=== PATIENT | female | born 1935 | race Caucasian/White ===

== ENCOUNTER 2021-08-22 08:04 | Emergency (ER) | payer MEDICARE, SELFPAY ==
--- NOTE | ~2021-08-22 | CT_ITS ---
EXAMINATION: CT HEAD WITHOUT CONTRAST CLINICAL INFORMATION: Hit head on Coumadin. COMPARISON: None TECHNIQUE: Contiguous axial imaging was performed from the skull base to vertex without intravenous administration of contrast. This CT examination was performed using dose optimization techniques as appropriate, variously including the following: *Automated exposure control *Adjustment of mA and/or kV according to patient size (this includes techniques or standardized protocols for targeted exams where dose is matched to indication/reason for exam; i.e. extremities or head) *Use of iterative reconstruction technique DLP: 642 mGy-cm FINDINGS: There is no evidence of acute intracranial hemorrhage or territorial infarction. No abnormal mass effect or midline shift is seen. Gr to white matter differentiation is well preserved. No extra-axial fluid collections are identified. The lateral ventricles are symmetrical in size and configuration without enlargement. There is mild periventricular hypodensity in both cerebral hemispheres without mass effect. The osseous structures and soft tissues are normal. The mastoid air cells and visualized portions of the paranasal sinuses are well aerated. CT/CT head/brain wo con IMPRESSION: No acute intracranial process seen. Age-related cerebral volume loss. Mild chronic small vessel ischemic changes.
--- NOTE | ~2021-08-22 | XR_ITS ---
EXAMINATION: LEFT FOREARM AND HUMERUS CLINICAL INFORMATION: Fall with injury COMPARISON: None TECHNIQUE: AP and lateral left forearm. AP and transthoracic left humerus. FINDINGS: There is osteopenia visualized bones. There is some soft tissue edema noted about the dorsum of the proximal ulnar. There is some spurring about some insertion of the triceps tendon as well as coronoid process. There is degenerative change of the triscaphe joint with narrowing and some sclerosis with spurring. There is degenerative change of the first carpal metacarpal joint with joint space narrowing and sclerosis. No definite acute fracture of the radius or ulnar identified. There is an oblique fracture through the distal left humerus with lateral displacement of the distal fracture fragment by approximately 1 cm. No dislocation is evident. There is degenerative change of the left glenohumeral joint. No definite elbow effusion is appreciated. XR/XR humerus LT IMPRESSION: Osteopenia. Distal left humeral fracture.
--- NOTE | ~2021-08-22 | XR_ITS ---
EXAMINATION: LEFT FOREARM AND HUMERUS CLINICAL INFORMATION: Fall with injury COMPARISON: None TECHNIQUE: AP and lateral left forearm. AP and transthoracic left humerus. FINDINGS: There is osteopenia visualized bones. There is some soft tissue edema noted about the dorsum of the proximal ulnar. There is some spurring about some insertion of the triceps tendon as well as coronoid process. There is degenerative change of the triscaphe joint with narrowing and some sclerosis with spurring. There is degenerative change of the first carpal metacarpal joint with joint space narrowing and sclerosis. No definite acute fracture of the radius or ulnar identified. There is an oblique fracture through the distal left humerus with lateral displacement of the distal fracture fragment by approximately 1 cm. No dislocation is evident. There is degenerative change of the left glenohumeral joint. No definite elbow effusion is appreciated. XR/XR forearm LT 2V IMPRESSION: Osteopenia. Distal left humeral fracture.
--- NOTE | 2021-08-22 08:12 | ED.FALL ---
HPI - Fall General Chief Complaint: Fall Stated Complaint: L ARM PAIN/DEFORMITY,S/P BRACING HERSELF FROM FALL Time Seen by Provider: 08/22/21 08:12 Source: patient and EMS Mode of arrival: EMS Limitations: no limitations History of Present Illness HPI Narrative: patient slipped in the bathroom and pulled her arm. According to EMS the elbow looked deformed. Splinted and given fentanyl. No other injury MD complaint: fall Onset (ago): minute(s) Fall from: standing Fall witnessed: yes, by family Place fall occurred: home Loss of consciousness: none Location of injury - extremities: left: arm and forearm Severity: severe Related Data Home Medications Medication Instructions Recorded Confirmed acetaminophen 500 mg tablet 1,000 mg PO BID 08/22/21 08/22/21 digoxin 125 mcg (0.125 mg) tablet 125 mcg PO DAILY@1700 08/22/21 08/22/21 docusate sodium 100 mg capsule 100 mg PO BID 08/22/21 08/22/21 (Colace) gabapentin 100 mg capsule 1 cap PO DAILY@1700 08/22/21 08/22/21 metoprolol tartrate 50 mg tablet 1 tab PO BID 08/22/21 08/22/21 mirtazapine 15 mg tablet 1 tab PO BEDTIME 08/22/21 08/22/21 warfarin 2.5 mg tablet 2.5 mg PO SUTUWEFRSA@1800 08/22/21 08/22/21 warfarin 2.5 mg tablet 5 mg PO MOTH@1800 08/22/21 08/22/21 Previous Rx's Medication Instructions Recorded oxycodone-acetaminophen 5 mg-325 1 tab PO Q6H PRN #10 tab 08/22/21 mg tablet (Percocet) Allergies Allergy/AdvReac Type Severity Reaction Status Date / Time amoxicillin [AMOXICILLIN] Allergy Severe ANAPHYLAXIS Verified 08/22/21 08:36 iodine [IODINE] Allergy Severe SHORTNESS Verified 08/22/21 08:36 OF BREATH coffee (Coffea arabica) Allergy Intermediate TONGUE Verified 08/22/21 08:36 [COFFEE (BEVERAGE)] SWELLING penicillin G [PENICILLIN G] Allergy Unknown RASH Verified 08/22/21 08:36 shellfish derived Allergy Unknown TONGUE Verified 08/22/21 08:36 [SHELLFISH DERIVED] SWELLING Sulfa (Sulfonamide Allergy Unknown DIFFICULTY Verified 08/22/21 08:36 Antibiotics) BREATHING [SULFA (SULFONAMIDE ANTIBIOTICS)] Review of Systems Constitutional: Constitutional: Reports no additional constitutional complaints Eyes: Eyes: Reports no additional eye complaints ENT: Denies dizziness Cardiovascular: Cardiovascular: Reports no additional cardiovascular complaints Respiratory: Respiratory: Reports as per HPI Gastrointestinal: Gastrointestinal: Reports no additional gastrointestinal complaints Genitourinary: Genitourinary: Reports no additional female genitourinary complaints Musculoskeletal: Musculoskeletal: Reports no additional musculoskeletal complaints Integumentary/Breasts: Skin/Breast: Denies rash Neurologic: Reports system reviewed and no additional complaints, except as documented, Denies dizziness and Denies Sensory deficit (Neuro) Psychiatric: Psychiatric: Denies anxiety [facility] Past Medical History Medical History HTN (hypertension) Social History Social History Advance Directives: Yes Advance Directives Information Provided: Yes Advance Directives on File: Yes Advance Directives Date on File: 08/22/21 Patient : No Physical Exam Vital Signs: Vital Signs: Last Vital Signs Temp 97.7 F 08/22/21 10:54 Pulse 64 08/22/21 13:00 Resp 16 08/22/21 10:54 BP 198/85 H 08/22/21 10:54 Pulse Ox 95 08/22/21 13:00 BMI result Body Mass Index 24.7 Const: General: healthy appearing Nutritional Appearance: average body habitus Orientation/consciousness: oriented to person and patient oriented x3 Limitations: no limitations HENMT: Head: Yes normal to inspection Ears: external ears normal General nose exam: Normal external nose present Mouth: Normal oral and palatal mucosa present and oropharynx normal Throat: Yes posterior oropharynx normal Eyes: General: appearance normal, both eyes and all related structures Neck: Other: supple Neck: Yes normal visual inspection Chest: Chest palpation & inspection: normal inspection of the chest Resp: Auscultation: clear to auscultation bilaterally Cardio: Jugular venous distension: no JVD Rate: regular rate Rhythm: regular rhythm Heart sounds: S1 normal heart sound present and S2 normal heart sound present GI: Inspection: Yes normal to inspection Palpation (GI): Soft to palpation, nontender and No hepatosplenomegaly present Auscultation: normal bowel sounds : General: Yes no CVA tenderness Back/Spine/Pelvis: Back: no CVA tenderness Skin: General skin exam: no rashes or lesions noted Neuro: General: oriented to person and patient oriented x3 Cranial nerves: Yes CN's II-XII intact bilaterally Motor exam (neuro): 5/5 motor strength present throughout Sensory Exam: No Sensory deficit (Neuro) Extrem: Other: elbow, forearm, and humerus with significant pain good DP and neurologically intact. Psych: Appearance: grossly normal Course Reevaluation(s) Reevaluation #1: discussed with Lisbeth from ortho will admit for likely surgery Time: 11:06 Reevaluation #2: Dr Dutton in to see patient will splint, patient to need rehab Time: 11:46 MDM - Fall Lab Data Result diagrams: 08/22/21 09:44 08/22/21 09:44 Labs: Lab Results 08/22/21 08/22/21 08/22/21 Range/Units 09:44 09:44 09:44 WBC 9.4 (4.8-10.8) X10*3/uL RBC 5.14 (4.20-5.50) X10*6/uL Hgb 16.1 H (12.0-16.0) g/dl Hct 49.7 H (37.0-47.0) % MCV 96.7 (80.0-98.0) fL MCH 31.3 (27.0-33.0) pg MCHC 32.4 (31.0-35.0) g/dl RDW 13.4 (11.0-16.0) % Plt Count 255 (160-400) X10*3/uL MPV 10.1 (9.4-12.3) fL Immature Gran % (Auto) 0.2 (0.0-0.4) % Neut % (Auto) 81.5 H (45-73) % Lymph % (Auto) 10.6 L (20-40) % Collin % (Auto) 4.4 (2-11) % Eos % (Auto) 2.7 (0-4) % Baso % (Auto) 0.6 (0-2) % Lymph # (Auto) 1.0 L (1.2-4.9) X10*3/uL Collin # (Auto) 0.4 (0.1-1.2) X10*3/uL Eos # (Auto) 0.3 (0.0-0.4) X10*3/uL Baso # (Auto) 0.1 (0.0-0.2) X10*3/uL Abs Immat Gran (auto) 0.02 (0.00-0.03) X10*3/uL Absolute Neuts (auto) 7.6 (2.0-8.3) x10*3/uL Absolute Nucleated RBC 0.000 (0.0-0.012) X10*3/uL Nucleated RBC % (auto) 0.0 (0.0-0.2) /100WBC PT 31.5 H (9.9-13.0) SEC INR 2.7 H (0.9-1.1) Sodium 143 (135-145) mmol/L Potassium 3.4 (3.3-5.1) mmol/L Chloride 107 (96-108) mmol/L Carbon Dioxide 26 (22-29) mmol/L Anion Gap 13 (12-20) BUN 9 (9-16) mg/dL Creatinine 0.82 (0.5-1.4) mg/dL Estim Creat Clear Calc 44.1 Estimated GFR > 60 Random Glucose 152 H (60-115) mg/dL Calcium 9.3 (8.4-10.2) mg/dL Digoxin (0.8-2.0) ng/mL Influenza Type A (PCR) (Negative) Influenza Type B (PCR) (Negative) RSV RNA Qual (PCR) (Negative) SARS-CoV-2 RNA (RT-PCR) (Negative) 08/22/21 08/22/21 Range/Units 09:44 14:15 WBC (4.8-10.8) X10*3/uL RBC (4.20-5.50) X10*6/uL Hgb (12.0-16.0) g/dl Hct (37.0-47.0) % MCV (80.0-98.0) fL MCH (27.0-33.0) pg MCHC (31.0-35.0) g/dl RDW (11.0-16.0) % Plt Count (160-400) X10*3/uL MPV (9.4-12.3) fL Immature Gran % (Auto) (0.0-0.4) % Neut % (Auto) (45-73) % Lymph % (Auto) (20-40) % Collin % (Auto) (2-11) % Eos % (Auto) (0-4) % Baso % (Auto) (0-2) % Lymph # (Auto) (1.2-4.9) X10*3/uL Collin # (Auto) (0.1-1.2) X10*3/uL Eos # (Auto) (0.0-0.4) X10*3/uL Baso # (Auto) (0.0-0.2) X10*3/uL Abs Immat Gran (auto) (0.00-0.03) X10*3/uL Absolute Neuts (auto) (2.0-8.3) x10*3/uL Absolute Nucleated RBC (0.0-0.012) X10*3/uL Nucleated RBC % (auto) (0.0-0.2) /100WBC PT (9.9-13.0) SEC INR (0.9-1.1) Sodium (135-145) mmol/L Potassium (3.3-5.1) mmol/L Chloride (96-108) mmol/L Carbon Dioxide (22-29) mmol/L Anion Gap (12-20) BUN (9-16) mg/dL Creatinine (0.5-1.4) mg/dL Estim Creat Clear Calc Estimated GFR Random Glucose (60-115) mg/dL Calcium (8.4-10.2) mg/dL Digoxin 0.5 L (0.8-2.0) ng/mL Influenza Type A (PCR) NEGATIVE (Negative) Influenza Type B (PCR) NEGATIVE (Negative) RSV RNA Qual (PCR) NEGATIVE (Negative) SARS-CoV-2 RNA (RT-PCR) NEGATIVE (Negative) Imaging Data CT scan - head: Radiologist's impression: IMPRESSION: No acute intracranial process seen. ? Age-related cerebral volume loss. ? Mild chronic small vessel ischemic changes. hymerus and forearm: Radiologist's impression: There is an oblique fracture through the distal left humerus with lateral displacement of the distal fracture fragment by approximately 1 cm. No dislocation is evident. There is degenerative change of the left glenohumeral joint. No definite elbow effusion is appreciated. XR/XR humerus LT IMPRESSION: Osteopenia. ? Distal left humeral fracture.? ECG Data Attestation: I personally reviewed and interpreted this ECG as follows: Interpretation: atrial fibrillation no st or twave changes Discharge Plan Discharge Clinical Impression: Fracture, humerus closed Qualifiers: Encounter type: initial encounter Humerus Location: distal Fracture morphology: other fracture Fracture alignment: displaced Laterality: left Qualified Code(s): S42.492A - Other displaced fracture of lower end of left humerus, initial encounter for closed fracture Patient Disposition: er [facility] Instructions: Arm Fracture in Adults (ED) Prescriptions: New oxycodone-acetaminophen [Percocet] 5-325 mg tablet 1 tab PO Q6H PRN (Reason: pain) Qty: 10 RF: 0 No Action warfarin 2.5 mg tablet 2.5 mg PO SUTUWEFRSA@1800 RF: 0 warfarin 2.5 mg tablet 5 mg PO MOTH@1800 RF: 0 acetaminophen 500 mg Tablet 1,000 mg PO BID RF: 0 metoprolol tartrate 50 mg tablet 1 tab PO BID RF: 0 docusate sodium [Colace] 100 mg Capsule 100 mg PO BID RF: 0 mirtazapine 15 mg tablet 1 tab PO BEDTIME RF: 0 gabapentin 100 mg capsule 1 cap PO DAILY@1700 RF: 0 digoxin 125 mcg (0.125 mg) tablet 125 mcg PO DAILY@1700 RF: 0 Referrals: [facility] [Outside] - 2 days Js Dutton MD [Physician] - 5 days
[2021-08-22 08:22] VITALS: BP 187/95; PULSE 58; RESP 16; TEMP 36.6; O2SAT 95; BMI 24.7
--- NOTE | 2021-08-22 08:58 | ECG_ITS ---
Test Reason : FALL Blood Pressure : / mmHG Vent. Rate : 056 BPM Atrial Rate : 000 BPM P-R Int : 000 ms QRS Dur : 096 ms QT Int : 430 ms P-R-T Axes : 000 -20 -17 degrees QTc Int : 414 ms Atrial fibrillation with slow ventricular response Minimal voltage criteria for LVH, may be normal variant ( [place] product ) Nonspecific T wave abnormality Abnormal ECG When compared with ECG of 30-SEP-2019 07:22, No significant change was found Referred By: Jf Jansen Electronically Signed By:MOE CORDERO
[2021-08-22 09:49] VITALS: BP 196/83; PULSE 58; RESP 18; O2SAT 98
[2021-08-22 09:53] LABS: MANUAL DIFF FLAG NO
[2021-08-22 09:59] LABS: Basophils Absolute Auto 0.1 X10*3/uL (0.0-0.2); Basophils Percent Auto 0.6 % (0-2); Eosinophils Absolute Auto 0.3 X10*3/uL (0.0-0.4); Eosinophils Percent Auto 2.7 % (0-4); Hematocrit 49.7 % (37.0-47.0); Hemoglobin 16.1 g/dl (12.0-16.0); Imm Gran Abs Auto 0.02 X10*3/uL (0.00-0.03); Imm Gran Pct Auto 0.2 % (0.0-0.4); Lymphocytes Percent Auto 10.6 % (20-40); Mean Corpuscular HGB Conc 32.4 g/dl (31.0-35.0); Mean Corpuscular Hemoglobin 31.3 pg (27.0-33.0); Mean Corpuscular Volume 96.7 fL (80.0-98.0); Mean Platelet Volume 10.1 fL (9.4-12.3); Monocytes Absolute Auto 0.4 X10*3/uL (0.1-1.2); Monocytes Percent Auto 4.4 % (2-11); Neutrophils Absolute Auto 7.6 x10*3/uL (2.0-8.3); Neutrophils Percent Auto 81.5 % (45-73); Platelet Count 255 X10*3/uL (160-400); Red Blood Count 5.14 X10*6/uL (4.20-5.50); Red Cell Distribution Width 13.4 % (11.0-16.0); White Blood Count 9.4 X10*3/uL (4.8-10.8)
[2021-08-22 10:02] LABS: INTERNATIONAL NORM RATIO 2.7 (0.9-1.1); Prothrombin Time 31.5 SEC (9.9-13.0)
[2021-08-22 10:09] LABS: Anion Gap 13 (12-20); Blood Urea Nitrogen 9 mg/dL (9-16); Calcium 9.3 mg/dL (8.4-10.2); Carbon Dioxide 26 mmol/L (22-29); Chloride 107 mmol/L (96-108); Creatinine Clr Calc Pharmacy 44.1; Estimated Glomerular Filt Rate > 60; Glucose Random 152 mg/dL (60-115); Potassium 3.4 mmol/L (3.3-5.1); Sodium 143 mmol/L (135-145)
[2021-08-22 10:54] VITALS: BP 198/85; PULSE 64; RESP 16; TEMP 36.5; O2SAT 95
[2021-08-22 11:26] LABS: Digoxin 0.5 ng/mL (0.8-2.0)
[2021-08-22] MEDS: Morphine Sulfate 4 MG/ML CARTRIDGE IVPUSH (12:23)
--- NOTE | 2021-08-22 12:27 | PHA.MEDREC ---
Pharmacy Consult ? Medication Reconciliation Pharmacy has completed the medication reconciliation. There are no remarkable issues for provider's attention. Confirmed medications with patient's son. Akila Acevedo, MiliD
[2021-08-22 13:00] VITALS: PULSE 64; O2SAT 95
--- NOTE | 2021-08-22 13:45 | PC.NURSE ---
patient utilizing bed whitaker. States it is painful to roll all the time. Patient received prn pain medication. Cleaned up, linen changed. Purewick in place.
--- NOTE | 2021-08-22 13:59 | MHC.CM.ED ---
Received case management consult from Dr Jansen. Patient came to the ER after a fall. Physical therapy eval completed. Short term rehab is recommended. Met with patient and son, Edward. Patient lives with Edward, ambulated with a walker and had no services prior to coming to the ER. PCP verified as Dr Cavanaugh at [facility]. Patient received Moderna vaccines on 05/15 and 06/12. Copy of HCP verified to be on file. Patient has been to [facility] in the past and requested referral there. Referral made via [employer]. List of facilities within 10 miles of patient's residence provided via [facility] in case [facility] is not able to offer a bed. Continue to monitor for d/c needs.
--- NOTE | 2021-08-22 14:19 | P.CONOP_ITS ---
History of Present Illness HPI Consult date: 08/22/21 Requesting physician: Jf Jansen Chief complaint: L ARM PAIN/DEFORMITY,S/P BRACING HERSELF FROM FALL Narrative: This is an 86-year-old woman who sustained a mechanical fall and presented emergency room with left arm pain. Imaging demonstrated a left distal humeral shaft fracture. She denied other discomfort on examination. She was with her son. 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 She uses her arms to help her with a walker. She also describes longstanding left arm pain possibly shoulder pain and states she does not use her left arm much although denies any history review of EVAR any focal musculoskeletal weakness. Review of Systems Review of Systems: Yes all other systems are reviewed and are negative [facility] Past Medical History Medical History HTN (hypertension) Functional capacity: uses cane/walker Patient : No Family History Family history: reviewed and not pertinent Social History Social History Advance Directives: Yes Advance Directives Information Provided: Yes Advance Directives on File: Yes Advance Directives Date on File: 08/22/21 Meds Allergies Allergy/AdvReac Type Severity Reaction Status Date / Time amoxicillin [AMOXICILLIN] Allergy Severe ANAPHYLAXIS Verified 08/22/21 08:36 iodine [IODINE] Allergy Severe SHORTNESS Verified 08/22/21 08:36 OF BREATH coffee (Coffea arabica) Allergy Intermediate TONGUE Verified 08/22/21 08:36 [COFFEE (BEVERAGE)] SWELLING penicillin G [PENICILLIN G] Allergy Unknown RASH Verified 08/22/21 08:36 shellfish derived Allergy Unknown TONGUE Verified 08/22/21 08:36 [SHELLFISH DERIVED] SWELLING Sulfa (Sulfonamide Allergy Unknown DIFFICULTY Verified 08/22/21 08:36 Antibiotics) BREATHING [SULFA (SULFONAMIDE ANTIBIOTICS)] Home Medications Medication Instructions Recorded Confirmed Last Taken Type acetaminophen 500 mg tablet 1,000 mg PO BID 08/22/21 08/22/21 08/21/21 History digoxin 125 mcg (0.125 mg) tablet 125 mcg PO DAILY@1700 08/22/21 08/22/21 08/21/21 History docusate sodium 100 mg capsule 100 mg PO BID 08/22/21 08/22/21 08/21/21 History (Colace) gabapentin 100 mg capsule 1 cap PO DAILY@1700 08/22/21 08/22/21 08/21/21 History metoprolol tartrate 50 mg tablet 1 tab PO BID 08/22/21 08/22/21 08/21/21 History mirtazapine 15 mg tablet 1 tab PO BEDTIME 08/22/21 08/22/21 08/21/21 History warfarin 2.5 mg tablet 2.5 mg PO SUTUWEFRSA@1800 08/22/21 08/22/21 08/21/21 History warfarin 2.5 mg tablet 5 mg PO MOTH@1800 08/22/21 08/22/21 08/21/21 History Physical Exam Vital Signs: Vital Signs: Last Vital Signs Temp 97.7 F 08/22/21 10:54 Pulse 64 08/22/21 13:00 Resp 16 08/22/21 10:54 BP 198/85 H 08/22/21 10:54 Pulse Ox 95 08/22/21 13:00 BMI result Body Mass Index 24.7 NAD Extrem: Other: Pain with motion left arm. Mild STS. SILT and firing EPL/FDP/IO. Palpable radial pulse Results Labs Result Diagrams: 08/22/21 09:44 08/22/21 09:44 Labs: Abnormal lab results 08/22/21 08/22/21 08/22/21 Range/Units 09:44 09:44 09:44 Hgb 16.1 H (12.0-16.0) g/dl Hct 49.7 H (37.0-47.0) % Neut % (Auto) 81.5 H (45-73) % Lymph % (Auto) 10.6 L (20-40) % Lymph # (Auto) 1.0 L (1.2-4.9) X10*3/uL PT 31.5 H (9.9-13.0) SEC INR 2.7 H (0.9-1.1) Random Glucose 152 H (60-115) mg/dL Digoxin (0.8-2.0) ng/mL 08/22/21 Range/Units 09:44 Hgb (12.0-16.0) g/dl Hct (37.0-47.0) % Neut % (Auto) (45-73) % Lymph % (Auto) (20-40) % Lymph # (Auto) (1.2-4.9) X10*3/uL PT (9.9-13.0) SEC INR (0.9-1.1) Random Glucose (60-115) mg/dL Digoxin 0.5 L (0.8-2.0) ng/mL H & H 08/22/21 Range/Units 09:44 Hgb 16.1 H (12.0-16.0) g/dl Hct 49.7 H (37.0-47.0) % Coagulation 08/22/21 Range/Units 09:44 INR 2.7 H (0.9-1.1) All other labs normal. Diagnostic results Shoulder x-ray: image reviewed ( Radiologist's impression: There is an oblique fracture through the distal left humerus with lateral displacement of the distal fracture fragment by approximately 1 cm. ) Assessment and Plan (1) Fracture, humerus closed: Qualifiers: Encounter type: initial encounter Fracture alignment: displaced Fracture morphology: other fracture Humerus Location: distal Laterality: left Qualified Code(s): S42.492A - Other displaced fracture of lower end of left humerus, initial encounter for closed fracture Status: Acute I discussed this patient's diagnosis with her and her son. I recommend non operative treatment at the moment. She is 86 years old and walker dependent and I believe that immobilization and serial follow-up with x-ray is the best course of action. I discussed alternative treatments including surgery with the patient and her son but at this time I do not recommend surgery. I would like to see her back in 7-10 days with x-ray. She was placed into a well-padded posterior splint and given a sling and she should not weightbear the left upper extremity. Procedures Date of Service Date of Service: 08/22/21
--- NOTE | 2021-08-22 14:36 | MHC.CM.ED ---
[facility] is able to offer a bed if Covid screen is negative. Patient and son Edward aware Covid test is pending. Continue to monitor for d/c needs.
[2021-08-22 15:24] LABS: Influenza A PCR NEGATIVE (Negative); Influenza B PCR NEGATIVE (Negative); Resp Syncy Virus RNA Qual PCR NEGATIVE (Negative); SARS COV2 PCR INHOUSE NEGATIVE (Negative)
[2021-08-22 16:01] VITALS: BP 178/94; PULSE 59; RESP 16; TEMP 36.4; O2SAT 95
== END 2021-08-22 16:50 | disposition skilled nursing facility (03) ==
PROVIDERS: Emergency Provider Emergency Medicine; PCP Internal Medicine
DX: S42.492A Other displaced fracture of lower end of left humerus, initial encounter for closed fracture (principal); M79.602 Pain in left arm; G44.309 Post-traumatic headache, unspecified, not intractable; W01.0XXA Fall on same level from slipping, tripping and stumbling without subsequent striking against object, initial encounter; Y93.9 Activity, unspecified; Y92.002 Bathroom of unspecified non-institutional (private) residence as the place of occurrence of the external cause; Y99.9 Unspecified external cause status; Z20.822 Contact with and (suspected) exposure to COVID-19; Z79.899 Other long term (current) drug therapy
CPT/HCPCS: 0241U; 29105; 36415; 70450; 73060; 73090; 80048; 80162; 85025; 85610; 93005; 96374; 97162; 99284; 99285; J2270

== ENCOUNTER 2021-09-06 12:45 | Outpatient (REF) | payer MEDICARE, SELFPAY ==
--- NOTE | ~2021-09-06 | XR_ITS ---
EXAMINATION: XR HUMERUS, LEFT CLINICAL INFORMATION: Unspecified fracture of lower end of unspecified bone. COMPARISON: Left humerus 08/22/2021. TECHNIQUE: AP and lateral views of the left humerus. XR/XR humerus LT FINDINGS AND IMPRESSION: There is slightly less than one shaft width posterior and lateral displacement of the distal humeral diaphyseal fracture, slightly improved. There is, however, worsening anterior and medial angulation.
== END 2021-09-06 12:46 | disposition home or self-care (01) ==
LOC: HO.HOSX 12:45
PROVIDERS: Visit Provider Physician Assistant
DX: S42.402A Unspecified fracture of lower end of left humerus, initial encounter for closed fracture (principal); W01.0XXA Fall on same level from slipping, tripping and stumbling without subsequent striking against object, initial encounter; Y93.9 Activity, unspecified; Y92.89 Other specified places as the place of occurrence of the external cause; Y99.9 Unspecified external cause status
CPT/HCPCS: 73060; 99212

== ENCOUNTER 2021-09-17 20:03 | Emergency (ER) | payer MEDICARE, SELFPAY ==
--- NOTE | ~2021-09-17 | US_ITS ---
EXAMINATION: US VENOUS WITH DOPPLER UPPER EXTREMITY, LEFT CLINICAL INFORMATION: Left arm pain. COMPARISON: None TECHNIQUE: Ultrasound of the upper extremity is performed using compression sonography and color and pulse Doppler flow with assessment of augmentation of flow. There is also imaging and Doppler assessment of the jugular and subclavian veins. Spectral analysis with color-flow imaging is performed. FINDINGS: Respiratory variation, normal compression, and augmented flow are noted throughout the upper extremity including the axillary, brachial, cubital, and radial and ulnar veins. There is normal flow in the internal jugular and subclavian veins. There is no visible deep or superficial thrombophlebitis. If the patient's symptoms progress, a followup ultrasound in 5 -7 days might be of value to exclude proximal propagation from a nonvisualized distal arm vein. US/US venous duplex UE LT IMPRESSION: No DVT demonstrated in the left arm.
--- NOTE | ~2021-09-17 | XR_ITS ---
EXAMINATION: XR HUMERUS, LEFT CLINICAL INFORMATION: Worsening pain. Known fracture. COMPARISON: Left humerus 09/06/2021 TECHNIQUE: AP and lateral views of the left humerus. FINDINGS: Redemonstration of the displaced oblique fracture of the distal shaft of left humerus. Positioning similar to prior radiographs. There is developing ossified callus at the fracture site. 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 [id number] contact and remodeling of articular surfaces of the glenoid and humerus. Marginal bone spurs of the inferior humeral head. XR/XR humerus LT IMPRESSION: Redemonstration of displaced oblique fracture of the distal shaft of left humerus. No significant change in position since prior study 09/06/2021. There is developing ossified callus at the fracture.
--- NOTE | 2021-09-17 20:56 | ED.EXTPRO ---
HPI - Extremity Problem General Stated complaint: L humerus fx (sent by keegan) Time Seen by Provider: 09/17/21 20:15 Source: patient and EMS Mode of arrival: EMS Limitations: no limitations History of Present Illness HPI Narrative: Patient comes to the emergency room complaining of left arm pain. Patient states that she was seen earlier by her PCP and was told to come to the emergency room. Patient had a fall on August 22, sustain a left humeral fracture. Seems that the swelling is getting worse and the pain keeps worsening. Patient is not sure why she is here. However, it seems that patient's arm is significantly swollen, and we need to rule out DVT. Visits the localized pain, patient has no other complaints. Patient denies chest pain, no shortness of breath, no lower extremity pain or swelling. Related Data Home Medications Medication Instructions Recorded Confirmed acetaminophen 500 mg tablet 1,000 mg PO BID 08/22/21 08/22/21 digoxin 125 mcg (0.125 mg) tablet 125 mcg PO DAILY@1700 08/22/21 08/22/21 docusate sodium 100 mg capsule 100 mg PO BID 08/22/21 08/22/21 (Colace) gabapentin 100 mg capsule 1 cap PO DAILY@1700 08/22/21 08/22/21 metoprolol tartrate 50 mg tablet 1 tab PO BID 08/22/21 08/22/21 mirtazapine 15 mg tablet 1 tab PO BEDTIME 08/22/21 08/22/21 warfarin 2.5 mg tablet 2.5 mg PO SUTUWEFRSA@1800 08/22/21 08/22/21 warfarin 2.5 mg tablet 5 mg PO MOTH@1800 08/22/21 08/22/21 Previous Rx's Medication Instructions Recorded oxycodone-acetaminophen 5 mg-325 1 tab PO Q6H PRN #10 tab 08/22/21 mg tablet (Percocet) oxycodone 5 mg tablet 5 mg PO Q8H PRN #7 tab 09/17/21 Allergies Allergy/AdvReac Type Severity Reaction Status Date / Time amoxicillin [AMOXICILLIN] Allergy Severe ANAPHYLAXIS Verified 09/06/21 14:50 iodine [IODINE] Allergy Severe SHORTNESS Verified 09/06/21 14:50 OF BREATH coffee (Coffea arabica) Allergy Intermediate TONGUE Verified 09/06/21 14:50 [COFFEE (BEVERAGE)] SWELLING penicillin G [PENICILLIN G] Allergy Unknown RASH Verified 09/06/21 14:50 shellfish derived Allergy Unknown TONGUE Verified 09/06/21 14:50 [SHELLFISH DERIVED] SWELLING Sulfa (Sulfonamide Allergy Unknown DIFFICULTY Verified 09/06/21 14:50 Antibiotics) BREATHING [SULFA (SULFONAMIDE ANTIBIOTICS)] Review of Systems Review of Systems: Constitutional : No Weight loss, No Fever, No Chills, No Night Sweats, No Fatigue, No Malaise ENT/Mouth : No Hearing loss, No Ear Pain, No Nasal Congestion, No Sinus Pain, No Hoarseness, No sore throat, No Rhinorrhea, No Swallowing Difficulty Eyes: No Eye Pain, No Swelling, No Redness, No Foreign Body, No Discharge, No Vision Changes Cardiovascular : No Chest Pain, No SOB, No Dyspnea on Exertion, No Orthopnea, No Edema, No Palpitations Respiratory : No Cough, No Sputum, No Wheezing, No Smoke Exposure, No Dyspnea Gastrointestinal : No Nausea, No Vomiting, No Diarrhea, No Constipation, No abdominal Pain, No Hematochezia, No Melena Genitourinary : no irregular bleeding, No Dysuria, No Urinary Frequency, No Hematuria, No Urinary Incontinence, No Urgency, No Flank Pain, No Urinary Flow Changes, No Hesitancy Musculoskeletal : No joint pain, complaining left upper extremity pain and swelling Skin : No Skin Lesions, No rash Neuro : No Weakness, No Numbness, No Paresthesias, No Loss of Consciousness, No Dizziness, No Headache Psych : No Anxiety/Panic, No Depression, No SI/HI/AH/VH, No Social Issues, Heme/Lymph: No Bruising, No Bleeding,No Lymphadenopathy Endocrine : No Polyuria, No Polydipsia, No Temperature Intolerance [facility] Past Medical History Medical History HTN (hypertension) Social History Social History Advance Directives: Yes Advance Directives on File: Yes Advance Directives Date on File: 08/22/21 Physical Exam Const: Other: Appearance: Alert. Oriented X3. No acute distress. Eyes: Pupils equal, round and reactive to light. ENT: Pharynx normal. Neck: Normal inspection. Neck supple. No lymph nodes noted. No crepitus CVS: Normal heart rate and rhythm. Pulses normal. Normal S1 and S2 Respiratory: No respiratory distress. Breath sounds normal. No Wheezing. No rales Abdomen: Soft and nontender. No rigidity. No distention. good BS x4 Skin: Skin warm and dry. Old ecchymosis in left upper extremity. Extremities: Patient has significantly swelling/edema in the left upper extremity. Neuro: Oriented X 3. No motor deficit. No sensory deficit. Moving all extermities. No slurred speech. Course Course Course Narrative: Patient complaining of worsening localize pain in her left upper extremity. Patient had a fall on 08/22/2021. X-rays pending, ultrasound of the left upper extremity pending. Patient was given 1 dose of tramadol. I am anticipating that the patient will likely be discharged home. As mentioned above the ultrasound and the x-ray report is pending. Sign-out given to Dr. Liu Discharge Plan Discharge Clinical Impression: Arm pain, chronic Instructions: Arm Pain (ED) Additional Instructions: Please follow-up with your primary care physician tomorrow. If you have any worsening or new symptoms, please return to the emergency room or call 911 Prescriptions: New oxycodone 5 mg tablet 5 mg PO Q8H PRN (Reason: pain) Qty: 7 RF: 0 No Action warfarin 2.5 mg tablet 2.5 mg PO SUTUWEFRSA@1800 RF: 0 warfarin 2.5 mg tablet 5 mg PO MOTH@1800 RF: 0 acetaminophen 500 mg Tablet 1,000 mg PO BID RF: 0 metoprolol tartrate 50 mg tablet 1 tab PO BID RF: 0 docusate sodium [Colace] 100 mg Capsule 100 mg PO BID RF: 0 mirtazapine 15 mg tablet 1 tab PO BEDTIME RF: 0 gabapentin 100 mg capsule 1 cap PO DAILY@1700 RF: 0 digoxin 125 mcg (0.125 mg) tablet 125 mcg PO DAILY@1700 RF: 0 oxycodone-acetaminophen [Percocet] 5-325 mg tablet 1 tab PO Q6H PRN (Reason: pain) Qty: 10 RF: 0
[2021-09-17 21:51] VITALS: BP 118/78; BP 131/64; PULSE 58; PULSE 78; RESP 18; TEMP 36.4; O2SAT 95; O2SAT 97; BMI 26.5
== END 2021-09-17 23:22 | disposition home or self-care (01) ==
PROVIDERS: Emergency Provider Emergency Medicine; PCP Internal Medicine
DX: M79.602 Pain in left arm (principal); G89.29 Other chronic pain; S42.302D Unspecified fracture of shaft of humerus, left arm, subsequent encounter for fracture with routine healing; X58.XXXD Exposure to other specified factors, subsequent encounter; I10 Essential (primary) hypertension
CPT/HCPCS: 73060; 93971; 99283; 99284

== ENCOUNTER 2021-09-18 14:20 | Emergency (ER) | payer MEDICARE, SELFPAY ==
[2021-09-18 14:45] VITALS: BP 115/52; PULSE 61; RESP 18; TEMP 36.6; O2SAT 96
[2021-09-18 14:48] VITALS: BP 115/52; BP 123/60; PULSE 60; RESP 16; TEMP 36.7; O2SAT 95; BMI 24.8
--- NOTE | 2021-09-18 15:13 | ED.GENADULT ---
HPI - General Adult General Chief complaint: General Medical Stated complaint: L HUMERUS FX 08/22,? DISPLACED NOW PER SNF Time Seen by Provider: 09/18/21 14:28 Source: patient and EMS Mode of arrival: EMS Limitations: no limitations History of Present Illness HPI narrative: This is an 86-year-old female pmhx htn that presents to the emergency department with a left arm pain, she was seen here yesterday where she was told she had a fracture of the humerus, she had a complete evlauation done yesterday. She went back to detention facility and reported pain. This detention facility wanted her transferred to [facility] so she could see [facility] however she ended up here at [facility]. EMS is unsure of reason for transfer, they got that the transfer to the hospital was due to left arm pain. She is complaining of left arm pain that is severe. No new trauma to the area. This injury is secondary to a fall that occurred on Aug 22, 2021. Patient states she knows she was here and got xrays and an US, and complains of pain. She came in with a sling and states it helps Onset (ago): unknown (Aug 22, 2021) Location: left and upper extremity Radiation: non-radiation Severity: severe Severity scale (1-10): 10 Quality: sharp Pain Consistency: constant Relieving factors: immobilization and medication Exacerbating factors: movement Associated symptoms: denies other symptoms Treatments prior to arrival: none Related Data Home Medications Medication Instructions Recorded Confirmed acetaminophen 500 mg tablet 1,000 mg PO BID 08/22/21 08/22/21 digoxin 125 mcg (0.125 mg) tablet 125 mcg PO DAILY@1700 08/22/21 08/22/21 docusate sodium 100 mg capsule 100 mg PO BID 08/22/21 08/22/21 (Colace) gabapentin 100 mg capsule 1 cap PO DAILY@1700 08/22/21 08/22/21 metoprolol tartrate 50 mg tablet 1 tab PO BID 08/22/21 08/22/21 mirtazapine 15 mg tablet 1 tab PO BEDTIME 08/22/21 08/22/21 warfarin 2.5 mg tablet 2.5 mg PO SUTUWEFRSA@1800 08/22/21 08/22/21 warfarin 2.5 mg tablet 5 mg PO MOTH@1800 08/22/21 08/22/21 Previous Rx's Medication Instructions Recorded oxycodone-acetaminophen 5 mg-325 1 tab PO Q6H PRN #10 tab 08/22/21 mg tablet (Percocet) oxycodone 5 mg tablet 5 mg PO Q8H PRN #7 tab 09/17/21 Allergies Allergy/AdvReac Type Severity Reaction Status Date / Time amoxicillin [AMOXICILLIN] Allergy Severe ANAPHYLAXIS Verified 09/06/21 14:50 iodine [IODINE] Allergy Severe SHORTNESS Verified 09/06/21 14:50 OF BREATH coffee (Coffea arabica) Allergy Intermediate TONGUE Verified 09/06/21 14:50 [COFFEE (BEVERAGE)] SWELLING penicillin G [PENICILLIN G] Allergy Unknown RASH Verified 09/06/21 14:50 shellfish derived Allergy Unknown TONGUE Verified 09/06/21 14:50 [SHELLFISH DERIVED] SWELLING Sulfa (Sulfonamide Allergy Unknown DIFFICULTY Verified 09/06/21 14:50 Antibiotics) BREATHING [SULFA (SULFONAMIDE ANTIBIOTICS)] Review of Systems Review of Systems: Constitutional : No Weight loss, No Fever, No Chills, No Fatigue, No Malaise ENT/Mouth : No sore throat, No Rhinorrhea Eyes: No Eye Pain, No Swelling, No Redness Cardiovascular : No Chest Pain, No SOB, No Dyspnea on Exertion, No Orthopnea, No Edema, No Palpitations Respiratory : No Cough, No Sputum, No Wheezing Gastrointestinal : No Nausea, No Vomiting, No Diarrhea, No Constipation, No abdominal Pain, No Hematochezia, No Melena Genitourinary : No Dysuria, No Urinary Frequency, No Hematuria, Musculoskeletal : No joint pain, No Myalgias, No Joint Swelling, + left arm pain Skin : No Skin Lesions, No rash Neuro : No Weakness, No Numbness, No Dizziness, No Headache All other systems reviewed and are negative Yes all other systems are reviewed and are negative [facility] Past Medical History Attestation statement: The following information was validated with the patient. Source: old records reviewed and nursing notes reviewed Medical History HTN (hypertension) Social History Social History Advance Directives: Yes Advance Directives on File: Yes Advance Directives Date on File: 08/22/21 Physical Exam Vital Signs: Vital Signs: Last Vital Signs Temp 98.0 F 09/18/21 14:48 Pulse 60 09/18/21 14:48 Resp 16 09/18/21 14:48 BP 115/52 L 09/18/21 14:48 Pulse Ox 95 09/18/21 14:48 BMI result Body Mass Index 24.8 VSS Appearance: Alert.? Oriented X3.? No acute distress.? Head: Normocephalic, atraumatic, no step-offs or deformities Eyes: Pupils equal, round and reactive to light.? ENT: Pharynx normal.? Neck: Normal inspection.? Neck supple.? CVS: Normal heart rate and rhythm.? Pulses normal.? Respiratory: No respiratory distress.? Breath sounds normal.? Abdomen: Soft and nontender.? Skin: Skin warm and dry.? Normal skin color.? Normal skin turgor.? Extremities: No lower extremity edema.? No calf ttp. 5/5 strength to right upper and bilateral lower extremities + pain to palpation over all of left arm. Pain with ROM so limited ROM. Back: No midline tenderness, no C-spine tenderness, full range of motion, no CVA tenderness bilaterally Neuro: Oriented X 3.? No motor deficit.? No sensory deficit. Course Reevaluation(s) Reevaluation #1: Spoke to patient's son Edward, [phone] who tells me he is very upset with the care this hospital provided his mother. He tells me that he wanted his mother evaluated at [facility] because he is upset with how Orthopedics handle this injury. He tells me that before patient gets discharged he needs patient evaluated by Orthopedics and he needs his mother's arm to be put back in place. I explained to him I could not make that decision and I would speak to Orthopedics for advise. Time: 15:43 Reevaluation #2: Spoke to Makenna who tells me orthos recommendation initially was non-operatively treating this injury and seeing if it would heal, seeing as though patient has had multiple ER visits for left arm pain, this may require re-evaluation, to see if surgery is warranted. She tells me this is not an acute emergent procedure that would be done, and this requires counseling to family, and a decision on whether or not surgery is needed and appropriate. She tells me she will contact Dr. Dutton. Time: 15:53 Reevaluation #3: Our orthopedic team spoke to the son Edward, and they discussed following up on . At this time the plan is to have outpatient follow-up with Orthopedics on . Patient will be discharged back to the detention facility. I gave her a sling for comfort. Patient is safe for discharge back to detention facility. She refused pain meds here however, she does have a prescription for oxycodone 5 mg for pain. Time: 16:57 Medical Decision Making MDM Narrative Medical decision making narrative: [id number] YO F presents via ambulance for left arm pain s/p fall from 08/22/2021. To note, patient was diagnosed yesterday with a diagnosis of arm pain secondary to a left humeral fracture. There is also an ultrasound done of that extremity to rule out DVT, ultrasound is negative. Patient was discharged back to the facility with pain medicine and was advised to follow-up with orthopedics. Upon physical examination there is pain to palpation of the left upper extremity, and pain with range of motion due to pain. Left arm range of motion limited secondary to pain. No focal neuro deficits. No cough tenderness to palpation. Vital signs are stable. Plan at this time is to discharge patient back to detention facility as patient has already had multiple sets of images done to that left upper extremity, ultrasound is negative. She has a script for oxycodone for pain. And I have advised her to follow-up with orthopedics. Medical Records Medical records reviewed: Yes I reviewed the patient's medical records. Lab Data Lab results reviewed: Yes I reviewed the patient's lab results. Critical Care Time Critical Care Time Critical Care Time: No Discharge Plan Discharge Clinical Impression: Left arm pain Patient Disposition: [facility] Transfer Details: Suzanna Adrian. Instructions: Arm Pain (ED) Additional Instructions: Take your medications as prescribed. If you were prescribed antibiotics today, it is important that you take your medication to their entirety, do not skip any doses, do not finish them early. Follow-up with your primary care provider this week. Also advise you to follow-up with orthopedics. Return to the emergency department with new or worsening symptoms. In case of emergency call 911 Oxycodone was sent to your pharmacy yesterday please take this is prescribed for pain. Wear sling as needed, please remove for sleep. Prescriptions: No Action oxycodone 5 mg tablet 5 mg PO Q8H PRN (Reason: pain) Qty: 7 RF: 0 warfarin 2.5 mg tablet 2.5 mg PO SUTUWEFRSA@1800 RF: 0 warfarin 2.5 mg tablet 5 mg PO MOTH@1800 RF: 0 acetaminophen 500 mg Tablet 1,000 mg PO BID RF: 0 metoprolol tartrate 50 mg tablet 1 tab PO BID RF: 0 docusate sodium [Colace] 100 mg Capsule 100 mg PO BID RF: 0 mirtazapine 15 mg tablet 1 tab PO BEDTIME RF: 0 gabapentin 100 mg capsule 1 cap PO DAILY@1700 RF: 0 digoxin 125 mcg (0.125 mg) tablet 125 mcg PO DAILY@1700 RF: 0 oxycodone-acetaminophen [Percocet] 5-325 mg tablet 1 tab PO Q6H PRN (Reason: pain) Qty: 10 RF: 0 Referrals: Tonya Cabrera MD [Physician] - 2 days Physician,Unknown J [Primary Care Provider] - 2 days
[2021-09-18] MEDS: oxyCODONE HCl Immed Release 5 MG TABLET PO (17:12)
== END 2021-09-18 19:38 | disposition skilled nursing facility (03) ==
PROVIDERS: Emergency Provider Emergency Medicine
DX: M79.602 Pain in left arm (principal); S42.302D Unspecified fracture of shaft of humerus, left arm, subsequent encounter for fracture with routine healing; X58.XXXD Exposure to other specified factors, subsequent encounter; I10 Essential (primary) hypertension
CPT/HCPCS: 99284

== ENCOUNTER → 2021-11-05 13:55 | Outpatient (BNVA) | payer MEDICARE, SELFPAY | PROVIDERS: Visit Provider Internal Medicine | DX: Z01.810 Encounter for preprocedural cardiovascular examination (principal); I35.0 Nonrheumatic aortic (valve) stenosis; I48.21 Permanent atrial fibrillation | CPT/HCPCS: 93005; 99212 ==

== ENCOUNTER 2022-02-08 09:37 | Emergency (ER) | payer MEDICARE, SELFPAY ==
[2022-02-08] VITALS (7 sets, daily range): BP systolic 129–163; BP diastolic 49–94; PULSE 52–68; RESP 11–18; TEMP 36.4–36.7; O2SAT 94–100; BMI 25.0
--- NOTE | 2022-02-08 | ECG_ITS ---
Test Reason : altered mental status Blood Pressure : / mmHG Vent. Rate : 050 BPM Atrial Rate : 000 BPM P-R Int : 000 ms QRS Dur : 090 ms QT Int : 444 ms P-R-T Axes : 000 -16 017 degrees QTc Int : 404 ms Atrial fibrillation with slow ventricular response with premature ventricular or aberrantly conducted complexes Nonspecific T wave abnormality Abnormal ECG When compared with ECG of 22-AUG-2021 09:30, No significant change was found Referred By: Generic ED Physician Electronically Signed By:MOE CORDERO
--- NOTE | ~2022-02-08 | XR_ITS ---
EXAMINATION: XR CHEST CLINICAL INFORMATION: Acute mental status change. Hypoxia. COMPARISON: Previous chest x-ray from 2015 TECHNIQUE: Frontal view of the chest was obtained. FINDINGS: The cardiac and mediastinal contours are stable. There are postsurgical changes with surgical staple line projecting over the left upper lung. There are coarse lung markings questionable for pulmonary venous redistribution versus airways disease. The lungs are otherwise clear. There is no pleural effusion. There are degenerative changes of the spine. XR/XR chest 1V IMPRESSION: Surgical changes to the left upper lung. Coarse lung markings questionable for airways disease versus pulmonary venous redistribution.
--- NOTE | ~2022-02-08 | CT_ITS ---
EXAMINATION: CT HEAD WITHOUT CONTRAST CLINICAL INFORMATION: Confusion and ataxia COMPARISON: Previous head CT August 2021 TECHNIQUE: Contiguous axial imaging was performed from the skull base to vertex without intravenous administration of contrast. This CT examination was performed using dose optimization techniques as appropriate, variously including the following: *Automated exposure control *Adjustment of mA and/or kV according to patient size (this includes techniques or standardized protocols for targeted exams where dose is matched to indication/reason for exam; i.e. extremities or head) *Use of iterative reconstruction technique DLP: 679 mGy-cm FINDINGS: There is no evidence of an extra-axial collection. There is no evidence of intra-axial or extra-axial hemorrhage. The ventricles and extra-axial CSF spaces are prominent suggestive of mild generalized atrophy. There is nonspecific periventricular white matter disease. No mass, mass effect or infarct is seen. Review of bone windows is normal. No skull fracture is seen. Paranasal sinuses, mastoid air cells and middle ears are clear. CT/CT head/brain wo con IMPRESSION: No acute findings. Mild generalized atrophy and nonspecific periventricular white matter disease.
[2022-02-08 10:50] LABS: MANUAL DIFF FLAG NO
[2022-02-08 10:54] LABS: Basophils Absolute Auto 0.1 X10*3/uL (0.0-0.2); Basophils Percent Auto 0.7 % (0-2); Eosinophils Absolute Auto 0.4 X10*3/uL (0.0-0.4); Eosinophils Percent Auto 5.1 % (0-4); Hematocrit 44.5 % (37.0-47.0); Hemoglobin 14.4 g/dl (12.0-16.0); Imm Gran Abs Auto 0.01 X10*3/uL (0.00-0.03); Imm Gran Pct Auto 0.1 % (0.0-0.4); Lymphocytes Absolute Auto 1.3 X10*3/uL (1.2-4.9); Lymphocytes Percent Auto 17.7 % (20-40); Mean Corpuscular HGB Conc 32.4 g/dl (31.0-35.0); Mean Corpuscular Hemoglobin 30.6 pg (27.0-33.0); Mean Corpuscular Volume 94.7 fL (80.0-98.0); Monocytes Absolute Auto 0.6 X10*3/uL (0.1-1.2); Monocytes Percent Auto 7.2 % (2-11); Neutrophils Absolute Auto 5.3 x10*3/uL (2.0-8.3); Neutrophils Percent Auto 69.2 % (45-73); Platelet Count 260 X10*3/uL (160-400); Red Cell Distribution Width 13.5 % (11.0-16.0); White Blood Count 7.6 X10*3/uL (4.8-10.8)
[2022-02-08 11:01] LABS: Lactic Acid 1.1 mmol/L (0.5-2.0)
--- NOTE | 2022-02-08 11:09 | ED.AMS ---
HPI - Altered Mental Status General Chief Complaint: Altered Mental Status Stated Complaint: increased ams Time Seen by Provider: 02/08/22 11:08 Source: patient and EMS Mode of arrival: EMS Limitations: no limitations History of Present Illness HPI narrative: 86-year-old female with a history of AFib on Coumadin, severe aortic stenosis, who had a fall in August 2021 resulting in a left humerus fracture, now bed bound who presents to the ER from home via EMS for increased confusion and hallucinations at home. Patient was at home with her daughter who reports that starting yesterday patient was having increased confusion - she was reporting to her daughter concerns of the cost of hosting a constitution party for [place], was worried about men in the room when her brief was being changed, as well as increased agitation overnight. She has history of UTI's but her behavior has never been this bizarre when she was sick. The daughter reports she has intermittent confusion like this but it is transient and only last 1-2 hours at a time and then she clears. Daughter reports another family member who helps to care for her has just been diagnosed with COVID-19. Patient is fully vaccinated. MD complaint: altered mental status and confusion Onset (ago): day(s) (1) Timing confirmed by: family member Severity: moderate Consistency of symptoms: getting Worse Context: unknown Associated symptoms: malaise and weakness Treatments prior to arrival: oxygen Related Data Home Medications Medication Instructions Recorded Confirmed acetaminophen 500 mg tablet 1,000 mg PO BID 08/22/21 02/08/22 digoxin 125 mcg (0.125 mg) tablet 125 mcg PO Q2D@0900 08/22/21 02/08/22 mirtazapine 15 mg tablet 1 tab PO BEDTIME 08/22/21 02/08/22 warfarin 2.5 mg tablet 5 mg PO MO@1800 08/22/21 02/08/22 duloxetine 20 mg capsule,delayed 20 mg PO DAILY 11/05/21 02/08/22 release metoprolol tartrate 50 mg tablet 50 mg PO BID 11/05/21 02/08/22 cyanocobalamin (vitamin B-12) 5,000 mcg PO DAILY 02/08/22 02/08/22 5,000 mcg capsule docusate sodium 100 mg capsule 100 mg PO BID 02/08/22 02/08/22 (Colace) furosemide 20 mg tablet 1 tab PO Q2D 02/08/22 02/08/22 lactulose 10 gram/15 mL oral 15 ml PO DAILY PRN 02/08/22 02/08/22 solution loratadine 10 mg tablet (Claritin) 10 mg PO DAILY 02/08/22 02/08/22 morphine 15 mg tablet,extended 1 tab PO DAILY 02/08/22 02/08/22 release oxycodone 5 mg tablet 5 mg PO Q6H PRN 02/08/22 02/08/22 polyethylene glycol 3350 17 gram 17 g PO DAILY PRN 02/08/22 02/08/22 oral powder packet (Miralax) warfarin 2.5 mg tablet 2.5 mg PO SUTUWETHFRSA@1800 02/08/22 02/08/22 Allergies Allergy/AdvReac Type Severity Reaction Status Date / Time amoxicillin [AMOXICILLIN] Allergy Severe ANAPHYLAXIS Verified 11/05/21 14:07 iodine [IODINE] Allergy Severe SHORTNESS Verified 11/05/21 14:07 OF BREATH coffee (Coffea arabica) Allergy Intermediate TONGUE Verified 11/05/21 14:07 [COFFEE (BEVERAGE)] SWELLING penicillin G [PENICILLIN G] Allergy Unknown RASH Verified 11/05/21 14:07 shellfish derived Allergy Unknown TONGUE Verified 11/05/21 14:07 [SHELLFISH DERIVED] SWELLING Sulfa (Sulfonamide Allergy Unknown DIFFICULTY Verified 11/05/21 14:07 Antibiotics) BREATHING [SULFA (SULFONAMIDE ANTIBIOTICS)] Review of Systems Review of Systems: Constitutional: No Fever, No Chills ENT/Mouth: No sore throat, No Rhinorrhea, No Swallowing Difficulty Cardiovascular: No Chest Pain, No SOB, No Orthopnea, No Edema Respiratory: No Cough, No Sputum, No Wheezing, No dyspnea Gastrointestinal: No Nausea, No Vomiting, No Diarrhea, No abdominal Pain Genitourinary: No Dysuria, No Urinary Frequency, No Hematuria Musculoskeletal: + joint pain, No Myalgias Skin: No Skin Lesions, No rash Neuro: + Weakness, No Numbness, No Dizziness, No Headache Psych: + Anxiety/Panic, No Depression, +VH, No AH, No SI, No HI Heme/Lymph: No Bruising, No Lymphadenopathy Endocrine: No Polyuria, No Polydipsia PMFSH Past Medical History Medical History (Updated 02/08/22 @ 14:12 by RADHA Gonzales) HTN (hypertension) Non-rheumatic aortic stenosis Permanent atrial fibrillation Surgical History (Updated 11/05/21 @ 15:32 by KIMBERLY Dorantes) History of appendectomy History of left hip replacement Family History Family History (Updated 11/05/21 @ 15:33 by KIMBERLY Dorantes) Father No problems noted. Mother No problems noted. Social History Social History (Updated 11/05/21 @ 15:33 by KIMBERLY Dorantes) Patient Tobacco Use Status: Former Tobacco user Quit Date: 40+ yrs ago Advance Directives: Yes Advance Directives on File: Yes Advance Directives Date on File: 08/22/21 Physical Exam ED Vital Signs: Vital Signs - 24 hr 02/08/22 09:45 02/08/22 09:56 02/08/22 10:29 Temperature 98.1 F 98.1 F Pulse Rate 60 52 Respiratory Rate 18 16 Blood Pressure 151/63 H 129/49 L Pulse Oximetry 94 97 100 02/08/22 12:10 02/08/22 12:55 Temperature Pulse Rate 54 53 Respiratory Rate 17 11 L Blood Pressure 163/94 H 163/94 H Pulse Oximetry 100 100 BMI result Body Mass Index 25.0 Appearance: Lethargic but arouses to voice. Oriented X2. No acute distress. Eyes: Pupils equal, round and reactive to light. ENT: Pharynx normal. Neck: Normal inspection. Neck supple. CVS: Regularly irregular, bradycardic with heart rates in the 50s. Pulses normal. Respiratory: No respiratory distress. Breath sounds normal. Abdomen: Soft and nontender. +BS x4 Skin: Skin warm and dry. Normal skin color. Normal skin turgor. No rashes. Extremities: No lower extremity edema. Left upper arm wrapped in an ADONIS wrap, mildly tender. limited ROM of the left shoulder due to pain Neuro: Oriented X 2. LE >UE weakness throughout, nonfocal. disoriented to time. normal speech. lethargic. Course Course Course Narrative: 86 y/o female with history of Afib on Coumadin, left-sided humerus fracture in August, managed non operatively, now on chronic opiates who presents to the ER with altered mental status, confusion and increased hallucinations at home. Concern for possible underlying infection, will whitaker culture. Will get metabolic workup and CT head as well. Dispo pending results and improvement. Reevaluation(s) Reevaluation #1: CT head does not show any evidence of acute findings. Her metabolic & infectious workup is unremarkable. Her urinalysis is negative for infection. While in the emergency room patient has been sleeping, easily arouses to voice, oriented to person and place. No hallucinations or active delirium at this time. Daughter reports she was up most of the night. Her clinical presentation is most consistent with an acute delirium versus developing dementia. Patient has not been seen by Neurology or had a formal diagnosis of dementia. She is on chronic opiates for chronic left upper extremity pain after her fracture and prolonged stay at rehab. Her primary care doctor is unwilling to continue ongoing opiates, she has 2 days left of her long-acting opiates and plenty of her short-acting opiates per the daughter (has not required any). We discussed overall goals of care and patient is a full code and would ?like to live for ever.? Daughter is focused on her comfort and doing right by her, doing their best to care for her at home. Under no circumstances they want her placed at a facility. Not ready for hospice plan. At this time patient is stable for discharge home with ongoing care from her family. Will refer to chronic pain management as well as Neurology for further evaluation of delirium versus dementia. Daughter agrees with plan will follow-up with the PCP as well as pain management and neuro. MDM - Altered Mental Status Medical Records Attestation: I reviewed the patient's medical records. Lab Data Attestation: I reviewed the patient's lab results. Result diagrams: 02/08/22 10:46 02/08/22 10:46 Labs: Lab Results 02/08/22 02/08/22 02/08/22 Range/Units 10:28 10:28 10:46 WBC 7.6 (4.8-10.8) X10*3/uL RBC 4.70 (4.20-5.50) X10*6/uL Hgb 14.4 (12.0-16.0) g/dl Hct 44.5 (37.0-47.0) % MCV 94.7 (80.0-98.0) fL MCH 30.6 (27.0-33.0) pg MCHC 32.4 (31.0-35.0) g/dl RDW 13.5 (11.0-16.0) % Plt Count 260 (160-400) X10*3/uL MPV 10.0 (9.4-12.3) fL Immature Gran % (Auto) 0.1 (0.0-0.4) % Neut % (Auto) 69.2 (45-73) % Lymph % (Auto) 17.7 L (20-40) % [place] % (Auto) 7.2 (2-11) % Eos % (Auto) 5.1 H (0-4) % Baso % (Auto) 0.7 (0-2) % Lymph # (Auto) 1.3 (1.2-4.9) X10*3/uL [place] # (Auto) 0.6 (0.1-1.2) X10*3/uL Eos # (Auto) 0.4 (0.0-0.4) X10*3/uL Baso # (Auto) 0.1 (0.0-0.2) X10*3/uL Abs Immat Gran (auto) 0.01 (0.00-0.03) X10*3/uL Absolute Neuts (auto) 5.3 (2.0-8.3) x10*3/uL Absolute Nucleated RBC 0.000 (0.0-0.012) X10*3/uL Nucleated RBC % (auto) 0.0 (0.0-0.2) /100WBC PT (9.9-13.0) SEC INR (0.9-1.1) APTT (24.1-38.0) SEC VBG pH (7.32-7.43) VBG pCO2 mmHg VBG pO2 mmHg VBG HCO3 (22-26) mmol/L VBG O2 Saturation % VBG Base Excess mmol/L Sodium (135-145) mmol/L Potassium (3.3-5.1) mmol/L Chloride (96-108) mmol/L Carbon Dioxide (22-29) mmol/L Anion Gap (12-20) BUN (9-16) mg/dL Creatinine (0.5-1.4) mg/dL Estim Creat Clear Calc Estimated GFR Random Glucose (60-115) mg/dL Lactic Acid (0.5-2.0) mmol/L Calcium (8.4-10.2) mg/dL Magnesium (1.6-2.6) mg/dL Total Bilirubin (0.0-1.0) mg/dL Direct Bilirubin (0.0-0.5) mg/dL AST (5-31) U/L ALT (0-31) U/L Alkaline Phosphatase (39-117) U/L Ammonia (13-55) umol/L Total Creatine Kinase (26-140) U/L Troponin I High Sens (<3.5-17.0) ng/L B-Natriuretic Peptide (<100) pg/mL Total Protein (6.5-8.0) g/dL Albumin (3.5-5.0) g/dL TSH (0.32-4.0) uIU/mL Urine Color Urine Appearance Urine pH (5.0-8.0) Ur Specific [place] (1.005-1.025) Urine Protein (NEG-TRACE) MG/DL Urine Glucose (UA) (NEG) MG/DL Urine Ketones (NEG) MG/DL Urine Blood (NEG) Urine Nitrite (NEG) Ur Leukocyte Esterase (NEG) Urine Opiates Screen (Not Detect) Urine Fentanyl Screen (Not Detect) Ur Barbiturates Screen (Not Detect) Ur Phencyclidine Scrn (Not Detect) Ur Amphetamines Screen (Not Detect) U Benzodiazepines Scrn (Not Detect) Urine Cocaine Screen (Not Detect) U Marijuana (THC) Screen (Not Detect) Ethyl Alcohol mg/dL COVID-19 (FRANDY) Negative (Negative) COVID-19 Clin Com See Note Influenza Type A (ANJUM) Negative (Negative) Influenza Type B (ANJUM) Negative (Negative) Influenza A & B Note See Note 02/08/22 02/08/22 02/08/22 Range/Units 10:46 10:46 10:46 WBC (4.8-10.8) X10*3/uL RBC (4.20-5.50) X10*6/uL Hgb (12.0-16.0) g/dl Hct (37.0-47.0) % MCV (80.0-98.0) fL MCH (27.0-33.0) pg MCHC (31.0-35.0) g/dl RDW (11.0-16.0) % Plt Count (160-400) X10*3/uL MPV (9.4-12.3) fL Immature Gran % (Auto) (0.0-0.4) % Neut % (Auto) (45-73) % Lymph % (Auto) (20-40) % [place] % (Auto) (2-11) % Eos % (Auto) (0-4) % Baso % (Auto) (0-2) % Lymph # (Auto) (1.2-4.9) X10*3/uL [place] # (Auto) (0.1-1.2) X10*3/uL Eos # (Auto) (0.0-0.4) X10*3/uL Baso # (Auto) (0.0-0.2) X10*3/uL Abs Immat Gran (auto) (0.00-0.03) X10*3/uL Absolute Neuts (auto) (2.0-8.3) x10*3/uL Absolute Nucleated RBC (0.0-0.012) X10*3/uL Nucleated RBC % (auto) (0.0-0.2) /100WBC PT (9.9-13.0) SEC INR (0.9-1.1) APTT (24.1-38.0) SEC VBG pH (7.32-7.43) VBG pCO2 mmHg VBG pO2 mmHg VBG HCO3 (22-26) mmol/L VBG O2 Saturation % VBG Base Excess mmol/L Sodium 143 (135-145) mmol/L Potassium 3.4 (3.3-5.1) mmol/L Chloride 101 (96-108) mmol/L Carbon Dioxide 34 H (22-29) mmol/L Anion Gap 11 L (12-20) BUN 9 (9-16) mg/dL Creatinine 0.72 (0.5-1.4) mg/dL Estim Creat Clear Calc 50.4 Estimated GFR > 60 Random Glucose 101 (60-115) mg/dL Lactic Acid 1.1 (0.5-2.0) mmol/L Calcium 8.9 (8.4-10.2) mg/dL Magnesium (1.6-2.6) mg/dL Total Bilirubin (0.0-1.0) mg/dL Direct Bilirubin (0.0-0.5) mg/dL AST (5-31) U/L ALT (0-31) U/L Alkaline Phosphatase (39-117) U/L Ammonia (13-55) umol/L Total Creatine Kinase (26-140) U/L Troponin I High Sens 3.7 (<3.5-17.0) ng/L B-Natriuretic Peptide 264 H (<100) pg/mL Total Protein (6.5-8.0) g/dL Albumin (3.5-5.0) g/dL TSH (0.32-4.0) uIU/mL Urine Color Urine Appearance Urine pH (5.0-8.0) Ur Specific [place] (1.005-1.025) Urine Protein (NEG-TRACE) MG/DL Urine Glucose (UA) (NEG) MG/DL Urine Ketones (NEG) MG/DL Urine Blood (NEG) Urine Nitrite (NEG) Ur Leukocyte Esterase (NEG) Urine Opiates Screen (Not Detect) Urine Fentanyl Screen (Not Detect) Ur Barbiturates Screen (Not Detect) Ur Phencyclidine Scrn (Not Detect) Ur Amphetamines Screen (Not Detect) U Benzodiazepines Scrn (Not Detect) Urine Cocaine Screen (Not Detect) U Marijuana (THC) Screen (Not Detect) Ethyl Alcohol mg/dL COVID-19 (FRANDY) (Negative) COVID-19 Clin Com Influenza Type A (ANJUM) (Negative) Influenza Type B (ANJUM) (Negative) Influenza A & B Note 02/08/22 02/08/22 02/08/22 Range/Units 12:18 12:18 12:18 WBC (4.8-10.8) X10*3/uL RBC (4.20-5.50) X10*6/uL Hgb (12.0-16.0) g/dl Hct (37.0-47.0) % MCV (80.0-98.0) fL MCH (27.0-33.0) pg MCHC (31.0-35.0) g/dl RDW (11.0-16.0) % Plt Count (160-400) X10*3/uL MPV (9.4-12.3) fL Immature Gran % (Auto) (0.0-0.4) % Neut % (Auto) (45-73) % Lymph % (Auto) (20-40) % [place] % (Auto) (2-11) % Eos % (Auto) (0-4) % Baso % (Auto) (0-2) % Lymph # (Auto) (1.2-4.9) X10*3/uL [place] # (Auto) (0.1-1.2) X10*3/uL Eos # (Auto) (0.0-0.4) X10*3/uL Baso # (Auto) (0.0-0.2) X10*3/uL Abs Immat Gran (auto) (0.00-0.03) X10*3/uL Absolute Neuts (auto) (2.0-8.3) x10*3/uL Absolute Nucleated RBC (0.0-0.012) X10*3/uL Nucleated RBC % (auto) (0.0-0.2) /100WBC PT (9.9-13.0) SEC INR (0.9-1.1) APTT (24.1-38.0) SEC VBG pH (7.32-7.43) VBG pCO2 mmHg VBG pO2 mmHg VBG HCO3 (22-26) mmol/L VBG O2 Saturation % VBG Base Excess mmol/L Sodium (135-145) mmol/L Potassium (3.3-5.1) mmol/L Chloride (96-108) mmol/L Carbon Dioxide (22-29) mmol/L Anion Gap (12-20) BUN (9-16) mg/dL Creatinine (0.5-1.4) mg/dL Estim Creat Clear Calc Estimated GFR Random Glucose (60-115) mg/dL Lactic Acid (0.5-2.0) mmol/L Calcium (8.4-10.2) mg/dL Magnesium 1.8 (1.6-2.6) mg/dL Total Bilirubin 0.8 (0.0-1.0) mg/dL Direct Bilirubin 0.3 (0.0-0.5) mg/dL AST 12 (5-31) U/L ALT 6 (0-31) U/L Alkaline Phosphatase 80 (39-117) U/L Ammonia 41 (13-55) umol/L Total Creatine Kinase 24 L (26-140) U/L Troponin I High Sens (<3.5-17.0) ng/L B-Natriuretic Peptide (<100) pg/mL Total Protein 6.5 (6.5-8.0) g/dL Albumin 3.5 (3.5-5.0) g/dL TSH 1.35 (0.32-4.0) uIU/mL Urine Color Urine Appearance Urine pH (5.0-8.0) Ur Specific [place] (1.005-1.025) Urine Protein (NEG-TRACE) MG/DL Urine Glucose (UA) (NEG) MG/DL Urine Ketones (NEG) MG/DL Urine Blood (NEG) Urine Nitrite (NEG) Ur Leukocyte Esterase (NEG) Urine Opiates Screen (Not Detect) Urine Fentanyl Screen (Not Detect) Ur Barbiturates Screen (Not Detect) Ur Phencyclidine Scrn (Not Detect) Ur Amphetamines Screen (Not Detect) U Benzodiazepines Scrn (Not Detect) Urine Cocaine Screen (Not Detect) U Marijuana (THC) Screen (Not Detect) Ethyl Alcohol mg/dL COVID-19 (FRANDY) (Negative) COVID-19 Clin Com Influenza Type A (ANJUM) (Negative) Influenza Type B (ANJUM) (Negative) Influenza A & B Note 02/08/22 02/08/22 02/08/22 Range/Units 12:18 12:18 12:23 WBC (4.8-10.8) X10*3/uL RBC (4.20-5.50) X10*6/uL Hgb (12.0-16.0) g/dl Hct (37.0-47.0) % MCV (80.0-98.0) fL MCH (27.0-33.0) pg MCHC (31.0-35.0) g/dl RDW (11.0-16.0) % Plt Count (160-400) X10*3/uL MPV (9.4-12.3) fL Immature Gran % (Auto) (0.0-0.4) % Neut % (Auto) (45-73) % Lymph % (Auto) (20-40) % [place] % (Auto) (2-11) % Eos % (Auto) (0-4) % Baso % (Auto) (0-2) % Lymph # (Auto) (1.2-4.9) X10*3/uL [place] # (Auto) (0.1-1.2) X10*3/uL Eos # (Auto) (0.0-0.4) X10*3/uL Baso # (Auto) (0.0-0.2) X10*3/uL Abs Immat Gran (auto) (0.00-0.03) X10*3/uL Absolute Neuts (auto) (2.0-8.3) x10*3/uL Absolute Nucleated RBC (0.0-0.012) X10*3/uL Nucleated RBC % (auto) (0.0-0.2) /100WBC PT 26.8 H (9.9-13.0) SEC INR 2.3 H (0.9-1.1) APTT 56.4 H (24.1-38.0) SEC VBG pH 7.41 (7.32-7.43) VBG pCO2 48 mmHg VBG pO2 55 mmHg VBG HCO3 31 H (22-26) mmol/L VBG O2 Saturation 83.0 % VBG Base Excess 5.2 mmol/L Sodium (135-145) mmol/L Potassium (3.3-5.1) mmol/L Chloride (96-108) mmol/L Carbon Dioxide (22-29) mmol/L Anion Gap (12-20) BUN (9-16) mg/dL Creatinine (0.5-1.4) mg/dL Estim Creat Clear Calc Estimated GFR Random Glucose (60-115) mg/dL Lactic Acid (0.5-2.0) mmol/L Calcium (8.4-10.2) mg/dL Magnesium (1.6-2.6) mg/dL Total Bilirubin (0.0-1.0) mg/dL Direct Bilirubin (0.0-0.5) mg/dL AST (5-31) U/L ALT (0-31) U/L Alkaline Phosphatase (39-117) U/L Ammonia (13-55) umol/L Total Creatine Kinase (26-140) U/L Troponin I High Sens (<3.5-17.0) ng/L B-Natriuretic Peptide (<100) pg/mL Total Protein (6.5-8.0) g/dL Albumin (3.5-5.0) g/dL TSH (0.32-4.0) uIU/mL Urine Color Urine Appearance Urine pH (5.0-8.0) Ur Specific [place] (1.005-1.025) Urine Protein (NEG-TRACE) MG/DL Urine Glucose (UA) (NEG) MG/DL Urine Ketones (NEG) MG/DL Urine Blood (NEG) Urine Nitrite (NEG) Ur Leukocyte Esterase (NEG) Urine Opiates Screen (Not Detect) Urine Fentanyl Screen (Not Detect) Ur Barbiturates Screen (Not Detect) Ur Phencyclidine Scrn (Not Detect) Ur Amphetamines Screen (Not Detect) U Benzodiazepines Scrn (Not Detect) Urine Cocaine Screen (Not Detect) U Marijuana (THC) Screen (Not Detect) Ethyl Alcohol < 10 mg/dL COVID-19 (FRANDY) (Negative) COVID-19 Clin Com Influenza Type A (ANJUM) (Negative) Influenza Type B (ANJUM) (Negative) Influenza A & B Note 02/08/22 02/08/22 Range/Units 12:53 12:53 WBC (4.8-10.8) X10*3/uL RBC (4.20-5.50) X10*6/uL Hgb (12.0-16.0) g/dl Hct (37.0-47.0) % MCV (80.0-98.0) fL MCH (27.0-33.0) pg MCHC (31.0-35.0) g/dl RDW (11.0-16.0) % Plt Count (160-400) X10*3/uL MPV (9.4-12.3) fL Immature Gran % (Auto) (0.0-0.4) % Neut % (Auto) (45-73) % Lymph % (Auto) (20-40) % [place] % (Auto) (2-11) % Eos % (Auto) (0-4) % Baso % (Auto) (0-2) % Lymph # (Auto) (1.2-4.9) X10*3/uL [place] # (Auto) (0.1-1.2) X10*3/uL Eos # (Auto) (0.0-0.4) X10*3/uL Baso # (Auto) (0.0-0.2) X10*3/uL Abs Immat Gran (auto) (0.00-0.03) X10*3/uL Absolute Neuts (auto) (2.0-8.3) x10*3/uL Absolute Nucleated RBC (0.0-0.012) X10*3/uL Nucleated RBC % (auto) (0.0-0.2) /100WBC PT (9.9-13.0) SEC INR (0.9-1.1) APTT (24.1-38.0) SEC VBG pH (7.32-7.43) VBG pCO2 mmHg VBG pO2 mmHg VBG HCO3 (22-26) mmol/L VBG O2 Saturation % VBG Base Excess mmol/L Sodium (135-145) mmol/L Potassium (3.3-5.1) mmol/L Chloride (96-108) mmol/L Carbon Dioxide (22-29) mmol/L Anion Gap (12-20) BUN (9-16) mg/dL Creatinine (0.5-1.4) mg/dL Estim Creat Clear Calc Estimated GFR Random Glucose (60-115) mg/dL Lactic Acid (0.5-2.0) mmol/L Calcium (8.4-10.2) mg/dL Magnesium (1.6-2.6) mg/dL Total Bilirubin (0.0-1.0) mg/dL Direct Bilirubin (0.0-0.5) mg/dL AST (5-31) U/L ALT (0-31) U/L Alkaline Phosphatase (39-117) U/L Ammonia (13-55) umol/L Total Creatine Kinase (26-140) U/L Troponin I High Sens (<3.5-17.0) ng/L B-Natriuretic Peptide (<100) pg/mL Total Protein (6.5-8.0) g/dL Albumin (3.5-5.0) g/dL TSH (0.32-4.0) uIU/mL Urine Color YELLOW Urine Appearance CLEAR Urine pH 5.5 (5.0-8.0) Ur Specific [place] 1.025 (1.005-1.025) Urine Protein NEG (NEG-TRACE) MG/DL Urine Glucose (UA) NEG (NEG) MG/DL Urine Ketones NEG (NEG) MG/DL Urine Blood NEG (NEG) Urine Nitrite NEG (NEG) Ur Leukocyte Esterase NEG (NEG) Urine Opiates Screen POSITIVE H (Not Detect) Urine Fentanyl Screen Not Detected (Not Detect) Ur Barbiturates Screen Not Detected (Not Detect) Ur Phencyclidine Scrn Not Detected (Not Detect) Ur Amphetamines Screen Not Detected (Not Detect) U Benzodiazepines Scrn Not Detected (Not Detect) Urine Cocaine Screen Not Detected (Not Detect) U Marijuana (THC) Screen Not Detected (Not Detect) Ethyl Alcohol mg/dL COVID-19 (FRANDY) (Negative) COVID-19 Clin Com Influenza Type A (ANJUM) (Negative) Influenza Type B (ANJUM) (Negative) Influenza A & B Note ECG Data ECG #1: Attestation: I personally reviewed and interpreted this ECG as follows: ECG interpretation date: 02/08/22 ECG interpretation time: 13:28 Prior ECG tracings: available for review Interpretation: Atrial fibrillation with slow ventricular response, occasional PVCs, ventricular rate 50 beats per minute, no ST segment elevations or depressions Discharge Plan Discharge Clinical Impression: Confusion, Delirium due to general medical condition Patient Disposition: Home, Self-Care Instructions: Acute Delirium (ED) Additional Instructions: Workup today was unremarkable. No evidence of infection. COVID test was negative. CT head was unremarkable. Recommend Tylenol 1000 mg every 6 hours as needed for pain. Recommend following up with your primary care doctor to assist in facilitating opiate taper. Follow-up with the metal painter for assistance in this matter as well. If she develops new or worsening symptoms certainly come back to the emergency room for further evaluation. Prescriptions: No Action warfarin 2.5 mg tablet 5 mg PO MO@1800 0RF Rx Instructions: 2.5 mg every day except 5 mg on friday acetaminophen 500 mg Tablet 1,000 mg PO BID 0RF mirtazapine 15 mg tablet 1 tab PO BEDTIME 0RF digoxin 125 mcg (0.125 mg) tablet 125 mcg PO Q2D@0900 0RF metoprolol tartrate 50 mg tablet 50 mg PO BID 0RF polyethylene glycol 3350 [Miralax] 17 gram Powder In Packet 17 g PO DAILY PRN (Reason: Constipation) 0RF warfarin 2.5 mg tablet 2.5 mg PO SUTUWETHFRSA@1800 0RF Rx Instructions: 2.5 mg every day except 5 mg on friday docusate sodium [Colace] 100 mg Capsule 100 mg PO BID 0RF morphine 15 mg tablet extended release 1 tab PO DAILY 0RF furosemide 20 mg tablet 1 tab PO Q2D 0RF loratadine [Claritin] 10 mg Tablet 10 mg PO DAILY 0RF lactulose 10 gram/15 mL solution 15 ml PO DAILY PRN (Reason: Constipation) 0RF cyanocobalamin (vitamin B-12) 5,000 mcg Capsule 5,000 mcg PO DAILY 0RF oxycodone 5 mg tablet 5 mg PO Q6H PRN (Reason: Pain (Scale Score 4-6)) 0RF duloxetine 20 mg capsule,delayed release(DR/EC) 20 mg PO DAILY 0RF Referrals: Charan Bosch MD [Physician] - (question new dx dementia) Darius Edward MD [Physician] - (chronic pain 2/2 humerus fx, PCP will not prescribe opiates. ?taper vs continue) Bhupinder eSo MD [Primary Care Provider] - (Chronic pain on chronic opiates, will need to be monitored through tapering off. Intermittent confusion agitation, possible dementia. )
[2022-02-08 11:10] LABS: Anion Gap 11 (12-20); Blood Urea Nitrogen 9 mg/dL (9-16); Calcium 8.9 mg/dL (8.4-10.2); Carbon Dioxide 34 mmol/L (22-29); Chloride 101 mmol/L (96-108); Creatinine Clr Calc Pharmacy 50.4; Estimated Glomerular Filt Rate > 60; Glucose Random 101 mg/dL (60-115); Potassium 3.4 mmol/L (3.3-5.1); Sodium 143 mmol/L (135-145)
[2022-02-08 11:11] LABS: Troponin-I High Sensitivity 3.7 ng/L (<3.5-17.0)
[2022-02-08 11:20] LABS: COVID-19 Test Negative (Negative); IDNOW Serial# 16C4AD1C
[2022-02-08 11:28] LABS: Influenza A Negative (Negative); Influenza B2 Negative (Negative)
[2022-02-08 12:29] LABS: VBG Base Excess 5.2 mmol/L; VBG HCO3 31 mmol/L (22-26); VBG pCO2 48 mmHg; VBG pH 7.41 (7.32-7.43); VBG pO2 55 mmHg
[2022-02-08 12:30] LABS: Venous Blood Gas Refer to POC result
[2022-02-08 12:32] LABS: INTERNATIONAL NORM RATIO 2.3 (0.9-1.1); Prothrombin Time 26.8 SEC (9.9-13.0)
[2022-02-08 12:34] LABS: Partial Thromboplastin Time 56.4 SEC (24.1-38.0)
[2022-02-08 12:37] LABS: Ammonia 41 umol/L (13-55)
[2022-02-08 12:38] LABS: Ethanol < 10 mg/dL
[2022-02-08 12:42] LABS: Alanine Aminotransferase 6 U/L (0-31); Albumin Level 3.5 g/dL (3.5-5.0); Alkaline Phosphatase 80 U/L (39-117); Aspartate Amino Transferase 12 U/L (5-31); Bilirubin Direct 0.3 mg/dL (0.0-0.5); Bilirubin Total 0.8 mg/dL (0.0-1.0); Magnesium 1.8 mg/dL (1.6-2.6); Total Protein 6.5 g/dL (6.5-8.0)
[2022-02-08 13:02] LABS: TSH reflex Free T4 1.35 uIU/mL (0.32-4.0)
[2022-02-08 13:03] LABS: Appearance Urine CLEAR; Color Urine YELLOW; Glucose Urine UA NEG (NEG); Leukocyte Esterase Urine NEG (NEG); Nitrite Urine NEG (NEG); PH 5.5 (5.0-8.0); Specific Gravity - Urine 1.025 (1.005-1.025); Urine Blood NEG (NEG); Urine Ketones NEG (NEG); Urine Protein NEG (NEG-TRACE)
[2022-02-08 13:09] LABS: B Type Natriuretic Peptide 264 pg/mL (<100)
--- NOTE | 2022-02-08 13:17 | PHA.MEDREC ---
Pharmacy Consult ? Medication Reconciliation Pharmacy has completed the medication reconciliation. Spoke with patients son via phone. Pts son read off complete list of medications which also matched claim history. Pt took all morning medications
[2022-02-08 13:18] LABS: Amphetamine Screen Urine Not Detected (Not Detect); Barbiturates, Urine Not Detected (Not Detect); Benzodiazepines Screen Urine Not Detected (Not Detect); Cannabinoid Screen Urine Not Detected (Not Detect); Cocaine Screen Urine Not Detected (Not Detect); Fentanyl, urine Not Detected (Not Detect); Opiate Screen Urine POSITIVE (Not Detect); Phencyclidine Screen Urine Not Detected (Not Detect)
[2022-02-08] MEDS: Nystatin Powder 15 GM BOTTLE 1 APPL TOPICAL (15:43)
== END 2022-02-08 21:34 | disposition home or self-care (01) ==
PROVIDERS: Physician Assistant; Emergency Provider Emergency Medicine Emergency Medical Services; PCP Internal Medicine
DX: R41.0 Disorientation, unspecified (principal); F05 Delirium due to known physiological condition; I10 Essential (primary) hypertension; I48.21 Permanent atrial fibrillation; S42.302D Unspecified fracture of shaft of humerus, left arm, subsequent encounter for fracture with routine healing; X58.XXXD Exposure to other specified factors, subsequent encounter; Z79.01 Long term (current) use of anticoagulants; Z79.891 Long term (current) use of opiate analgesic; Z79.899 Other long term (current) drug therapy; Z20.822 Contact with and (suspected) exposure to COVID-19
CPT/HCPCS: 36415; 70450; 71045; 80048; 80076; 80307; 81003; 82077; 82140; 82550; 82803; 83605; 83735; 83880; 84443; 84484; 85025; 85610; 85730; 87040; 87502; 87635; 93005; 99285

== ENCOUNTER 2022-10-01 11:49 | Emergency (ER) | payer MEDICARE, SELFPAY ==
--- NOTE | ~2022-10-01 | XR_ITS ---
EXAMINATION: XR CHEST CLINICAL INFORMATION: Cough. COMPARISON: Chest radiograph dated 02/08/2022. TECHNIQUE: Frontal view of the chest was obtained. FINDINGS: The heart, great vessels and mediastinum are stable. There are coarse mitral annular calcifications. There is mild pulmonary vascular congestion, without overt congestive heart failure. There is atherosclerotic calcification of the aortic knob. Lung volumes are somewhat diminished. No infiltrate, effusion or pneumothorax is seen. Chain brenda and pleural scarring are redemonstrated at the lateral left base. There are degenerative changes of the shoulders. XR/XR chest 1V IMPRESSION: 1. There is pulmonary vascular congestion, without overt congestive heart failure. 2. No focal infiltrate is seen. 3. Lung volumes are low.
--- NOTE | ~2022-10-01 | XR_ITS ---
EXAMINATION: XR ABDOMEN KUB CLINICAL INDICATION: Abdominal pressure. COMPARISON: KUB dated 09/30/2019. TECHNIQUE: 2 AP views of the abdomen and pelvis are submitted. FINDINGS: The bowel gas pattern is normal, with no evidence of ileus or obstruction. The stool burden is mild. No unusual soft tissue calcifications are noted. There are aortoiliac atherosclerotic calcifications. There are thoracolumbar scoliotic changes. There is degenerative change of the right hip. A left hip arthroplasty is noted. A pessary device is seen. There are mitral annular calcifications. XR/XR KUB IMPRESSION: There is a nonspecific bowel gas pattern, without obstruction or ileus noted. No free intraperitoneal air is seen on these supine views.
--- NOTE | 2022-10-01 11:53 | ECG_ITS ---
Test Reason : Abd Pain Blood Pressure : / mmHG Vent. Rate : 066 BPM Atrial Rate : 000 BPM P-R Int : 000 ms QRS Dur : 092 ms QT Int : 414 ms P-R-T Axes : 000 -20 185 degrees QTc Int : 434 ms Atrial fibrillation Moderate voltage criteria for LVH, may be normal variant ( R in aVL , Vickey product ) ST & T wave abnormality, consider anterolateral ischemia Abnormal ECG When compared with ECG of 08-FEB-2022 10:21, T wave inversion now evident in Anterior leads Referred By: Salima Liu Electronically Signed By:Víctor Urbina
[2022-10-01 11:57] VITALS: BP 132/76; PULSE 87; RESP 18; TEMP 36.9; O2SAT 98; BMI 22.6
--- NOTE | 2022-10-01 11:57 | ED.ABDPAIN ---
HPI - Abdominal Pain General Chief Complaint: Abdominal Pain Stated Complaint: abd pressure x 3 days Time Seen by Provider: 10/01/22 11:52 Source: patient and family (Daughter) Mode of arrival: EMS History of Present Illness HPI narrative: 87-year-old female who arrives via EMS with complaints of gastric pressure for 3 days and has a history of constipation and patient states her last bowel movement was 2 days ago but she does report a history of obstruction however today she denies any nausea or vomiting and endorses that she continues to pass flatus. Related Data Home Medications Medication Instructions Recorded Confirmed acetaminophen 500 mg tablet 1,000 mg PO BID 08/22/21 02/08/22 digoxin 125 mcg (0.125 mg) tablet 125 mcg PO Q2D@0900 08/22/21 02/08/22 mirtazapine 15 mg tablet 1 tab PO BEDTIME 08/22/21 02/08/22 warfarin 2.5 mg tablet 5 mg PO MO@1800 08/22/21 02/08/22 duloxetine 20 mg capsule,delayed 20 mg PO DAILY 11/05/21 02/08/22 release metoprolol tartrate 50 mg tablet 50 mg PO BID 11/05/21 02/08/22 cyanocobalamin (vitamin B-12) 5,000 mcg PO DAILY 02/08/22 02/08/22 5,000 mcg capsule docusate sodium 100 mg capsule 100 mg PO BID 02/08/22 02/08/22 (Colace) furosemide 20 mg tablet 1 tab PO Q2D 02/08/22 02/08/22 lactulose 10 gram/15 mL oral 15 ml PO DAILY PRN Constipation 02/08/22 02/08/22 solution loratadine 10 mg tablet (Claritin) 10 mg PO DAILY 02/08/22 02/08/22 morphine 15 mg tablet,extended 1 tab PO DAILY 02/08/22 02/08/22 release oxycodone 5 mg tablet 5 mg PO Q6H PRN Pain (Scale Score 02/08/22 02/08/22 4-6) polyethylene glycol 3350 17 gram 17 g PO DAILY PRN Constipation 02/08/22 02/08/22 oral powder packet (Miralax) warfarin 2.5 mg tablet 2.5 mg PO SUTUWETHFRSA@1800 02/08/22 02/08/22 Allergies Allergy/AdvReac Type Severity Reaction Status Date / Time amoxicillin [AMOXICILLIN] Allergy Severe ANAPHYLAXIS Verified 11/05/21 14:07 iodine [IODINE] Allergy Severe SHORTNESS Verified 11/05/21 14:07 OF BREATH coffee (Coffea arabica) Allergy Intermediate TONGUE Verified 11/05/21 14:07 [COFFEE (BEVERAGE)] SWELLING penicillin G [PENICILLIN G] Allergy Unknown RASH Verified 11/05/21 14:07 shellfish derived Allergy Unknown TONGUE Verified 11/05/21 14:07 [SHELLFISH DERIVED] SWELLING Sulfa (Sulfonamide Allergy Unknown DIFFICULTY Verified 11/05/21 14:07 Antibiotics) BREATHING [SULFA (SULFONAMIDE ANTIBIOTICS)] Review of Systems Review of Systems Pertinent positives and negatives as stated in HPI. PMFSH Past Medical History Source: nursing notes reviewed Medical History HTN (hypertension) Non-rheumatic aortic stenosis Permanent atrial fibrillation Surgical History History of appendectomy History of left hip replacement Family History Family History Father No problems noted. Mother No problems noted. Social History Social History Alcohol intake: never Patient Tobacco Use Status: Former Tobacco user Quit Date: 40+ yrs ago Advance Directives: Yes Advance Directives on File: Yes Advance Directives Date on File: 08/22/21 Physical Exam ED Vital Signs: Vital Signs - 24 hr 10/01/22 11:57 10/01/22 12:36 Temperature 98.4 F 97.8 F Pulse Rate 87 69 Respiratory Rate 18 27 H Blood Pressure 132/76 160/71 H Pulse Oximetry 98 Oxygen Delivery Method Room Air Room Air BMI result Body Mass Index 22.6 VITAL SIGNS: Reviewed. GENERAL: Well developed, well nourished, in no acute distress. HEAD: Normocephalic/atraumatic EYES: PERRLA, EOMI EARS: Ext canals without abnormality OROPHARYNX: no oral lesions noted, posterior pharynx clear LUNGS: Rales, mild tachypnea. SpO2<98> CARDIOVASCULAR: Regular rate and rhythm without noted murmurs, no JVD but bilateral 1+ pitting edema ABDOMEN: Soft, non-tender, non-distended with bowel sounds. MUSCULOSKELETAL: No tenderness, deformities, or effusions noted on gross inspection. EXTREMITIES: No cyanosis, clubbing or edema. SKIN: Inspection of the skin reveals no rashes NEUROLOGIC: Alert and oriented x 4. Strength and sensation to light touch were grossly intact x 4. Medical Decision Making Medical Decision Making MDM Narrative: This is an 87-year-old female who is bed-bound at baseline and comes in with vague abdominal fullness but no symptoms to suggest obstruction but possible constipation and no clinical suspicion for infectious etiology. The daughter who is at bedside additionally provides information stating that once the patient left the rehab center they did not give her Lasix any longer as it was termed ?as needed? which was not clear to them. The daughter states that she notice her mother's oxygenation was varying however here in the emergency department the patient's oxygenation is maintained at 93-94% on room air. I reviewed all investigations and my interpretation is that patient has experienced a mild CHF exacerbation in part due to no diuretic being administered ?as needed?. Patient received 40 mg of IV Lasix with good response and states that she is feeling better. On clinical evaluation she appears to no longer have tachypnea, I went in and spoke with the patient and her daughter and explained to them the importance of using the diuretic and that they may consider using it based on weight. I also strongly encouraged him to follow-up with primary care provider. Differential Diagnosis Please see the discussion above Lab Data MDM Lab Attestation statement: I reviewed the patient's lab results. Please see the discussion above 10/01/22 12:49 10/01/22 12:49 Labs: Lab Results 10/01/22 10/01/22 10/01/22 Range/Units 12:19 12:49 12:49 WBC 8.4 (4.8-10.8) X10*3/uL RBC 4.98 (4.20-5.50) X10*6/uL Hgb 15.0 (12.0-16.0) g/dl Hct 47.8 H (37.0-47.0) % MCV 96.0 (80.0-98.0) fL MCH 30.1 (27.0-33.0) pg MCHC 31.4 (31.0-35.0) g/dl RDW 13.8 (11.0-16.0) % Plt Count 330 D (160-400) X10*3/uL MPV 9.9 (9.4-12.3) fL Immature Gran % (Auto) 0.2 (0.0-0.4) % Neut % (Auto) 62.9 (45-73) % Lymph % (Auto) 18.1 L (20-40) % [place] % (Auto) 10.0 (2-11) % Eos % (Auto) 8.2 H (0-4) % Baso % (Auto) 0.6 (0-2) % Lymph # (Auto) 1.5 (1.2-4.9) X10*3/uL [place] # (Auto) 0.8 (0.1-1.2) X10*3/uL Eos # (Auto) 0.7 H (0.0-0.4) X10*3/uL Baso # (Auto) 0.1 (0.0-0.2) X10*3/uL Abs Immat Gran (auto) 0.02 (0.00-0.03) X10*3/uL Absolute Neuts (auto) 5.3 (2.0-8.3) x10*3/uL Absolute Nucleated RBC 0.000 (0.0-0.012) X10*3/uL Nucleated RBC % (auto) 0.0 (0.0-0.2) /100WBC PT (10.0-13.1) SEC INR (0.9-1.1) Sodium 142 (135-145) mmol/L Potassium 4.0 (3.3-5.1) mmol/L Chloride 103 (96-108) mmol/L Carbon Dioxide 31 H (22-29) mmol/L Anion Gap 12 (12-20) BUN 14 (9-16) mg/dL Creatinine 0.74 (0.5-1.4) mg/dL Estim Creat Clear Calc 50.1 Estimated GFR > 60 Random Glucose 102 (60-115) mg/dL Calcium 9.3 (8.4-10.2) mg/dL Total Bilirubin 0.4 (0.0-1.0) mg/dL AST 14 (5-31) U/L ALT < 6 (0-31) U/L Alkaline Phosphatase 76 (39-117) U/L Troponin I High Sens (<3.5-17.0) ng/L B-Natriuretic Peptide 214 H (<100) pg/mL Total Protein 6.9 (6.5-8.0) g/dL Albumin 3.6 (3.5-5.0) g/dL Urine Color Urine Appearance Urine pH (5.0-9.0) Ur Specific [place] (1.005-1.025) Urine Protein (Neg-Trace) mg/dL Urine Glucose (UA) (Negative) mg/dL Urine Ketones (Negative) mg/dL Urine Blood (Negative) Urine Nitrite (Negative) Ur Leukocyte Esterase (Negative) Urine RBC (0-2) /HPF Urine WBC (0-5) /HPF Ur Squamous Epith Cells (0-2) /HPF Urine Bacteria (None Seen) Hyaline Casts (0-2) /LPF 10/01/22 10/01/22 10/01/22 Range/Units 12:49 12:49 13:43 WBC (4.8-10.8) X10*3/uL RBC (4.20-5.50) X10*6/uL Hgb (12.0-16.0) g/dl Hct (37.0-47.0) % MCV (80.0-98.0) fL MCH (27.0-33.0) pg MCHC (31.0-35.0) g/dl RDW (11.0-16.0) % Plt Count (160-400) X10*3/uL MPV (9.4-12.3) fL Immature Gran % (Auto) (0.0-0.4) % Neut % (Auto) (45-73) % Lymph % (Auto) (20-40) % [place] % (Auto) (2-11) % Eos % (Auto) (0-4) % Baso % (Auto) (0-2) % Lymph # (Auto) (1.2-4.9) X10*3/uL [place] # (Auto) (0.1-1.2) X10*3/uL Eos # (Auto) (0.0-0.4) X10*3/uL Baso # (Auto) (0.0-0.2) X10*3/uL Abs Immat Gran (auto) (0.00-0.03) X10*3/uL Absolute Neuts (auto) (2.0-8.3) x10*3/uL Absolute Nucleated RBC (0.0-0.012) X10*3/uL Nucleated RBC % (auto) (0.0-0.2) /100WBC PT 33.0 H (10.0-13.1) SEC INR 2.8 H (0.9-1.1) Sodium (135-145) mmol/L Potassium (3.3-5.1) mmol/L Chloride (96-108) mmol/L Carbon Dioxide (22-29) mmol/L Anion Gap (12-20) BUN (9-16) mg/dL Creatinine (0.5-1.4) mg/dL Estim Creat Clear Calc Estimated GFR Random Glucose (60-115) mg/dL Calcium (8.4-10.2) mg/dL Total Bilirubin (0.0-1.0) mg/dL AST (5-31) U/L ALT (0-31) U/L Alkaline Phosphatase (39-117) U/L Troponin I High Sens 4.6 (<3.5-17.0) ng/L B-Natriuretic Peptide (<100) pg/mL Total Protein (6.5-8.0) g/dL Albumin (3.5-5.0) g/dL Urine Color Yellow Urine Appearance Cloudy Urine pH 5.0 (5.0-9.0) Ur Specific [place] 1.015 (1.005-1.025) Urine Protein Negative (Neg-Trace) mg/dL Urine Glucose (UA) Negative (Negative) mg/dL Urine Ketones Negative (Negative) mg/dL Urine Blood Negative (Negative) Urine Nitrite Negative (Negative) Ur Leukocyte Esterase Large (3+) H (Negative) Urine RBC 3-5 H (0-2) /HPF Urine WBC >50 H (0-5) /HPF Ur Squamous Epith Cells 3-5 (0-2) /HPF Urine Bacteria 2+ (None Seen) Hyaline Casts 0-2 (0-2) /LPF Independent Interpretation I performed an independent interpretation of an: EKG Interpretation: Atrial fibrillation, HR-66, no STEMI, QRS/QTC is within normal limits. Radiology Impression Radiologist Impression: My interpretation is in agreement with radiology's impression of the imaging study. Independent Historian Clinical information obtained from an independent historian. History obtained from or confirmed by: Other Daughter External Record Review External record reviewed: Outpatient record and Prior outpatient labs Chronic Conditions Patient?s care impacted by: Hypertension Medications Administered Discontinued Medications Generic Name Dose Route Start Last Admin Trade Name Freq PRN Reason Stop Dose Admin Furosemide 40 mg 10/01/22 15:36 10/01/22 15:58 Furosemide 40 Mg/4 Ml Vial IVPUSH 10/01/22 15:37 40 mg ONCE ONE Administration Protocol Critical Care Time Critical Care Time Critical Care Time: Yes Total Critical Care Time: 30 Attestation: I personally attest to this time spent taking care of the patient. Discharge Plan Discharge Clinical Impression: Breath shortness, CHF (congestive heart failure) Patient Disposition: Home, Self-Care Instructions: Shortness of Breath (ED), Heart Failure (ED) Additional Instructions: 1. Resume all home medications as prescribed. 2. You have furosemide 20 mg tablets that are prescribed as 1 tablet every 2 days, you should continue to do this. 3. Please follow-up with the primary care provider tomorrow morning. Return to the ER for any worsening of your symptoms. Prescriptions: No Action warfarin 2.5 mg tablet 5 mg PO MO@1800 Rx Instructions: 2.5 mg every day except 5 mg on friday acetaminophen 500 mg Tablet 1,000 mg PO BID mirtazapine 15 mg tablet 1 tab PO BEDTIME digoxin 125 mcg (0.125 mg) tablet 125 mcg PO Q2D@0900 metoprolol tartrate 50 mg tablet 50 mg PO BID polyethylene glycol 3350 [Miralax] 17 gram Powder In Packet 17 g PO DAILY PRN (Reason: Constipation) warfarin 2.5 mg tablet 2.5 mg PO SUTUWETHFRSA@1800 Rx Instructions: 2.5 mg every day except 5 mg on friday docusate sodium [Colace] 100 mg Capsule 100 mg PO BID morphine 15 mg tablet extended release 1 tab PO DAILY furosemide 20 mg tablet 1 tab PO Q2D loratadine [Claritin] 10 mg Tablet 10 mg PO DAILY lactulose 10 gram/15 mL solution 15 ml PO DAILY PRN (Reason: Constipation) cyanocobalamin (vitamin B-12) 5,000 mcg Capsule 5,000 mcg PO DAILY oxycodone 5 mg tablet 5 mg PO Q6H PRN (Reason: Pain (Scale Score 4-6)) duloxetine 20 mg capsule,delayed release(DR/EC) 20 mg PO DAILY Referrals: Bhupinder Seo MD [Primary Care Provider] -
--- NOTE | 2022-10-01 12:22 | PC.NURSE ---
labs drawn and sent, EKG done, purewick in place for UA
[2022-10-01 12:36] VITALS: BP 160/71; PULSE 69; RESP 27; TEMP 36.6
[2022-10-01 13:04] LABS: MANUAL DIFF FLAG NO
[2022-10-01 13:06] LABS: Basophils Absolute Auto 0.1 X10*3/uL (0.0-0.2); Basophils Percent Auto 0.6 % (0-2); Eosinophils Absolute Auto 0.7 X10*3/uL (0.0-0.4); Eosinophils Percent Auto 8.2 % (0-4); Hematocrit 47.8 % (37.0-47.0); Imm Gran Abs Auto 0.02 X10*3/uL (0.00-0.03); Imm Gran Pct Auto 0.2 % (0.0-0.4); Lymphocytes Absolute Auto 1.5 X10*3/uL (1.2-4.9); Lymphocytes Percent Auto 18.1 % (20-40); Mean Corpuscular HGB Conc 31.4 g/dl (31.0-35.0); Mean Corpuscular Hemoglobin 30.1 pg (27.0-33.0); Mean Platelet Volume 9.9 fL (9.4-12.3); Monocytes Absolute Auto 0.8 X10*3/uL (0.1-1.2); Neutrophils Absolute Auto 5.3 x10*3/uL (2.0-8.3); Neutrophils Percent Auto 62.9 % (45-73); Platelet Count 330 X10*3/uL (160-400); Red Blood Count 4.98 X10*6/uL (4.20-5.50); Red Cell Distribution Width 13.8 % (11.0-16.0); White Blood Count 8.4 X10*3/uL (4.8-10.8)
[2022-10-01 13:12] LABS: INTERNATIONAL NORM RATIO 2.8 (0.9-1.1)
[2022-10-01 13:45] LABS: Alanine Aminotransferase < 6 U/L (0-31); Albumin Level 3.6 g/dL (3.5-5.0); Alkaline Phosphatase 76 U/L (39-117); Anion Gap 12 (12-20); Aspartate Amino Transferase 14 U/L (5-31); Bilirubin Total 0.4 mg/dL (0.0-1.0); Blood Urea Nitrogen 14 mg/dL (9-16); Calcium 9.3 mg/dL (8.4-10.2); Carbon Dioxide 31 mmol/L (22-29); Chloride 103 mmol/L (96-108); Creatinine Clr Calc Pharmacy 50.1; Estimated Glomerular Filt Rate > 60; Glucose Random 102 mg/dL (60-115); Sodium 142 mmol/L (135-145); Total Protein 6.9 g/dL (6.5-8.0)
--- NOTE | 2022-10-01 13:46 | PC.NURSE ---
Ua collected and sent
[2022-10-01 13:53] LABS: Troponin-I High Sensitivity 4.6 ng/L (<3.5-17.0)
[2022-10-01 13:55] LABS: Appearance Urine Cloudy; Color Urine Yellow; Glucose Urine UA Negative (Negative); Leukocyte Esterase Urine Large (3+) (Negative); Nitrite Urine Negative (Negative); Specific Gravity - Urine 1.015 (1.005-1.025); UMIC TRIGGER UACC YES; Urine Blood Negative (Negative); Urine Ketones Negative (Negative); Urine Protein Negative (Neg-Trace)
[2022-10-01 14:00] LABS: Bacteria Urine 2+ (None Seen); Hyaline Casts Urine 0-2 /LPF (0-2); UACC Culture Trigger YES; WBC Urine >50 /HPF (0-5)
[2022-10-01 15:26] LABS: B Type Natriuretic Peptide 214 pg/mL (<100)
[2022-10-01] MEDS: Furosemide 40 MG/4 ML VIAL IVPUSH (15:58)
--- NOTE | 2022-10-01 18:15 | PC.NURSE ---
pt resting comfortably in stretcher, discharged, awaiting ambulance ride home with daughter
== END 2022-10-01 18:46 | disposition home or self-care (01) ==
PROVIDERS: Emergency Provider Student in an Organized Health Care Education/Training Program; PCP Internal Medicine
DX: R06.02 Shortness of breath (principal); I11.0 Hypertensive heart disease with heart failure; I50.9 Heart failure, unspecified; I48.21 Permanent atrial fibrillation; Z87.891 Personal history of nicotine dependence; Z79.899 Other long term (current) drug therapy; Z79.01 Long term (current) use of anticoagulants
CPT/HCPCS: 36415; 71045; 74018; 80053; 81001; 83880; 84484; 85025; 85610; 87086; 87088; 87186; 93005; 96374; 99284; J1940

== ENCOUNTER 2023-03-11 15:32 | Emergency (ER) | payer MEDICARE, SELFPAY ==
--- NOTE | ~2023-03-11 | CT_ITS ---
EXAMINATION: CT ABDOMEN AND PELVIS WITHOUT CONTRAST CLINICAL INFORMATION: RLQ tenderness (appendectomy) R/O SBO, diverticuli COMPARISON: CT abdomen pelvis 05/26/2015 TECHNIQUE: Multidetector volumetric imaging was performed from the superior aspect of the liver through the pubic symphysis. Sagittal and coronal reformatted images were obtained on the technologist's workstation. This CT examination was performed using dose optimization techniques as appropriate, variously including the following: *Automated exposure control *Adjustment of mA and/or kV according to patient size (this includes techniques or standardized protocols for targeted exams where dose is matched to indication/reason for exam; i.e. extremities or head) *Use of iterative reconstruction technique DLP: 934 mGy-cm FINDINGS: LUNG BASES: Heart size is enlarged. Calcifications of mitral valve annulus. Vascular calcifications of the aorta. There are calcifications of the aortic valve. LIVER, GALLBLADDER, AND BILIARY TREE: The liver is normal in size, shape, and attenuation. No focal hepatic lesion or biliary ductal dilatation is present. Small dense gallstones layering in the fundus of the gallbladder. No gallbladder wall thickening or pericholecystic fluid. PANCREAS: Unremarkable. SPLEEN: Unremarkable. ADRENAL GLANDS: Unremarkable. KIDNEYS AND URETERS: The kidneys are normal in size, shape, and attenuation. No hydronephrosis, hydroureter, or calculi seen. No perinephric stranding. BLADDER: Unremarkable. GASTROINTESTINAL TRACT: There are numerous diverticula throughout the colon. Diverticulosis is most significant at the sigmoid colon. There is no diverticulitis. There is no bowel wall thickening /edema. There is no bowel obstruction. There is a moderate volume of stool in the colon. The appendix is nonvisualized . There are no inflammatory changes of the mesentery. The small bowel loops are unremarkable. The stomach is normal. There is no hiatal hernia. ABDOMINAL WALL: No significant hernia is appreciated. LYMPH NODES: Normal. VASCULAR: Vascular calcifications in the abdomen and pelvis. There is no aneurysm. PELVIC VISCERA: Uterus is anteverted and atrophic. Pessary within the vaginal vault. No adnexal abnormality. OSSEOUS STRUCTURES: Multilevel degenerative spondylosis spine. Status post left hip replacement. CT/CT abdomen pelvis wo IV con IMPRESSION: 1. No acute abnormality CT scan abdomen pelvis. 2. Cholelithiasis. No acute change of the gallbladder. 3. Marked diverticulosis of the colon. No acute abnormality of the bowel. Fleischner guidelines were followed.
--- NOTE | ~2023-03-11 | XR_ITS ---
EXAMINATION: XR CHEST CLINICAL INFORMATION: Dyspnea and hypoxia with question of CHF or pneumonia COMPARISON: Prior chest radiograph 10/01/[address] scan abdomen pelvis today TECHNIQUE: Frontal view of the chest was obtained. FINDINGS: The heart is mildly enlarged. There are chronic increased interstitial markings similar to prior. No focal consolidations are seen. No pleural effusions are present (this is better assessed on the CT scan). Severe degenerative changes are present in both shoulders as well as the spine with scoliosis convex to the right. XR/XR chest 1V IMPRESSION: No acute intrathoracic disease. Mild cardiomegaly. Chronic increased interstitial markings. No pleural effusions or convincing evidence of CHF/pulmonary edema.
[2023-03-11 15:47] VITALS: BP 159/90; BP 178/80; PULSE 64; PULSE 80; RESP 20; TEMP 36.8; O2SAT 90; O2SAT 92; BMI 26.6
--- NOTE | 2023-03-11 16:27 | ECG_ITS ---
Test Reason : WEAKNESS Blood Pressure : / mmHG Vent. Rate : 076 BPM Atrial Rate : 000 BPM P-R Int : 000 ms QRS Dur : 092 ms QT Int : 390 ms P-R-T Axes : 000 -24 128 degrees QTc Int : 438 ms Atrial fibrillation with premature ventricular or aberrantly conducted complexes Moderate voltage criteria for LVH, may be normal variant ( R in aVL , Vickey product ) Nonspecific ST and T wave abnormality Abnormal ECG When compared with ECG of 01-OCT-2022 12:29, No significant change was found Referred By: Preet Cody Electronically Signed By:MOE CORDERO
--- NOTE | 2023-03-11 16:27 | ED_ITS ---
HPI - Abdominal Pain General Chief Complaint: Abdominal Pain Stated Complaint: ABD PAIN, CONSTIPATION Time Seen by Provider: 03/11/23 16:07 Source: patient and family (Son, Edward) Mode of arrival: EMS Limitations: no limitations History of Present Illness HPI narrative: 87-year-old female who presents emergency department for evaluation abdominal pain. Patient has been experiencing abdominal pain since 03/08/2023 (3 days prior to evaluation). The pain is been intermittent. The patient points to her upper and right abdomen when asked to localize the pain. She states that the pressure pain which is intermittent and currently has resolved. She states the pain is moderate in intensity. She had associated nausea with no vomiting. Review of systems was positive for chills, rhinorrhea and shortness of breath. EMS noted that the patient was wheezing and had a low O2 saturation EN route and place the patient on oxygen via nasal cannula. Surgical history is significant for appendectomy, small-bowel obstruction requiring surgical repair 10 years prior, hip fracture ORIF. Patient's last bowel movement was 2 days prior, she did not notice any blood or dark tarry stools in her bowel movement Related Data Home Medications Medication Instructions Recorded Confirmed acetaminophen 500 mg tablet 1,000 mg PO BID 08/22/21 02/08/22 mirtazapine 15 mg tablet 1 tab PO BEDTIME 08/22/21 02/08/22 warfarin 2.5 mg tablet 5 mg PO MO@1800 08/22/21 02/08/22 duloxetine 20 mg capsule,delayed 20 mg PO DAILY 11/05/21 02/08/22 release metoprolol tartrate 50 mg tablet 50 mg PO BID 11/05/21 02/08/22 cyanocobalamin (vitamin B-12) 5,000 mcg PO DAILY 02/08/22 02/08/22 5,000 mcg capsule docusate sodium 100 mg capsule 100 mg PO BID 02/08/22 02/08/22 (Colace) furosemide 20 mg tablet 1 tab PO Q2D 02/08/22 02/08/22 lactulose 10 gram/15 mL oral 15 ml PO DAILY PRN Constipation 02/08/22 02/08/22 solution loratadine 10 mg tablet (Claritin) 10 mg PO DAILY 02/08/22 02/08/22 morphine 15 mg tablet,extended 1 tab PO DAILY 02/08/22 02/08/22 release oxycodone 5 mg tablet 5 mg PO Q6H PRN Pain (Scale Score 02/08/22 02/08/22 4-6) polyethylene glycol 3350 17 gram 17 g PO DAILY PRN Constipation 02/08/22 02/08/22 oral powder packet (Miralax) warfarin 2.5 mg tablet 2.5 mg PO SUTUWETHFRSA@1800 02/08/22 02/08/22 Previous Rx's Medication Instructions Recorded digoxin 125 mcg (0.125 mg) tablet 125 mcg PO Q2D@0900 90 days #45 11/12/22 tabs lactulose 10 gram/15 mL oral 10 g (15 mL) PO DAILY PRN 03/11/23 solution constipation #237 mL nystatin 100,000 unit/gram topical 1 appl topical BID 2 weeks #120 03/11/23 powder grams Allergies Allergy/AdvReac Type Severity Reaction Status Date / Time amoxicillin [AMOXICILLIN] Allergy Severe ANAPHYLAXIS Verified 11/05/21 14:07 iodine [IODINE] Allergy Severe SHORTNESS Verified 11/05/21 14:07 OF BREATH coffee (Coffea arabica) Allergy Intermediate TONGUE Verified 11/05/21 14:07 [COFFEE (BEVERAGE)] SWELLING penicillin G [PENICILLIN G] Allergy Unknown RASH Verified 11/05/21 14:07 shellfish derived Allergy Unknown TONGUE Verified 11/05/21 14:07 [SHELLFISH DERIVED] SWELLING Sulfa (Sulfonamide Allergy Unknown DIFFICULTY Verified 11/05/21 14:07 Antibiotics) BREATHING [SULFA (SULFONAMIDE ANTIBIOTICS)] Review of Systems Review of Systems Yes all other systems are reviewed and are negative [facility] Past Medical History [facility] Narrative: Social history: Patient is a former smoker but stop smoking 50 years prior, she denies alcohol or drug use. She is here in the emergency department with her son, Edward Medical History HTN (hypertension) Non-rheumatic aortic stenosis Permanent atrial fibrillation Surgical History History of appendectomy History of left hip replacement Family History Family History Father No problems noted. Mother No problems noted. Social History Social History Alcohol intake: never Patient Tobacco Use Status: Former Tobacco user Quit Date: 40+ yrs ago Smoked in Last 30 Days: No Use of substances other than those prescribed or required for medical reasons: No Advance Directives: Yes Advance Directives on File: Yes Advance Directives Date on File: 08/22/21 Physical Exam ED Vital Signs: Vital Signs - 24 hr 03/11/23 15:47 03/11/23 16:44 Temperature 98.3 F Pulse Rate 64 75 Respiratory Rate 20 16 Blood Pressure 178/80 H 181/82 H Pulse Oximetry 90 L 98 Oxygen Delivery Method Room Air Nasal Cannula Oxygen Flow Rate 2 BMI result Body Mass Index 26.6 Const Other: Awake, alert, female patient, very pleasant cooperative, does answer questions appropriately, does not appear to be in distress HENMT Head: Yes normal to inspection, Yes normocephalic and Yes atraumatic Ears: external ears normal General nose exam: Normal external nose present Face and sinus: Yes normal facial exam Mouth: Normal oral and palatal mucosa present Throat: Yes posterior oropharynx normal Eyes General: appearance normal, both eyes and all related structures Pupils: Equal, round and reactive pupils present Neck Neck: Yes normal visual inspection, Yes no lymphadenopathy, Yes trachea midline and Yes supple Chest Chest palpation & inspection: normal inspection of the chest and normal palpation of entire chest wall Resp Other: Patient does not appear to be in respiratory distress, breath sounds symmetric bilaterally, rales at the bases, no wheezing Cardio Other: Irregular rate and rhythm, normal S1, S2, 2/6 systolic murmur best heard at the right upper sternal border without radiation GI Other: Patient's abdomen is nondistended, she has normoactive bowel sounds, there is moderate right lower quadrant tenderness and mild right upper quadrant tenderness, no rebound, no voluntary or involuntary guarding General: Yes no CVA tenderness Back/Spine/Pelvis Back: no CVA tenderness Skin General skin exam: no rashes or lesions noted Neuro Cranial nerves: Yes CN's II-XII intact bilaterally and Yes Equal, round and reactive pupils present Cognition (Neuro): normal cognition Motor exam (neuro): 5/5 motor strength present throughout Extrem Other: Trace pitting edema bilaterally symmetric Psych Appearance: grossly normal Speech and movement: Normal speech and movement present Affect: normal affect Attitude: cooperative Medical Decision Making Medical Decision Making MDM Narrative: 87-year-old female who presents emergency department for evaluation of intermittent upper and right-sided abdominal pain x3 days. Last bowel movement was 2 days prior. Paramedics reported wheezing and O2 saturation 90% on room air in route. Patient's physical examination revealed rales at the bases on her lung exam, trace pitting edema, right-sided abdominal tenderness- increased in the right lower quadrant. Rectal examination revealed soft stool which was Hemoccult negative. I ordered the following tests: CBC, CMP, BNP, troponin, lipase, PT/INR, PTT, EKG, one-view chest x-ray, CT scan of the abdomen pelvis with IV contrast. 1913: Patient's laboratory evaluation was unremarkable. Patient's 12 EKG consistent with atrial fibrillation with PVCs Chest x-ray reveals increased interstitial markings Patient's O2 saturation on room air varies from 88% to 92%. I did discuss the negative workup with the patient's daughter, given her aortic stenosis and elevation in her BNP I told the daughter to try to restrict her fluid to 1 L a day for the next 2 days. I do not think the patient's diuretic at this time. Patient is bed ridden and will need an ambulance home. Differential Diagnosis Differential Diagnoses: The differential diagnosis associated with the presentation includes Differential diagnosis includes was not limited to diverticulitis, cholecystitis, small-bowel obstruction, anemia, electrolyte abnormality, pneumonia, congestive heart failure, Admission/Observation Consideration of admission/observation: Escalation of care including ad mission/observation considered Lab Data [facility] Lab Attestation statement: I reviewed the patient's lab results. My interpretation patient's laboratory evaluation is as follows: Elevated H&H 16.3 and 51.3. Elevated bicarb 34. Therapeutic INR 2.5. High sensitive troponin I below detectable limits. BNP elevated 420-above previous values. Occult stool negative for blood. COVID-19 negative. 03/11/23 16:52 03/11/23 16:52 Labs: Lab Results 03/11/23 03/11/23 03/11/23 Range/Units 16:36 16:36 16:52 WBC 7.1 (4.8-10.8) X10*3/uL RBC 5.33 (4.20-5.50) X10*6/uL Hgb 16.3 H (12.0-16.0) g/dl Hct 51.3 H (37.0-47.0) % MCV 96.2 (80.0-98.0) fL MCH 30.6 (27.0-33.0) pg MCHC 31.8 (31.0-35.0) g/dl RDW 14.0 (11.0-16.0) % Plt Count 256 (160-400) X10*3/uL MPV 10.0 (9.4-12.3) fL Immature Gran % (Auto) 0.1 (0.0-0.4) % Neut % (Auto) 70.1 (45-73) % Lymph % (Auto) 16.2 L (20-40) % [place] % (Auto) 7.1 (2-11) % Eos % (Auto) 5.8 H (0-4) % Baso % (Auto) 0.7 (0-2) % Lymph # (Auto) 1.2 (1.2-4.9) X10*3/uL [place] # (Auto) 0.5 (0.1-1.2) X10*3/uL Eos # (Auto) 0.4 (0.0-0.4) X10*3/uL Baso # (Auto) 0.1 (0.0-0.2) X10*3/uL Abs Immat Gran (auto) 0.01 (0.00-0.03) X10*3/uL Absolute Neuts (auto) 5.0 (2.0-8.3) x10*3/uL Absolute Nucleated RBC 0.000 (0.0-0.012) X10*3/uL Nucleated RBC % (auto) 0.0 (0.0-0.2) /100WBC PT (10.0-13.1) SEC INR (0.9-1.1) APTT (26.0-36.4) SEC Sodium (135-145) mmol/L Potassium (3.3-5.1) mmol/L Chloride (96-108) mmol/L Carbon Dioxide (22-29) mmol/L Anion Gap (12-20) BUN (9-16) mg/dL Creatinine (0.5-1.4) mg/dL Estim Creat Clear Calc Estimated GFR Random Glucose (60-115) mg/dL Calcium (8.4-10.2) mg/dL Total Bilirubin (0.0-1.0) mg/dL AST (5-31) U/L ALT (0-31) U/L Alkaline Phosphatase (39-117) U/L Troponin I High Sens (<3.5-17.0) ng/L B-Natriuretic Peptide (<100) pg/mL Total Protein (6.5-8.0) g/dL Albumin (3.5-5.0) g/dL Lipase (8-78) U/L Stool Occult Blood NEGATIVE (NEGATIVE) COVID-19 (FRANDY) Negative (Negative) COVID-19 Clin Com See Note 03/11/23 03/11/23 03/11/23 Range/Units 16:52 16:52 16:52 WBC (4.8-10.8) X10*3/uL RBC (4.20-5.50) X10*6/uL Hgb (12.0-16.0) g/dl Hct (37.0-47.0) % MCV (80.0-98.0) fL MCH (27.0-33.0) pg MCHC (31.0-35.0) g/dl RDW (11.0-16.0) % Plt Count (160-400) X10*3/uL MPV (9.4-12.3) fL Immature Gran % (Auto) (0.0-0.4) % Neut % (Auto) (45-73) % Lymph % (Auto) (20-40) % [place] % (Auto) (2-11) % Eos % (Auto) (0-4) % Baso % (Auto) (0-2) % Lymph # (Auto) (1.2-4.9) X10*3/uL [place] # (Auto) (0.1-1.2) X10*3/uL Eos # (Auto) (0.0-0.4) X10*3/uL Baso # (Auto) (0.0-0.2) X10*3/uL Abs Immat Gran (auto) (0.00-0.03) X10*3/uL Absolute Neuts (auto) (2.0-8.3) x10*3/uL Absolute Nucleated RBC (0.0-0.012) X10*3/uL Nucleated RBC % (auto) (0.0-0.2) /100WBC PT 30.0 H (10.0-13.1) SEC INR 2.5 H (0.9-1.1) APTT 49.7 H (26.0-36.4) SEC Sodium 142 (135-145) mmol/L Potassium 3.9 (3.3-5.1) mmol/L Chloride 101 (96-108) mmol/L Carbon Dioxide 34 H (22-29) mmol/L Anion Gap 11 L (12-20) BUN 9 (9-16) mg/dL Creatinine 0.68 (0.5-1.4) mg/dL Estim Creat Clear Calc 53.9 Estimated GFR > 60 Random Glucose 115 (60-115) mg/dL Calcium 9.5 (8.4-10.2) mg/dL Total Bilirubin 1.0 (0.0-1.0) mg/dL AST 16 (5-31) U/L ALT 6 (0-31) U/L Alkaline Phosphatase 56 (39-117) U/L Troponin I High Sens 2.7 (<3.5-17.0) ng/L B-Natriuretic Peptide (<100) pg/mL Total Protein 7.3 (6.5-8.0) g/dL Albumin 3.8 (3.5-5.0) g/dL Lipase 11 (8-78) U/L Stool Occult Blood (NEGATIVE) COVID-19 (FRANDY) (Negative) COVID-19 Clin Com 03/11/23 Range/Units 16:52 WBC (4.8-10.8) X10*3/uL RBC (4.20-5.50) X10*6/uL Hgb (12.0-16.0) g/dl Hct (37.0-47.0) % MCV (80.0-98.0) fL MCH (27.0-33.0) pg MCHC (31.0-35.0) g/dl RDW (11.0-16.0) % Plt Count (160-400) X10*3/uL MPV (9.4-12.3) fL Immature Gran % (Auto) (0.0-0.4) % Neut % (Auto) (45-73) % Lymph % (Auto) (20-40) % [place] % (Auto) (2-11) % Eos % (Auto) (0-4) % Baso % (Auto) (0-2) % Lymph # (Auto) (1.2-4.9) X10*3/uL [place] # (Auto) (0.1-1.2) X10*3/uL Eos # (Auto) (0.0-0.4) X10*3/uL Baso # (Auto) (0.0-0.2) X10*3/uL Abs Immat Gran (auto) (0.00-0.03) X10*3/uL Absolute Neuts (auto) (2.0-8.3) x10*3/uL Absolute Nucleated RBC (0.0-0.012) X10*3/uL Nucleated RBC % (auto) (0.0-0.2) /100WBC PT (10.0-13.1) SEC INR (0.9-1.1) APTT (26.0-36.4) SEC Sodium (135-145) mmol/L Potassium (3.3-5.1) mmol/L Chloride (96-108) mmol/L Carbon Dioxide (22-29) mmol/L Anion Gap (12-20) BUN (9-16) mg/dL Creatinine (0.5-1.4) mg/dL Estim Creat Clear Calc Estimated GFR Random Glucose (60-115) mg/dL Calcium (8.4-10.2) mg/dL Total Bilirubin (0.0-1.0) mg/dL AST (5-31) U/L ALT (0-31) U/L Alkaline Phosphatase (39-117) U/L Troponin I High Sens (<3.5-17.0) ng/L B-Natriuretic Peptide 420 H (<100) pg/mL Total Protein (6.5-8.0) g/dL Albumin (3.5-5.0) g/dL Lipase (8-78) U/L Stool Occult Blood (NEGATIVE) COVID-19 (FRANDY) (Negative) COVID-19 Clin Com Independent Interpretation I performed an independent interpretation of an: EKG and Plain X-Ray Interpretation: My independent interpretation patient's 12 EKG is as follows: Atrial fibrillation with a ventricular rate of 76, normal QRS duration QTC interval, frequent PVCs, no ST segment elevation, no ST segment depression, nonspecific T- wave abnormalities My independent interpretation patient's chest x-ray is as follows: Increased interstitial markings bilaterally, cardiomegaly, unchanged from previous Radiology Impression Discussion of test interpretation with radiology: I have reviewed the radiologist's reading. Radiologist Impression: XR chest 1V IMPRESSION: No acute intrathoracic disease. Mild cardiomegaly. Chronic increased interstitial markings. No pleural effusions or convincing evidence of CHF/pulmonary edema. Dictated By:Jf Foreman MD CT abdomen pelvis wo IV con IMPRESSION: 1. No acute abnormality CT scan abdomen pelvis. 2. Cholelithiasis. No acute change of the gallbladder. 3. Marked diverticulosis of the colon. No acute abnormality of the bowel. Fleischner guidelines were followed. Dictated By:Mathew Ding MD Independent Historian Clinical information obtained from an independent historian. History obtained from or confirmed by: Other (Son) Discharge Plan Discharge Clinical Impression: Constipation Abdominal pain Qualifiers: Abdominal location: right lower quadrant Qualified Code(s): R10.31 - Right low er quadrant pain Patient Disposition: Home, Self-Care Instructions: Abdominal Pain (ED) Additional Instructions: The CT scan of your abdomen pelvis without IV contrast did not reveal a clear cause for your pain. On your rectal exam you had soft stool in your not impacted, there was no blood in your stool. Your chest x-ray is unchanged from your previous chest x-ray and I do not think that you have pneumonia or congestive heart failure Your EKG is consistent with atrial fibrillation. I want you to restrict the amount of fluid that you drink to 1 L over the next 2 days. I am prescribing lactulose as needed for constipation. Continue your other medications as prescribed by your providers Follow-up with your doctor in 2 days. Please return to the emergency department if your symptoms get worse or if you develop any symptoms that are concerning to you. Prescriptions: New lactulose 10 gram/15 mL solution 10 g PO DAILY PRN (Reason: constipation) Qty: 237 0RF nystatin 100,000 unit/gram powder 1 appl topical BID 14 Days Qty: 120 0RF No Action digoxin 125 mcg (0.125 mg) tablet 125 mcg PO Q2D@0900 90 Days Qty: 45 3RF warfarin 2.5 mg tablet 5 mg PO MO@1800 Rx Instructions: 2.5 mg every day except 5 mg on friday acetaminophen 500 mg Tablet 1,000 mg PO BID mirtazapine 15 mg tablet 1 tab PO BEDTIME metoprolol tartrate 50 mg tablet 50 mg PO BID polyethylene glycol 3350 [Miralax] 17 gram Powder In Packet 17 g PO DAILY PRN (Reason: Constipation) warfarin 2.5 mg tablet 2.5 mg PO SUTUWETHFRSA@1800 Rx Instructions: 2.5 mg every day except 5 mg on friday docusate sodium [Colace] 100 mg Capsule 100 mg PO BID morphine 15 mg tablet extended release 1 tab PO DAILY furosemide 20 mg tablet 1 tab PO Q2D loratadine [Claritin] 10 mg Tablet 10 mg PO DAILY lactulose 10 gram/15 mL solution 15 ml PO DAILY PRN (Reason: Constipation) cyanocobalamin (vitamin B-12) 5,000 mcg Capsule 5,000 mcg PO DAILY oxycodone 5 mg tablet 5 mg PO Q6H PRN (Reason: Pain (Scale Score 4-6)) duloxetine 20 mg capsule,delayed release(DR/EC) 20 mg PO DAILY
[2023-03-11 16:44] VITALS: BP 181/82; PULSE 75; RESP 16; O2SAT 98
[2023-03-11 16:59] LABS: MANUAL DIFF FLAG NO
[2023-03-11 17:00] LABS: COVID-19 Test Negative (Negative); IDNOW Serial# 6674DD1D
[2023-03-11 17:03] LABS: Basophils Absolute Auto 0.1 X10*3/uL (0.0-0.2); Basophils Percent Auto 0.7 % (0-2); Eosinophils Absolute Auto 0.4 X10*3/uL (0.0-0.4); Eosinophils Percent Auto 5.8 % (0-4); Hematocrit 51.3 % (37.0-47.0); Hemoglobin 16.3 g/dl (12.0-16.0); Imm Gran Abs Auto 0.01 X10*3/uL (0.00-0.03); Imm Gran Pct Auto 0.1 % (0.0-0.4); Lymphocytes Absolute Auto 1.2 X10*3/uL (1.2-4.9); Lymphocytes Percent Auto 16.2 % (20-40); Mean Corpuscular HGB Conc 31.8 g/dl (31.0-35.0); Mean Corpuscular Hemoglobin 30.6 pg (27.0-33.0); Mean Corpuscular Volume 96.2 fL (80.0-98.0); Monocytes Absolute Auto 0.5 X10*3/uL (0.1-1.2); Monocytes Percent Auto 7.1 % (2-11); Neutrophils Percent Auto 70.1 % (45-73); Platelet Count 256 X10*3/uL (160-400); Red Blood Count 5.33 X10*6/uL (4.20-5.50); White Blood Count 7.1 X10*3/uL (4.8-10.8)
[2023-03-11 17:13] LABS: INTERNATIONAL NORM RATIO 2.5 (0.9-1.1)
[2023-03-11 17:16] LABS: Partial Thromboplastin Time 49.7 SEC (26.0-36.4)
[2023-03-11 17:28] LABS: Alanine Aminotransferase 6 U/L (0-31); Albumin Level 3.8 g/dL (3.5-5.0); Alkaline Phosphatase 56 U/L (39-117); Anion Gap 11 (12-20); Aspartate Amino Transferase 16 U/L (5-31); Blood Urea Nitrogen 9 mg/dL (9-16); Calcium 9.5 mg/dL (8.4-10.2); Carbon Dioxide 34 mmol/L (22-29); Chloride 101 mmol/L (96-108); Creatinine Clr Calc Pharmacy 53.9; Estimated Glomerular Filt Rate > 60; Glucose Random 115 mg/dL (60-115); Lipase 11 U/L (8-78); Potassium 3.9 mmol/L (3.3-5.1); Sodium 142 mmol/L (135-145); Total Protein 7.3 g/dL (6.5-8.0)
[2023-03-11 17:29] LABS: B Type Natriuretic Peptide 420 pg/mL (<100)
[2023-03-11 17:32] LABS: Troponin-I High Sensitivity 2.7 ng/L (<3.5-17.0)
[2023-03-11 17:49] LABS: OBS Int Ctl Valid YES; OBS1 NEGATIVE (NEGATIVE)
== END 2023-03-11 20:24 | disposition home or self-care (01) ==
PROVIDERS: Emergency Provider Emergency Medicine Emergency Medical Services
DX: K59.00 Constipation, unspecified (principal); R10.31 Right lower quadrant pain; Z20.822 Contact with and (suspected) exposure to COVID-19; Z20.828 Contact with and (suspected) exposure to other viral communicable diseases; Z87.891 Personal history of nicotine dependence; Z79.899 Other long term (current) drug therapy
CPT/HCPCS: 71045; 74176; 80053; 82272; 83690; 83880; 84484; 85025; 85610; 85730; 87635; 93005; 99284

== ENCOUNTER 2023-03-14 16:54 | Inpatient (IN) | payer MEDICARE, SELFPAY ==
[2023-03-14] VITALS (10 sets, daily range): BP systolic 114–185; BP diastolic 53–83; PULSE 75–96; RESP 12–21; TEMP 36.2–36.3; O2SAT 75–98; BMI 24.3
--- NOTE | ~2023-03-14 | CT_ITS ---
EXAMINATION: CT chest, abdomen and pelvis without IV contrast. CLINICAL INDICATIONS: Hypoxia and constipation. COMPARISON: CT abdomen and pelvis without IV contrast 03/11/2023 and 05/26/2015. TECHNIQUE: 5 mm thin axial and reformatted 3 mm thin sagittal and coronal images of chest, abdomen pelvis were obtained without contrast. DLP 939 mGy. FINDINGS: CHEST: Limited in evaluation secondary breathing artifact. LUNGS: There is diffuse groundglass opacity seen throughout both upper lobes. There are several bilateral pulmonary nodules in both upper and lower lobes. 7 mm 2 lung nodules right upper lobe axial image 14/6, 5 mm nodule right upper lobe posteriorly image 18/6, 3 mm nodule right upper lobe and superior segment right lower lobe axial image 20/6, 4 mm nodules left upper lobe axial image 24/6, 4 mm nodule left upper lobe imaging 19/6. There are several smaller nodules seen in both upper lobes. There is focal atelectatic changes left upper lobe anterior segment. No consolidation seen. Mediastinum: Central trachea and the bronchi are widely patent. Thyroid lobes are symmetric is normal. Heart size and the great vessels are normal caliber. No pericardial effusion seen. There is mitral valve calcification. Several precarinal and left para-aortic lymph nodes are seen measuring 1 cm. Mild coronary artery calcifications are present. There is a small hiatal hernia. Pleura: There is no pleural effusion, thickening or calcified pleural plaques. Axilla: No abnormal size lymph nodes seen. The chest wall is unremarkable. Osseous structures: There is exaggerated thoracic kyphosis. Dextroscoliosis. There is mild spondylosis throughout dorsal spine. No acute fracture, lytic or sclerotic process seen. Abdomen and pelvis: Liver, ducts and gallbladder: The liver is homogeneous in density, normal size and contour. No focal lesion or intrahepatic ductal dilatation seen. There are several dependent small radiopaque gallstones without wall thickening. The CBD appears normal caliber. Pancreas: Unremarkable. Spleen: Unremarkable. Adrenal glands: Unremarkable. Kidneys and ureters: Both kidneys are normal size, shape and position. No radiopaque renal calculi or hydronephrosis seen. There is no perinephric stranding. A 5 mm hypodense lesion is seen in the upper pole left kidney. Bladder: Unremarkable. GI tract: There is diffuse colonic diverticulosis, scattered stool and gas throughout the colon without distention or diverticulitis. The small bowel loops are normal caliber. Appendix is not visualized no inflammatory process seen in the abdomen and pelvis. There is mild fecal impaction. Lymphovascular structures: The abdominal aorta is atherosclerotic and nondilated. Pelvis: There is a pessary visualized in the pelvis. No free fluid. No abnormal lymph nodes or hernia. Osseous structures: The total left hip prosthesis in satisfactory alignment. There is severe degenerative changes right hip joint. Mild degenerative disc changes, vacuum disc phenomena and spondylosis seen throughout lumbar spine. No aggressive lytic or sclerotic process. CT/CT abdomen pelvis wo IV con IMPRESSION: 1. Multiple bilateral pulmonary nodules. There is diffuse groundglass opacity in both upper lobes. 2. No abnormal mediastinal or axillary lymphadenopathy. 3. Small hiatal hernia. 4. Diffuse colonic diverticulosis without diverticulitis. Mild fecal impaction. No obstruction seen. 5. Cholelithiasis without wall thickening. 6. Small hyperdense lesion upper pole left kidney likely complex cyst. 7. Total left hip prosthesis in satisfactory alignment. There is severe degenerative changes right hip joint.
--- NOTE | ~2023-03-14 | XR_ITS ---
EXAMINATION: XR CHEST CLINICAL INFORMATION: Shortness of breath COMPARISON: Chest x-ray 03/11/2023, 02/08/2022. CT abdomen and pelvis 03/11/2023 TECHNIQUE: Frontal portable view of the chest was obtained. 1716 hours FINDINGS: Heart size is enlarged. Calcifications of the mitral valve annulus. Vascular calcifications of aorta. Surgical suture chains in the left lung. Chronic mild increased lung markings. No acute airspace disease. Chronic blunting of left costophrenic angle may be due to pleural thickening or effusion. XR/XR chest 1V IMPRESSION: 1. No acute abnormality of chest. 2. Cardiomegaly. Postsurgical changes of chest. Chronic blunting of left costophrenic angle.
--- NOTE | ~2023-03-14 | XR_ITS ---
EXAMINATION: XR CHEST CLINICAL INFORMATION: Dyspnea COMPARISON: Chest x-ray 03/14/2020. CT chest 03/14/2023 TECHNIQUE: Frontal view of the chest was obtained. FINDINGS: The lungs are hypoexpanded with prominent coarse interstitial markings likely chronic changes. No consolidation seen.. The heart size is enlarged. The pulmonary vascularity is normal. There is moderate arthritic changes left shoulder joint. No other bony abnormality seen XR/XR chest 1V IMPRESSION: Hypoexpanded lungs with prominent interstitial markings likely chronic changes. No acute pneumonic process seen. No major change from previous chest x-ray 03/14/2023
--- NOTE | ~2023-03-14 | CT_ITS ---
EXAMINATION: CT HEAD WITHOUT CONTRAST CLINICAL INFORMATION: Altered mental status and Coumadin COMPARISON: CT head 02/08/2022 TECHNIQUE: Contiguous axial imaging was performed from the skull base to vertex without intravenous administration of contrast. This CT examination was performed using dose optimization techniques as appropriate, variously including the following: *Automated exposure control *Adjustment of mA and/or kV according to patient size (this includes techniques or standardized protocols for targeted exams where dose is matched to indication/reason for exam; i.e. extremities or head) *Use of iterative reconstruction technique DLP: 623 mGy-cm FINDINGS: There is no evidence of acute intracranial hemorrhage or territorial infarction. No abnormal mass effect or midline shift is seen. Gr to white matter differentiation is well preserved. No extra-axial fluid collections are identified. Commensurate prominence of the ventricles and sulci is compatible with generalized parenchymal volume loss. There is mild periventricular and subcortical white matter hypoattenuation, most likely representing microangiopathic disease. No acute calvarial fracture.. Paranasal sinuses and mastoid air cells are well-aerated. CT/CT head/brain wo IV con IMPRESSION: No CT evidence of acute intracranial hemorrhage or edematous territorial infarction.
--- NOTE | 2023-03-14 17:01 | ECG_ITS ---
Test Reason : HYPOXIC Blood Pressure : / mmHG Vent. Rate : 071 BPM Atrial Rate : 000 BPM P-R Int : 000 ms QRS Dur : 090 ms QT Int : 400 ms P-R-T Axes : 000 -31 068 degrees QTc Int : 434 ms Atrial fibrillation Left axis deviation Moderate voltage criteria for LVH, may be normal variant ( R in aVL , [place] product ) Nonspecific T wave abnormality Abnormal ECG When compared with ECG of 11-MAR-2023 16:40, No significant change was found Referred By: Wade Gallegos Electronically Signed By:MOE CORDERO
--- NOTE | 2023-03-14 17:13 | ED_ITS ---
HPI - Altered Mental Status General Chief Complaint: Dyspnea Stated Complaint: LOW 02 Time Seen by Provider: 03/14/23 16:55 Source: family and EMS Mode of arrival: EMS Limitations: altered mental status History of Present Illness HPI narrative: Patient 87 years old with history of dementia, hypertension, nonrheumatic aortic stenosis, permanent atrial fibrillation on warfarin, and digoxin comes here as family noticed patient is lethargic and not responding following sleep when EMS arrived was saturating 75% at room air AFib on the monitor. Patient was here on 03/11 for upper abdominal pain for last few days with workup was negative patient not on any narcotics at home take Tylenol for pain as needed. After arrival patient was saturating 95% at room air still drowsy and sleepy slept only 3 hours at night which is usual for her no vomiting no diarrhea per family patient has been more lethargic lately last few days Related Data Home Medications Medication Instructions Recorded Confirmed acetaminophen 500 mg tablet 1,000 mg PO BID 08/22/21 03/12/23 warfarin 2.5 mg tablet 5 mg PO MO@1800 08/22/21 03/12/23 duloxetine 20 mg capsule,delayed 20 mg PO DAILY 11/05/21 03/12/23 release metoprolol tartrate 50 mg tablet 50 mg PO BID 11/05/21 03/12/23 cyanocobalamin (vitamin B-12) 5,000 mcg PO DAILY 02/08/22 03/12/23 5,000 mcg capsule docusate sodium 100 mg capsule 100 mg PO BID 02/08/22 03/12/23 (Colace) lactulose 10 gram/15 mL oral 15 ml PO DAILY PRN Constipation 02/08/22 03/12/23 solution loratadine 10 mg tablet (Claritin) 10 mg PO DAILY 02/08/22 03/12/23 polyethylene glycol 3350 17 gram 17 g PO DAILY PRN Constipation 02/08/22 03/12/23 oral powder packet (Miralax) warfarin 2.5 mg tablet 2.5 mg PO SUTUWETHFRSA@1800 02/08/22 03/12/23 mirtazapine 15 mg tablet 15 mg PO BEDTIME 03/12/23 03/12/23 Previous Rx's Medication Instructions Recorded digoxin 125 mcg (0.125 mg) tablet 125 mcg PO Q2D@0900 90 days #45 11/12/22 tabs lactulose 10 gram/15 mL oral 10 g (15 mL) PO DAILY PRN 03/11/23 solution constipation #237 mL nystatin 100,000 unit/gram topical 1 appl topical BID 2 weeks #120 03/11/23 powder grams Allergies Allergy/AdvReac Type Severity Reaction Status Date / Time amoxicillin [AMOXICILLIN] Allergy Severe ANAPHYLAXIS Verified 03/12/23 14:29 iodine [IODINE] Allergy Severe SHORTNESS Verified 03/12/23 14:29 OF BREATH coffee (Coffea arabica) Allergy Intermediate TONGUE Verified 03/12/23 14:29 [COFFEE (BEVERAGE)] SWELLING penicillin G [PENICILLIN G] Allergy Unknown RASH Verified 03/12/23 14:29 shellfish derived Allergy Unknown TONGUE Verified 03/12/23 14:29 [SHELLFISH DERIVED] SWELLING Sulfa (Sulfonamide Allergy Unknown DIFFICULTY Verified 03/12/23 14:29 Antibiotics) BREATHING [SULFA (SULFONAMIDE ANTIBIOTICS)] Review of Systems Review of Systems: Yes all other systems are reviewed and are negative PMF Past Medical History Medical History HTN (hypertension) Non-rheumatic aortic stenosis Permanent atrial fibrillation Surgical History History of appendectomy History of left hip replacement Family History Family History Father No problems noted. Mother No problems noted. Social History Social History Alcohol intake: never Patient Tobacco Use Status: Former Tobacco user Quit Date: 40+ yrs ago Advance Directives: Yes Advance Directives on File: Yes Advance Directives Date on File: 08/22/21 Physical Exam ED Vital Signs: Vital Signs - 24 hr 03/14/23 16:59 03/14/23 19:24 03/14/23 21:21 Temperature 97.1 F 97.3 F Pulse Rate 86 88 80 Respiratory Rate 16 21 H 20 Blood Pressure 151/78 H 170/70 H 185/83 H Pulse Oximetry 98 96 96 Oxygen Delivery Method Nasal Cannula Nasal Cannula Nasal Cannula Oxygen Flow Rate 1 1 03/14/23 21:56 03/14/23 21:59 Temperature Pulse Rate 75 Respiratory Rate 20 18 Blood Pressure Pulse Oximetry Oxygen Delivery Method Oxygen Flow Rate BMI result Body Mass Index 24.3 Appearance: Lethargic and sleepy No acute distress. Eyes: Pupils normal size and normal reaction to light ENT: Pharynx normal. Oral Mucosa moist Neck: Normal inspection. Neck supple. CVS: Irregularly irregular heart rate, 3/ 6 systolic ejection murmur at base Pulses normal. Respiratory: No respiratory distress. Equal air entry bilateral, no wheezing/rales/rhonchi Abdomen: Soft and nontender. Bowel sounds are present, no mass palpable, no CVA tenderness Skin: Skin warm and dry. Normal skin color. Normal skin turgor. Extremities: No lower extremity edema. No calf tenderness Neuro: Oriented X 1-2. No motor deficit. Decreased leg movement Medications Administered Discontinued Medications Generic Name Dose Route Start Last Admin Trade Name Freq PRN Reason Stop Dose Admin Albuterol Sulfate 2.5 mg/ 0 mg 03/14/23 21:49 03/14/23 21:55 Albuterol/Ipratropium 3 ml INHALE 03/14/23 21:50 1 each ONCE ONE Administration Furosemide 20 mg 03/14/23 23:19 03/14/23 23:36 Furosemide 20 Mg/2 Ml Vial IVPUSH 03/14/23 23:20 20 mg ONCE ONE Administration Protocol Sodium Chloride 1,000 mls @ 999 mls/hr 03/14/23 20:41 03/14/23 22:24 Ns IV 03/14/23 21:41 999 mls/hr .Q1H1M ONE Administration Medical Decision Making Medical Decision Making [facility] Narrative: Patient with lethargy workup showed acute respiratory failure with hypercapnia does have a history of COPD and AFib and chronic CHF. Patient was placed on BiPAP will admit to ICU Differential Diagnosis CHF/respiratory failure/PE Lab Data [facility] Lab Attestation statement: I reviewed the patient's lab results. 03/14/23 17:36 03/14/23 17:36 Labs: Lab Results 03/14/23 03/14/23 03/14/23 Range/Units 17:36 17:36 17:36 WBC 6.8 (4.8-10.8) X10*3/uL RBC 5.20 (4.20-5.50) X10*6/uL Hgb 15.8 (12.0-16.0) g/dl Hct 51.4 H (37.0-47.0) % MCV 98.8 H (80.0-98.0) fL MCH 30.4 (27.0-33.0) pg MCHC 30.7 L (31.0-35.0) g/dl RDW 14.2 (11.0-16.0) % Plt Count 273 (160-400) X10*3/uL MPV 10.7 (9.4-12.3) fL Immature Gran % (Auto) 0.1 (0.0-0.4) % Neut % (Auto) 58.7 (45-73) % Lymph % (Auto) 23.0 (20-40) % [place] % (Auto) 9.4 (2-11) % Eos % (Auto) 7.8 H (0-4) % Baso % (Auto) 1.0 (0-2) % Lymph # (Auto) 1.6 (1.2-4.9) X10*3/uL [place] # (Auto) 0.6 (0.1-1.2) X10*3/uL Eos # (Auto) 0.5 H (0.0-0.4) X10*3/uL Baso # (Auto) 0.1 (0.0-0.2) X10*3/uL Abs Immat Gran (auto) 0.01 (0.00-0.03) X10*3/uL Absolute Neuts (auto) 4.0 (2.0-8.3) x10*3/uL Absolute Nucleated RBC 0.000 (0.0-0.012) X10*3/uL Nucleated RBC % (auto) 0.0 (0.0-0.2) /100WBC PT 38.1 H (10.0-13.1) SEC INR 3.2 H (0.9-1.1) D-Dimer High Sensitivty < 150 NG/ML O2 Saturation % ABG pH at Pt Temp (7.35-7.45) ABG pCO2 at Pt Temp (32-45) mmHg ABG pO2 at Pt Temp (83-108) mmHg ABG HCO3 (22-26) mmol/L ABG Base Excess (Actual) mmol/L VBG pH (7.32-7.43) VBG pCO2 mmHg VBG pO2 mmHg VBG HCO3 (22-26) mmol/L VBG O2 Saturation % VBG Base Excess mmol/L Sodium 141 (135-145) mmol/L Potassium 4.2 (3.3-5.1) mmol/L Chloride 100 (96-108) mmol/L Carbon Dioxide 32 H (22-29) mmol/L Anion Gap 13 (12-20) BUN 12 (9-16) mg/dL Creatinine 0.72 (0.5-1.4) mg/dL Estim Creat Clear Calc 49.5 Estimated GFR > 60 Random Glucose 111 (60-115) mg/dL Lactic Acid (0.5-2.0) mmol/L Calcium 9.4 (8.4-10.2) mg/dL Magnesium 2.0 (1.6-2.6) mg/dL Total Bilirubin 0.6 (0.0-1.0) mg/dL AST 14 (5-31) U/L ALT 6 (0-31) U/L Alkaline Phosphatase 50 (39-117) U/L Troponin I High Sens (<3.5-17.0) ng/L B-Natriuretic Peptide (<100) pg/mL Total Protein 7.1 (6.5-8.0) g/dL Albumin 3.7 (3.5-5.0) g/dL Urine Color Urine Appearance Urine pH (5.0-9.0) Ur Specific [place] (1.005-1.025) Urine Protein (Neg-Trace) mg/dL Urine Glucose (UA) (Negative) mg/dL Urine Ketones (Negative) mg/dL Urine Blood (Negative) Urine Nitrite (Negative) Ur Leukocyte Esterase (Negative) Digoxin (0.8-2.0) ng/mL Urine Opiates Screen (Not Detect) Urine Fentanyl Screen (Not Detect) Ur Barbiturates Screen (Not Detect) Ur Phencyclidine Scrn (Not Detect) Ur Amphetamines Screen (Not Detect) U Benzodiazepines Scrn (Not Detect) Urine Cocaine Screen (Not Detect) U Marijuana (THC) Screen (Not Detect) COVID-19 (FRANDY) (Negative) COVID-19 Clin Com 03/14/23 03/14/23 03/14/23 Range/Units 17:36 17:36 17:36 WBC (4.8-10.8) X10*3/uL RBC (4.20-5.50) X10*6/uL Hgb (12.0-16.0) g/dl Hct (37.0-47.0) % MCV (80.0-98.0) fL MCH (27.0-33.0) pg MCHC (31.0-35.0) g/dl RDW (11.0-16.0) % Plt Count (160-400) X10*3/uL MPV (9.4-12.3) fL Immature Gran % (Auto) (0.0-0.4) % Neut % (Auto) (45-73) % Lymph % (Auto) (20-40) % [place] % (Auto) (2-11) % Eos % (Auto) (0-4) % Baso % (Auto) (0-2) % Lymph # (Auto) (1.2-4.9) X10*3/uL [place] # (Auto) (0.1-1.2) X10*3/uL Eos # (Auto) (0.0-0.4) X10*3/uL Baso # (Auto) (0.0-0.2) X10*3/uL Abs Immat Gran (auto) (0.00-0.03) X10*3/uL Absolute Neuts (auto) (2.0-8.3) x10*3/uL Absolute Nucleated RBC (0.0-0.012) X10*3/uL Nucleated RBC % (auto) (0.0-0.2) /100WBC PT (10.0-13.1) SEC INR (0.9-1.1) D-Dimer High Sensitivty NG/ML O2 Saturation % ABG pH at Pt Temp (7.35-7.45) ABG pCO2 at Pt Temp (32-45) mmHg ABG pO2 at Pt Temp (83-108) mmHg ABG HCO3 (22-26) mmol/L ABG Base Excess (Actual) mmol/L VBG pH (7.32-7.43) VBG pCO2 mmHg VBG pO2 mmHg VBG HCO3 (22-26) mmol/L VBG O2 Saturation % VBG Base Excess mmol/L Sodium (135-145) mmol/L Potassium (3.3-5.1) mmol/L Chloride (96-108) mmol/L Carbon Dioxide (22-29) mmol/L Anion Gap (12-20) BUN (9-16) mg/dL Creatinine (0.5-1.4) mg/dL Estim Creat Clear Calc Estimated GFR Random Glucose (60-115) mg/dL Lactic Acid 1.0 (0.5-2.0) mmol/L Calcium (8.4-10.2) mg/dL Magnesium (1.6-2.6) mg/dL Total Bilirubin (0.0-1.0) mg/dL AST (5-31) U/L ALT (0-31) U/L Alkaline Phosphatase (39-117) U/L Troponin I High Sens 3.4 (<3.5-17.0) ng/L B-Natriuretic Peptide (<100) pg/mL Total Protein (6.5-8.0) g/dL Albumin (3.5-5.0) g/dL Urine Color Urine Appearance Urine pH (5.0-9.0) Ur Specific [place] (1.005-1.025) Urine Protein (Neg-Trace) mg/dL Urine Glucose (UA) (Negative) mg/dL Urine Ketones (Negative) mg/dL Urine Blood (Negative) Urine Nitrite (Negative) Ur Leukocyte Esterase (Negative) Digoxin (0.8-2.0) ng/mL Urine Opiates Screen (Not Detect) Urine Fentanyl Screen (Not Detect) Ur Barbiturates Screen (Not Detect) Ur Phencyclidine Scrn (Not Detect) Ur Amphetamines Screen (Not Detect) U Benzodiazepines Scrn (Not Detect) Urine Cocaine Screen (Not Detect) U Marijuana (THC) Screen (Not Detect) COVID-19 (FRANDY) Negative (Negative) COVID-19 Clin Com See Note 03/14/23 03/14/23 03/14/23 Range/Units 17:36 17:36 17:55 WBC (4.8-10.8) X10*3/uL RBC (4.20-5.50) X10*6/uL Hgb (12.0-16.0) g/dl Hct (37.0-47.0) % MCV (80.0-98.0) fL MCH (27.0-33.0) pg MCHC (31.0-35.0) g/dl RDW (11.0-16.0) % Plt Count (160-400) X10*3/uL MPV (9.4-12.3) fL Immature Gran % (Auto) (0.0-0.4) % Neut % (Auto) (45-73) % Lymph % (Auto) (20-40) % [place] % (Auto) (2-11) % Eos % (Auto) (0-4) % Baso % (Auto) (0-2) % Lymph # (Auto) (1.2-4.9) X10*3/uL [place] # (Auto) (0.1-1.2) X10*3/uL Eos # (Auto) (0.0-0.4) X10*3/uL Baso # (Auto) (0.0-0.2) X10*3/uL Abs Immat Gran (auto) (0.00-0.03) X10*3/uL Absolute Neuts (auto) (2.0-8.3) x10*3/uL Absolute Nucleated RBC (0.0-0.012) X10*3/uL Nucleated RBC % (auto) (0.0-0.2) /100WBC PT (10.0-13.1) SEC INR (0.9-1.1) D-Dimer High Sensitivty NG/ML O2 Saturation % ABG pH at Pt Temp (7.35-7.45) ABG pCO2 at Pt Temp (32-45) mmHg ABG pO2 at Pt Temp (83-108) mmHg ABG HCO3 (22-26) mmol/L ABG Base Excess (Actual) mmol/L VBG pH 7.31 L (7.32-7.43) VBG pCO2 67 mmHg VBG pO2 47 mmHg VBG HCO3 34 H (22-26) mmol/L VBG O2 Saturation 69.0 % VBG Base Excess 5.5 mmol/L Sodium (135-145) mmol/L Potassium (3.3-5.1) mmol/L Chloride (96-108) mmol/L Carbon Dioxide (22-29) mmol/L Anion Gap (12-20) BUN (9-16) mg/dL Creatinine (0.5-1.4) mg/dL Estim Creat Clear Calc Estimated GFR Random Glucose (60-115) mg/dL Lactic Acid (0.5-2.0) mmol/L Calcium (8.4-10.2) mg/dL Magnesium (1.6-2.6) mg/dL Total Bilirubin (0.0-1.0) mg/dL AST (5-31) U/L ALT (0-31) U/L Alkaline Phosphatase (39-117) U/L Troponin I High Sens (<3.5-17.0) ng/L B-Natriuretic Peptide 303 H (<100) pg/mL Total Protein (6.5-8.0) g/dL Albumin (3.5-5.0) g/dL Urine Color Urine Appearance Urine pH (5.0-9.0) Ur Specific [place] (1.005-1.025) Urine Protein (Neg-Trace) mg/dL Urine Glucose (UA) (Negative) mg/dL Urine Ketones (Negative) mg/dL Urine Blood (Negative) Urine Nitrite (Negative) Ur Leukocyte Esterase (Negative) Digoxin 0.3 L (0.8-2.0) ng/mL Urine Opiates Screen (Not Detect) Urine Fentanyl Screen (Not Detect) Ur Barbiturates Screen (Not Detect) Ur Phencyclidine Scrn (Not Detect) Ur Amphetamines Screen (Not Detect) U Benzodiazepines Scrn (Not Detect) Urine Cocaine Screen (Not Detect) U Marijuana (THC) Screen (Not Detect) COVID-19 ([facility]ANDY) (Negative) COVID-19 Clin Com 03/14/23 03/14/23 03/14/23 Range/Units 21:02 21:02 21:17 WBC (4.8-10.8) X10*3/uL RBC (4.20-5.50) X10*6/uL Hgb (12.0-16.0) g/dl Hct (37.0-47.0) % MCV (80.0-98.0) fL MCH (27.0-33.0) pg MCHC (31.0-35.0) g/dl RDW (11.0-16.0) % Plt Count (160-400) X10*3/uL MPV (9.4-12.3) fL Immature Gran % (Auto) (0.0-0.4) % Neut % (Auto) (45-73) % Lymph % (Auto) (20-40) % [place] % (Auto) (2-11) % Eos % (Auto) (0-4) % Baso % (Auto) (0-2) % Lymph # (Auto) (1.2-4.9) X10*3/uL [place] # (Auto) (0.1-1.2) X10*3/uL Eos # (Auto) (0.0-0.4) X10*3/uL Baso # (Auto) (0.0-0.2) X10*3/uL Abs Immat Gran (auto) (0.00-0.03) X10*3/uL Absolute Neuts (auto) (2.0-8.3) x10*3/uL Absolute Nucleated RBC (0.0-0.012) X10*3/uL Nucleated RBC % (auto) (0.0-0.2) /100WBC PT (10.0-13.1) SEC INR (0.9-1.1) D-Dimer High Sensitivty NG/ML O2 Saturation 100.0 % ABG pH at Pt Temp 7.29 L (7.35-7.45) ABG pCO2 at Pt Temp 69 H* (32-45) mmHg ABG pO2 at Pt Temp 138 H (83-108) mmHg ABG HCO3 34 H (22-26) mmol/L ABG Base Excess (Actual) 5.0 mmol/L VBG pH (7.32-7.43) VBG pCO2 mmHg VBG pO2 mmHg VBG HCO3 (22-26) mmol/L VBG O2 Saturation % VBG Base Excess mmol/L Sodium (135-145) mmol/L Potassium (3.3-5.1) mmol/L Chloride (96-108) mmol/L Carbon Dioxide (22-29) mmol/L Anion Gap (12-20) BUN (9-16) mg/dL Creatinine (0.5-1.4) mg/dL Estim Creat Clear Calc Estimated GFR Random Glucose (60-115) mg/dL Lactic Acid (0.5-2.0) mmol/L Calcium (8.4-10.2) mg/dL Magnesium (1.6-2.6) mg/dL Total Bilirubin (0.0-1.0) mg/dL AST (5-31) U/L ALT (0-31) U/L Alkaline Phosphatase (39-117) U/L Troponin I High Sens (<3.5-17.0) ng/L B-Natriuretic Peptide (<100) pg/mL Total Protein (6.5-8.0) g/dL Albumin (3.5-5.0) g/dL Urine Color Yellow Urine Appearance Clear Urine pH 5.0 (5.0-9.0) Ur Specific [place] 1.020 (1.005-1.025) Urine Protein Negative (Neg-Trace) mg/dL Urine Glucose (UA) Negative (Negative) mg/dL Urine Ketones Negative (Negative) mg/dL Urine Blood Negative (Negative) Urine Nitrite Negative (Negative) Ur Leukocyte Esterase Negative (Negative) Digoxin (0.8-2.0) ng/mL Urine Opiates Screen Not Detected (Not Detect) Urine Fentanyl Screen Not Detected (Not Detect) Ur Barbiturates Screen Not Detected (Not Detect) Ur Phencyclidine Scrn Not Detected (Not Detect) Ur Amphetamines Screen Not Detected (Not Detect) U Benzodiazepines Scrn Not Detected (Not Detect) Urine Cocaine Screen Not Detected (Not Detect) U Marijuana (THC) Screen Not Detected (Not Detect) COVID-19 ([facility]ANDY) (Negative) COVID-19 Clin Com Independent Interpretation I performed an independent interpretation of an: EKG Interpretation: Atrial fibrillation with heart rate of 71 beats per minute left axis deviation LVH no acute ST changes no acute ischemia Critical Care Time Critical Care Time Critical Care Time: Yes Total Critical Care Time: 55 Attestation: The patient was critically ill with a high probability of imminent or life threatening deterioration. I spent greater than 55 minutes of discontinuous time evaluating the patient,delivering critical care at the bedside, discussing and evaluating pertinent data with consultants. Critical care time does not include time spent performing separately billable procedures or teaching. Total time spent performing critical care was 55 minutes. Discharge Plan Discharge Clinical Impression: Acute respiratory failure with hypoxia and hypercapnia Patient Disposition: Admitted As Inpatient Interventions: Admission Worksheet (ED) Last Done: 03/14/23 23:00 Discharge Date/Time: 03/14/23 23:48
--- NOTE | 2023-03-14 17:37 | PC.NURSE ---
attempted to call report, Nurse was not available, will try again a a later time
[2023-03-14 17:47] LABS: MANUAL DIFF FLAG NO
[2023-03-14 18:03] LABS: VBG Base Excess 5.5 mmol/L; VBG HCO3 34 mmol/L (22-26); VBG pCO2 67 mmHg; VBG pH 7.31 (7.32-7.43); VBG pO2 47 mmHg
[2023-03-14 18:05] LABS: Venous Blood Gas Refer to POC result
[2023-03-14 18:15] LABS: COVID-19 Test Negative (Negative); IDNOW Serial# 08D9AD1C
[2023-03-14 18:33] LABS: B Type Natriuretic Peptide 303 pg/mL (<100)
[2023-03-14 18:35] LABS: Digoxin 0.3 ng/mL (0.8-2.0)
[2023-03-14 18:42] LABS: Troponin-I High Sensitivity 3.4 ng/L (<3.5-17.0)
--- NOTE | 2023-03-14 19:24 | MHC.EDTECH ---
Patient checked for wetness and dry and repositioned
--- NOTE | 2023-03-14 19:39 | PC.NURSE ---
pt on room air sat drop to 82% due to pt is a mouth breather. nc placed at 5l for 1 min to bring sat up to 95% and then reduced back to 2l nc sat maintained at 92% at this present time. family in the room. pt on monitor and is sleepy.
[2023-03-14 19:43] LABS: INTERNATIONAL NORM RATIO 3.2 (0.9-1.1); Prothrombin Time 38.1 SEC (10.0-13.1)
[2023-03-14 19:45] LABS: Basophils Absolute Auto 0.1 X10*3/uL (0.0-0.2); Eosinophils Absolute Auto 0.5 X10*3/uL (0.0-0.4); Eosinophils Percent Auto 7.8 % (0-4); Hematocrit 51.4 % (37.0-47.0); Hemoglobin 15.8 g/dl (12.0-16.0); Imm Gran Abs Auto 0.01 X10*3/uL (0.00-0.03); Imm Gran Pct Auto 0.1 % (0.0-0.4); Lymphocytes Absolute Auto 1.6 X10*3/uL (1.2-4.9); Mean Corpuscular HGB Conc 30.7 g/dl (31.0-35.0); Mean Corpuscular Hemoglobin 30.4 pg (27.0-33.0); Mean Corpuscular Volume 98.8 fL (80.0-98.0); Mean Platelet Volume 10.7 fL (9.4-12.3); Monocytes Absolute Auto 0.6 X10*3/uL (0.1-1.2); Monocytes Percent Auto 9.4 % (2-11); Neutrophils Percent Auto 58.7 % (45-73); Platelet Count 273 X10*3/uL (160-400); Red Cell Distribution Width 14.2 % (11.0-16.0); White Blood Count 6.8 X10*3/uL (4.8-10.8)
[2023-03-14 20:00] LABS: Alanine Aminotransferase 6 U/L (0-31); Albumin Level 3.7 g/dL (3.5-5.0); Alkaline Phosphatase 50 U/L (39-117); Anion Gap 13 (12-20); Aspartate Amino Transferase 14 U/L (5-31); Bilirubin Total 0.6 mg/dL (0.0-1.0); Blood Urea Nitrogen 12 mg/dL (9-16); Calcium 9.4 mg/dL (8.4-10.2); Carbon Dioxide 32 mmol/L (22-29); Chloride 100 mmol/L (96-108); Creatinine Clr Calc Pharmacy 49.5; Estimated Glomerular Filt Rate > 60; Glucose Random 111 mg/dL (60-115); Potassium 4.2 mmol/L (3.3-5.1); Sodium 141 mmol/L (135-145); Total Protein 7.1 g/dL (6.5-8.0)
--- NOTE | 2023-03-14 20:41 | PC.NURSE ---
nc moved from the mouth to the nares and sat drop to 86%. once back in the mouth sat improved to low 90
--- NOTE | 2023-03-14 20:44 | PC.NURSE ---
no urine output at this time pt is to be straight cath per dr brown orders.
[2023-03-14 21:27] LABS: Appearance Urine Clear; Color Urine Yellow; Glucose Urine UA Negative (Negative); Leukocyte Esterase Urine Negative (Negative); Nitrite Urine Negative (Negative); Urine Blood Negative (Negative); Urine Ketones Negative (Negative); Urine Protein Negative (Neg-Trace)
[2023-03-14 21:28] LABS: ABG HCO3 34 mmol/L (22-26); ABG pCO2 69 mmHg (32-45); ABG pH 7.29 (7.35-7.45); ABG pO2 138 mmHg (83-108)
[2023-03-14 21:30] LABS: D Dimer High Sensitivity < 150 NG/ML
[2023-03-14 21:36] LABS: ABG Refer to POC result
[2023-03-14 21:45] LABS: Amphetamine Screen Urine Not Detected (Not Detect); Barbiturates, Urine Not Detected (Not Detect); Benzodiazepines Screen Urine Not Detected (Not Detect); Cannabinoid Screen Urine Not Detected (Not Detect); Cocaine Screen Urine Not Detected (Not Detect); Fentanyl, urine Not Detected (Not Detect); Opiate Screen Urine Not Detected (Not Detect); Phencyclidine Screen Urine Not Detected (Not Detect)
[2023-03-14] MEDS: 0.9 % Sodium Chloride 1,000 ML 999 ML IV (22:24)
--- NOTE | 2023-03-14 22:24 | PC.NURSE ---
provider from [facility] at bedside. ivf started, family present.
--- NOTE | 2023-03-14 22:39 | P.HPCC_ITS ---
History of Present Illness Date of Service: 03/14/23 Attending physician on admission: Renee Rocha Chief Complaint: AMS ?Patient is a 87-year-old female with a past medical history of? aortic stenosis, LVEF 65-70% in 2019),? atrial fibrillation (on Coumadin ), Hypertension and dementia? who presented to the emergency room with altered mental status and hypoxia.? ?Patient was? seen in the emergency room on 03/11 for upper abdominal pain for last few days with workup was negative patient not on any narcotics at home take Tylenol for pain as needed.? Today family noticed the patient was more lethargic, altered and was hypoxic in the 70s.? ?In the emergency room ABGs 7.29/69/138/34? she was placed on BiPAP. ? All other workup negative.? IMAGING: ?CT of the head negative ?Chest x-ray-? no acute abnormality ?Patient will be admitted to the ICU for? acute? hypercapnic respiratory failure requiring BiPAP Review of Systems Review of Systems: Yes Unobtainable due to mental condition PMFSH Past Medical History Medical History HTN (hypertension) Non-rheumatic aortic stenosis Permanent atrial fibrillation Family History Family History Father No problems noted. Mother No problems noted. Surgical History Surgical History History of appendectomy History of left hip replacement Social History Social History Household Members: Unknown / Unable to assess Housing: Unknown / Unable to assess Do you presently have visiting nurse or other home services: No (unknown) Unable to assess alcohol history related to: Unknown Alcohol intake: never Patient Tobacco Use Status: Former Tobacco user Quit Date: 40+ yrs ago Substance Use Type: Unknown Currently Displaying Signs/Symptoms of Drug Intoxication Withdrawal: No Any prior treatment program specific to substance use: No Advance Directives: Yes Advance Directives on File: Yes Advance Directives Date on File: 08/22/21 Patient : No : No Poor oral hygiene: No Meds Allergies Allergy/AdvReac Type Severity Reaction Status Date / Time amoxicillin [AMOXICILLIN] Allergy Severe ANAPHYLAXIS Verified 03/12/23 14:29 iodine [IODINE] Allergy Severe SHORTNESS Verified 03/12/23 14:29 OF BREATH coffee (Coffea arabica) Allergy Intermediate TONGUE Verified 03/12/23 14:29 [COFFEE (BEVERAGE)] SWELLING penicillin G [PENICILLIN G] Allergy Unknown RASH Verified 03/12/23 14:29 shellfish derived Allergy Unknown TONGUE Verified 03/12/23 14:29 [SHELLFISH DERIVED] SWELLING Sulfa (Sulfonamide Allergy Unknown DIFFICULTY Verified 03/12/23 14:29 Antibiotics) BREATHING [SULFA (SULFONAMIDE ANTIBIOTICS)] Active Medications: Current Medications Glycerin (Glycerin Adult Supp.Rect) 1 supp IN ONCE ONE Stop: 03/15/23 00:01 Home Medications Medication Instructions Recorded Confirmed Last Taken Type acetaminophen 500 mg tablet 1,000 mg PO BID 08/22/21 03/15/23 02/08/22 History warfarin 2.5 mg tablet 5 mg PO WESA@1800 08/22/21 03/15/23 02/03/22 History duloxetine 20 mg capsule,delayed 20 mg PO DAILY 11/05/21 03/15/23 02/08/22 History release metoprolol tartrate 50 mg tablet 50 mg PO BID 11/05/21 03/15/23 02/08/22 History cyanocobalamin (vitamin B-12) 5,000 mcg PO DAILY 02/08/22 03/15/23 02/08/22 History 5,000 mcg capsule docusate sodium 100 mg capsule 100 mg PO BID 02/08/22 03/15/23 02/08/22 History (Colace) lactulose 10 gram/15 mL oral 15 ml PO DAILY PRN Constipation 02/08/22 03/15/23 Unknown History solution loratadine 10 mg tablet (Claritin) 10 mg PO DAILY 02/08/22 03/15/23 02/08/22 History polyethylene glycol 3350 17 gram 17 g PO DAILY PRN Constipation 02/08/22 03/15/23 Unknown History oral powder packet (Miralax) warfarin 2.5 mg tablet 2.5 mg PO SUMOTUTHFR@1800 02/08/22 03/15/23 02/07/22 History mirtazapine 15 mg tablet 15 mg PO BEDTIME 03/12/23 03/15/23 Unknown History albuterol sulfate 90 mcg/actuation 1 puff inhalation Q6H PRN wheezing 03/15/23 03/15/23 Unknown History aerosol inhaler digoxin 125 mcg (0.125 mg) tablet 125 mcg PO Q OTHER DAY 03/15/23 03/15/23 Unknown History ipratropium 0.5 mg-albuterol 3 mg 3 ml inhalation QID PRN Shortness 03/15/23 03/15/23 Unknown History (2.5 mg base)/3 mL nebulization Of Breath soln nystatin 100,000 unit/gram topical 1 appl topical BID PRN Rash 03/15/23 03/15/23 Unknown History powder Physical Exam Vital Signs: Vital Signs: Last Vital Signs Temp 973 F H 03/14/23 21:21 Pulse 75 03/14/23 21:59 Resp 18 03/14/23 21:59 BP 185/83 H 03/14/23 21:21 Pulse Ox 96 03/14/23 21:21 O2 Del Method Nasal Cannula 03/14/23 21:21 O2 Flow Rate 1 03/14/23 21:21 Oxygen Flow Rate 2 03/14/23 16:59 BMI result Body Mass Index 24.3 ?General:? patient alert but lethargic, open eyes to command ?HEENT:? Head is normocephalic, atraumatic, pupils equal round reactive to light accommodation bilaterally.? Extraocular movements appear intact.? Buccal mucosa is dry, Neck is supple ?Cardiac:? atrial fibrillation on monitor. ?Pulmonary: rhonchorous throughout, on BiPAP 16/5/ ?Abdomen:? ?Abdomen soft, non-tender, non-distended. Normal bowel sounds. No pulsatile mass. No hepatosplenomegaly. ?Musculoskeletal:? Moving all 4 extremities upon request a major joints, there is no crepitus or tenderness.? ?Neurologic:? patient is lethargic, No focal deficits noted. ?Skin:? Intact, no lesions, edema, erythema, clubbing or cyanosis.? No ulcers. Vascular:? 2+ pulses upper and lower extremities distally.? Results Labs 03/14/23 17:36 03/14/23 17:36 Labs: Laboratory Results - last 24 hr 03/14/23 03/14/23 03/14/23 17:36 17:36 17:36 MCV 98.8 H MCH 30.4 MCHC 30.7 L RDW 14.2 Plt Count 273 MPV 10.7 Immature Gran % (Auto) 0.1 Neut % (Auto) 58.7 Lymph % (Auto) 23.0 [place] % (Auto) 9.4 Eos % (Auto) 7.8 H Baso % (Auto) 1.0 Lymph # (Auto) 1.6 [place] # (Auto) 0.6 Eos # (Auto) 0.5 H Baso # (Auto) 0.1 Abs Immat Gran (auto) 0.01 Absolute Neuts (auto) 4.0 Absolute Nucleated RBC 0.000 Nucleated RBC % (auto) 0.0 PT 38.1 H INR 3.2 H D-Dimer High Sensitivty < 150 O2 Saturation ABG pH at Pt Temp ABG pCO2 at Pt Temp ABG pO2 at Pt Temp ABG HCO3 ABG Base Excess (Actual) VBG pH VBG pCO2 VBG pO2 VBG HCO3 VBG O2 Saturation VBG Base Excess Anion Gap 13 Estim Creat Clear Calc 49.5 Estimated GFR > 60 Random Glucose 111 Lactic Acid Calcium 9.4 Magnesium 2.0 Total Bilirubin 0.6 AST 14 ALT 6 Alkaline Phosphatase 50 Troponin I High Sens B-Natriuretic Peptide Total Protein 7.1 Albumin 3.7 Urine Color Urine Appearance Urine pH Ur Specific [place] Urine Protein Urine Glucose (UA) Urine Ketones Urine Blood Urine Nitrite Ur Leukocyte Esterase Digoxin Urine Opiates Screen Urine Fentanyl Screen Ur Barbiturates Screen Ur Phencyclidine Scrn Ur Amphetamines Screen U Benzodiazepines Scrn Urine Cocaine Screen U Marijuana (THC) Screen COVID-19 (FRANDY) COVID-19 Clin Com 03/14/23 03/14/23 03/14/23 17:36 17:36 17:36 MCV MCH MCHC RDW Plt Count MPV Immature Gran % (Auto) Neut % (Auto) Lymph % (Auto) [place] % (Auto) Eos % (Auto) Baso % (Auto) Lymph # (Auto) [place] # (Auto) Eos # (Auto) Baso # (Auto) Abs Immat Gran (auto) Absolute Neuts (auto) Absolute Nucleated RBC Nucleated RBC % (auto) PT INR D-Dimer High Sensitivty O2 Saturation ABG pH at Pt Temp ABG pCO2 at Pt Temp ABG pO2 at Pt Temp ABG HCO3 ABG Base Excess (Actual) VBG pH VBG pCO2 VBG pO2 VBG HCO3 VBG O2 Saturation VBG Base Excess Anion Gap Estim Creat Clear Calc Estimated GFR Random Glucose Lactic Acid 1.0 Calcium Magnesium Total Bilirubin AST ALT Alkaline Phosphatase Troponin I High Sens 3.4 B-Natriuretic Peptide Total Protein Albumin Urine Color Urine Appearance Urine pH Ur Specific [place] Urine Protein Urine Glucose (UA) Urine Ketones Urine Blood Urine Nitrite Ur Leukocyte Esterase Digoxin Urine Opiates Screen Urine Fentanyl Screen Ur Barbiturates Screen Ur Phencyclidine Scrn Ur Amphetamines Screen U Benzodiazepines Scrn Urine Cocaine Screen U Marijuana (THC) Screen COVID-19 (FRANDY) Negative COVID-19 [employer] Com See Note 03/14/23 03/14/23 03/14/23 17:36 17:36 17:55 MCV MCH MCHC RDW Plt Count MPV Immature Gran % (Auto) Neut % (Auto) Lymph % (Auto) [place] % (Auto) Eos % (Auto) Baso % (Auto) Lymph # (Auto) [place] # (Auto) Eos # (Auto) Baso # (Auto) Abs Immat Gran (auto) Absolute Neuts (auto) Absolute Nucleated RBC Nucleated RBC % (auto) PT INR D-Dimer High Sensitivty O2 Saturation ABG pH at Pt Temp ABG pCO2 at Pt Temp ABG pO2 at Pt Temp ABG HCO3 ABG Base Excess (Actual) VBG pH 7.31 L VBG pCO2 67 VBG pO2 47 VBG HCO3 34 H VBG O2 Saturation 69.0 VBG Base Excess 5.5 Anion Gap Estim Creat Clear Calc Estimated GFR Random Glucose Lactic Acid Calcium Magnesium Total Bilirubin AST ALT Alkaline Phosphatase Troponin I High Sens B-Natriuretic Peptide 303 H Total Protein Albumin Urine Color Urine Appearance Urine pH Ur Specific [place] Urine Protein Urine Glucose (UA) Urine Ketones Urine Blood Urine Nitrite Ur Leukocyte Esterase Digoxin 0.3 L Urine Opiates Screen Urine Fentanyl Screen Ur Barbiturates Screen Ur Phencyclidine Scrn Ur Amphetamines Screen U Benzodiazepines Scrn Urine Cocaine Screen U Marijuana (THC) Screen COVID-19 (FRANDY) COVID-[employer] 03/14/23 03/14/23 03/14/23 21:02 21:02 21:17 MCV MCH MCHC RDW Plt Count MPV Immature Gran % (Auto) Neut % (Auto) Lymph % (Auto) [place] % (Auto) Eos % (Auto) Baso % (Auto) Lymph # (Auto) [place] # (Auto) Eos # (Auto) Baso # (Auto) Abs Immat Gran (auto) Absolute Neuts (auto) Absolute Nucleated RBC Nucleated RBC % (auto) PT INR D-Dimer High Sensitivty O2 Saturation 100.0 ABG pH at Pt Temp 7.29 L ABG pCO2 at Pt Temp 69 H* ABG pO2 at Pt Temp 138 H ABG HCO3 34 H ABG Base Excess (Actual) 5.0 VBG pH VBG pCO2 VBG pO2 VBG HCO3 VBG O2 Saturation VBG Base Excess Anion Gap Estim Creat Clear Calc Estimated GFR Random Glucose Lactic Acid Calcium Magnesium Total Bilirubin AST ALT Alkaline Phosphatase Troponin I High Sens B-Natriuretic Peptide Total Protein Albumin Urine Color Yellow Urine Appearance Clear Urine pH 5.0 Ur Specific [place] 1.020 Urine Protein Negative Urine Glucose (UA) Negative Urine Ketones Negative Urine Blood Negative Urine Nitrite Negative Ur Leukocyte Esterase Negative Digoxin Urine Opiates Screen Not Detected Urine Fentanyl Screen Not Detected Ur Barbiturates Screen Not Detected Ur Phencyclidine Scrn Not Detected Ur Amphetamines Screen Not Detected U Benzodiazepines Scrn Not Detected Urine Cocaine Screen Not Detected U Marijuana (THC) Screen Not Detected COVID-19 (FRANDY) COVID-19 Clin Com Imaging Radiologist's Impressions: Impressions Chest X-Ray 03/14/23 17:20 IMPRESSION: 1. No acute abnormality of chest. 2. Cardiomegaly. Postsurgical changes of chest. Chronic blunting of left costophrenic angle. Head CT 03/14/23 18:03 IMPRESSION: No CT evidence of acute intracranial hemorrhage or edematous territorial infarction. Assessment and Plan (1) Acute respiratory failure with hypoxia and hypercapnia: Status: Acute (2) Permanent atrial fibrillation: Status: Acute (3) Altered mental status: Status: Acute (4) Constipation: Status: Inactive Plan Plan: Neuro:?? ?AMS- ? patient does have underlying dementia,? but family states that she was more confused today than her baseline,? likely due to hypercapnia.? Cardiac: No acute issues? Pulmonary:? Acute hypercapnic? respiratory failure requiring BIPAP Support.? No evidence of acute infection,? WBC and lactic stable. D-dimer is negative,? PE less likely. ? Chest x-ray? with some concerns of fluid overload,? as well as elevated BNP,? will obtain a CT of the chest.? Patient? all to 130s on ABG,? could also be O2 poisoning Titrate off BIPAP as tolerated.?? Renal:? No acute issues.?? Endo:? No acute issues.?? GI:? ?Constipation:? patient family report x5 days no bowel movement,? abdomen is soft.? Will start bowel prep.? ID: ? no acute issues Heme/Onc:? No acute issues. Psych: ? no acute issues Miscellaneous: ? no acute issues Prophylaxis:? patient on Coumadin at home,? INR slightly elevated will hold for today continue tomorrow,? Diet:? NPO while on BIPAP CODE: : FULL CODE ? confirmed with patient?s daughters Critical care time spent:? X60 minutes Case discussed with Aj? Time Spent With Patient Time: Total time managing care of this patient today ____ minutes.
[2023-03-14] MEDS: Furosemide 20 MG/2 ML VIAL IVPUSH (23:36)
[2023-03-14 23:55] LABS: ABG Base Excess 3.2 mmol/L; ABG HCO3 32 mmol/L (22-26); ABG pCO2 66 mmHg (32-45); ABG pH 7.29 (7.35-7.45); ABG pO2 92 mmHg (83-108)
[2023-03-15] VITALS (30 sets, daily range): BP systolic 88–187; BP diastolic 40–92; PULSE 84–112; RESP 15–24; TEMP 35.7–36.9; O2SAT 90–98; BMI 25.9
[2023-03-15] MEDS: bisacodyL 10 MG SUPP.RECT PR (00:11)
[2023-03-15 00:20] LABS: ABG Refer to POC result
[2023-03-15 05:16] LABS: VBG Base Excess 5.9 mmol/L; VBG HCO3 32 mmol/L (22-26); VBG pCO2 52 mmHg; VBG pH 7.39 (7.32-7.43); VBG pO2 50 mmHg
[2023-03-15 05:21] LABS: Venous Blood Gas Refer to POC result
[2023-03-15 05:49] LABS: MANUAL DIFF FLAG NO
[2023-03-15 05:50] LABS: Basophils Absolute Auto 0.1 X10*3/uL (0.0-0.2); Basophils Percent Auto 0.4 % (0-2); Eosinophils Absolute Auto 0.1 X10*3/uL (0.0-0.4); Eosinophils Percent Auto 0.6 % (0-4); Hematocrit 51.1 % (37.0-47.0); Hemoglobin 15.9 g/dl (12.0-16.0); Imm Gran Abs Auto 0.04 X10*3/uL (0.00-0.03); Imm Gran Pct Auto 0.3 % (0.0-0.4); Lymphocytes Absolute Auto 0.8 X10*3/uL (1.2-4.9); Lymphocytes Percent Auto 6.4 % (20-40); Mean Corpuscular HGB Conc 31.1 g/dl (31.0-35.0); Mean Corpuscular Hemoglobin 30.8 pg (27.0-33.0); Mean Corpuscular Volume 98.8 fL (80.0-98.0); Mean Platelet Volume 10.3 fL (9.4-12.3); Monocytes Absolute Auto 0.7 X10*3/uL (0.1-1.2); Monocytes Percent Auto 5.6 % (2-11); Neutrophils Absolute Auto 10.8 x10*3/uL (2.0-8.3); Neutrophils Percent Auto 86.7 % (45-73); Platelet Count 259 X10*3/uL (160-400); Red Blood Count 5.17 X10*6/uL (4.20-5.50); White Blood Count 12.5 X10*3/uL (4.8-10.8)
[2023-03-15 06:08] LABS: Albumin Level 3.8 g/dL (3.5-5.0); Anion Gap 15 (12-20); Blood Urea Nitrogen 12 mg/dL (9-16); Calcium 9.4 mg/dL (8.4-10.2); Carbon Dioxide 29 mmol/L (22-29); Chloride 102 mmol/L (96-108); Creatinine Clr Calc Pharmacy 49.5; Estimated Glomerular Filt Rate > 60; Glucose Random 105 mg/dL (60-115); Potassium 3.9 mmol/L (3.3-5.1); Sodium 142 mmol/L (135-145)
[2023-03-15 06:13] LABS: INTERNATIONAL NORM RATIO 3.2 (0.9-1.1); Prothrombin Time 38.5 SEC (10.0-13.1)
--- NOTE | 2023-03-15 09:03 | PHA.MEDREC ---
Pharmacy Consult ? Medication Reconciliation Pharmacy has completed the medication reconciliation. spoke with Edward over the phone (son) and he was able to confirm patients medication list.
[2023-03-15 09:20] LABS: VBG Base Excess 7.6 mmol/L; VBG HCO3 34 mmol/L (22-26); VBG pCO2 56 mmHg; VBG pH 7.39 (7.32-7.43); VBG pO2 112 mmHg
[2023-03-15] MEDS: levoFLOXacin/D5W 500 MG/100 ML PIGGYBACK 100 MG IV (09:22)
[2023-03-15] MEDS: Metoprolol Tartrate 2.5 MG in 0.9 % Sodium Chloride 50 ML 210 MG IV ×3 (09:28→21:40)
[2023-03-15] MEDS: Digoxin 0.5 MG/2 ML AMPUL 0.125 MG IVPUSH (09:29)
--- NOTE | 2023-03-15 09:35 | PM.CCPN ---
Subjective Subjective Date of Service: 03/15/23 Interval History: 87-year-old female with history of dementia with underlying chronic atrial fibrillation and CHF and COPD comes in with further alteration of mental status namely lethargy and was found to have an acute respiratory and on chronic respiratory acidosis pCO2 up to 69 and was placed on BiPAP and she is beginning to awaken to a degree Afebrile apparently tachypneic and dyspneic with some improvement in her work of breathing on the BiPAP machine EKG that I reviewed his atrial fibrillation with modest increase in heart rate absolutely no ST-T changes I did bedside echo because of a history of aortic stenosis and the aortic valve is indeed very heavily calcified but I can see some separation of the tip of at least 2 leaflets and consistently the peak velocity across the aortic valve is under 4 m/sec and she has got concentric left ventricular hypertrophy with a mild diffuse reduction of contractility I would place her ejection fraction the either at 50 or 50-55% and right ventricle seems mildly increased in end-diastolic dimension and is also a moderate increase in left atrial dimension Currently there is no there is no wheezing no diaphragmatic effort and no accessory muscle effort Off of the BiPAP for 3 hours and she still breathes comfortably pCO2 is 55 close to out her chronic out a calculated should be with a pH is 7.[address] scan and she has got diffuse bilateral ground-glass infiltrates no evidence of consolidation no significant lymphadenopathy a so I do believe that this could be pulmonary edema Critical Care Time (minutes): 45 Physical Exam Vital Signs: Vital Signs: Last Vital Signs Temp 97.1 F 03/15/23 08:00 Pulse 95 03/15/23 09:00 Resp 17 03/15/23 09:00 BP 109/51 L 03/15/23 09:00 Pulse Ox 95 03/15/23 09:00 O2 Del Method Nasal Cannula 03/15/23 09:00 O2 Flow Rate 2 03/15/23 09:00 FiO2 28 03/15/23 05:00 Oxygen Flow Rate 2 03/14/23 16:59 BMI result Body Mass Index 25.9 She actually has brisk bilateral carotid upstrokes Heavily calcified aortic valve but I could see the opening between the non coronary cusp and right coronary cusp never get a velocity as high as or greater than around 3.73.8 centimeters/second Concentric left ventricular hypertrophy with some left atrial dilatation no segmental wall motion abnormality overall very mild diffuse hypokinesis 50-55% ejection fraction Lungs with scattered bilateral rales Abdomen soft no organomegaly Objective Data Labs 03/15/23 05:11 03/15/23 05:11 Labs: Laboratory Results - last 24 hr 03/14/23 03/14/23 03/14/23 17:36 17:36 17:36 WBC 6.8 RBC 5.20 Hgb 15.8 Hct 51.4 H MCV 98.8 H MCH 30.4 MCHC 30.7 L RDW 14.2 Plt Count 273 MPV 10.7 Immature Gran % (Auto) 0.1 Neut % (Auto) 58.7 Lymph % (Auto) 23.0 [place] % (Auto) 9.4 Eos % (Auto) 7.8 H Baso % (Auto) 1.0 Lymph # (Auto) 1.6 [place] # (Auto) 0.6 Eos # (Auto) 0.5 H Baso # (Auto) 0.1 Abs Immat Gran (auto) 0.01 Absolute Neuts (auto) 4.0 Absolute Nucleated RBC 0.000 Nucleated RBC % (auto) 0.0 PT 38.1 H INR 3.2 H D-Dimer High Sensitivty < 150 O2 Saturation ABG pH at Pt Temp ABG pCO2 at Pt Temp ABG pO2 at Pt Temp ABG HCO3 ABG Base Excess (Actual) VBG pH VBG pCO2 VBG pO2 VBG HCO3 VBG O2 Saturation VBG Base Excess Sodium 141 Potassium 4.2 Chloride 100 Carbon Dioxide 32 H Anion Gap 13 BUN 12 Creatinine 0.72 Estim Creat Clear Calc 49.5 Estimated GFR > 60 Random Glucose 111 Lactic Acid Calcium 9.4 Phosphorus Magnesium 2.0 Total Bilirubin 0.6 AST 14 ALT 6 Alkaline Phosphatase 50 Troponin I High Sens B-Natriuretic Peptide Total Protein 7.1 Albumin 3.7 Urine Color Urine Appearance Urine pH Ur Specific [place] Urine Protein Urine Glucose (UA) Urine Ketones Urine Blood Urine Nitrite Ur Leukocyte Esterase Digoxin Urine Opiates Screen Urine Fentanyl Screen Ur Barbiturates Screen Ur Phencyclidine Scrn Ur Amphetamines Screen U Benzodiazepines Scrn Urine Cocaine Screen U Marijuana (THC) Screen COVID-19 ([facility]) COVID-19 Clin Com 03/14/23 03/14/23 03/14/23 17:36 17:36 17:36 WBC RBC Hgb Hct MCV MCH MCHC RDW Plt Count MPV Immature Gran % (Auto) Neut % (Auto) Lymph % (Auto) [place] % (Auto) Eos % (Auto) Baso % (Auto) Lymph # (Auto) [place] # (Auto) Eos # (Auto) Baso # (Auto) Abs Immat Gran (auto) Absolute Neuts (auto) Absolute Nucleated RBC Nucleated RBC % (auto) PT INR D-Dimer High Sensitivty O2 Saturation ABG pH at Pt Temp ABG pCO2 at Pt Temp ABG pO2 at Pt Temp ABG HCO3 ABG Base Excess (Actual) VBG pH VBG pCO2 VBG pO2 VBG HCO3 VBG O2 Saturation VBG Base Excess Sodium Potassium Chloride Carbon Dioxide Anion Gap BUN Creatinine Estim Creat Clear Calc Estimated GFR Random Glucose Lactic Acid 1.0 Calcium Phosphorus Magnesium Total Bilirubin AST ALT Alkaline Phosphatase Troponin I High Sens 3.4 B-Natriuretic Peptide Total Protein Albumin Urine Color Urine Appearance Urine pH Ur Specific [place] Urine Protein Urine Glucose (UA) Urine Ketones Urine Blood Urine Nitrite Ur Leukocyte Esterase Digoxin Urine Opiates Screen Urine Fentanyl Screen Ur Barbiturates Screen Ur Phencyclidine Scrn Ur Amphetamines Screen U Benzodiazepines Scrn Urine Cocaine Screen U Marijuana (THC) Screen COVID-19 ([facility]) Negative COVID-19 Clin Com See Note 03/14/23 03/14/23 03/14/23 17:36 17:36 17:55 WBC RBC Hgb Hct MCV MCH MCHC RDW Plt Count MPV Immature Gran % (Auto) Neut % (Auto) Lymph % (Auto) [place] % (Auto) Eos % (Auto) Baso % (Auto) Lymph # (Auto) [place] # (Auto) Eos # (Auto) Baso # (Auto) Abs Immat Gran (auto) Absolute Neuts (auto) Absolute Nucleated RBC Nucleated RBC % (auto) PT INR D-Dimer High Sensitivty O2 Saturation ABG pH at Pt Temp ABG pCO2 at Pt Temp ABG pO2 at Pt Temp ABG HCO3 ABG Base Excess (Actual) VBG pH 7.31 L VBG pCO2 67 VBG pO2 47 VBG HCO3 34 H VBG O2 Saturation 69.0 VBG Base Excess 5.5 Sodium Potassium Chloride Carbon Dioxide Anion Gap BUN Creatinine Estim Creat Clear Calc Estimated GFR Random Glucose Lactic Acid Calcium Phosphorus Magnesium Total Bilirubin AST ALT Alkaline Phosphatase Troponin I High Sens B-Natriuretic Peptide 303 H Total Protein Albumin Urine Color Urine Appearance Urine pH Ur Specific [place] Urine Protein Urine Glucose (UA) Urine Ketones Urine Blood Urine Nitrite Ur Leukocyte Esterase Digoxin 0.3 L Urine Opiates Screen Urine Fentanyl Screen Ur Barbiturates Screen Ur Phencyclidine Scrn Ur Amphetamines Screen U Benzodiazepines Scrn Urine Cocaine Screen U Marijuana (THC) Screen COVID-19 ([facility]) COVID-19 [employer] Com 03/14/23 03/14/23 03/14/23 21:02 21:02 21:17 WBC RBC Hgb Hct MCV MCH MCHC RDW Plt Count MPV Immature Gran % (Auto) Neut % (Auto) Lymph % (Auto) [place] % (Auto) Eos % (Auto) Baso % (Auto) Lymph # (Auto) [place] # (Auto) Eos # (Auto) Baso # (Auto) Abs Immat Gran (auto) Absolute Neuts (auto) Absolute Nucleated RBC Nucleated RBC % (auto) PT INR D-Dimer High Sensitivty O2 Saturation 100.0 ABG pH at Pt Temp 7.29 L ABG pCO2 at Pt Temp 69 H* ABG pO2 at Pt Temp 138 H ABG HCO3 34 H ABG Base Excess (Actual) 5.0 VBG pH VBG pCO2 VBG pO2 VBG HCO3 VBG O2 Saturation VBG Base Excess Sodium Potassium Chloride Carbon Dioxide Anion Gap BUN Creatinine Estim Creat Clear Calc Estimated GFR Random Glucose Lactic Acid Calcium Phosphorus Magnesium Total Bilirubin AST ALT Alkaline Phosphatase Troponin I High Sens B-Natriuretic Peptide Total Protein Albumin Urine Color Yellow Urine Appearance Clear Urine pH 5.0 Ur Specific [place] 1.020 Urine Protein Negative Urine Glucose (UA) Negative Urine Ketones Negative Urine Blood Negative Urine Nitrite Negative Ur Leukocyte Esterase Negative Digoxin Urine Opiates Screen Not Detected Urine Fentanyl Screen Not Detected Ur Barbiturates Screen Not Detected Ur Phencyclidine Scrn Not Detected Ur Amphetamines Screen Not Detected U Benzodiazepines Scrn Not Detected Urine Cocaine Screen Not Detected U Marijuana (THC) Screen Not Detected COVID-19 ([facility]) COVID-19 Clin Com 03/14/23 03/15/23 03/15/23 23:47 05:07 05:11 WBC 12.5 H RBC 5.17 Hgb 15.9 Hct 51.1 H MCV 98.8 H MCH 30.8 MCHC 31.1 RDW 14.0 Plt Count 259 MPV 10.3 Immature Gran % (Auto) 0.3 Neut % (Auto) 86.7 H Lymph % (Auto) 6.4 L [place] % (Auto) 5.6 Eos % (Auto) 0.6 Baso % (Auto) 0.4 Lymph # (Auto) 0.8 L [place] # (Auto) 0.7 Eos # (Auto) 0.1 Baso # (Auto) 0.1 Abs Immat Gran (auto) 0.04 H Absolute Neuts (auto) 10.8 H Absolute Nucleated RBC 0.000 Nucleated RBC % (auto) 0.0 PT INR D-Dimer High Sensitivty O2 Saturation 97.0 ABG pH at Pt Temp 7.29 L ABG pCO2 at Pt Temp 66 H* ABG pO2 at Pt Temp 92 ABG HCO3 32 H ABG Base Excess (Actual) 3.2 VBG pH 7.39 VBG pCO2 52 VBG pO2 50 VBG HCO3 32 H VBG O2 Saturation 81.0 VBG Base Excess 5.9 Sodium Potassium Chloride Carbon Dioxide Anion Gap BUN Creatinine Estim Creat Clear Calc Estimated GFR Random Glucose Lactic Acid Calcium Phosphorus Magnesium Total Bilirubin AST ALT Alkaline Phosphatase Troponin I High Sens B-Natriuretic Peptide Total Protein Albumin Urine Color Urine Appearance Urine pH Ur Specific [place] Urine Protein Urine Glucose (UA) Urine Ketones Urine Blood Urine Nitrite Ur Leukocyte Esterase Digoxin Urine Opiates Screen Urine Fentanyl Screen Ur Barbiturates Screen Ur Phencyclidine Scrn Ur Amphetamines Screen U Benzodiazepines Scrn Urine Cocaine Screen U Marijuana (THC) Screen COVID-19 ([facility]) COVID-19 Clin Com 03/15/23 03/15/23 03/15/23 05:11 05:11 09:10 WBC RBC Hgb Hct MCV MCH MCHC RDW Plt Count MPV Immature Gran % (Auto) Neut % (Auto) Lymph % (Auto) [place] % (Auto) Eos % (Auto) Baso % (Auto) Lymph # (Auto) [place] # (Auto) Eos # (Auto) Baso # (Auto) Abs Immat Gran (auto) Absolute Neuts (auto) Absolute Nucleated RBC Nucleated RBC % (auto) PT 38.5 H INR 3.2 H D-Dimer High Sensitivty O2 Saturation ABG pH at Pt Temp ABG pCO2 at Pt Temp ABG pO2 at Pt Temp ABG HCO3 ABG Base Excess (Actual) VBG pH 7.39 VBG pCO2 56 VBG pO2 112 VBG HCO3 34 H VBG O2 Saturation 99.0 VBG Base Excess 7.6 Sodium 142 Potassium 3.9 Chloride 102 Carbon Dioxide 29 Anion Gap 15 BUN 12 Creatinine 0.72 Estim Creat Clear Calc 49.5 Estimated GFR > 60 Random Glucose 105 Lactic Acid Calcium 9.4 Phosphorus 4.0 Magnesium 2.0 Total Bilirubin AST ALT Alkaline Phosphatase Troponin I High Sens B-Natriuretic Peptide Total Protein Albumin 3.8 Urine Color Urine Appearance Urine pH Ur Specific [place] Urine Protein Urine Glucose (UA) Urine Ketones Urine Blood Urine Nitrite Ur Leukocyte Esterase Digoxin Urine Opiates Screen Urine Fentanyl Screen Ur Barbiturates Screen Ur Phencyclidine Scrn Ur Amphetamines Screen U Benzodiazepines Scrn Urine Cocaine Screen U Marijuana (THC) Screen COVID-19 ([facility]) COVID-19 Clin Com Progress Note: A&P Assessment and plan (1) Altered mental status: Status: Acute (2) Acute respiratory failure with hypoxia and hypercapnia: Status: Acute (3) Permanent atrial fibrillation: Status: Acute (4) Non-rheumatic aortic stenosis: Status: Acute (5) Fracture of distal end of left humerus: Status: Acute (6) COPD (chronic obstructive pulmonary disease): Status: Acute (7) Hypertrophic cardiomyopathy: Status: Acute Plan So all told it looks like it could have been precipitated by a heart failure problem with pulmonary edema and as long as I do not believe the aortic stenosis is critical it is probably not contributing to the hemodynamics we might attempt gentle vasodilation and follow blood gases off BiPAP support Quality Stroke Does the patient have a stroke diagnosis?: No VTE Prior VTE?: No VTE Risk Level:: Medical - moderate - high VTE Device Contraindication: N/A - Device Ordered VTE Drug Contraindication: N/A - Med Ordered
[2023-03-15] MEDS: Doxycycline Hyclate 100 MG in 0.9 % Sodium Chloride 250 ML 166.67 MG IV ×2 (11:05→21:40)
[2023-03-15 11:34] LABS: ABG Base Excess 8.3 mmol/L; ABG HCO3 36 mmol/L (22-26); ABG pCO2 64 mmHg (32-45); ABG pH 7.36 (7.35-7.45); ABG pO2 105 mmHg (83-108)
--- NOTE | 2023-03-15 11:42 | MHC.CM.PN ---
IMM 03/15/23 DELIVERED TO SON/HCP NURIS AT 11:35AM AT NUMBER ON FILE, NURIS REPORTS PT LIVES W/HIM AND PTS DTR TISHA, IS BEDBOUND AND HAS A CEDRIC LIFT AND HOSPITAL BED, PT HAS [facility] FOR [facility] MON-FRI 8am-3pm WHILE NURIS IS AT WORK, NURIS WOULD LIKE [facility] SERVICES FOR PT AND HAS NO PREFERENCE, REFERRAL PLACED TO [facility] TO FOLLOW. NURIS VERIFIES PCP IS MEE BONE, TATIANA VACC X3 AND HCP AND MOLST ON FILE FROM PREVIOUS ADMIT. ANTIC D/C HOME W/NEW [facility] AND RESUMP OF [facility], PT MAY NEED TRANSPORT
[2023-03-15 12:27] LABS: ABG Refer to POC result
[2023-03-15 12:46] LABS: Venous Blood Gas Refer to POC result
[2023-03-15 13:42] LABS: VBG Base Excess 7.7 mmol/L; VBG HCO3 35 mmol/L (22-26); VBG pCO2 60 mmHg; VBG pH 7.37 (7.32-7.43); VBG pO2 36 mmHg
[2023-03-15 15:22] LABS: Venous Blood Gas Refer to POC result
--- NOTE | 2023-03-15 15:53 | P.PNCC_ITS ---
Subjective Subjective Date of Service: 03/16/23 Interval History: 87 yo moderately obese female with critical aortic stenosis and chronic atrial fibrillation with secondary concentric LVH with approx. 50% EF with bedside echo(AV had about 4M/sec syst velocity) and dilated LA/RVand RA presented with acute/chronic hypercarbic resp failure and initially on bipap for altered mental status which improved and since on nasal O2 only Has poor appetite with diminished po intake and possibly some aspiration for some time On chronic coumadin for a. fib Not total body fluid overloaded Seemingly a failure to thrive-but she does awaken and converse appropriately Critical Care Time (minutes): 45 Physical Exam Vital Signs: Vital Signs: Last Vital Signs Temp 98.5 F 03/15/23 12:00 Pulse 91 03/15/23 15:00 Resp 16 03/15/23 15:33 BP 102/45 L 03/15/23 15:00 Pulse Ox 94 03/15/23 15:00 O2 Del Method High Flow Nasal C annula 03/15/23 15:00 O2 Flow Rate 50 03/15/23 15:00 FiO2 30 03/15/23 15:00 Oxygen Flow Rate 2 03/14/23 16:59 BMI result Body Mass Index 25.9 lethargic, but awakens to verbal stim a. fib/controlled on digoxin and low fairchild lopressor lungs clear and abdomen benign bilat carotids diminished but not classic parvus no edema nor acrocyanosis Objective Data Labs 03/15/23 05:11 03/15/23 05:11 Labs: Laboratory Results - last 24 hr 03/14/23 03/14/23 03/14/23 17:36 17:36 17:36 WBC 6.8 RBC 5.20 Hgb 15.8 Hct 51.4 H MCV 98.8 H MCH 30.4 MCHC 30.7 L RDW 14.2 Plt Count 273 MPV 10.7 Immature Gran % (Auto) 0.1 Neut % (Auto) 58.7 Lymph % (Auto) 23.0 [place] % (Auto) 9.4 Eos % (Auto) 7.8 H Baso % (Auto) 1.0 Lymph # (Auto) 1.6 [place] # (Auto) 0.6 Eos # (Auto) 0.5 H Baso # (Auto) 0.1 Abs Immat Gran (auto) 0.01 Absolute Neuts (auto) 4.0 Absolute Nucleated RBC 0.000 Nucleated RBC % (auto) 0.0 PT 38.1 H INR 3.2 H D-Dimer High Sensitivty < 150 O2 Saturation ABG pH at Pt Temp ABG pCO2 at Pt Temp ABG pO2 at Pt Temp ABG HCO3 ABG Base Excess (Actual) VBG pH VBG pCO2 VBG pO2 VBG HCO3 VBG O2 Saturation VBG Base Excess Sodium 141 Potassium 4.2 Chloride 100 Carbon Dioxide 32 H Anion Gap 13 BUN 12 Creatinine 0.72 Estim Creat Clear Calc 49.5 Estimated GFR > 60 Random Glucose 111 Lactic Acid Calcium 9.4 Phosphorus Magnesium 2.0 Total Bilirubin 0.6 AST 14 ALT 6 Alkaline Phosphatase 50 Troponin I High Sens B-Natriuretic Peptide Total Protein 7.1 Albumin 3.7 Urine Color Urine Appearance Urine pH Ur Specific [place] Urine Protein Urine Glucose (UA) Urine Ketones Urine Blood Urine Nitrite Ur Leukocyte Esterase Digoxin Urine Opiates Screen Urine Fentanyl Screen Ur Barbiturates Screen Ur Phencyclidine Scrn Ur Amphetamines Screen U Benzodiazepines Scrn Urine Cocaine Screen U Marijuana (THC) Screen COVID-19 ([facility]) COVID-19 Clin Com 03/14/23 03/14/23 03/14/23 17:36 17:36 17:36 WBC RBC Hgb Hct MCV MCH MCHC RDW Plt Count MPV Immature Gran % (Auto) Neut % (Auto) Lymph % (Auto) [place] % (Auto) Eos % (Auto) Baso % (Auto) Lymph # (Auto) [place] # (Auto) Eos # (Auto) Baso # (Auto) Abs Immat Gran (auto) Absolute Neuts (auto) Absolute Nucleated RBC Nucleated RBC % (auto) PT INR D-Dimer High Sensitivty O2 Saturation ABG pH at Pt Temp ABG pCO2 at Pt Temp ABG pO2 at Pt Temp ABG HCO3 ABG Base Excess (Actual) VBG pH VBG pCO2 VBG pO2 VBG HCO3 VBG O2 Saturation VBG Base Excess Sodium Potassium Chloride Carbon Dioxide Anion Gap BUN Creatinine Estim Creat Clear Calc Estimated GFR Random Glucose Lactic Acid 1.0 Calcium Phosphorus Magnesium Total Bilirubin AST ALT Alkaline Phosphatase Troponin I High Sens 3.4 B-Natriuretic Peptide Total Protein Albumin Urine Color Urine Appearance Urine pH Ur Specific [place] Urine Protein Urine Glucose (UA) Urine Ketones Urine Blood Urine Nitrite Ur Leukocyte Esterase Digoxin Urine Opiates Screen Urine Fentanyl Screen Ur Barbiturates Screen Ur Phencyclidine Scrn Ur Amphetamines Screen U Benzodiazepines Scrn Urine Cocaine Screen U Marijuana (THC) Screen COVID-19 ([facility]) Negative COVID-19 Clin Com See Note 03/14/23 03/14/23 03/14/23 17:36 17:36 17:55 WBC RBC Hgb Hct MCV MCH MCHC RDW Plt Count MPV Immature Gran % (Auto) Neut % (Auto) Lymph % (Auto) [place] % (Auto) Eos % (Auto) Baso % (Auto) Lymph # (Auto) [place] # (Auto) Eos # (Auto) Baso # (Auto) Abs Immat Gran (auto) Absolute Neuts (auto) Absolute Nucleated RBC Nucleated RBC % (auto) PT INR D-Dimer High Sensitivty O2 Saturation ABG pH at Pt Temp ABG pCO2 at Pt Temp ABG pO2 at Pt Temp ABG HCO3 ABG Base Excess (Actual) VBG pH 7.31 L VBG pCO2 67 VBG pO2 47 VBG HCO3 34 H VBG O2 Saturation 69.0 VBG Base Excess 5.5 Sodium Potassium Chloride Carbon Dioxide Anion Gap BUN Creatinine Estim Creat Clear Calc Estimated GFR Random Glucose Lactic Acid Calcium Phosphorus Magnesium Total Bilirubin AST ALT Alkaline Phosphatase Troponin I High Sens B-Natriuretic Peptide 303 H Total Protein Albumin Urine Color Urine Appearance Urine pH Ur Specific [place] Urine Protein Urine Glucose (UA) Urine Ketones Urine Blood Urine Nitrite Ur Leukocyte Esterase Digoxin 0.3 L Urine Opiates Screen Urine Fentanyl Screen Ur Barbiturates Screen Ur Phencyclidine Scrn Ur Amphetamines Screen U Benzodiazepines Scrn Urine Cocaine Screen U Marijuana (THC) Screen COVID-19 ([facility]) COVID-19 Clin Com 03/14/23 03/14/23 03/14/23 21:02 21:02 21:17 WBC RBC Hgb Hct MCV MCH MCHC RDW Plt Count MPV Immature Gran % (Auto) Neut % (Auto) Lymph % (Auto) [place] % (Auto) Eos % (Auto) Baso % (Auto) Lymph # (Auto) [place] # (Auto) Eos # (Auto) Baso # (Auto) Abs Immat Gran (auto) Absolute Neuts (auto) Absolute Nucleated RBC Nucleated RBC % (auto) PT INR D-Dimer High Sensitivty O2 Saturation 100.0 ABG pH at Pt Temp 7.29 L ABG pCO2 at Pt Temp 69 H* ABG pO2 at Pt Temp 138 H ABG HCO3 34 H ABG Base Excess (Actual) 5.0 VBG pH VBG pCO2 VBG pO2 VBG HCO3 VBG O2 Saturation VBG Base Excess Sodium Potassium Chloride Carbon Dioxide Anion Gap BUN Creatinine Estim Creat Clear Calc Estimated GFR Random Glucose Lactic Acid Calcium Phosphorus Magnesium Total Bilirubin AST ALT Alkaline Phosphatase Troponin I High Sens B-Natriuretic Peptide Total Protein Albumin Urine Color Yellow Urine Appearance Clear Urine pH 5.0 Ur Specific [place] 1.020 Urine Protein Negative Urine Glucose (UA) Negative Urine Ketones Negative Urine Blood Negative Urine Nitrite Negative Ur Leukocyte Esterase Negative Digoxin Urine Opiates Screen Not Detected Urine Fentanyl Screen Not Detected Ur Barbiturates Screen Not Detected Ur Phencyclidine Scrn Not Detected Ur Amphetamines Screen Not Detected U Benzodiazepines Scrn Not Detected Urine Cocaine Screen Not Detected U Marijuana (THC) Screen Not Detected COVID-19 ([facility]) COVID-19 Clin Com 03/14/23 03/15/23 03/15/23 23:47 05:07 05:11 WBC 12.5 H RBC 5.17 Hgb 15.9 Hct 51.1 H MCV 98.8 H MCH 30.8 MCHC 31.1 RDW 14.0 Plt Count 259 MPV 10.3 Immature Gran % (Auto) 0.3 Neut % (Auto) 86.7 H Lymph % (Auto) 6.4 L [place] % (Auto) 5.6 Eos % (Auto) 0.6 Baso % (Auto) 0.4 Lymph # (Auto) 0.8 L [place] # (Auto) 0.7 Eos # (Auto) 0.1 Baso # (Auto) 0.1 Abs Immat Gran (auto) 0.04 H Absolute Neuts (auto) 10.8 H Absolute Nucleated RBC 0.000 Nucleated RBC % (auto) 0.0 PT INR D-Dimer High Sensitivty O2 Saturation 97.0 ABG pH at Pt Temp 7.29 L ABG pCO2 at Pt Temp 66 H* ABG pO2 at Pt Temp 92 ABG HCO3 32 H ABG Base Excess (Actual) 3.2 VBG pH 7.39 VBG pCO2 52 VBG pO2 50 VBG HCO3 32 H VBG O2 Saturation 81.0 VBG Base Excess 5.9 Sodium Potassium Chloride Carbon Dioxide Anion Gap BUN Creatinine Estim Creat Clear Calc Estimated GFR Random Glucose Lactic Acid Calcium Phosphorus Magnesium Total Bilirubin AST ALT Alkaline Phosphatase Troponin I High Sens B-Natriuretic Peptide Total Protein Albumin Urine Color Urine Appearance Urine pH Ur Specific [place] Urine Protein Urine Glucose (UA) Urine Ketones Urine Blood Urine Nitrite Ur Leukocyte Esterase Digoxin Urine Opiates Screen Urine Fentanyl Screen Ur Barbiturates Screen Ur Phencyclidine Scrn Ur Amphetamines Screen U Benzodiazepines Scrn Urine Cocaine Screen U Marijuana (THC) Screen COVID-19 ([facility]) COVID-19 [employer] Com 03/15/23 03/15/23 03/15/23 05:11 05:11 09:10 WBC RBC Hgb Hct MCV MCH MCHC RDW Plt Count MPV Immature Gran % (Auto) Neut % (Auto) Lymph % (Auto) [place] % (Auto) Eos % (Auto) Baso % (Auto) Lymph # (Auto) [place] # (Auto) Eos # (Auto) Baso # (Auto) Abs Immat Gran (auto) Absolute Neuts (auto) Absolute Nucleated RBC Nucleated RBC % (auto) PT 38.5 H INR 3.2 H D-Dimer High Sensitivty O2 Saturation ABG pH at Pt Temp ABG pCO2 at Pt Temp ABG pO2 at Pt Temp ABG HCO3 ABG Base Excess (Actual) VBG pH 7.39 VBG pCO2 56 VBG pO2 112 VBG HCO3 34 H VBG O2 Saturation 99.0 VBG Base Excess 7.6 Sodium 142 Potassium 3.9 Chloride 102 Carbon Dioxide 29 Anion Gap 15 BUN 12 Creatinine 0.72 Estim Creat Clear Calc 49.5 Estimated GFR > 60 Random Glucose 105 Lactic Acid Calcium 9.4 Phosphorus 4.0 Magnesium 2.0 Total Bilirubin AST ALT Alkaline Phosphatase Troponin I High Sens B-Natriuretic Peptide Total Protein Albumin 3.8 Urine Color Urine Appearance Urine pH Ur Specific [place] Urine Protein Urine Glucose (UA) Urine Ketones Urine Blood Urine Nitrite Ur Leukocyte Esterase Digoxin Urine Opiates Screen Urine Fentanyl Screen Ur Barbiturates Screen Ur Phencyclidine Scrn Ur Amphetamines Screen U Benzodiazepines Scrn Urine Cocaine Screen U Marijuana (THC) Screen COVID-19 ([facility]) COVID-19 [facility] 03/15/23 03/15/23 11:24 13:30 WBC RBC Hgb Hct MCV MCH MCHC RDW Plt Count MPV Immature Gran % (Auto) Neut % (Auto) Lymph % (Auto) [place] % (Auto) Eos % (Auto) Baso % (Auto) Lymph # (Auto) Love # (Auto) Eos # (Auto) Baso # (Auto) Abs Immat Gran (auto) Absolute Neuts (auto) Absolute Nucleated RBC Nucleated RBC % (auto) PT INR D-Dimer High Sensitivty O2 Saturation 99.0 ABG pH at Pt Temp 7.36 ABG pCO2 at Pt Temp 64 H* ABG pO2 at Pt Temp 105 ABG HCO3 36 H ABG Base Excess (Actual) 8.3 VBG pH 7.37 VBG pCO2 60 VBG pO2 36 VBG HCO3 35 H VBG O2 Saturation 63.0 VBG Base Excess 7.7 Sodium Potassium Chloride Carbon Dioxide Anion Gap BUN Creatinine Estim Creat Clear Calc Estimated GFR Random Glucose Lactic Acid Calcium Phosphorus Magnesium Total Bilirubin AST ALT Alkaline Phosphatase Troponin I High Sens B-Natriuretic Peptide Total Protein Albumin Urine Color Urine Appearance Urine pH Ur Specific [place] Urine Protein Urine Glucose (UA) Urine Ketones Urine Blood Urine Nitrite Ur Leukocyte Esterase Digoxin Urine Opiates Screen Urine Fentanyl Screen Ur Barbiturates Screen Ur Phencyclidine Scrn Ur Amphetamines Screen U Benzodiazepines Scrn Urine Cocaine Screen U Marijuana (THC) Screen COVID-19 ([facility]) COVID-19 Clin Com Progress Note: A&P Assessment and plan (1) Hypertrophic cardiomyopathy: Status: Acute (2) COPD (chronic obstructive pulmonary disease): Status: Acute (3) Altered mental status: Status: Acute (4) Acute respiratory failure with hypoxia and hypercapnia: Status: Acute (5) Permanent atrial fibrillation: Status: Acute (6) Non-rheumatic aortic stenosis: Status: Acute (7) Fracture of distal end of left humerus: Status: Acute (8) Encephalopathy acute: Status: Acute Plan she is a failure to thrive-nothing terribly acute has severe to critical aortic stenosis and chronic a fib and has no need for amiodarone because she will never convert to NSR pCO2 55+/- is her acceptable nor needs formal swallow exam Quality Stroke Does the patient have a stroke diagnosis?: No VTE Prior VTE?: No VTE Risk Level:: Medical - moderate - high VTE Device Contraindication: N/A - Device Ordered VTE Drug Contraindication: N/A - Med Ordered
[2023-03-15] MEDS: Acetaminophen 325 MG TABLET 650 MG PO (19:30)
[2023-03-16] VITALS (23 sets, daily range): BP systolic 91–165; BP diastolic 39–89; PULSE 74–115; RESP 14–24; TEMP 35.9–37.1; O2SAT 91–99; BMI 25.9
--- NOTE | 2023-03-16 00:21 | PC.NURSE ---
Addendum entered by Emiliano Jean-Baptiste RN 03/16/23 05:33: Manual BP of 156/86 seems to correspond with the monitor's reading of 168/75 recently. Patient is asymptomatic. Urine output has been negligible. Discussed with HIGH SCHOOL BUSINESS TEACHER, bladder scan was 24 ccs at 04:00. Continuing to monitor. Addendum entered by Emiliano Jean-Baptiste RN 03/16/23 04:37: Bladder scan at 04:00 am with only 24 ccs urine, no abdominal discomfort. Purewick shows nominal increase in output. Patient also took off high flow and was showing SpO2 of 91-95% RA. Continuing to monitor with high flow back on . Original Note: Assumed care at 19:00. Patient alert, oriented to person and place, forgetful, vague, ROD, responds slowly but appropriately with some confusion, PERRL. Patient with her daughter, Mary Alice, at bedside. Patient had initially reported chest pain left anterior chest to prior nurse, right at 18:55, which was reportedly worse with deep inspiration and unchanged on palpation, and which HIGH SCHOOL BUSINESS TEACHER was in to assess. Patient soon denied pain. Patient was given tylenol crushed in applesauce, and patient refused as she does not like applesauce, given crushed in pudding, but patient only had partial dose, after which she refused med due to taste. Patient later with vague and self-resolving episode of right upper quadrant pain. Patient soon denying pain, continueing to monitor. Patient is on high flow nasal cannula at 30% an 45 LPM, lung sounds clear with dim bases, SpO2 about 94%-95%, shallow respirations, coughing and deep breathing with good effect. Patient with varying blood pressures with some borderline low MAPs, as low as 52, and occasionally high SBP 180's, generally trend is WNL. Continues on scheduled IV metoprolol, afib on telemetry mostly rate controlled with occasional episodes 110's-120. Patient denies chest pain, no SOB. Patient with hypoactive bowel sounds, had a small brown loose BM. No urine output since 19:00, HIGH SCHOOL BUSINESS TEACHER aware. Bladder scanned for 44 at 20:00 and 157 at 00:00, continuing to monitor.
[2023-03-16] MEDS: Metoprolol Tartrate 2.5 MG in 0.9 % Sodium Chloride 50 ML 210 MG IV ×4 (02:24→21:22)
[2023-03-16 05:56] LABS: MANUAL DIFF FLAG NO
[2023-03-16 06:05] LABS: Venous Blood Gas Refer to POC result
[2023-03-16 06:06] LABS: VBG HCO3 28 mmol/L (22-26); VBG pCO2 28 mmHg; VBG pO2 231 mmHg
[2023-03-16 06:06] LABS: Basophils Absolute Auto 0.1 X10*3/uL (0.0-0.2); Basophils Percent Auto 0.6 % (0-2); Eosinophils Absolute Auto 0.2 X10*3/uL (0.0-0.4); Hematocrit 50.6 % (37.0-47.0); Hemoglobin 15.4 g/dl (12.0-16.0); Imm Gran Abs Auto 0.03 X10*3/uL (0.00-0.03); Imm Gran Pct Auto 0.3 % (0.0-0.4); Lymphocytes Absolute Auto 1.2 X10*3/uL (1.2-4.9); Mean Corpuscular HGB Conc 30.4 g/dl (31.0-35.0); Mean Corpuscular Hemoglobin 31.2 pg (27.0-33.0); Mean Corpuscular Volume 102.6 fL (80.0-98.0); Mean Platelet Volume 10.1 fL (9.4-12.3); Monocytes Absolute Auto 0.8 X10*3/uL (0.1-1.2); Monocytes Percent Auto 8.7 % (2-11); Neutrophils Absolute Auto 6.7 x10*3/uL (2.0-8.3); Neutrophils Percent Auto 75.4 % (45-73); Platelet Count 210 X10*3/uL (160-400); Red Blood Count 4.93 X10*6/uL (4.20-5.50); Red Cell Distribution Width 14.2 % (11.0-16.0); White Blood Count 8.9 X10*3/uL (4.8-10.8)
[2023-03-16 06:10] LABS: INTERNATIONAL NORM RATIO 2.9 (0.9-1.1); Prothrombin Time 35.1 SEC (10.0-13.1)
[2023-03-16 06:12] LABS: Albumin Level 3.6 g/dL (3.5-5.0); Anion Gap 13 (12-20); Blood Urea Nitrogen 13 mg/dL (9-16); Calcium 9.4 mg/dL (8.4-10.2); Carbon Dioxide 33 mmol/L (22-29); Chloride 101 mmol/L (96-108); Estimated Glomerular Filt Rate > 60; Glucose Random 76 mg/dL (60-115); Magnesium 1.8 mg/dL (1.6-2.6); Phosphorus 2.7 mg/dL (2.7-4.5); Potassium 3.6 mmol/L (3.3-5.1); Sodium 143 mmol/L (135-145)
[2023-03-16 07:51] LABS: Erythrocyte Sedimentation Rate 6 MM/HR (0-20)
[2023-03-16] MEDS: Digoxin 0.5 MG/2 ML AMPUL 0.125 MG IVPUSH (08:07)
[2023-03-16] MEDS: Spironolactone 25 MG TABLET PO (08:26)
[2023-03-16] MEDS: Doxycycline Hyclate 100 MG in 0.9 % Sodium Chloride 250 ML 166.67 MG IV ×2 (09:55→21:59)
[2023-03-16] MEDS: Acetaminophen 325 MG TABLET 650 MG PO (13:54)
[2023-03-16 15:07] LABS: VBG Base Excess 7.2 mmol/L; VBG HCO3 34 mmol/L (22-26); VBG pCO2 58 mmHg; VBG pH 7.38 (7.32-7.43); VBG pO2 50 mmHg
[2023-03-16 21:19] LABS: Venous Blood Gas Refer to POC result
[2023-03-17] VITALS (7 sets, daily range): BP systolic 111–146; BP diastolic 58–81; PULSE 72–104; RESP 18–20; TEMP 36.1–36.6; O2SAT 85–100; BMI 25.5
[2023-03-17] MEDS: Metoprolol Tartrate 2.5 MG in 0.9 % Sodium Chloride 50 ML 210 MG IV ×2 (02:59→09:12)
[2023-03-17] MEDS: Spironolactone 25 MG TABLET PO (09:12)
[2023-03-17] MEDS: Digoxin 0.5 MG/2 ML AMPUL 0.125 MG IVPUSH (09:12)
[2023-03-17 09:31] LABS: INTERNATIONAL NORM RATIO 2.1 (0.9-1.1); Prothrombin Time 25.2 SEC (10.0-13.1)
--- NOTE | 2023-03-17 10:21 | MHC.CM.PN ---
Per ROUNDS discussion, Patient is not yet medically cleared for dc (IV Digoxin, IV Metoprolol, IV Doxycycline); Home/resume services is the goal and CM will continue to follow.
[2023-03-17 11:57] LABS: INTERNATIONAL NORM RATIO 2.2 (0.9-1.1); Prothrombin Time 25.7 SEC (10.0-13.1)
[2023-03-17] MEDS: Doxycycline Hyclate 100 MG in 0.9 % Sodium Chloride 250 ML 166.67 MG IV ×2 (12:03→22:36)
[2023-03-17] MEDS: DULoxetine HCl 20 MG CAPSULE.DR PO (12:06)
--- NOTE | 2023-03-17 15:51 | HO.PM.IMPN ---
Subjective Subjective Date of Service: 03/18/23 Interval History: resting comfortably offers no acute complaints, history of dementia, no acute overnight events. Review of Systems unable to obtain due to underlying dementia. Physical Exam Vital Signs: Vital Signs: Last Vital Signs Temp 97.8 F 03/17/23 07:23 Pulse 80 03/17/23 07:23 Resp 20 03/17/23 07:23 BP 111/64 03/17/23 07:23 Pulse Ox 93 03/17/23 09:52 O2 Del Method Nasal Cannula 03/17/23 09:52 O2 Flow Rate 1.5 03/17/23 09:52 FiO2 30 03/16/23 05:00 Oxygen Flow Rate 2 03/14/23 16:59 BMI result Body Mass Index 25.5 Const: Other: General awake alert, resting comfortably in no acute distress. Neck supple no JVD. CVS irregular rate rhythm, Respiratory lungs clear to auscultation, no respiratory distress, no wheeze, no rhonchi. Gastrointestinal abdomen soft, nontender, bowel sounds audible, no guarding , no rigidity. Extremities no edema. Neuro nonfocal, moving all 4 extremity speech clear. Skin no rash psych poor insight Objective Data Active Medications Acetaminophen (Acetaminophen 325 Mg Tablet) 650 mg PO Q6H PRN PRN Reason: Pain, Moderate(Pain Scale 4-6) Last Admin: 03/16/23 13:54 Dose: 650 mg Documented By: GRECAI Cyanocobalamin (Cyanocobalamin (Vitamin B-12) 1,000 Mcg Tablet) 5,000 mcg PO DAILY [facility] Digoxin (Digoxin 0.125 Mg Tablet) 0.125 mg PO Q48H [facility] Last Admin: 03/17/23 11:05 Dose: Not Given Documented By: JOSÉ MIGUEL Non-Admin Reason: Administered by Alternate Route Docusate Sodium (Docusate Sodium 100 Mg Capsule) 100 mg PO BID [facility] Duloxetine HCl (Duloxetine Hcl 20 Mg Capsule.) 20 mg PO DAILY [facility] Last Admin: 03/17/23 12:06 Dose: 20 mg Documented By: JOSÉ MIGUEL Doxycycline Hyclate 100 mg/ (Sodium Chloride) 250 mls @ 166.67 mls/hr IV Q12H [facility] Last Infusion: 03/17/23 14:37 Dose: 0 mls/hr Documented By: JOSÉ MIGUEL Metoprolol Tartrate (Metoprolol Tartrate 50 Mg Tablet) 50 mg PO BID [facility]; Protocol Spironolactone (Spironolactone 25 Mg Tablet) 25 mg PO DAILY [facility]; Protocol Last Admin: 03/17/23 09:12 Dose: 25 mg Documented By: JOSÉ MIGUEL Labs 03/16/23 05:50 03/16/23 05:50 Labs: Laboratory Results - last 24 hr 03/17/23 03/17/23 08:59 11:40 PT 25.2 H 25.7 H INR 2.1 H 2.2 H Microbiology Microbiology Results: Microbiology 03/14/23 17:36 Blood Culture - Preliminary Blood - Venous No growth after 48 hours. 03/14/23 17:36 Blood Culture - Preliminary Blood - Venous No growth after 48 hours. Assessment and Plan (1) Encephalopathy acute: Status: Acute (2) COPD (chronic obstructive pulmonary disease): Status: Acute (3) Acute respiratory failure with hypoxia and hypercapnia: Status: Acute Plan 87-year-old female with history of dementia with underlying chronic atrial fibrillation and CHF and COPD comes in with alteration of mental status, lethargy and was found to have an acute on chronic respiratory acidosis pCO2 up to 69 and was admitted to ICU for BiPAP, EKG showed atrial fibrillation with no acute ST changes, patient treated for pulmonary edema and subsequently transferred to medical floor acute on chronic respiratory failure with hypercarbia and hypoxia treated with BiPAP pCO2 improved, chest x-ray showed no pneumonia, no fevers, no acute COPD exacerbation echo showed EF 50-55% mildly increased right ventricular systolic pressure treated with IV Lasix and started on Aldactone, clinically appears euvolemic. acute metabolic encephalopathy likely due to hypoxia hypercarbia, normal urinalysis and chest x-ray. chronic persistent atrial fibrillation stable ventricular rate, continue digoxin and metoprolol 50 b.i.d. Coumadin held on admission due to elevated INR will repeat INR and resume Coumadin if INR less than 3 COPD, no acute exacerbation noted continue home inhalers. mood disorder continue home medications duloxetine and mirtazapine will lower dose of mirtazapine to 7.5 mg ? Contributing to lethargy. unspecified dementia no behavioral issues noted. DVT prophylaxis with Coumadin code status full code patient need continued inpatient hospitalization for close monitoring of hypoxia and hypercarbia Time Spent With Patient Time: Total time managing care of this patient today ____ minutes. Quality Stroke Does the patient have a stroke diagnosis?: No VTE Prior VTE?: No VTE Risk Level:: Medical - moderate - high VTE Device Contraindication: N/A - Device Ordered VTE Drug Contraindication: N/A - Med Ordered
--- NOTE | 2023-03-17 17:27 | MHC.SL.SWA ---
Speech Pathologist Impression: Risk of aspiration, oral phase dysphagia Risk of Aspiration Due to: Neurological Condition Reduced Cognition Dysphasia Diet Status: No change to diet order; continue w/ NDD2 diet as ordered per MD Liquid Consistency and Strategies for Safe Swallow: Liquid Intake Recommendation: Thin Liquid Intake Strategies: Small Sips No Straws Solid Food Consistency: Dietary Recommendations: Grnd/Mech Altered (NDD2) Additional Modifications to Solid Foods: Recommend CONTINUE on GROUND/MECH ALTERED (NDD2) solids and THIN liquids (no straws), pills CRUSHED in PUREE. Recommend strategies to promote oral clearance: present small bites, moisten food w/ sauces/gravies, cue for double swallow, clear residue w/ additional sip of liquid or bite of puree, check oral cavity. Other aspiration precautions apply, pt requires total 1:1 assistance feeding. Recommendations communicated to team (, RN, RD) via [place] Message, written on board in pt's room. PIPE BENDER will continue to follow. Oral Medication Intake: Crushed with Puree Please contact the pharmacy regarding appropriate crushable or liquid drug formulations that are available whenever modified delivery is recommended. Compensatory Strategies and Precautions to be Taken for Safe Swallow: Sitting Upright (90 deg) Double Swallow No Straw Liquids from Cup Liquids from Spoon Small Bites and Sips Rate of Ingestion Change Oral Check Avoid Specific Foods Supervision While Eating and Drinking for Safe Swallow: Total Assistance (1:1) Foods to Avoid: Hard to chew solids; sticky or crunchy textures; dry foods; mixed textures Swallowing Recommended Treatments: Compens. Strategy Educat. Recommendation for Speech: Inpatient Speech Therapy Administrative Support Assistant Clinican/Clinical Fellow: No Supervisory Statement: I have reviewed and agree with the student/clinical fellow's documentation: N/A Speech Language Pathologist: Zandra Mckeon M.A., CCC-PIPE BENDER
[2023-03-17] MEDS: Warfarin Sodium 2.5 MG TABLET PO (17:46)
[2023-03-17] MEDS: Acetaminophen 325 MG TABLET 650 MG PO (19:30)
[2023-03-17] MEDS: Metoprolol Tartrate 50 MG TABLET PO (20:10)
[2023-03-17] MEDS: Docusate Sodium 100 MG CAPSULE PO (20:10)
[2023-03-17] MEDS: Mirtazapine 7.5 MG TABLET PO (20:10)
[2023-03-18 03:57] VITALS: BP 146/65; PULSE 72; RESP 20; TEMP 36.1; O2SAT 92
[2023-03-18 04:49] VITALS: BMI 24.9
[2023-03-18 06:39] LABS: INTERNATIONAL NORM RATIO 2.1 (0.9-1.1); Prothrombin Time 24.7 SEC (10.0-13.1)
[2023-03-18 06:46] LABS: Anion Gap 12 (12-20); Blood Urea Nitrogen 12 mg/dL (9-16); Calcium 8.8 mg/dL (8.4-10.2); Carbon Dioxide 29 mmol/L (22-29); Chloride 103 mmol/L (96-108); Creatinine Clr Calc Pharmacy 62.6; Estimated Glomerular Filt Rate > 60; Glucose Random 82 mg/dL (60-115); Potassium 3.3 mmol/L (3.3-5.1); Sodium 141 mmol/L (135-145)
[2023-03-18 06:50] LABS: Hematocrit 46.3 % (37.0-47.0); Hemoglobin 14.8 g/dl (12.0-16.0); Mean Corpuscular Hemoglobin 31.3 pg (27.0-33.0); Mean Corpuscular Volume 97.9 fL (80.0-98.0); Mean Platelet Volume 10.6 fL (9.4-12.3); Platelet Count 224 X10*3/uL (160-400); Red Blood Count 4.73 X10*6/uL (4.20-5.50); Red Cell Distribution Width 13.5 % (11.0-16.0); White Blood Count 6.8 X10*3/uL (4.8-10.8)
[2023-03-18 07:44] VITALS: BP 115/68; PULSE 80; RESP 20; TEMP 36.6; O2SAT 99
[2023-03-18] MEDS: Metoprolol Tartrate 50 MG TABLET PO (08:41)
[2023-03-18] MEDS: DULoxetine HCl 20 MG CAPSULE.DR PO (08:41)
[2023-03-18] MEDS: Docusate Sodium 100 MG CAPSULE PO (08:41)
[2023-03-18] MEDS: Cyanocobalamin (Vitamin B-12) 1,000 MCG TABLET 5000 MCG PO (08:42)
[2023-03-18] MEDS: Spironolactone 25 MG TABLET PO (08:42)
[2023-03-18 10:59] VITALS: BP 119/56; PULSE 74; RESP 16; TEMP 36.4; O2SAT 92
--- NOTE | 2023-03-18 11:27 | MHC.SL.DTX ---
Dysphagia Diet modifications: Last documented Solid diet consistencies: Grnd/Mech Altered (NDD2) Last documented Liquid consistency: Thin Last documented Medication Administration: Changes made to current diet?: Yes Liquid Consistency and Strategies: Liquid Intake Recommendation: Thin Compensatory Strategies for Safe Swallow: Small Sips Compensatory Strategies for Safe Swallow(b): Sitting Upright (90 deg) Liquids from Straw Oral Check Avoid Specific Foods Solid Food Consistency: Dietary Recommendations: Chopped/Advanced (NDD3) Additional Modifications to Solids: Recommend CONTINUE on GROUND/MECH ALTERED (NDD2) solids and THIN liquids (no straws), pills CRUSHED in PUREE. Recommend strategies to promote oral clearance: present small bites, moisten food w/ sauces/gravies, cue for double swallow, clear residue w/ additional sip of liquid or bite of puree, check oral cavity. Other aspiration precautions apply, pt requires total 1:1 assistance feeding. Recommendations communicated to team (MD, RN, RD) via [place] Message, written on board in pt's room. KITCHEN CLERK will continue to follow. Oral Medication Intake: Crushed with Puree Strategies and Precautions to be Taken for Safe Swallow: Sitting Upright (90 deg) Liquids from Straw Oral Check Avoid Specific Foods Supervision While Eating and/Drinking: Total Assistance (1:1) Foods to Avoid: Hard to chew solids; sticky or crunchy textures; dry foods; mixed textures (i.e., soups with broth, cereal with milk, fruit cups). Swallowing Recommended Treatments: Compens. Strategy Educat. Level of Impact on: Daily activities: Interpersonal interactions: Education: Employment: Community: Prognosis for Improvement: Recommendation for Speech: Inpatient Speech Therapy Comment: Recommend strategies to promote oral clearance: present small bites, moisten food w/ sauces/gravies, cue for double swallow, clear residue w/ additional sip of liquid or bite of puree, check oral cavity. Other aspiration precautions apply, pt requires total 1:1 assistance feeding. Frequency/Duration: Date Range for Service Req: Timeline to reassess: Additional Comments: Treatment: Pt is repositioned in bed with assistance of DIRECTOR OF ADVERTISING SALES. Per RN, O2 removed this morning and she is meeting her 02 targets on room air. Pt has dentures in place prior to administration of PO. Pt tolerated Puree Solids with complete oral clearance and no overt s/s of aspiration. She tolerated Ground Solids with timely preparation and trace residue present on inspection. She tolerated Advanced Solids with mildly delayed preparation and mild oral residue cleared with sips of Thin Liquids via straw. Pt is noted to take small sips of thin liquids. Pt reports history of s/s of aspiration once every 2-3 months. She reports she tends to east softer solids at home. Assessment: Escrow Secretary Clinican/Clinical Fellow: No Supervisory Statement: I have reviewed and agree with the student/clinical fellow's documentation: N/A Speech Language Pathologist: Ross Espinosa M.A., CCC-KITCHEN CLERK
[2023-03-18] MEDS: Potassium Chloride ER 20 MEQ TAB.ER.PRT PO (11:41)
[2023-03-18 12:15] VITALS: PULSE 77; PULSE 81; O2SAT 84; O2SAT 90
--- NOTE | 2023-03-18 12:24 | MHC.CM.PN ---
Patient has been medically cleared for dc to home today, self care. CM spoke with Son/HCP/Edward @ [phone] and addressed IMM (original will be mailed certified letter to Edward and a copy has been placed on the chart). Per Edward's request, Patient will dc to home today at 5PM with new O2 from [facility], via [facility].
[2023-03-18] MEDS: Doxycycline Monohydrate 100 MG CAPSULE PO (12:45)
--- NOTE | 2023-03-18 13:09 | PM.DS ---
DS: Providers Provider Date of Service: 03/18/23 Date of admission: 03/14/23 22:34 Primary care physician: Bhupinder Seo MD DS: Diagnosis Discharge Diagnosis (1) Encephalopathy acute: Status: Acute (2) COPD (chronic obstructive pulmonary disease): Status: Acute (3) Acute respiratory failure with hypoxia and hypercapnia: Status: Acute DS: Summary Hospital Course Hospital Course: Date of Service: 03/14/23 Attending physician on admission: Renee Rocha Chief Complaint:? AMS ?Patient is a 87-year-old female with a past medical history of? aortic stenosis, LVEF 65-70% in 2019),? atrial fibrillation (on Coumadin ), Hypertension and dementia? who presented to the emergency room with altered mental status and hypoxia.? ?Patient was? seen in the emergency room on 03/11 for upper abdominal pain for last few days with workup was negative patient not on any narcotics at home take Tylenol for pain as needed.? Today family noticed the patient was more lethargic, altered and was hypoxic in the 70s.? ?In the emergency room ABGs 7.29/69/138/34? she was placed on BiPAP. ? All other workup negative.? IMAGING: ?CT of the head negative ?Chest x-ray-? no acute abnormality ?Patient will be admitted to the ICU for? acute? hypercapnic respiratory failure requiring BiPAP. dilated LA/RVand RAcritical aortic stenosis and chronic a fib? hospital course: 87-year-old female with history of dementia with underlying chronic atrial fibrillation and CHF and COPD comes in with alteration of mental status, lethargy and was found to have an acute on chronic respiratory acidosis pCO2 up to 69 and was? admitted to ICU for BiPAP, EKG showed atrial fibrillation with no acute ST changes, patient treated for pulmonary edema and subsequently transferred to medical floor ?acute on chronic respiratory failure with hypercarbia and hypoxia, ?treated with BiPAP pCO2 improved, chest x-ray showed no pneumonia, no fevers, no acute COPD exacerbation,?echo showed EF 50-55% mildly increased right ventricular? systolic pressure, dilated left atria ,RA and right ventricle , treated with 1 dose of IV Lasix, clinically appears euvolemic, does not require further diuretics patient noted to have hypoxia therefore placed on 2 L of oxygen. patient has critical aortic stenosis and chronic AFib likely contributing to symptoms. ?acute metabolic encephalopathy likely due to hypoxia hypercarbia, normal urinalysis and chest x-ray, Although treated with doxycycline for possible bronchitis due to coughing. dysphagia seen by speech therapy they recommend chopped advanced solids and thin liquids ?chronic persistent atrial fibrillation ?stable ventricular rate, continue digoxin and metoprolol 50 b.i.d. and Coumadin for anticoagulation monitor PT INR as before ?COPD, no acute exacerbation? noted continue home inhalers. ?mood disorder continue home medications duloxetine and mirtazapine?, lower dose of mirtazapine to 7.5 mg ? Contributing to lethargy. ?unspecified dementia no behavioral issues noted. Time Spent with Patient Time attestation: Total time managing care of this patient today ____ minutes. Discharge coordination time: Greater than 30 minutes Quality: Safe Use of Opioids Does Pt have an Active Cancer Diagnosis on the Problem List?: No Quality: Stroke Does the patient have a stroke diagnosis?: No Physical Exam Vital Signs: Vital Signs: Last Vital Signs Temp 97.6 F 03/18/23 10:59 Pulse 74 03/18/23 10:59 Resp 16 03/18/23 10:59 BP 119/56 L 03/18/23 10:59 Pulse Ox 92 03/18/23 10:59 O2 Del Method Room Air 03/18/23 10:59 O2 Flow Rate 1 03/18/23 07:44 FiO2 30 03/16/23 05:00 Oxygen Flow Rate 2 03/14/23 16:59 BMI result Body Mass Index 24.9 Const: Other: General? awake yoel rt, resting comfor tably in no acute distress.? Neck? s upple no JVD. CVS? irregular rate rh ythm, Respiratory lungs clear to aus cultation, no resp iratory distress, no wheeze, no rhon chi. Gastrointesti nal abdomen soft, nontender, bowel s ounds audible,? no guarding , no rig idity. Extremities no? edema. Neuro non focal, moving all 4 extremity sp eech clear. Skin n o rash psych poor insight DS: Data Data Completed and Pending Labs on day of discharge: Laboratory Results - last 24 hr 03/18/23 03/18/23 03/18/23 06:07 06:07 06:07 WBC 6.8 RBC 4.73 Hgb 14.8 Hct 46.3 MCV 97.9 MCH 31.3 MCHC 32.0 RDW 13.5 Plt Count 224 MPV 10.6 Absolute Nucleated RBC 0.000 Nucleated RBC % (auto) 0.0 PT 24.7 H INR 2.1 H Sodium 141 Potassium 3.3 Chloride 103 Carbon Dioxide 29 Anion Gap 12 BUN 12 Creatinine 0.57 Estim Creat Clear Calc 62.6 Estimated GFR > 60 Random Glucose 82 Calcium 8.8 D Preliminary micro results at discharge 03/14/23 17:36 Blood Culture - Preliminary Blood - Venous No growth after 48 hours. 03/14/23 17:36 Blood Culture - Preliminary Blood - Venous No growth after 48 hours. Discharge Plan Discharge Anticipated Discharge Date/Time: 03/18/23 10:46 Patient Disposition: Home, Self-Care Discharge Diagnosis: acute hypoxic and hypercarbic respiratory failure Referrals: Bhupinder Seo MD [Primary Care Provider] - 1 Week Discharge Medications: New doxycycline monohydrate 100 mg Capsule 100 mg PO Q12H Qty: 4 0RF Continued warfarin 2.5 mg tablet 5 mg PO WESA@1800 Rx Instructions: 2.5 mg every day except 5 mg on Friday and Friday acetaminophen 500 mg Tablet 1,000 mg PO BID metoprolol tartrate 50 mg tablet 50 mg PO BID polyethylene glycol 3350 [Miralax] 17 gram Powder In Packet 17 g PO DAILY PRN (Reason: Constipation) warfarin 2.5 mg tablet 2.5 mg PO SUMOTUTHFR@1800 Rx Instructions: 2.5 mg every day except 5 mg on Friday and Friday docusate sodium [Colace] 100 mg Capsule 100 mg PO BID loratadine [Claritin] 10 mg Tablet 10 mg PO DAILY lactulose 10 gram/15 mL solution 15 ml PO DAILY PRN (Reason: Constipation) cyanocobalamin (vitamin B-12) 5,000 mcg Capsule 5,000 mcg PO DAILY ipratropium-albuterol 0.5 mg-3 mg(2.5 mg base)/3 mL solution for nebulization 3 ml inhalation QID PRN (Reason: Shortness Of Breath) albuterol sulfate 90 mcg/actuation HFA aerosol inhaler 1 puff inhalation Q6H PRN (Reason: wheezing) digoxin 125 mcg (0.125 mg) tablet 125 mcg PO Q OTHER DAY nystatin 100,000 unit/gram powder 1 appl topical BID PRN (Reason: Rash) duloxetine 20 mg capsule,delayed release(DR/EC) 20 mg PO DAILY Changed mirtazapine 15 mg tablet 0.5 mg PO BEDTIME Qty: 1 0RF Discharge Orders: Discharge Order (Routine); Ordered 03/18/23 Ordered By: Coni Peres Activity on Discharge: As tolerated Stand Alone Forms: Patient Portal Discharge page Care Plan Goals: acute hypoxic and hypercarbic respiratory failure resolved placed on 2 L of oxygen/ dose of Remeron reduced to 7.5 mg daily since likely contributing to lethargy take half tablet of 15 mg at bedtime. no acute COPD exacerbations, no pneumonia noted seen by speech therapy they recommend chopped advanced solids and thin liquids. Health Concerns: continue all other home medications as above. Plan of Treatment: follow-up with primary care physician call for appointment Assessment: as above
--- NOTE | 2023-03-18 14:30 | MHC.SL.DTX ---
Dysphagia Diet modifications: Last documented Solid diet consistencies: Chopped/Advanced (NDD3) Last documented Liquid consistency: Thin Last documented Medication Administration: Changes made to current diet?: Yes Liquid Consistency and Strategies: Liquid Intake Recommendation: Thin Compensatory Strategies for Safe Swallow: Small Sips Compensatory Strategies for Safe Swallow(b): Sitting Upright (90 deg) Liquids from Straw Oral Check Avoid Specific Foods Solid Food Consistency: Dietary Recommendations: Chopped/Advanced (NDD3) Additional Modifications to Solids: Recommend CHOPPED/ADVANCED (NDD3) solids and THIN liquids (no straws), pills CRUSHED in PUREE. Recommend strategies to promote oral clearance: present small bites, moisten food w/ sauces/gravies, cue for double swallow, clear residue w/ additional sip of liquid or bite of puree, check oral cavity. Other aspiration precautions apply, pt requires total 1:1 assistance feeding. Recommendations communicated to team (MD, RN, RD) via [place] Message, written on board in pt's room. ACID LEVELER will continue to follow. Oral Medication Intake: Crushed with Puree Strategies and Precautions to be Taken for Safe Swallow: Sitting Upright (90 deg) Liquids from Straw Oral Check Avoid Specific Foods Supervision While Eating and/Drinking: Total Assistance (1:1) Foods to Avoid: Hard to chew solids; sticky or crunchy textures; dry foods; mixed textures (i.e., soups with broth, cereal with milk, fruit cups). Swallowing Recommended Treatments: Compens. Strategy Educat. Level of Impact on: Daily activities: Interpersonal interactions: Education: Employment: Community: Prognosis for Improvement: Recommendation for Speech: Inpatient Speech Therapy Comment: Recommend strategies to promote oral clearance: present small bites, moisten food w/ sauces/gravies, cue for double swallow, clear residue w/ additional sip of liquid or bite of puree, check oral cavity. Other aspiration precautions apply, pt requires total 1:1 assistance feeding. Frequency/Duration: Date Range for Service Req: Timeline to reassess: Additional Comments: Treatment: Pt is repositioned in bed with assistance of HEADHUNTER. Per RN, O2 removed this morning and she is meeting her 02 targets on room air. Pt has dentures in place prior to administration of PO. Pt tolerated Puree Solids with complete oral clearance and no overt s/s of aspiration. She tolerated Ground Solids with timely preparation and trace residue present on inspection. She tolerated Advanced Solids with mildly delayed preparation and mild oral residue cleared with sips of Thin Liquids via straw. Pt is noted to take small sips of thin liquids. Pt reports history of s/s of aspiration once every 2-3 months. She reports she tends to east softer solids at home. Assessment: Senior Media Planner Clinican/Clinical Fellow: No Supervisory Statement: I have reviewed and agree with the student/clinical fellow's documentation: N/A Speech Language Pathologist: Ross Espinosa M.A., CCC-ACID LEVELER
--- NOTE | 2023-03-19 15:13 | P.CDIM_ITS ---
PROVIDER RESPONSE TEXT: To clarify, the appropriate diagnosis supported by the clinical indicators: Other QUERY TEXT: PHYSICIAN'S DOCUMENTATION REQUEST Date of Query: 03/18/2023 09:05 AM EDT Patient Name: Marilyn Gupta Admit Date: 03/15/2023 Dear Coni Peres, A review of the medical record indicates additional documentation may be needed. Please review below and update the documentation accordingly. Clinical Indicators: ICU progress notes 03/15 & 03/16: Assessment and plan - Fracture of distal end of left humerus Imaging: none Clarity and consistency or a diagnosis that was documented within the medical record: Diagnosis was present on admission and is now resolved Diagnosis was present on admission and is still being monitored, evaluated, or treated Diagnosis was ruled out Diagnosis is still a likely, suspected, probable diagnosis Other Other (explain)Clinically unable to determine (explain)Thank you, Shannon Andersen, CCS, CDIS Use of terms such as suspected, likely, concern for, or probable (associated with a specific diagnosi s that is being evaluated, monitored, or treated as if it exists) are acceptable and can be coded in the inpatient se tting, when documented at the time of discharge. Please use your independent medical judgment in providing your response. THIS QUERY IS PART OF THE PERMANENT MEDICAL RECORD
--- NOTE | 2023-06-19 13:12 | MHC.CM.PN ---
Pt vented in ICU and unable to participate in CM assessment. Calls placed to HCP on file - no answer/VM. Per discussion w/MD: pt's condition is guarded: family having difficulty w/admission as pt's son passed [place] [facility] [place] few months ago. CM to reapproach family once pt's condition is better known.
== END 2023-03-18 17:56 | disposition home or self-care (01) | DRG 189 ==
LOC: HO.ED 17:27 → HO.EDOVER 22:40 → HO.ICU 22:43 → HO.IMC 03-16 16:57
PROVIDERS: Internal Medicine Cardiovascular Disease; Admitting Provider Registered Nurse Community Health; Emergency Provider Internal Medicine; PCP Internal Medicine; Visit Provider Hospitalist
DX: J96.02 Acute respiratory failure with hypercapnia (principal); I48.19 Other persistent atrial fibrillation; I42.2 Other hypertrophic cardiomyopathy; J96.01 Acute respiratory failure with hypoxia; F03.90 Unspecified dementia, unspecified severity, without behavioral disturbance, psychotic disturbance, mood disturbance, and anxiety; I35.0 Nonrheumatic aortic (valve) stenosis; K59.00 Constipation, unspecified; F39 Unspecified mood [affective] disorder; Z79.01 Long term (current) use of anticoagulants; Z79.899 Other long term (current) drug therapy
CPT/HCPCS: 36415; 36600; 70450; 71045; 71250; 74176; 80048; 80053; 80162; 80307; 81003; 82040; 82272; 82803; 83605; 83690; 83735; 83880; 84100; 84484; 85025; 85027; 85379; 85610; 85652; 85730; 87040; 87635; 92526; 92610; 93005; 94640; 94660; 99212; 99284; 99285; J1160; J1940; J1956

== ENCOUNTER → 2023-04-09 09:53 | Outpatient (REF) | payer MEDICARE, SELFPAY ==
--- NOTE | 2023-04-09 09:59 | CA_ITS ---
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 Study Quality: Technically Difficult/ unable to tolerate ECG Rhythm: Atrial Fibrillation Conclusions: - Patient could not tolerate study. Done in wheelchair. Incomplete. - The left ventricular systolic function is normal. The visually estimated ejection fraction is between 65-70%. - Severity of aortic stenosis could not be assessed due to limited data. - Possible mitral stenosis, but not quantified. Findings Procedure Information The study quality is limited by the patients inability to tolerate the test. Left Ventricle Normal left ventricular cavity size. There is moderately increased left ventricular wall thickness. The left ventricular systolic function is normal. The visually estimated ejection fraction is between 65-70%. There is no evidence of regional wall motion abnormalities. Diastolic function is indeterminate on the basis of available data. Right Ventricle The right ventricle was not well visualized. Probably normal systolic function. Atria The left atrium is severely dilated. The right atrium was not well visualized. Aortic Valve The aortic valve was not well visualized. There is severe calcification of the aortic valve. There is mild aortic valve regurgitation. Severity of aortic stenosis could not be assessed due to limited data. Mitral Valve There is severe mitral annular calcification. There is no mitral valve regurgitation. Possible mitral stenosis, but not quantified. Pulmonic Valve The pulmonic valve is likely normal. Tricuspid Valve There is mild tricuspid valve regurgitation. There is no evidence of pulmonary hypertension. Great Vessels The asc aorta is normal in size. Venous The inferior vena cava was not well visualized. Pericardium/Pleural There is no evidence of pericardial effusion. Prior Study Comparison Due to poor quality, cannot compare. Measurements 2D Linear Measurements IVSd: 1.40 0.6-0.9/0.6-1.0 cm LVIDd: 2.90 3.9-5.3/4.2-5.9 cm LVIDd Index: 1.77 2.4-3.2/2.2-3.1 cm/m2 LVIDs: 1.80 2.0-3.6 cm LVPWd: 1.40 0.7-1.1 cm LA Diam: 4.60 2.7-3.8/3.0-4.0 cm LAIDs Index: 2.80 1.5-2.3 cm/m2 LV Mass: 167.24 67-162/88-224 g LV Mass Index: 101.97 43-95/49-115 g/m2 LVOT Diam: 2.00 3.0+(-)1.3 cm Mitral Valve MV Pk E: 1.13 MV Decel Time: 290.00 E'Lateral: 5.44 E/E' Lat: 20.80 PHT: 85.00 MVA PHT: 2.59 Decel [place]: 3.89 Aortic Valve AoV Pk Yoni: 2.33 AoV Mn Yoni: 1.49 AoV VTI: 0.52 AoV Pk Grad: 22.00 Aov Mn Grad: 10.00 LVOT LVOT Diam: 2.00 LVOT Area: 3.14 Diastolic Function MV Pk E: 1.13 E' Laterial: 5.44 E/E' Lat: 20.80 Tricuspid Valve TR Pk Yoni: 2.35 TR Pk Grad: 22.00 Great Vessels Aorta Sinus of Valsalva: 2.80 2.0-3.[address] [place]: 2.50 1.7-3.4 cm Ao Asc: 3.20 2.1-3.4 cm Updated in Other Vendor System with Status of Final Navin Lozada MD electronically signed on 04/09/2023 4:06:26 PM with status of Final
== END ==
LOC: HO.CARD 09:53
PROVIDERS: PCP Internal Medicine; Visit Provider Internal Medicine
DX: I25.10 Atherosclerotic heart disease of native coronary artery without angina pectoris (principal); I35.0 Nonrheumatic aortic (valve) stenosis
CPT/HCPCS: 93306

== ENCOUNTER → 2023-04-09 09:59 | Outpatient (BNV) | payer MEDICARE, SELFPAY | PROVIDERS: PCP Internal Medicine; Visit Provider Internal Medicine | DX: I48.91 Unspecified atrial fibrillation (principal) | CPT/HCPCS: 93306 ==

== ENCOUNTER 2023-04-10 15:02 | Outpatient (AMB) | payer MEDICARE, SELFPAY ==
[2023-04-10 15:12] VITALS: BP 140/82; PULSE 85
--- NOTE | 2023-04-10 15:12 | MHC.OFFVIS ---
Intake Vital Signs 04/10/23 15:12 Height 5 ft 5 in BMI Reason not done Patient refused/unable BP 140/82 H Blood Pressure Location Rt brachial Position Sitting Pulse 85 Intake Visit Reasons[place] [facility] [place] Intake Note: [facility] [place] Mercury Purifier Required: No Accompanied by: Son Allergies amoxicillin [AMOXICILLIN] Allergy (Severe, Verified 04/10/23 15:14) ANAPHYLAXIS iodine [IODINE] Allergy (Severe, Verified 04/10/23 15:14) SHORTNESS OF BREATH coffee (Coffea arabica) [COFFEE (BEVERAGE)] Allergy (Intermediate, Verified 04/10/23 15:14) TONGUE SWELLING penicillin G [PENICILLIN G] Allergy (Unknown, Verified 04/10/23 15:14) RASH shellfish derived [SHELLFISH DERIVED] Allergy (Unknown, Verified 04/10/23 15:14) TONGUE SWELLING Sulfa (Sulfonamide Antibiotics) [SULFA (SULFONAMIDE ANTIBIOTICS)] Allergy (Unknown, Verified 04/10/23 15:14) DIFFICULTY BREATHING Medication List - Last Reconciled 04/10/23 by Navin Lozada MD acetaminophen 1,000 mg PO BID albuterol sulfate 90 mcg/actuation 1 puff inhalation Q6H PRN cyanocobalamin (vitamin B-12) 5,000 mcg PO DAILY digoxin 125 mcg PO Q OTHER DAY docusate sodium (Colace) 100 mg PO BID doxycycline monohydrate 100 mg PO Q12H duloxetine 20 mg PO DAILY ipratropium-albuterol 0.5 mg-3 mg(2.5 mg base)/3 mL 3 mL inhalation QID PRN lactulose 15 mL PO DAILY PRN loratadine (Claritin) 10 mg PO DAILY metoprolol tartrate 50 mg PO BID mirtazapine 0.5 mg (0.0333 x 15 mg) PO BEDTIME nystatin 1 appl topical BID PRN polyethylene glycol 3350 (Miralax) 17 grams PO DAILY PRN warfarin 5 mg PO WESA@1800 warfarin 2.5 mg PO SUMOTUTHFR@1800 HPI HPI Comments History of Present Illness Details Marilyn returns for follow-up. She is accompanied by her son as well as daughter. From the cardiac standpoint, she has aortic stenosis as well as permanent atrial fibrillation. In the past, she did not want any intervention for the aortic stenosis. She recently came for an echocardiogram but could not completed as she was sitting in a wheelchair. She could not move at all. Hence study quality suboptimal and also markedly limited. Similar issue in a prior echocardiogram from [facility]. Otherwise, hospitalization with respiratory failure. Seems she got BiPAP and then given supplemental oxygen. According to family, she can barely move. Maximum couple of steps or so. Mostly in a wheelchair. Essentially bed-bound. [facility]LY [facility] Medical History COPD (chronic obstructive pulmonary disease) Fracture of distal end of left humerus HTN (hypertension) Hypertrophic cardiomyopathy Non-rheumatic aortic stenosis Permanent atrial fibrillation Surgical History History of appendectomy History of left hip replacement Family History Father No problems noted. Mother No problems noted. Social History Household Members: Unknown / Unable to assess Housing: Unknown / Unable to assess Do you presently have visiting nurse or other home services: No (unknown) Unable to assess alcohol history related to: Unknown Alcohol intake: never Patient Tobacco Use Status: Former Tobacco user Quit Date: 40+ yrs ago Substance Use Type: Unknown Advance Directives Date on File: 08/22/21 service: No Review of Systems Const Denies weakness ENT Denies dizziness Card Denies chest pain, Denies chest pain with activity, Denies syncope, Denies rapid heart rate, Denies pedal edema, Denies edema, Denies leg edema, Denies lightheadedness, Denies palpitations, Denies dyspnea, Denies dyspnea on exertion and Denies orthopnea Resp Denies cough, Denies dyspnea and Denies dyspnea on exertion GI Denies hematochezia and Denies change in stool character Musc Denies abnormal gait, Denies muscle cramps, Denies muscle weakness, Denies numbness, Denies radiating pain into limb and Denies tingling Neuro Denies abnormal gait, Denies dizziness, Denies syncope, Denies numbness, Denies tingling and Denies weakness Endo Denies palpitations Physical Exam Vital Signs: Last Vital Signs Pulse 85 04/10/23 15:12 BP 140/82 H 04/10/23 15:12 Const General: comfortable and no acute distress Orientation/consciousness: patient oriented x3 HEENT Other: Unremarkable Head: Yes normal to inspection Neck Neck: Yes normal visual inspection Chest Chest palpation & inspection: normal inspection of the chest Resp Auscultation: crackles bilateral at the base Cardio Palpation: normal PMI Heart sounds: S1 normal heart sound present, S2 normal heart sound present, no gallops, Murmur heart sound present systolic II/ and at the right sternal border and no rubs GI Palpation (GI): Soft to palpation Back/Spine/Pelvis Other: unremarkable Skin General skin exam: no rashes or lesions noted Neuro General: patient oriented x3 Extrem General: Yes normal to inspection Psych Mental Status: mental status grossly normal Assessment & Plan Assessment & Plan (1) Non-rheumatic aortic stenosis: Code(s): I35.0 - Nonrheumatic aortic (valve) stenosis Plan: Available studies reviewed- [facility]; LVEF was 65-70%. Suspected to have severe aortic stenosis of paradoxical low-flow variety. More recently, she had an echocardiogram through [facility]. According to family, it was done while patient was sitting in the wheelchair as she could not move. In that study, reported to have rather moderate aortic stenosis. She had another attempted an echocardiogram as today but again she could not get up from the wheelchair and it was a very poor study and could not get adequate information. Any case, considering the fact that she has barely any mobility and mostly wheelchair/bedbound, she is a poor candidate for even TAVR. Also, no overt symptoms. Hence considering the overall debility, frailty do not recommend any invasive procedures. We went over this in detail today and son and daughter understand. (2) Permanent atrial fibrillation: Code(s): I48.21 - Permanent atrial fibrillation Plan: She remains on metoprolol, digoxin and warfarin. (3) Supplemental oxygen dependent: Code(s): Z99.81 - Dependence on supplemental oxygen Plan Discussed with son and daughter who came for appointment. Medications: Discontinued nystatin 1 appl topical BID 2 weeks 120 grams 0RF digoxin 125 mcg PO Q2D@0900 90 days 45 tabs 3RF Coding Level of Care Code Est Pt Level 4 (81113) Diagnoses Non-rheumatic aortic stenosis I35.0 Permanent atrial fibrillation I48.21 Supplemental oxygen dependent Z99.81
== END 2023-04-10 15:36 | disposition home or self-care (01) ==
PROVIDERS: PCP Internal Medicine; Visit Provider Internal Medicine
DX: I35.0 Nonrheumatic aortic (valve) stenosis (principal); I48.21 Permanent atrial fibrillation; Z99.81 Dependence on supplemental oxygen
CPT/HCPCS: 99214

== ENCOUNTER → 2023-04-10 15:02 | Outpatient (BNVA) | payer MEDICARE, SELFPAY | PROVIDERS: PCP Internal Medicine; Visit Provider Internal Medicine | DX: I35.0 Nonrheumatic aortic (valve) stenosis (principal); I48.21 Permanent atrial fibrillation; Z99.81 Dependence on supplemental oxygen | CPT/HCPCS: 99212 ==

== ENCOUNTER 2023-06-03 16:38 | Inpatient (IN) | payer MEDICARE, SELFPAY ==
--- NOTE | ~2023-06-03 | CT_ITS ---
EXAMINATION: CT FACIAL BONES WITHOUT CONTRAST CLINICAL INFORMATION: Right infraorbital swelling COMPARISON: None available. TECHNIQUE: Axial images through the orbits without IV contrast. Sagittal and coronal reconstructions on the technologist workstation were performed. This CT examination was performed using dose optimization techniques as appropriate, variously including the following: *Automated exposure control *Adjustment of mA and/or kV according to patient size (this includes techniques or standardized protocols for targeted exams where dose is matched to indication/reason for exam; i.e. extremities or head) *Use of iterative reconstruction technique DLP: 311 mGy-cm FINDINGS: There is preseptal soft tissue swelling over the right orbit. There is soft tissue swelling inferior to the right orbit. Post septal orbital soft tissues are normal. The left orbit is normal. There is mild membranous soft tissue thickening in the floor of the right maxillary sinus. Paranasal sinuses are otherwise clear. Right-sided michael bullosa. Deviated nasal septum to the right. The mastoid air cells and middle ears are clear bilaterally. The temporomandibular joints are normal. Bilateral carotid calcification. Visualized intracranial structures are unremarkable. There are degenerative changes of the spine. CT/CT facial bones wo IV con IMPRESSION: Preseptal soft tissue swelling over the right orbit and soft tissue swelling inferior to the right orbit. Post septal orbital soft tissues are normal.
[2023-06-03 16:50] VITALS: BP 136/78; BP 152/60; PULSE 68; PULSE 80; RESP 16; TEMP 36.2; O2SAT 95; O2SAT 97; BMI 26.5
--- NOTE | 2023-06-03 17:27 | ED_ITS ---
HPI - General Adult General Chief complaint: General Medical Stated complaint: biLat facial edema,cellulitis L cheek spread to R Time Seen by Provider: 06/03/23 16:50 Source: patient and RN notes reviewed Mode of arrival: ambulatory Limitations: no limitations History of Present Illness HPI narrative: This is a 88-year-old female, with a past medical history of dementia, atrial fibrillation, CHF, COPD on 1 L nasal cannula at baseline, presenting to the emergency department via EMS with complaints of facial redness and swelling. Family reports that patient has had increased redness to the left side of her face and was diagnosed with facial cellulitis 5 days ago. She was prescribed Keflex which she has taken multiple doses of without any improvement. Patient reports that today she has noticed the right side of her face is now red and reports significant swelling underneath her right eye. She denies any fevers or chills. She states that initially this rash was itchy and now is slightly painful. Denies any other complaints or concerns at this time. MD complaint: Facial redness, swelling Location: face Radiation: non-radiation Relieving factors: none Exacerbating factors: none Associated symptoms: denies other symptoms Treatments prior to arrival: none Related Data Home Medications Medication Instructions Recorded Confirmed acetaminophen 500 mg tablet 1,000 mg PO BID 08/22/21 06/03/23 duloxetine 20 mg capsule,delayed 20 mg PO DAILY 11/05/21 06/03/23 release metoprolol tartrate 50 mg tablet 50 mg PO BID 11/05/21 06/03/23 cyanocobalamin (vitamin B-12) 5,000 mcg PO DAILY 02/08/22 06/03/23 5,000 mcg capsule docusate sodium 100 mg capsule 100 mg PO BID 02/08/22 06/03/23 (Colace) lactulose 10 gram/15 mL oral 15 ml PO DAILY PRN Constipation 02/08/22 06/03/23 solution loratadine 10 mg tablet (Claritin) 10 mg PO DAILY PRN Allergy Symptoms 02/08/22 06/03/23 warfarin 2.5 mg tablet 2.5 mg PO DAILY@1800 02/08/22 06/03/23 albuterol sulfate 90 mcg/actuation 1 puff inhalation Q6H PRN wheezing 03/15/23 06/03/23 aerosol inhaler digoxin 125 mcg (0.125 mg) tablet 125 mcg PO Q OTHER DAY 03/15/23 06/03/23 ipratropium 0.5 mg-albuterol 3 mg 3 ml inhalation QID PRN Shortness 03/15/23 06/03/23 (2.5 mg base)/3 mL nebulization Of Breath soln nystatin 100,000 unit/gram topical 1 appl topical BID PRN Rash 03/15/23 06/03/23 powder cephalexin 250 mg capsule 250 mg PO QID 06/03/23 06/03/23 mirtazapine 15 mg tablet 15 mg PO BEDTIME 06/03/23 06/03/23 methadone 10 mg/mL oral concentrate 64 mg PO DAILY 06/04/23 06/04/23 Previous Rx's Medication Instructions Recorded furosemide 20 mg tablet 20 mg PO DAILY #30 tabs 04/28/23 doxycycline hyclate 100 mg capsule 100 mg PO BID 7 days #14 caps 06/03/23 mupirocin 2 % topical ointment 1 appl topical TID 5 days #22 grams 06/03/23 Allergies Allergy/AdvReac Type Severity Reaction Status Date / Time amoxicillin [AMOXICILLIN] Allergy Severe ANAPHYLAXIS Verified 04/10/23 15:14 iodine [IODINE] Allergy Severe SHORTNESS Verified 04/10/23 15:14 OF BREATH coffee (Coffea arabica) Allergy Intermediate TONGUE Verified 04/10/23 15:14 [COFFEE (BEVERAGE)] SWELLING penicillin G [PENICILLIN G] Allergy Unknown RASH Verified 04/10/23 15:14 shellfish derived Allergy Unknown TONGUE Verified 04/10/23 15:14 [SHELLFISH DERIVED] SWELLING Sulfa (Sulfonamide Allergy Unknown DIFFICULTY Verified 04/10/23 15:14 Antibiotics) BREATHING [SULFA (SULFONAMIDE ANTIBIOTICS)] Review of Systems 2 Review of Systems: Yes all other systems are reviewed and are negative Constitutional: Constitutional: Reports as per [facility] Past Medical History Attestation statement: The following information was validated with the patient. Medical History Hypertrophic cardiomyopathy COPD (chronic obstructive pulmonary disease) Permanent atrial fibrillation Non-rheumatic aortic stenosis Fracture of distal end of left humerus HTN (hypertension) Surgical History History of appendectomy History of left hip replacement Family History Family History Father No problems noted. Mother No problems noted. 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 If so, by whom?: No Do you feel safe in your current relationship?: No Current Relationship Is there a partner from a previous relationship who is making you feel unsafe now?: No Are you made to feel afraid or neglected: No Advance Directives: Yes Advance Directives on File: Yes Advance Directives Date on File: 08/22/21 Do you have thoughts of harming others: None Do you have a plan to hurt others: No Plan Recently lost weight without trying: No How much weight loss: Not applicable Eating poorly because of decreased appetite: No Nutrition screen score: 0 Nutrition Risks: No Nutritional Risk Patient : No : No Poor oral hygiene: No service: No Physical Exam ED Vital Signs: Vital Signs - 24 hr 06/03/23 16:50 06/03/23 21:42 Temperature 97.1 F 97.1 F Pulse Rate 80 73 Respiratory Rate 16 16 Blood Pressure 136/78 160/84 H Pulse Oximetry 95 99 Oxygen Delivery Method Nasal Cannula Nasal Cannula Oxygen Flow Rate 1 BMI result Body Mass Index 26.5 Const General: cooperative, comfortable and no acute distress Orientation/consciousness: patient oriented x3 Limitations: no limitations HENMT Head: Yes normal to inspection, Yes normocephalic and Yes atraumatic Ears: hearing grossly normal bilaterally General nose exam: Normal external nose present Face and sinus: Yes normal facial exam Mouth: Normal oral and palatal mucosa present, oropharynx normal and moist mucous membranes Throat: Yes posterior oropharynx normal Eyes General: appearance normal, both eyes and all related structures Eyelids: Yes eyelids normal Conjunctivae: conjunctivae normal Sclerae: sclerae normal Pupils: Equal, round and reactive pupils present EOM: EOMs intact bilaterally Neck Neck: Yes normal visual inspection, Yes full ROM and Yes no lymphadenopathy Lymphatic: no lymphadenopathy noted Chest Chest palpation & inspection: normal inspection of the chest Resp Effort & Inspection: normal respiratory effort and able to speak in complete sentences Auscultation: clear to auscultation bilaterally, no crackles, no rales, no rhonchi and no wheezes Cardio Rate: regular rate Rhythm: regular rhythm Heart sounds: S1 normal heart sound present and S2 normal heart sound present GI Inspection: Yes normal to inspection Skin Other: Bilateral cheeks with erythema, warmth, and induration and yellow crusting throughout. Right infraorbital space with moderate edema and fluctuance noted. Neuro General: patient oriented x3 and moves all extremities Cranial nerves: Yes Equal, round and reactive pupils present Extrem General: Yes normal to inspection Right upper extremity: normal to inspection Left upper extremity: normal to inspection Right lower extremity: normal to inspection Left lower extremity: normal to inspection Course Reevaluation(s) Reevaluation #1: Patient with no leukocytosis, hematocrit MCV at her baseline. Chemistry nondiagnostic. Normal lactic acid. Patient just left for CT scan. Given will sign out to my colleague, Edmund Forman PA-C pending CT results. Time: 18:59 Reevaluation #2: discussed case with Dr. King hospitalist recommend patient be admitted failing outpatient antibiotics and for IV antibiotics for facial cellulitis Medications Administered Generic Name Dose Route Start Last Admin Trade Name Narinderq PRN Reason Stop Dose Admin Acetaminophen 650 mg 06/04/23 09:00 06/04/23 08:16 Acetaminophen 325 Mg Tablet PO 650 mg BID ANDRY Administration Cyanocobalamin 5,000 mcg 06/04/23 09:00 06/04/23 08:16 Cyanocobalamin (Vitamin B-12) 1,000 Mcg Tablet PO 5,000 mcg DAILY ANDRY Administration Duloxetine HCl 20 mg 06/04/23 09:00 06/04/23 08:16 Duloxetine Hcl 20 Mg Capsule. PO 20 mg DAILY ANDRY Administration Furosemide 20 mg 06/04/23 09:00 06/04/23 08:16 Furosemide 20 Mg Tablet PO 20 mg DAILY ANDRY Administration Protocol Metoprolol Tartrate 50 mg 06/03/23 22:30 06/04/23 08:16 Metoprolol Tartrate 50 Mg Tablet PO 50 mg BID ANDRY Administration Protocol Mirtazapine 15 mg 06/03/23 22:30 06/03/23 23:49 Mirtazapine 15 Mg Tablet PO 15 mg BEDTIME ANDRY Administration Mupirocin 1 appl 06/04/23 15:00 06/04/23 14:32 Mupirocin 2 % Oint 22 Gm Tube TOPICAL 06/09/23 14:59 1 appl TID ANDRY Administration Protocol Sodium Chloride 3 ml 06/04/23 00:00 06/04/23 08:17 0.9 % Sodium Chloride Flush 3 Ml Syringe IVFLUSH 3 ml QSHIFT ANDRY Administration Discontinued Medications Generic Name Dose Route Start Last Admin Trade Name Freq PRN Reason Stop Dose Admin Diphenhydramine HCl 25 mg 06/03/23 17:04 06/03/23 18:19 Diphenhydramine Hcl 50 Mg/Ml Vial IVPUSH 06/03/23 17:05 25 mg ONCE ONE Administration Vancomycin HCl 1,500 mg/ 500 mls @ 333.333 mls/hr 06/03/23 22:00 06/04/23 01:20 Sodium Chloride IV 06/03/23 23:29 Infused ONCE ONE Infusion Potassium Chloride 40 meq 06/04/23 11:51 06/04/23 12:45 Potassium Chloride Er 20 Meq Tab.Er.Prt PO 06/04/23 11:52 40 meq ONCE ONE Administration Medical Decision Making Medical Decision Making MDM Narrative: This is a [id number]-female presenting to the ER with complaints of facial redness and swelling x5 days, worsening this morning. On arrival, all vital signs within normal limits. Patient is nontoxic appearing. Patient with erythema and induration to bilateral cheeks with infraorbital swelling noted. No eye pain or entrapment. Lungs are clear to auscultation bilaterally without any wheezes. No oral edema noted. Differential diagnoses include impetigo, cellulitis, erysipelas, allergic reaction, abscess. Given symptoms and no improvement on oral antibiotics, will obtain labs, lactic, blood cultures. Patient will be medicated with Benadryl to see if swelling improves. CT sinuses was ordered to rule out fluid collection. Plan: Labs, Benadryl, blood cultures, lactic, CT sinuses obtained Differential Diagnosis Differential Diagnoses: The differential diagnosis associated with the presentation includes See above Admission/Observation Consideration of admission/observation: Escalation of care including admission/observation considered Patient would have been admitted to the hospital had her work up had any findings where hospital admission was appropriate and her clinical presentation warranted hospital admission. Lab Data MDM Lab Attestation statement: I reviewed the patient's lab results. 06/03/23 18:01 06/04/23 05:35 Labs: Lab Results 06/03/23 Range/Units 18:01 WBC 9.0 (4.8-10.8) X10*3/uL RBC 4.78 (4.20-5.50) X10*6/uL Hgb 15.1 (12.0-16.0) g/dl Hct 47.6 H (37.0-47.0) % MCV 99.6 H (80.0-98.0) fL MCH 31.6 (27.0-33.0) pg MCHC 31.7 (31.0-35.0) g/dl RDW 13.1 (11.0-16.0) % Plt Count 248 (160-400) X10*3/uL MPV 10.2 (9.4-12.3) fL Immature Gran % (Auto) 0.3 (0.0-0.4) % Neut % (Auto) 65.0 (45-73) % Lymph % (Auto) 14.3 L (20-40) % [place] % (Auto) 7.0 (2-11) % Eos % (Auto) 12.4 H (0-4) % Baso % (Auto) 1.0 (0-2) % Lymph # (Auto) 1.3 (1.2-4.9) X10*3/uL [place] # (Auto) 0.6 (0.1-1.2) X10*3/uL Eos # (Auto) 1.1 H (0.0-0.4) X10*3/uL Baso # (Auto) 0.1 (0.0-0.2) X10*3/uL Abs Immat Gran (auto) 0.03 (0.00-0.03) X10*3/uL Absolute Neuts (auto) 5.8 (2.0-8.3) x10*3/uL Absolute Nucleated RBC 0.000 (0.0-0.012) X10*3/uL Nucleated RBC % (auto) 0.0 (0.0-0.2) /100WBC Sodium 145 (135-145) mmol/L Potassium 3.3 (3.3-5.1) mmol/L Chloride 98 (96-108) mmol/L Carbon Dioxide 39 H (22-29) mmol/L Anion Gap 11 L (12-20) BUN 9 (9-16) mg/dL Creatinine 0.63 (0.5-1.4) mg/dL Estim Creat Clear Calc 54.9 Estimated GFR > 60 Random Glucose 109 (60-115) mg/dL Lactic Acid 1.2 (0.5-2.0) mmol/L Calcium 9.2 (8.4-10.2) mg/dL Total Bilirubin 0.4 (0.0-1.0) mg/dL Direct Bilirubin 0.1 (0.0-0.5) mg/dL AST 16 (5-31) U/L ALT 7 (0-31) U/L Alkaline Phosphatase 56 (39-117) U/L Total Protein 7.1 (6.5-8.0) g/dL Albumin 3.8 (3.5-5.0) g/dL Radiology Impression Discussion of test interpretation with radiology: I have reviewed the radiologist's reading. External Record Review External record reviewed: Inpatient record, Office record, Outpatient record, Prior outpatient labs, Prior outpatient radiology, Primary care record and Outside ED record Discharge Plan Discharge Clinical Impression: Cellulitis Qualifiers: Site of cellulitis: face Qualified Code(s): L03.211 - Cellulitis of face Patient Disposition: Admitted As Inpatient Interventions: Admission Worksheet (ED) Last Done: 06/03/23 23:01 Discharge Date/Time: 06/03/23 23:01
[2023-06-03 18:11] LABS: MANUAL DIFF FLAG NO
[2023-06-03 18:12] LABS: Basophils Absolute Auto 0.1 X10*3/uL (0.0-0.2); Eosinophils Absolute Auto 1.1 X10*3/uL (0.0-0.4); Eosinophils Percent Auto 12.4 % (0-4); Hematocrit 47.6 % (37.0-47.0); Hemoglobin 15.1 g/dl (12.0-16.0); Imm Gran Abs Auto 0.03 X10*3/uL (0.00-0.03); Imm Gran Pct Auto 0.3 % (0.0-0.4); Lymphocytes Absolute Auto 1.3 X10*3/uL (1.2-4.9); Lymphocytes Percent Auto 14.3 % (20-40); Mean Corpuscular HGB Conc 31.7 g/dl (31.0-35.0); Mean Corpuscular Hemoglobin 31.6 pg (27.0-33.0); Mean Corpuscular Volume 99.6 fL (80.0-98.0); Mean Platelet Volume 10.2 fL (9.4-12.3); Monocytes Absolute Auto 0.6 X10*3/uL (0.1-1.2); Neutrophils Absolute Auto 5.8 x10*3/uL (2.0-8.3); Platelet Count 248 X10*3/uL (160-400); Red Blood Count 4.78 X10*6/uL (4.20-5.50); Red Cell Distribution Width 13.1 % (11.0-16.0)
[2023-06-03] MEDS: diphenhydrAMINE HCL 50 MG/ML VIAL 25 MG IVPUSH (18:19)
[2023-06-03 18:21] LABS: Lactic Acid 1.2 mmol/L (0.5-2.0)
[2023-06-03 18:26] LABS: Alanine Aminotransferase 7 U/L (0-31); Albumin Level 3.8 g/dL (3.5-5.0); Alkaline Phosphatase 56 U/L (39-117); Anion Gap 11 (12-20); Aspartate Amino Transferase 16 U/L (5-31); Bilirubin Direct 0.1 mg/dL (0.0-0.5); Bilirubin Total 0.4 mg/dL (0.0-1.0); Blood Urea Nitrogen 9 mg/dL (9-16); Calcium 9.2 mg/dL (8.4-10.2); Carbon Dioxide 39 mmol/L (22-29); Chloride 98 mmol/L (96-108); Creatinine Clr Calc Pharmacy 54.9; Estimated Glomerular Filt Rate > 60; Glucose Random 109 mg/dL (60-115); Potassium 3.3 mmol/L (3.3-5.1); Sodium 145 mmol/L (135-145); Total Protein 7.1 g/dL (6.5-8.0)
[2023-06-03 21:42] VITALS: BP 160/84; PULSE 73; RESP 16; TEMP 36.2; O2SAT 99
--- NOTE | 2023-06-03 21:57 | P.HPHOSP_ITS ---
History of Present Illness Date of Service: 06/03/23 Chief Complaint: Facial redness This is a 88-year-old female with pertinent history of chronic hypoxemic respiratory failure due to COPD, permanent atrial fibrillation on Coumadin, mood disorder, unspecified dementia who presents to the emergency department for evaluation of facial redness and swelling. Patient states she noticed swelling on the left side of the face about 5 days prior to presentation. Went to her PCP who prescribed Keflex. The swelling, redness worsened and progressed despite being on p.o. antibiotics. On the day of presentation, patient noticed swelling to the right side of the face with warmth and erythema. No fevers or chills. No chest discomfort, palpitations, shortness of breath, abdominal pain, changes in urinary or bowel habits. Does have a history of recurrent cellulitis of arms and legs. Uses 1-2 L oxygen at home at baseline for COPD In the emergency department, imaging with soft tissue edema. Review of Systems 2 Constitutional: Constitutional: Reports no additional constitutional complaints Cardiovascular: Cardiovascular: Reports no additional cardiovascular complaints Respiratory: Respiratory: Reports no additional respiratory complaints Gastrointestinal: Gastrointestinal: Reports no additional gastrointestinal complaints Genitourinary: Genitourinary: Reports no additional female genitourinary complaints [facility] Medical History Hypertrophic cardiomyopathy COPD (chronic obstructive pulmonary disease) Permanent atrial fibrillation Non-rheumatic aortic stenosis Fracture of distal end of left humerus HTN (hypertension) Family History Father No problems noted. Mother No problems noted. Surgical History History of appendectomy History of left hip replacement Social History Household Members: Family Housing: House Do you presently have visiting nurse or other home services: Yes (quality improvement coordinator (rn)'s during the day) Unable to assess alcohol history related to: Unknown Alcohol intake: never Patient Tobacco Use Status: Former Tobacco user Quit Date: 40+ yrs ago Smoked in Last 30 Days: No Patient Interested in Nicotine Replacement: No Use of substances other than those prescribed or required for medical reasons: No Substance Use Type: Unknown Have you been hit, kicked, punched, or otherwise hurt by someone within the past year? If so, by whom?: No Do you feel safe in your current relationship?: No Current Relationship Is there a partner from a previous relationship who is making you feel unsafe now?: No Are you made to feel afraid or neglected: No Advance Directives: Yes Advance Directives on File: Yes Advance Directives Date on File: 08/22/21 Do you have thoughts of harming others: None Do you have a plan to hurt others: No Plan Recently lost weight without trying: No How much weight loss: Not applicable Eating poorly because of decreased appetite: No Nutrition screen score: 0 Nutrition Risks: No Nutritional Risk Patient : No : No Poor oral hygiene: No service: No Meds Allergies Allergy/AdvReac Type Severity Reaction Status Date / Time amoxicillin [AMOXICILLIN] Allergy Severe ANAPHYLAXIS Verified 04/10/23 15:14 iodine [IODINE] Allergy Severe SHORTNESS Verified 04/10/23 15:14 OF BREATH coffee (Coffea arabica) Allergy Intermediate TONGUE Verified 04/10/23 15:14 [COFFEE (BEVERAGE)] SWELLING penicillin G [PENICILLIN G] Allergy Unknown RASH Verified 04/10/23 15:14 shellfish derived Allergy Unknown TONGUE Verified 04/10/23 15:14 [SHELLFISH DERIVED] SWELLING Sulfa (Sulfonamide Allergy Unknown DIFFICULTY Verified 04/10/23 15:14 Antibiotics) BREATHING [SULFA (SULFONAMIDE ANTIBIOTICS)] Home Medications Medication Instructions Recorded Confirmed Last Taken Type acetaminophen 500 mg tablet 1,000 mg PO BID 08/22/21 06/03/23 06/03/23 History duloxetine 20 mg capsule,delayed 20 mg PO DAILY 11/05/21 06/03/23 06/03/23 History release metoprolol tartrate 50 mg tablet 50 mg PO BID 11/05/21 06/03/23 06/03/23 History cyanocobalamin (vitamin B-12) 5,000 mcg PO DAILY 02/08/22 06/03/23 06/03/23 History 5,000 mcg capsule docusate sodium 100 mg capsule 100 mg PO BID 02/08/22 06/03/23 06/03/23 History (Colace) lactulose 10 gram/15 mL oral 15 ml PO DAILY PRN Constipation 02/08/22 06/03/23 Unknown History solution loratadine 10 mg tablet (Claritin) 10 mg PO DAILY PRN Allergy Symptoms 02/08/22 06/03/23 02/08/22 History warfarin 2.5 mg tablet 2.5 mg PO DAILY@1800 02/08/22 06/03/23 06/03/23 History albuterol sulfate 90 mcg/actuation 1 puff inhalation Q6H PRN wheezing 03/15/23 06/03/23 Unknown History aerosol inhaler digoxin 125 mcg (0.125 mg) tablet 125 mcg PO Q OTHER DAY 03/15/23 06/03/23 06/03/23 History ipratropium 0.5 mg-albuterol 3 mg 3 ml inhalation QID PRN Shortness 03/15/23 06/03/23 Unknown History (2.5 mg base)/3 mL nebulization Of Breath soln nystatin 100,000 unit/gram topical 1 appl topical BID PRN Rash 03/15/23 06/03/23 06/03/23 History powder cephalexin 250 mg capsule 250 mg PO QID 06/03/23 06/03/23 06/03/23 History mirtazapine 15 mg tablet 15 mg PO BEDTIME 06/03/23 06/03/23 06/02/23 History Physical Exam 2 Vital Signs and Narrative: Vital Signs: Last Vital Signs Temp 97.1 F 06/03/23 21:42 Pulse 73 06/03/23 21:42 Resp 16 06/03/23 21:42 BP 160/84 H 06/03/23 21:42 Pulse Ox 99 06/03/23 21:42 O2 Del Method Nasal Cannula 06/03/23 21:42 O2 Flow Rate 1 06/03/23 21:42 Oxygen Flow Rate 1 06/03/23 16:50 BMI result Body Mass Index 26.5 Elderly female lying in bed in no distress HEENT: Facial erythema with swelling and warmth seen Neck supple, no JVD Irregularly irregular, S1-S2 heard Regular breath sounds bilaterally, no wheezing or crackles appreciated Abdomen soft nontender, no guarding, no rigidity Patient is awake, alert and oriented to self, place, time and person ; no focal motor deficit Psych: Normal mood No pedal edema Results Labs 06/03/23 18:01 06/03/23 18:01 Labs: Laboratory Results - last 24 hr 06/03/23 18:01 MCV 99.6 H MCH 31.6 MCHC 31.7 RDW 13.1 Plt Count 248 MPV 10.2 Immature Gran % (Auto) 0.3 Neut % (Auto) 65.0 Lymph % (Auto) 14.3 L [place] % (Auto) 7.0 Eos % (Auto) 12.4 H Baso % (Auto) 1.0 Lymph # (Auto) 1.3 [place] # (Auto) 0.6 Eos # (Auto) 1.1 H Baso # (Auto) 0.1 Abs Immat Gran (auto) 0.03 Absolute Neuts (auto) 5.8 Absolute Nucleated RBC 0.000 Nucleated RBC % (auto) 0.0 Anion Gap 11 L Estim Creat Clear Calc 54.9 Estimated GFR > 60 Random Glucose 109 Lactic Acid 1.2 Calcium 9.2 Total Bilirubin 0.4 Direct Bilirubin 0.1 AST 16 ALT 7 Alkaline Phosphatase 56 Total Protein 7.1 Albumin 3.8 Imaging Radiologist's Impressions: Impressions Face CT 06/03/23 19:13 IMPRESSION: Preseptal soft tissue swelling over the right orbit and soft tissue swelling inferior to the right orbit. Post septal orbital soft tissues are normal. Assessment and Plan (1) Cellulitis: Qualifiers: Site of cellulitis: face Qualified Code(s): L03.211 - Cellulitis of face Status: Acute Plan This is a 88-year-old female with pertinent history of chronic hypoxemic respiratory failure due to COPD, permanent atrial fibrillation on Coumadin, mood disorder, unspecified dementia who presents to the emergency department for evaluation of facial redness and swelling. #. Facial cellulitis. Will admit patient and initiate IV empiric vancomycin as she failed outpatient p.o. antibiotics. Monitor for improvement. No sepsis. #. Chronic hypoxemic respiratory failure due to COPD. Continue home baseline oxygen. No exacerbation during admission. #. Chronic persistent AFib. Continue digoxin and metoprolol. Rate controlled in the ER. On Coumadin. Monitor INR #. Mood disorder. Continue home mood stabilizers, duloxetine and mirtazapine #. Unspecified dementia. Maintain sleep-wake cycle DVT prophylaxis: Coumadin Full code Admit as inpatient and will require two night minimum hospital stay for IV antibiotics Time Spent With Patient Time: Total time managing care of this patient today ____ minutes. Quality Stroke Does the patient have a stroke diagnosis?: No VTE Prior VTE?: No VTE Risk Level:: Medical - moderate - high VTE Device Contraindication: Treatment Not Indicated VTE Drug Contraindication: N/A - Med Ordered
--- NOTE | 2023-06-03 22:29 | PC.NURSE ---
RN-RN report given to S3.
--- NOTE | 2023-06-03 22:34 | PHA.MEDREC ---
Pharmacy Consult ? Medication Reconciliation Pharmacy has completed the medication reconciliation. Patient daughter confirmed medications. Reports they have not started sertraline, and they will eventually switch mirtazepine to sertraline. Current warfarin in 2.5 mg daily. Patient has a severe allergy to amoxicillin causing anaphylaxis and difficulty breathing. Akila Acevedo, PharmD
[2023-06-03 23:21] VITALS: BMI 27.2
[2023-06-03] MEDS: vancomycin HCL 1,500 MG in 0.9 % Sodium Chloride 500 ML 333.33 MG IV (23:47)
[2023-06-03] MEDS: 0.9 % Sodium Chloride Flush 3 ML SYRINGE IVFLUSH (23:49)
[2023-06-03] MEDS: Metoprolol Tartrate 50 MG TABLET PO (23:49)
[2023-06-03] MEDS: Mirtazapine 15 MG TABLET PO (23:49)
[2023-06-04 00:19] VITALS: BP 162/84; PULSE 85; RESP 18; TEMP 36.3; O2SAT 95
[2023-06-04] MEDS: 0.9 % Sodium Chloride Flush 3 ML SYRINGE IVFLUSH ×4 (01:25→23:27)
[2023-06-04 03:12] VITALS: BP 151/70; PULSE 79; RESP 18; TEMP 36.1; O2SAT 94
--- NOTE | 2023-06-04 05:29 | PC.NURSE ---
PATIENT ADMITTED TO [place] [id number] UNIT AT 2300 VIA STRETCHER FROM ED WITH FACIAL REDNESS AND SWELLING. ADMISSION COMPLETED BY PROJECT ENGINEERING MANAGER NURSE. VSS, PT ALERT TO PERSON AND PLACE, DAUGHTER AT BEDSIDE TO ASSIST WITH QUESTIONS, PT LIVES AT HOME WITH FAMILY. OXYGEN AT 1 LITER N/C IN USE, FACIAL SWELLING AND REDNESS BILATERALLY, GREATEST UNDER RIGHT EYE, VERY TENDER. INCONTINENCE AND SKIN CARE PROVIDED, REPOSITIONED, BED ALARM PLACED FOR SAFETY. PATIENT IS BEDBOUND AT HOME AT BASELINE. IV ABX ORDERED AND PO MEDICATIONS WHOLE IN APPLESAUCE ADMINISTERED BY CHARGE NURSE UPON ARRIVAL. WILL CONTINUE TO MONITOR CLOSELY.
--- NOTE | 2023-06-04 06:04 | HE.PHANOTE ---
re: methadone verification last dose 64 mg given 06/03/23 @0617 am at [facility]
[2023-06-04 06:16] LABS: INTERNATIONAL NORM RATIO 1.5 (0.9-1.1); Prothrombin Time 18.4 SEC (11.1-13.3)
[2023-06-04 06:26] LABS: Alanine Aminotransferase 7 U/L (0-31); Albumin Level 3.4 g/dL (3.5-5.0); Alkaline Phosphatase 49 U/L (39-117); Anion Gap 13 (12-20); Aspartate Amino Transferase 18 U/L (5-31); Bilirubin Total 0.6 mg/dL (0.0-1.0); Blood Urea Nitrogen 8 mg/dL (9-16); Calcium 8.9 mg/dL (8.4-10.2); Carbon Dioxide 33 mmol/L (22-29); Chloride 100 mmol/L (96-108); Creatinine Clr Calc Pharmacy 60.4; Estimated Glomerular Filt Rate > 60; Glucose Random 95 mg/dL (60-115); Potassium 3.1 mmol/L (3.3-5.1); Sodium 143 mmol/L (135-145); Total Protein 6.5 g/dL (6.5-8.0)
--- NOTE | 2023-06-04 07:13 | PHA.PROG ---
Admission Date/Time: June 03, 2023 21:55 Indication: CELLULITIS Weight in k.4 kg Adjusted body weight in Kg: Wise body weight in Kg: Obesity Dosing Indication % IBW: 27.2 Serum Creatinine - Last 168 Hours 06/03/23 06/04/23 18:01 05:35 Creatinine 0.63 0.58 Estimated CrCl and GFR - Last 168 Hours 06/03/23 06/04/23 18:01 05:35 Estim Creat Clear Calc 54.9 60.4 Estimated GFR > 60 > 60 Vancomycin Loading Dose: 1500 MG Current Vancomycin Dosing Regimen: 1250 Q24 Vancomycin Monitoring using AUC goal of 400 - 600 range with trough as surrogate marker:427/11.5 Date and Time for next Vancomycin Level to be drawn: 06/05 @1900 Pharmacist Comments on Vancomycin Plan: WILL OBTAIN RANDOM AFTER 2 DOSES (BEFORE 3RD DOSE) TO ENSURE SAFETY/EFFICACY. PROPER LOAD DOSE GIVEN IN ED. Vancomycin dosing will take advantage of [employer] as a clinical decision support tool that uses Bayesian modeling to calculate individual patient's pharmacokinetic parameters and forecast the patient's drug concentration time course with the target goal AUC 24 range of 400 - 600 mg/L/hr.
[2023-06-04 07:46] VITALS: BP 144/66; PULSE 77; RESP 18; TEMP 36.1; O2SAT 97
[2023-06-04] MEDS: Acetaminophen 325 MG TABLET 650 MG PO ×2 (08:16→20:31)
[2023-06-04] MEDS: Cyanocobalamin (Vitamin B-12) 1,000 MCG TABLET 5000 MCG PO (08:16)
[2023-06-04] MEDS: DULoxetine HCl 20 MG CAPSULE.DR PO (08:16)
[2023-06-04] MEDS: Furosemide 20 MG TABLET PO (08:16)
[2023-06-04] MEDS: Metoprolol Tartrate 50 MG TABLET PO ×2 (08:16→20:31)
--- NOTE | 2023-06-04 11:31 | HO.PM.IMPN ---
Subjective Subjective Date of Service: 06/04/23 Review of Systems Follow-up facial cellulitis with edema and induration Patient reports started with a ?pimple? on the left side of her face Reports some relief and itchiness No complaints of pain to eyes Physical Exam Vital Signs: Vital Signs: Last Vital Signs Temp 96.9 F 06/04/23 07:46 Pulse 77 06/04/23 07:46 Resp 18 06/04/23 07:46 BP 144/66 H 06/04/23 07:46 Pulse Ox 97 06/04/23 07:46 O2 Del Method Nasal Cannula 06/04/23 07:46 O2 Flow Rate 1 06/04/23 07:46 Oxygen Flow Rate 1 06/03/23 16:50 BMI result Body Mass Index 27.2 Appearing in no acute distress lung sounds are clear to auscultation heart regular rate rhythm, clear S1, S2 positive bowel sounds, abdomen is soft, nontender neuro patient is alert x3, no focal deficits Facial erythema and induration with right orbital edema No injection, visual changes, eye pain or entrapment. Objective Data Active Medications Acetaminophen (Acetaminophen 325 Mg Tablet) 650 mg PO Q6H PRN PRN Reason: Pain, Mild (Pain Scale 1-3) Acetaminophen (Acetaminophen 325 Mg Tablet) 650 mg PO BID ON LICENSE OF [facility] Last Admin: 06/04/23 08:16 Dose: 650 mg Documented By: KYREE Albuterol Sulfate (Albuterol Sulfate 90 Mcg 8 Gm Inhaler) 1 puff INHALE Q6H PRN PRN Reason: wheezing Albuterol/Ipratropium (Albuterol/Iprat 2.5/0.5mg 3 Ml Ampul.Neb) 3 ml INHALE QID PRN PRN Reason: Shortness Of Breath Cyanocobalamin (Cyanocobalamin (Vitamin B-12) 1,000 Mcg Tablet) 5,000 mcg PO DAILY ON LICENSE OF [facility] Last Admin: 06/04/23 08:16 Dose: 5,000 mcg Documented By: KYREE Digoxin (Digoxin 0.125 Mg Tablet) 0.125 mg PO Q2D ON LICENSE OF [facility] Duloxetine HCl (Duloxetine Hcl 20 Mg Capsule.Dr) 20 mg PO DAILY ON LICENSE OF [facility] Last Admin: 06/04/23 08:16 Dose: 20 mg Documented By: KYREE Furosemide (Furosemide 20 Mg Tablet) 20 mg PO DAILY ON LICENSE OF [facility]; Protocol Last Admin: 06/04/23 08:16 Dose: 20 mg Documented By: KYREE Vancomycin HCl 1,250 mg/ (Sodium Chloride) 250 mls @ 166.667 mls/hr IV Q24H ON LICENSE OF [facility] Lactulose (Lactulose 20 Gm/30 Ml Solution) 10 gm PO DAILY PRN PRN Reason: Constipation Loratadine (Loratadine 10 Mg Tablet) 10 mg PO DAILY PRN PRN Reason: Allergy Symptoms Melatonin (Melatonin 3 Mg Tablet) 6 mg PO BEDTIME PRN PRN Reason: Insomnia Metoprolol Tartrate (Metoprolol Tartrate 50 Mg Tablet) 50 mg PO BID ON LICENSE OF [facility]; Protocol Last Admin: 06/04/23 08:16 Dose: 50 mg Documented By: KYREE Mirtazapine (Mirtazapine 15 Mg Tablet) 15 mg PO BEDTIME ON LICENSE OF [facility] Last Admin: 06/03/23 23:49 Dose: 15 mg Documented By: VEE Ondansetron HCl (Ondansetron Hcl 4 Mg/2 Ml Vial) 4 mg IVPUSH Q8H PRN PRN Reason: Nausea and Vomiting Pharmacy Consult (Consult Rx Vancomycin Dosing) 1 each MISCELLANE DAILY PRN PRN Reason: Consult order Sodium Chloride (0.9 % Sodium Chloride Flush 3 Ml Syringe) 3 ml IVFLUSH QSHIFT ON LICENSE OF [facility] Last Admin: 06/04/23 08:17 Dose: 3 ml Documented By: KYREE Warfarin Sodium (Warfarin Sodium 2.5 Mg Tablet) 2.5 mg PO DAILY@1800 ON LICENSE OF [facility] Labs 06/03/23 18:01 06/04/23 05:35 Labs: Laboratory Results - last 24 hr 06/03/23 06/04/23 06/04/23 18:01 05:35 05:36 MCV 99.6 H MCH 31.6 MCHC 31.7 RDW 13.1 Plt Count 248 MPV 10.2 Immature Gran % (Auto) 0.3 Neut % (Auto) 65.0 Lymph % (Auto) 14.3 L [place] % (Auto) 7.0 Eos % (Auto) 12.4 H Baso % (Auto) 1.0 Lymph # (Auto) 1.3 [place] # (Auto) 0.6 Eos # (Auto) 1.1 H Baso # (Auto) 0.1 Abs Immat Gran (auto) 0.03 Absolute Neuts (auto) 5.8 Absolute Nucleated RBC 0.000 Nucleated RBC % (auto) 0.0 PT 18.4 H INR 1.5 H Anion Gap 11 L 13 Estim Creat Clear Calc 54.9 60.4 Estimated GFR > 60 > 60 Random Glucose 109 95 Lactic Acid 1.2 Calcium 9.2 8.9 Total Bilirubin 0.4 0.6 Direct Bilirubin 0.1 AST 16 18 ALT 7 7 Alkaline Phosphatase 56 49 Total Protein 7.1 6.5 Albumin 3.8 3.4 L Assessment and Plan (1) Cellulitis: Status: Acute Plan This is a 88-year-old female with pertinent history of chronic hypoxemic respiratory failure due to COPD, permanent atrial fibrillation on Coumadin, mood disorder, unspecified dementia who presents to the emergency department for evaluation of facial redness and swelling. Facial cellulitis and impetigo Noted facial edema and induration with right orbital edema, without eye involvement No sepsis Continue IV vancomycin, add topical mupirocin for impetigo Id consult Follow blood cultures Check MRSA swab Chronic hypoxemic respiratory failure due to COPD. Continue home baseline oxygen. No exacerbation during admission. Chronic persistent AFib. Continue digoxin and metoprolol. Rate controlled in the ER. On Coumadin. Monitor INR Mood disorder. Continue home mood stabilizers, duloxetine and mirtazapine Unspecified dementia. Maintain sleep-wake cycle DVT prophylaxis: Coumadin Attending Dr. Kelly Full code attempted to call family members, no answer Continue hospitalization for treatment of facial cellulitis and impetigo requiring IV antibiotics Time Spent With Patient Time: Total time managing care of this patient today ____ minutes. Quality Stroke Does the patient have a stroke diagnosis?: No VTE Prior VTE?: No VTE Risk Level:: Medical - moderate - high VTE Device Contraindication: Treatment Not Indicated VTE Drug Contraindication: N/A - Med Ordered
[2023-06-04] MEDS: Potassium Chloride ER 20 MEQ TAB.ER.PRT 40 MEQ PO (12:45)
[2023-06-04] MEDS: Mupirocin 2 % Oint 22 GM TUBE 1 APPL TOPICAL ×2 (14:32→20:31)
[2023-06-04 15:20] VITALS: BP 141/64; PULSE 71; RESP 18; TEMP 36.3; O2SAT 100
--- NOTE | 2023-06-04 15:38 | MHC.CM.PN ---
IMM 06/04/23 Patient lives with Dtr Silvia. She had been living with her son, Edward; but he passed recently. The family is asking for additional CERTIFIED ALCOHOL DRUG COUNSELOR hours. Her son was one of her CERTIFIED ALCOHOL DRUG COUNSELOR, before he passed. A referral was sent to [facility] Options ethernet network architect. The family does not have a preference for Home services. Referrals have been sent. The patient is on 2LO2 via [place]. The provider is Lexy. She has a carmen lift and hospital bed. HCP + Urvashi on file DP home via BLS with resumption of CERTIFIED ALCOHOL DRUG COUNSELOR services. A new VNA via BLS.
--- NOTE | 2023-06-04 16:16 | P.CNID_ITS ---
History of Present Illness Data of Consult Service Date: 06/04/23 Requesting physician: Lorenza León Primary Care Provider: Bhupinder Seo MD HPI Reason for consult: facial redness She presents with one week redness facial area. She has no fever or chills. She started with left facial erythema and then had right face erythema and eye swelling. She had five days Keflex with no improvement. Review of Systems 2 Review of Systems: Yes all other systems are reviewed and are negative [facility] Past Medical History Medical History Hypertrophic cardiomyopathy COPD (chronic obstructive pulmonary disease) Permanent atrial fibrillation Non-rheumatic aortic stenosis Fracture of distal end of left humerus HTN (hypertension) Family History Family History Father No problems noted. Mother No problems noted. 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 If so, by whom?: No Do you feel safe in your current relationship?: No Current Relationship Is there a partner from a previous relationship who is making you feel unsafe now?: No Are you made to feel afraid or neglected: No Advance Directives: Yes Advance Directives on File: Yes Advance Directives Date on File: 08/22/21 Do you have thoughts of harming others: None Do you have a plan to hurt others: No Plan Recently lost weight without trying: No How much weight loss: Not applicable Eating poorly because of decreased appetite: No Nutrition screen score: 0 Nutrition Risks: No Nutritional Risk Patient : No : No Poor oral hygiene: No service: No Meds Allergies Allergy/AdvReac Type Severity Reaction Status Date / Time amoxicillin [AMOXICILLIN] Allergy Severe ANAPHYLAXIS Verified 04/10/23 15:14 iodine [IODINE] Allergy Severe SHORTNESS Verified 04/10/23 15:14 OF BREATH coffee (Coffea arabica) Allergy Intermediate TONGUE Verified 04/10/23 15:14 [COFFEE (BEVERAGE)] SWELLING penicillin G [PENICILLIN G] Allergy Unknown RASH Verified 04/10/23 15:14 shellfish derived Allergy Unknown TONGUE Verified 04/10/23 15:14 [SHELLFISH DERIVED] SWELLING Sulfa (Sulfonamide Allergy Unknown DIFFICULTY Verified 04/10/23 15:14 Antibiotics) BREATHING [SULFA (SULFONAMIDE ANTIBIOTICS)] Active Medications: Current Medications Acetaminophen (Acetaminophen 325 Mg Tablet) 650 mg PO Q6H PRN PRN Reason: Pain, Mild (Pain Scale 1-3) Acetaminophen (Acetaminophen 325 Mg Tablet) 650 mg PO BID [facility] Last Admin: 06/04/23 08:16 Dose: 650 mg Albuterol Sulfate (Albuterol Sulfate 90 Mcg 8 Gm Inhaler) 1 puff INHALE Q6H PRN PRN Reason: wheezing Albuterol/Ipratropium (Albuterol/Iprat 2.5/0.5mg 3 Ml Ampul.Neb) 3 ml INHALE QID PRN PRN Reason: Shortness Of Breath Cyanocobalamin (Cyanocobalamin (Vitamin B-12) 1,000 Mcg Tablet) 5,000 mcg PO DAILY [facility] Last Admin: 06/04/23 08:16 Dose: 5,000 mcg Digoxin (Digoxin 0.125 Mg Tablet) 0.125 mg PO Q2D [facility] Duloxetine HCl (Duloxetine Hcl 20 Mg Capsule.Dr) 20 mg PO DAILY [facility] Last Admin: 06/04/23 08:16 Dose: 20 mg Furosemide (Furosemide 20 Mg Tablet) 20 mg PO DAILY [facility]; Protocol Last Admin: 06/04/23 08:16 Dose: 20 mg Vancomycin HCl 1,250 mg/ (Sodium Chloride) 250 mls @ 166.667 mls/hr IV Q24H [facility] Lactulose (Lactulose 20 Gm/30 Ml Solution) 10 gm PO DAILY PRN PRN Reason: Constipation Loratadine (Loratadine 10 Mg Tablet) 10 mg PO DAILY PRN PRN Reason: Allergy Symptoms Melatonin (Melatonin 3 Mg Tablet) 6 mg PO BEDTIME PRN PRN Reason: Insomnia Metoprolol Tartrate (Metoprolol Tartrate 50 Mg Tablet) 50 mg PO BID [facility]; Protocol Last Admin: 06/04/23 08:16 Dose: 50 mg Mirtazapine (Mirtazapine 15 Mg Tablet) 15 mg PO BEDTIME [facility] Last Admin: 06/03/23 23:49 Dose: 15 mg Mupirocin (Mupirocin 2 % Oint 22 Gm Tube) 1 appl TOPICAL TID [facility]; Protocol Stop: 06/09/23 14:59 Last Admin: 06/04/23 14:32 Dose: 1 appl Ondansetron HCl (Ondansetron Hcl 4 Mg/2 Ml Vial) 4 mg IVPUSH Q8H PRN PRN Reason: Nausea and Vomiting Pharmacy Consult (Consult Rx Vancomycin Dosing) 1 each MISCELLANE DAILY PRN PRN Reason: Consult order Sodium Chloride (0.9 % Sodium Chloride Flush 3 Ml Syringe) 3 ml IVFLUSH QSHIFT [facility] Last Admin: 06/04/23 15:59 Dose: 3 ml Warfarin Sodium (Warfarin Sodium 2.5 Mg Tablet) 2.5 mg PO DAILY@1800 [facility] Home Medications Medication Instructions Recorded Confirmed Last Taken Type acetaminophen 500 mg tablet 1,000 mg PO BID 08/22/21 06/03/23 06/03/23 History duloxetine 20 mg capsule,delayed 20 mg PO DAILY 11/05/21 06/03/23 06/03/23 History release metoprolol tartrate 50 mg tablet 50 mg PO BID 11/05/21 06/03/23 06/03/23 History cyanocobalamin (vitamin B-12) 5,000 mcg PO DAILY 02/08/22 06/03/23 06/03/23 History 5,000 mcg capsule docusate sodium 100 mg capsule 100 mg PO BID 02/08/22 06/03/23 06/03/23 History (Colace) lactulose 10 gram/15 mL oral 15 ml PO DAILY PRN Constipation 02/08/22 06/03/23 Unknown History solution loratadine 10 mg tablet (Claritin) 10 mg PO DAILY PRN Allergy Symptoms 02/08/22 06/03/23 02/08/22 History warfarin 2.5 mg tablet 2.5 mg PO DAILY@1800 0506/03/23 06/03/23 History albuterol sulfate 90 mcg/actuation 1 puff inhalation Q6H PRN wheezing 03/15/23 06/03/23 Unknown History aerosol inhaler digoxin 125 mcg (0.125 mg) tablet 125 mcg PO Q OTHER DAY 03/15/23 06/03/23 06/03/23 History ipratropium 0.5 mg-albuterol 3 mg 3 ml inhalation QID PRN Shortness 03/15/23 06/03/23 Unknown History (2.5 mg base)/3 mL nebulization Of Breath soln nystatin 100,000 unit/gram topical 1 appl topical BID PRN Rash 03/15/23 06/03/23 06/03/23 History powder cephalexin 250 mg capsule 250 mg PO QID 06/03/23 06/03/23 06/03/23 History mirtazapine 15 mg tablet 15 mg PO BEDTIME 06/03/23 06/03/23 06/02/23 History methadone 10 mg/mL oral concentrate 64 mg PO DAILY 06/04/23 06/04/23 06/03/23 06:17 History Physical Exam 2 Vital Signs: Vital Signs: Last Vital Signs Temp 97.4 F 06/04/23 15:20 Pulse 71 06/04/23 15:20 Resp 18 06/04/23 15:20 BP 141/64 H 06/04/23 15:20 Pulse Ox 100 06/04/23 15:20 O2 Del Method Nasal Cannula 06/04/23 15:20 O2 Flow Rate 1 06/04/23 15:20 Oxygen Flow Rate 1 06/03/23 16:50 BMI result Body Mass Index 27.2 Const: General: cooperative HEENT: Other: redness bilateral cheeks Head: Yes normal to inspection Face and sinus: Yes normal facial exam Mouth: Normal oral and palatal mucosa present Teeth and gingiva: dentition normal Eyes: General: appearance normal, both eyes and all related structures P upils: Equal, round and reactive pupils present Resp: Effort & Inspection: normal respiratory effort Cardio: Rate: regular rate Rhythm: regular rhythm GI: Palpation (GI): Soft to palpation and nontender : General: Yes no CVA tenderness Back/Spine/Pelvis: Back: no CVA tenderness Skin: General skin exam: no rashes or lesions noted Neuro: General: moves all extremities Cranial nerves: Yes Equal, round and reactive pupils present Extrem: General: Yes normal to inspection Psych: Appearance: grossly normal Results Labs 06/03/23 18:01 06/04/23 05:35 Labs: Short CBC 06/03/23 Range/Units 18:01 WBC 9.0 (4.8-10.8) X10*3/uL Hgb 15.1 (12.0-16.0) g/dl Hct 47.6 H (37.0-47.0) % Plt Count 248 (160-400) X10*3/uL BMP 06/03/23 06/04/23 18:01 05:35 Sodium 145 143 Potassium 3.3 3.1 L Chloride 98 100 Carbon Dioxide 39 H 33 H BUN 9 8 L Creatinine 0.63 0.58 Calcium 9.2 8.9 Liver Function 06/03/23 06/04/23 Range/Units 18:01 05:35 Total Bilirubin 0.4 0.6 (0.0-1.0) mg/dL Direct Bilirubin 0.1 (0.0-0.5) mg/dL AST 16 18 (5-31) U/L ALT 7 7 (0-31) U/L Alkaline Phosphatase 56 49 (39-117) U/L Albumin 3.8 3.4 L (3.5-5.0) g/dL Assessment and Plan (1) Cellulitis: Qualifiers: Site of cellulitis: face Qualified Code(s): L03.211 - Cellulitis of face Status: Acute She has erysipelas This is strep or less commonly staph. It seems to be responding to Vancomycin. PCN causes swelling throat Plan Vancomycin until tomorrow and then po Doxycycline if continues to do well for a week. Would give Clindamycin if not improving tomorrow,600 mg IV every 8 hours. Time Spent With Patient Time: Total time managing care of this patient today ____ minutes.
[2023-06-04 16:26] LABS: MRSA Nasal PCR NEGATIVE (Negative); SA Nasal PCR NEGATIVE (Negative)
[2023-06-04] MEDS: Warfarin Sodium 2.5 MG TABLET PO (18:42)
[2023-06-04 19:18] VITALS: BP 112/69; PULSE 82; RESP 16; TEMP 36; O2SAT 96
[2023-06-04] MEDS: vancomycin HCL 1,250 MG in 0.9 % Sodium Chloride 250 ML 166.67 MG IV (20:27)
[2023-06-04] MEDS: Loratadine 10 MG TABLET PO (20:31)
[2023-06-04] MEDS: Mirtazapine 15 MG TABLET PO (20:31)
[2023-06-05 04:00] VITALS: BP 153/67; PULSE 65; RESP 18; TEMP 35.7; O2SAT 96
[2023-06-05 07:13] LABS: Anion Gap 13 (12-20); Blood Urea Nitrogen 12 mg/dL (9-16); Calcium 9.1 mg/dL (8.4-10.2); Carbon Dioxide 35 mmol/L (22-29); Chloride 100 mmol/L (96-108); Creatinine Clr Calc Pharmacy 56.4; Estimated Glomerular Filt Rate > 60; Glucose Random 84 mg/dL (60-115); Potassium 3.2 mmol/L (3.3-5.1); Sodium 145 mmol/L (135-145)
[2023-06-05 07:42] VITALS: BP 146/66; PULSE 61; RESP 16; TEMP 36.1; O2SAT 95
[2023-06-05 07:43] LABS: INTERNATIONAL NORM RATIO 1.3 (0.9-1.1); Prothrombin Time 16.1 SEC (11.1-13.3)
[2023-06-05] MEDS: Cyanocobalamin (Vitamin B-12) 1,000 MCG TABLET 5000 MCG PO (08:58)
[2023-06-05] MEDS: DULoxetine HCl 20 MG CAPSULE.DR PO (09:01)
[2023-06-05] MEDS: Metoprolol Tartrate 50 MG TABLET PO ×2 (09:01→20:54)
[2023-06-05] MEDS: Acetaminophen 325 MG TABLET 650 MG PO ×2 (09:01→20:54)
[2023-06-05] MEDS: Furosemide 20 MG TABLET PO (09:02)
[2023-06-05] MEDS: 0.9 % Sodium Chloride Flush 3 ML SYRINGE IVFLUSH ×3 (09:02→23:24)
[2023-06-05] MEDS: Potassium Chloride Packet 20 MEQ PACKET 40 MEQ PO (09:02)
[2023-06-05] MEDS: Mupirocin 2 % Oint 22 GM TUBE 1 APPL TOPICAL ×3 (09:03→21:46)
[2023-06-05] MEDS: Digoxin 0.125 MG TABLET PO (09:05)
--- NOTE | 2023-06-05 10:57 | MHC.CM.PN ---
Per MD rounds Patient is not ready to discharge. Patient continues to require IV ABX and K+replacement. DP home with resumption of [employer]EL [employer]PECTOR services. New [facility] referrals sent. S transport.
--- NOTE | 2023-06-05 12:24 | MHC.SPEECHCO ---
INFLATED PAD BUFFER evaluation complete. Recommending Chopped/Advanced (NDD3) Solids with Thin Liquids. INFLATED PAD BUFFER will follow-up to monitor tolerance, as needed.
--- NOTE | 2023-06-05 13:29 | MHC.SL.SWA ---
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 Recommending pills WHOLE with PUREE to ensure adequate dosage. Continue aspiration precautions including upright positioning, small bites/sips, slow rate and oral care. USED [employer] will follow-up to monitor tolerance and determine home disposition diet recommendations. Liquid Consistency and Strategies for Safe Swallow: Liquid Intake Recommendation: Thin Liquid Intake Strategies: Small Sips Unrestricted Solid Food Consistency: Dietary Recommendations: Chopped/Advanced (NDD3) Additional Modifications to Solid Foods: Pt tolerated Puree Solids with no overt s/s of aspiration and no oral residue. She demonstrated prolonged oral preparation and oral residue after bites of Advanced Solids. She was able to clear oral residue with cued sips of Thin Liquids. She indicated that she did not like liquids offered (Arleen Shanice, Apple Juice) by grimacing and shaking her head. It is unclear what caused this as she is unable to offer insight verbally. She tolerated Thin Liquids via Ice Chip, Spoon, Cup Sip and Straw with no overt s/s of aspiration. She required 1:1 assistance with all feeding and drinking. Oral Medication Intake: Whole with Liquid Please contact the pharmacy regarding appropriate crushable or liquid drug formulations that are available whenever modified delivery is recommended. Compensatory Strategies and Precautions to be Taken for Safe Swallow: Sitting Upright (90 deg) Small Bites and Sips Alternate Liquids/Solids Rate of Ingestion Change Oral Check Supervision While Eating and Drinking for Safe Swallow: Intermittent Supervision Foods to Avoid: Hard to chew solids; sticky or crunchy textures; dry foods; mixed textures (i.e., soups with broth, cereal with milk, fruit cups). Swallowing Recommended Treatments: Compens. Strategy Educat. Recommendation for Speech: Inpatient Speech Therapy Comment: Recommend continue Chopped/Advanced (NDD3) Solids with Thin Liquids. Medications Crushed in Puree. 1:1 assist with all meals and medications. Frequency/Duration: Date Range for Service Req: Timeline to reassess: PRN Grating Machine Operator Clinican/Clinical Fellow: No Supervisory Statement: I have reviewed and agree with the student/clinical fellow's documentation: N/A Speech Language Pathologist: Ross Espinosa M.A., CCC-USED [employer]
--- NOTE | 2023-06-05 14:05 | HO.PM.IMPN ---
Subjective Subjective Date of Service: 06/05/23 Interval History: seen and examined this morning follow up for facial cellulitis/erysipelas no overnight events Review of Systems Review of Systems: Yes all other systems are reviewed and are negative Constitutional Constitutional: Denies chills and Denies fever(s) Physical Exam Vital Signs: Vital Signs: Last Vital Signs Temp 97.0 F 06/05/23 07:42 Pulse 61 06/05/23 07:42 Resp 16 06/05/23 07:42 BP 146/66 H 06/05/23 07:42 Pulse Ox 95 06/05/23 07:42 O2 Del Method Nasal Cannula 06/05/23 07:42 O2 Flow Rate 2 06/05/23 07:42 Oxygen Flow Rate 1 06/03/23 16:50 BMI result Body Mass Index 27.2 Const: General: comfortable, no acute distress, alert and awake Nutritional Appearance: average body habitus Resp: Effort & Inspection: normal respiratory effort, able to speak in complete sentences, no respiratory distress and no use of accessory muscles Cardio: Rate: regular rate GI: Inspection: No distended Palpation (GI): Soft to palpation and nontender Skin: Other: mild erythema to b/l cheeks with dry skin; edema to right eye Objective Data Active Medications Acetaminophen (Acetaminophen 325 Mg Tablet) 650 mg PO Q6H PRN PRN Reason: Pain, Mild (Pain Scale 1-3) Acetaminophen (Acetaminophen 325 Mg Tablet) 650 mg PO BID [facility] Last Admin: 06/05/23 09:01 Dose: 650 mg Documented By: KYREE Albuterol Sulfate (Albuterol Sulfate 90 Mcg 8 Gm Inhaler) 1 puff INHALE Q6H PRN PRN Reason: wheezing Albuterol/Ipratropium (Albuterol/Iprat 2.5/0.5mg 3 Ml Ampul.Neb) 3 ml INHALE QID PRN PRN Reason: Shortness Of Breath Cyanocobalamin (Cyanocobalamin (Vitamin B-12) 1,000 Mcg Tablet) 5,000 mcg PO DAILY [facility] Last Admin: 06/05/23 08:58 Dose: 5,000 mcg Documented By: KYREE Digoxin (Digoxin 0.125 Mg Tablet) 0.125 mg PO Q2D [facility] Last Admin: 06/05/23 09:05 Dose: 0.125 mg Documented By: KYREE Duloxetine HCl (Duloxetine Hcl 20 Mg Capsule.) 20 mg PO DAILY [facility] Last Admin: 06/05/23 09:01 Dose: 20 mg Documented By: KYREE Furosemide (Furosemide 20 Mg Tablet) 20 mg PO DAILY [facility]; Protocol Last Admin: 06/05/23 09:02 Dose: 20 mg Documented By: KYREE Vancomycin HCl 1,250 mg/ (Sodium Chloride) 250 mls @ 166.667 mls/hr IV Q24H [facility] Last Infusion: 06/04/23 22:03 Dose: Infused Documented By: STEVEN Lactulose (Lactulose 20 Gm/30 Ml Solution) 10 gm PO DAILY PRN PRN Reason: Constipation Loratadine (Loratadine 10 Mg Tablet) 10 mg PO DAILY PRN PRN Reason: Allergy Symptoms Last Admin: 06/04/23 20:31 Dose: 10 mg Documented By: STEVEN Melatonin (Melatonin 3 Mg Tablet) 6 mg PO BEDTIME PRN PRN Reason: Insomnia Metoprolol Tartrate (Metoprolol Tartrate 50 Mg Tablet) 50 mg PO BID [facility]; Protocol Last Admin: 06/05/23 09:01 Dose: 50 mg Documented By: KYREE Mirtazapine (Mirtazapine 15 Mg Tablet) 15 mg PO BEDTIME [facility] Last Admin: 06/04/23 20:31 Dose: 15 mg Documented By: STEVEN Mupirocin (Mupirocin 2 % Oint 22 Gm Tube) 1 appl TOPICAL TID [facility]; Protocol Stop: 06/09/23 14:59 Last Admin: 06/05/23 09:03 Dose: 1 appl Documented By: KYREE Ondansetron HCl (Ondansetron Hcl 4 Mg/2 Ml Vial) 4 mg IVPUSH Q8H PRN PRN Reason: Nausea and Vomiting Pharmacy Consult (Consult Rx Vancomycin Dosing) 1 each MISCELLANE DAILY PRN PRN Reason: Consult order Sodium Chloride (0.9 % Sodium Chloride Flush 3 Ml Syringe) 3 ml IVFLUSH QSHIFT [facility] Last Admin: 06/05/23 09:02 Dose: 3 ml Documented By: KYREE Warfarin Sodium (Warfarin Sodium 2.5 Mg Tablet) 2.5 mg PO DAILY@1800 [facility] Last Admin: 06/04/23 18:42 Dose: 2.5 mg Documented By: STEVEN Warfarin Sodium (Warfarin Sodium 2.5 Mg Tablet) 2.5 mg PO ONCE@1800 ONE Stop: 06/05/23 18:01 Labs 06/03/23 18:01 06/05/23 05:19 Labs: Laboratory Results - last 24 hr 06/04/23 06/05/23 06/05/23 14:30 05:19 07:31 PT 16.1 H INR 1.3 H Anion Gap 13 Estim Creat Clear Calc 56.4 Estimated GFR > 60 Random Glucose 84 Calcium 9.1 Nasal Screen MRSA (PCR) NEGATIVE Nasal S. aureus Screen NEGATIVE Nasal MRSA/S.aureus Interp SEE NOTE Microbiology Microbiology Results: Microbiology 06/03/23 18:00 Blood Culture - Preliminary Blood - Venous No growth after 24 hours. 06/03/23 18:01 Blood Culture - Preliminary Blood - Venous No growth after 24 hours. Assessment and Plan (1) Cellulitis: Status: Acute Plan This is a 88-year-old female with pertinent history of chronic hypoxemic respiratory failure due to COPD, permanent atrial fibrillation on Coumadin, mood disorder, unspecified dementia who presents to the emergency department for evaluation of facial redness and swelling. Facial cellulitis/erysipelas No sepsis seen by ID - change to po doxy if improving for one week Continue IV vancomycin, topical mupirocin for impetigo blood cultures negative hypokalemia replace and follow levels Chronic hypoxemic respiratory failure due to COPD. Continue home baseline oxygen. No exacerbation during admission. Chronic persistent AFib. Continue digoxin and metoprolol. continue coumadin, INR subtherapeutic at 1.3, will give 5 mg coumadin today follow INR daily Mood disorder. Continue home mood stabilizers, duloxetine and mirtazapine Unspecified dementia. Maintain sleep-wake cycle DVT prophylaxis: Coumadin Attending Dr. Kelly Full code Continue hospitalization for treatment of facial cellulitis and impetigo requiring IV antibiotics Time Spent With Patient Time: Total time managing care of this patient today ____ minutes. Quality Stroke Does the patient have a stroke diagnosis?: No VTE Prior VTE?: No VTE Risk Level:: Medical - moderate - high VTE Device Contraindication: Treatment Not Indicated VTE Drug Contraindication: N/A - Med Ordered
[2023-06-05 15:51] VITALS: BP 134/65; PULSE 70; RESP 18; TEMP 36; O2SAT 95
[2023-06-05] MEDS: Warfarin Sodium 2.5 MG TABLET PO ×2 (17:40)
[2023-06-05 18:58] VITALS: BP 122/60; PULSE 78; RESP 18; TEMP 36; O2SAT 94
[2023-06-05 20:37] VITALS: BP 122/60; PULSE 83
[2023-06-05] MEDS: Mirtazapine 15 MG TABLET PO (20:54)
[2023-06-05] MEDS: vancomycin HCL 1,000 MG in 0.9 % Sodium Chloride 250 ML 270 MG IV (20:55)
[2023-06-06 04:00] VITALS: BP 164/76; PULSE 73; RESP 16; TEMP 36.1; O2SAT 95
[2023-06-06 05:00] VITALS: BP 141/67; PULSE 72
[2023-06-06 06:49] LABS: INTERNATIONAL NORM RATIO 1.3 (0.9-1.1); Prothrombin Time 15.4 SEC (11.1-13.3)
[2023-06-06 06:50] LABS: Anion Gap 15 (12-20); Blood Urea Nitrogen 10 mg/dL (9-16); Calcium 9.8 mg/dL (8.4-10.2); Carbon Dioxide 35 mmol/L (22-29); Chloride 99 mmol/L (96-108); Creatinine Clr Calc Pharmacy 52.2; Estimated Glomerular Filt Rate > 60; Glucose Random 87 mg/dL (60-115); Potassium 3.8 mmol/L (3.3-5.1); Sodium 145 mmol/L (135-145)
[2023-06-06 07:59] VITALS: BP 170/72; PULSE 72; RESP 20; TEMP 36.6; O2SAT 96
[2023-06-06] MEDS: DULoxetine HCl 20 MG CAPSULE.DR PO (08:02)
[2023-06-06] MEDS: Furosemide 20 MG TABLET PO (08:04)
[2023-06-06] MEDS: Metoprolol Tartrate 50 MG TABLET PO ×2 (08:04→20:56)
[2023-06-06] MEDS: Cyanocobalamin (Vitamin B-12) 1,000 MCG TABLET 5000 MCG PO (08:04)
[2023-06-06] MEDS: 0.9 % Sodium Chloride Flush 3 ML SYRINGE IVFLUSH ×3 (08:05→20:57)
[2023-06-06] MEDS: Mupirocin 2 % Oint 22 GM TUBE 1 APPL TOPICAL ×3 (08:05→21:07)
[2023-06-06] MEDS: Acetaminophen 325 MG TABLET 650 MG PO ×2 (08:05→20:57)
[2023-06-06] MEDS: Albuterol/Iprat 2.5/0.5MG 3 ML AMPUL.NEB INHALE (08:58)
--- NOTE | 2023-06-06 09:04 | HE.PHANOTE ---
VANCO DOSE ADJUSTMENTS BASED ON SCR OF 0.67 DOSE CONTINUED AT 1000 Q 24H. NEXT TROUGH AT 06/07 @ 1900
[2023-06-06 09:08] VITALS: PULSE 64; RESP 14; O2SAT 93
--- NOTE | 2023-06-06 14:50 | P.PNIM_ITS ---
Subjective Subjective Date of Service: 06/06/23 Interval History: seen and examined this morning follow up for erysipelas facial swelling improved, still with some erythema Review of Systems Review of Systems: Yes all other systems are reviewed and are negative Constitutional Constitutional: Denies chills and Denies fever(s) Cardiovascular Cardiovascular: Denies chest pain, Denies palpitations and Denies dyspnea Respiratory Respiratory: Denies cough and Denies dyspnea Gastrointestinal Gastrointestinal: Denies abdominal pain Endocrine Endocrine: Denies palpitations Physical Exam 2 Vital Signs: Vital Signs: Last Vital Signs Temp 97.8 F 06/06/23 07:59 Pulse 64 06/06/23 09:08 Resp 14 06/06/23 09:08 BP 170/72 H 06/06/23 07:59 Pulse Ox 96 06/06/23 07:59 O2 Del Method Nasal Cannula 06/06/23 07:59 O2 Flow Rate 2 06/06/23 07:59 Oxygen Flow Rate 1 06/03/23 16:50 BMI result Body Mass Index 27.2 Const: General: comfortable, no acute distress, alert and awake Nutritional Appearance: average body habitus Resp: Other: scattered wheezing Effort & Inspection: normal respiratory effort, able to speak in complete sentences, no respiratory distress and no use of accessory muscles Cardio: Rate: regular rate GI: Inspection: No distended Palpation (GI): Soft to palpation and nontender Skin: Other: erythema to b/l cheeks Objective Data Active Medications Acetaminophen (Acetaminophen 325 Mg Tablet) 650 mg PO Q6H PRN PRN Reason: Pain, Mild (Pain Scale 1-3) Acetaminophen (Acetaminophen 325 Mg Tablet) 650 mg PO BID [facility] Last Admin: 06/06/23 08:05 Dose: 650 mg Documented By: KYREE Albuterol Sulfate (Albuterol Sulfate 90 Mcg 8 Gm Inhaler) 1 puff INHALE Q6H PRN PRN Reason: wheezing Albuterol/Ipratropium (Albuterol/Iprat 2.5/0.5mg 3 Ml Ampul.Neb) 3 ml INHALE QID PRN PRN Reason: Shortness Of Breath Last Admin: 06/06/23 08:58 Dose: 3 ml Documented By: AVI Cyanocobalamin (Cyanocobalamin (Vitamin B-12) 1,000 Mcg Tablet) 5,000 mcg PO DAILY [facility] Last Admin: 06/06/23 08:04 Dose: 5,000 mcg Documented By: KYREE Digoxin (Digoxin 0.125 Mg Tablet) 0.125 mg PO Q2D [facility] Last Admin: 06/05/23 09:05 Dose: 0.125 mg Documented By: KYREE Duloxetine HCl (Duloxetine Hcl 20 Mg Capsule.Dr) 20 mg PO DAILY [facility] Last Admin: 06/06/23 08:02 Dose: 20 mg Documented By: KYREE Furosemide (Furosemide 20 Mg Tablet) 20 mg PO DAILY [facility]; Protocol Last Admin: 06/06/23 08:04 Dose: 20 mg Documented By: KYREE Vancomycin HCl 1,000 mg/ (Sodium Chloride) 270 mls @ 270 mls/hr IV Q24H [facility] Last Infusion: 06/05/23 22:00 Dose: Infused Documented By: XAVIER Lactulose (Lactulose 20 Gm/30 Ml Solution) 10 gm PO DAILY PRN PRN Reason: Constipation Loratadine (Loratadine 10 Mg Tablet) 10 mg PO DAILY PRN PRN Reason: Allergy Symptoms Last Admin: 06/04/23 20:31 Dose: 10 mg Documented By: STEVEN Melatonin (Melatonin 3 Mg Tablet) 6 mg PO BEDTIME PRN PRN Reason: Insomnia Metoprolol Tartrate (Metoprolol Tartrate 50 Mg Tablet) 50 mg PO BID [facility]; Protocol Last Admin: 06/06/23 08:04 Dose: 50 mg Documented By: KYREE Mirtazapine (Mirtazapine 15 Mg Tablet) 15 mg PO BEDTIME [facility] Last Admin: 06/05/23 20:54 Dose: 15 mg Documented By: XAVIER Mupirocin (Mupirocin 2 % Oint 22 Gm Tube) 1 appl TOPICAL TID [facility]; Protocol Stop: 06/09/23 14:59 Last Admin: 06/06/23 14:35 Dose: 1 appl Documented By: KYREE Ondansetron HCl (Ondansetron Hcl 4 Mg/2 Ml Vial) 4 mg IVPUSH Q8H PRN PRN Reason: Nausea and Vomiting Pharmacy Consult (Consult Rx Vancomycin Dosing) 1 each MISCELLANE DAILY PRN PRN Reason: Consult order Sodium Chloride (0.9 % Sodium Chloride Flush 3 Ml Syringe) 3 ml IVFLUSH QSHIFT [facility] Last Admin: 06/06/23 08:05 Dose: 3 ml Documented By: KYREE Warfarin Sodium (Warfarin Sodium 5 Mg Tablet) 5 mg PO DAILY@1800 [facility] Labs 06/03/23 18:01 06/06/23 05:31 Labs: Laboratory Results - last 24 hr 06/05/23 06/06/23 19:11 05:31 PT 15.4 H INR 1.3 H Anion Gap 15 Estim Creat Clear Calc 52.2 Estimated GFR > 60 Random Glucose 87 Calcium 9.8 D Random Vancomycin 15.0 Microbiology Microbiology Results: Microbiology 06/03/23 18:00 Blood Culture - Preliminary Blood - Venous No growth after 48 hours. 06/03/23 18:01 Blood Culture - Preliminary Blood - Venous No growth after 48 hours. Assessment and Plan (1) Cellulitis: Status: Acute (2) Supplemental oxygen dependent: Status: Acute Plan This is a 88-year-old female with pertinent history of chronic hypoxemic respiratory failure due to COPD, permanent atrial fibrillation on Coumadin, mood disorder, unspecified dementia who presents to the emergency department for evaluation of facial redness and swelling. Facial cellulitis/erysipelas No sepsis initially treated with IV vanco seen by ID - will d/c vanco and change to po doxy blood cultures negative new area of redness on left arm felt to be related to irritation from blood draws hypokalemia improved with replacement Chronic hypoxemic respiratory failure due to COPD. remains of baseline oxygen. No exacerbation during admission. Chronic persistent AFib. Continue digoxin and metoprolol. continue coumadin, INR continues to be subtherapeutic at 1.3 ? compliance prior to admission - will increase dose and follow levels in the am follow INR daily Mood disorder. Continue home mood stabilizers, duloxetine and mirtazapine Unspecified dementia. Maintain sleep-wake cycle DVT prophylaxis: Coumadin Attending Dr. Kelly Full code Continue hospitalization for treatment of facial cellulitis requiring IV antibiotics Time Spent With Patient Time: Total time managing care of this patient today ____ minutes. Quality Stroke Does the patient have a stroke diagnosis?: No VTE Prior VTE?: No VTE Risk Level:: Medical - moderate - high VTE Device Contraindication: Treatment Not Indicated VTE Drug Contraindication: N/A - Med Ordered
[2023-06-06 15:45] VITALS: BP 132/70; PULSE 70; RESP 16; TEMP 36.3; O2SAT 92
--- NOTE | 2023-06-06 17:50 | MHC.SLORD ---
Speech Language Pathology Order Status: COLORER HIDES AND SKINS arrived at dinner time for f/u. Pt refused dinner, stating that she had gotten the same food as lunch and wants something new. Pt requesting to order a new tray. COLORER HIDES AND SKINS notified DIRECTOR OF OPTIMIZATION in person, [facility] via [place] w/ request for pt to order new tray.
[2023-06-06] MEDS: Warfarin Sodium 5 MG TABLET PO (18:08)
[2023-06-06 19:41] VITALS: BP 116/57; PULSE 83; RESP 18; TEMP 36.7; O2SAT 95
[2023-06-06] MEDS: Mirtazapine 15 MG TABLET PO (20:57)
[2023-06-06] MEDS: Doxycycline Monohydrate 100 MG CAPSULE PO (20:57)
[2023-06-07 00:07] VITALS: BP 139/64; PULSE 64; RESP 17; TEMP 36.1; O2SAT 95
[2023-06-07 06:44] LABS: INTERNATIONAL NORM RATIO 1.7 (0.9-1.1); Prothrombin Time 20.2 SEC (11.1-13.3)
[2023-06-07 07:11] VITALS: BP 140/74; PULSE 74; RESP 20; TEMP 36.4; O2SAT 95
[2023-06-07] MEDS: Acetaminophen 325 MG TABLET 650 MG PO (09:25)
[2023-06-07] MEDS: Furosemide 20 MG TABLET PO (09:25)
[2023-06-07] MEDS: 0.9 % Sodium Chloride Flush 3 ML SYRINGE IVFLUSH (09:25)
[2023-06-07] MEDS: Mupirocin 2 % Oint 22 GM TUBE 1 APPL TOPICAL (09:26)
[2023-06-07] MEDS: Cyanocobalamin (Vitamin B-12) 1,000 MCG TABLET 5000 MCG PO (09:26)
[2023-06-07] MEDS: DULoxetine HCl 20 MG CAPSULE.DR PO (09:26)
[2023-06-07] MEDS: Metoprolol Tartrate 50 MG TABLET PO (09:26)
[2023-06-07] MEDS: Doxycycline Monohydrate 100 MG CAPSULE PO (09:26)
--- NOTE | 2023-06-07 09:45 | P.PNIM_ITS ---
Subjective Subjective Date of Service: 06/07/23 Interval History: seen and examined this morning follow up for erysipelas facial swelling improved, still with some erythema Review of Systems Review of Systems: Yes all other systems are reviewed and are negative Constitutional Constitutional: Denies chills and Denies fever(s) Cardiovascular Cardiovascular: Denies chest pain, Denies palpitations and Denies dyspnea Respiratory Respiratory: Denies cough and Denies dyspnea Gastrointestinal Gastrointestinal: Denies abdominal pain Endocrine Endocrine: Denies palpitations Physical Exam 2 Vital Signs: Vital Signs: Last Vital Signs Temp 97.6 F 06/07/23 07:11 Pulse 74 06/07/23 07:11 Resp 20 06/07/23 07:11 BP 140/74 H 06/07/23 07:11 Pulse Ox 95 06/07/23 07:11 O2 Del Method Nasal Cannula 06/07/23 07:11 O2 Flow Rate 1 06/07/23 07:11 Oxygen Flow Rate 1 06/03/23 16:50 BMI result Body Mass Index 27.2 Appearing in no acute distress lung sounds are clear to auscultation heart regular rate rhythm, clear S1, S2 positive bowel sounds, abdomen is soft, nontender neuro patient is alert x3, no focal deficits erythema to face and left arm Objective Data Active Medications Acetaminophen (Acetaminophen 325 Mg Tablet) 650 mg PO Q6H PRN PRN Reason: Pain, Mild (Pain Scale 1-3) Acetaminophen (Acetaminophen 325 Mg Tablet) 650 mg PO BID [facility] Last Admin: 06/07/23 09:25 Dose: 650 mg Documented By: SANGITA Albuterol Sulfate (Albuterol Sulfate 90 Mcg 8 Gm Inhaler) 1 puff INHALE Q6H PRN PRN Reason: wheezing Albuterol/Ipratropium (Albuterol/Iprat 2.5/0.5mg 3 Ml Ampul.Neb) 3 ml INHALE QID PRN PRN Reason: Shortness Of Breath Last Admin: 06/06/23 08:58 Dose: 3 ml Documented By: AVI Cyanocobalamin (Cyanocobalamin (Vitamin B-12) 1,000 Mcg Tablet) 5,000 mcg PO DAILY [facility] Last Admin: 06/07/23 09:26 Dose: 5,000 mcg Documented By: SANGITA Digoxin (Digoxin 0.125 Mg Tablet) 0.125 mg PO Q2D [facility] Last Admin: 06/05/23 09:05 Dose: 0.125 mg Documented By: KYREE Doxycycline Monohydrate (Doxycycline Monohydrate 100 Mg Capsule) 100 mg PO BID [facility] Last Admin: 06/07/23 09:26 Dose: 100 mg Documented By: SANGITA Duloxetine HCl (Duloxetine Hcl 20 Mg Capsule.Dr) 20 mg PO DAILY [facility] Last Admin: 06/07/23 09:26 Dose: 20 mg Documented By: SANGITA Furosemide (Furosemide 20 Mg Tablet) 20 mg PO DAILY [facility]; Protocol Last Admin: 06/07/23 09:25 Dose: 20 mg Documented By: SANGITA Lactulose (Lactulose 20 Gm/30 Ml Solution) 10 gm PO DAILY PRN PRN Reason: Constipation Loratadine (Loratadine 10 Mg Tablet) 10 mg PO DAILY PRN PRN Reason: Allergy Symptoms Last Admin: 06/04/23 20:31 Dose: 10 mg Documented By: STEVEN Melatonin (Melatonin 3 Mg Tablet) 6 mg PO BEDTIME PRN PRN Reason: Insomnia Metoprolol Tartrate (Metoprolol Tartrate 50 Mg Tablet) 50 mg PO BID [facility]; Protocol Last Admin: 06/07/23 09:26 Dose: 50 mg Documented By: SANGITA Mirtazapine (Mirtazapine 15 Mg Tablet) 15 mg PO BEDTIME [facility] Last Admin: 06/06/23 20:57 Dose: 15 mg Documented By: ENZO Mupirocin (Mupirocin 2 % Oint 22 Gm Tube) 1 appl TOPICAL TID [facility]; Protocol Stop: 06/09/23 14:59 Last Admin: 06/07/23 09:26 Dose: 1 appl Documented By: SANGITA Ondansetron HCl (Ondansetron Hcl 4 Mg/2 Ml Vial) 4 mg IVPUSH Q8H PRN PRN Reason: Nausea and Vomiting Sodium Chloride (0.9 % Sodium Chloride Flush 3 Ml Syringe) 3 ml IVFLUSH QSHIFT [facility] Last Admin: 06/07/23 09:25 Dose: 3 ml Documented By: SANGITA Warfarin Sodium (Warfarin Sodium 5 Mg Tablet) 5 mg PO DAILY@1800 [facility] Last Admin: 06/06/23 18:08 Dose: 5 mg Documented By: LYSZ Labs 06/03/23 18:01 06/06/23 05:31 Labs: Laboratory Results - last 24 hr 06/07/23 05:32 PT 20.2 H D INR 1.7 H Assessment and Plan (1) Cellulitis: Status: Acute (2) Supplemental oxygen dependent: Status: Acute Plan This is a 88-year-old female with pertinent history of chronic hypoxemic respiratory failure due to COPD, permanent atrial fibrillation on Coumadin, mood disorder, unspecified dementia who presents to the emergency department for evaluation of facial redness and swelling. Facial cellulitis/erysipelas No sepsis blood cultures negative new area of redness on left arm felt to be related to irritation from blood draws continue doxycycline hypokalemia improved with replacement Chronic hypoxemic respiratory failure due to COPD. remains of baseline oxygen. No exacerbation during admission. Chronic persistent AFib. Continue digoxin and metoprolol. continue coumadin INR continues to be subtherapeutic at 1.7 follow INR daily Mood disorder. Continue home mood stabilizers, duloxetine and mirtazapine Unspecified dementia. Maintain sleep-wake cycle DVT prophylaxis: Coumadin Attending Dr. Riley Full code Continue hospitalization for treatment of facial cellulitis requiring IV antibiotics Time Spent With Patient Time: Total time managing care of this patient today ____ minutes. Quality Stroke Does the patient have a stroke diagnosis?: No VTE Prior VTE?: No VTE Risk Level:: Medical - moderate - high VTE Device Contraindication: Treatment Not Indicated VTE Drug Contraindication: N/A - Med Ordered
[2023-06-07] MEDS: Digoxin 0.125 MG TABLET PO (10:16)
--- NOTE | 2023-06-07 11:57 | PM.DS ---
DS: Providers Provider Date of Service: 06/07/23 Date of admission: 06/03/23 21:55 Primary care physician: Bhupinder Seo MD Consults: 06/04/23 07:14 Consult to Infectious Diseases Routine Consulting Provider: [facility] [place] Infectious Disease Reason for consultation: facial cellulitis DS: Diagnosis Discharge Diagnosis (1) Cellulitis: Status: Acute (2) Supplemental oxygen dependent: Status: Acute DS: Summary Hospital Course Hospital Course: history and physical as per admitting provider. Geraldo is a 88-year-old female with pertinent history of chronic hypoxemic respiratory failure due to COPD, permanent atrial fibrillation on Coumadin, mood disorder, unspecified dementia who presents to the emergency department for evaluation of facial redness and swelling. Patient states she noticed swelling on the left side of the face about 5 days prior to presentation. Went to her PCP who prescribed Keflex. The swelling, redness worsened and progressed despite being on p.o. antibiotics. On the day of presentation, patient noticed swelling to the right side of the face with warmth and erythema. No fevers or chills. No chest discomfort, palpitations, shortness of breath, abdominal pain, changes in urinary or bowel habits. Does have a history of recurrent cellulitis of arms and legs. Uses 1-2 L oxygen at home at baseline for COPD. In the emergency department, imaging with soft tissue edema. 88-year-old woman treated for erysipelas with facial cellulitis. Initially treated with vancomycin and mupirocin ointment. Transition to doxycycline, will continue 7 days of doxycycline at home in 2 more days and mupirocin ointment. Erythema has resolved significantly, no pain or fever. Discussed with patient's daughter ava Vega for discharge home at this time. she did have some issues with subtherapeutic INR, warfarin was changed to 7.5 mg she should recheck her INR on Friday. Hypokalemia. Resolved with replacement Chronic hypoxemic respiratory failure secondary to COPD. Continue baseline oxygen Chronic persistent atrial fibrillation. Continue digoxin, metoprolol and warfarin Mental Health. Continue medications Time Spent with Patient Time attestation: Total time managing care of this patient today ____ minutes. Discharge coordination time: Greater than 30 minutes Quality: Safe Use of Opioids Does Pt have an Active Cancer Diagnosis on the Problem List?: No Quality: Stroke Does the patient have a stroke diagnosis?: No Physical Exam Vital Signs: Vital Signs: Last Vital Signs Temp 97.6 F 06/07/23 07:11 Pulse 74 06/07/23 07:11 Resp 20 06/07/23 07:11 BP 140/74 H 06/07/23 07:11 Pulse Ox 95 06/07/23 07:11 O2 Del Method Nasal Cannula 06/07/23 07:11 O2 Flow Rate 1 06/07/23 07:11 Oxygen Flow Rate 1 06/03/23 16:50 BMI result Body Mass Index 27.2 Appearing in no acute distress head is normocephalic atraumatic eyes pupils are PERRLA sclera is anicteric mouth throat mucous membranes are intact and moist neck is supple no lymphadenopathy, no JVD noted lung sounds are clear to auscultation heart regular rate rhythm, clear S1, S2 positive bowel sounds, abdomen is soft, nontender neuro patient is alert x3, no focal deficits mild erythema to face and Left forearm area DS: Data Data Completed and Pending Labs on day of discharge: Laboratory Results - last 24 hr 06/07/23 05:32 PT 20.2 H D INR 1.7 H Preliminary micro results at discharge 06/03/23 18:00 Blood Culture - Preliminary Blood - Venous No growth after 48 hours. 06/03/23 18:01 Blood Culture - Preliminary Blood - Venous No growth after 48 hours. Discharge Plan Discharge Anticipated Discharge Date/Time: 06/07/23 11:55 Patient Disposition: Home Health Service Discharge Diagnosis: Facial cellulitis/erysipelas Hypokalemia Referrals: Bhupinder Seo MD [Primary Care Provider] - 1 Week Discharge Medications: New doxycycline hyclate 100 mg capsule 100 mg PO BID 7 Days Qty: 14 0RF mupirocin 2 % ointment 1 appl topical TID 5 Days Qty: 22 0RF Continued furosemide 20 mg tablet 20 mg PO DAILY Qty: 30 5RF acetaminophen 500 mg Tablet 1,000 mg PO BID metoprolol tartrate 50 mg tablet 50 mg PO BID warfarin 2.5 mg tablet 2.5 mg PO DAILY@1800 docusate sodium [Colace] 100 mg Capsule 100 mg PO BID loratadine [Claritin] 10 mg Tablet 10 mg PO DAILY PRN (Reason: Allergy Symptoms) lactulose 10 gram/15 mL solution 15 ml PO DAILY PRN (Reason: Constipation) cyanocobalamin (vitamin B-12) 5,000 mcg Capsule 5,000 mcg PO DAILY cephalexin 250 mg capsule 250 mg PO QID mirtazapine 15 mg tablet 15 mg PO BEDTIME methadone 10 mg/mL Concentrate 64 mg PO DAILY ipratropium-albuterol 0.5 mg-3 mg(2.5 mg base)/3 mL solution for nebulization 3 ml inhalation QID PRN (Reason: Shortness Of Breath) albuterol sulfate 90 mcg/actuation HFA aerosol inhaler 1 puff inhalation Q6H PRN (Reason: wheezing) digoxin 125 mcg (0.125 mg) tablet 125 mcg PO Q OTHER DAY nystatin 100,000 unit/gram powder 1 appl topical BID PRN (Reason: Rash) duloxetine 20 mg capsule,delayed release(DR/EC) 20 mg PO DAILY Discharge Orders: Discharge Order (Routine); Ordered 06/07/23 Ordered By: Lorenza León Diet: Advance to usual diet Activity on Discharge: As tolerated Stand Alone Forms: Patient Portal Discharge page Care Plan Goals: see below Health Concerns: erysipelas/cellulitis Plan of Treatment: Start doxycycline twice a day for the next 7 days. Please be aware that this can cause increased sun sensitivity, please wear appropriate sun protection. Use gentle skin cleanser on face. Apply muprocin topically. Call to schedule follow up appointment with primary care physician regarding this visit. Take Warfarin 7.5 mg today and tomorrow for low INR. Check PT/INR on Friday then adjust medications (with provider who handles warfarin dosing) Assessment: see discharge summary Patient Instructions: Cellulitis (ED)
--- NOTE | 2023-06-07 12:16 | PC.NURSE ---
Daughter called concern patient being d/c today, states she has a bulging vein on her right shoulder. Examined by this senior technical writer and primary nurse. No bulging vein noted.
--- NOTE | 2023-06-07 13:07 | MHC.CM.PN ---
PT CLEARED TO DC HOME TODAY WITH RESUMPTION OF [employer] CM CALLED PTS DAUGHTER, TISHA [phone] TISHA CONFIRMS THE DC PLAN AND THAT THE PT RESIDES WITH HER AT [address] [place] [address] PT WILL NEED BLS TRANSPORT HOME WHICH HAS BEEN BOOKED FOR 153 WITH JOY GILES IS AWARE HANSEL CHANG WILL CONTACT HER FOR SOC
--- NOTE | 2023-06-16 10:23 | W.MHC.F2F ---
Service Date Service Date: 06/07/23 Encounter Date of encounter: 06/07/23 Reasons for Services Signs and symptoms assessed: facial cellulitis weakness Reason for senior care: CV/CP assess and/or care Reason for occupational therapy: home safety and mobility Homebound: Leaving the home is medically contraindicated at this time without the asist of a device and/or another person due th the listed conditions above and below. Reason homebound: unsteady gait / fall risk Certification: Based on the above findings, I certify that this patient is confined to the home and needs intermittent senior care care, physical therapy and/or speech therapy, or continues to need occupational therapy. The patient is under my care, and I have initiated the establishment of the plan of care. The patient will be followed by a physician who will periodically review the plan of care. Time Spent With Patient Time: Total time managing care of this patient today ____ minutes.
== END 2023-06-07 15:52 | disposition home health service (06) | DRG 603 ==
LOC: HO.ED 19:03 → HO.EDOVER 22:13 → HO.S3 22:19
PROVIDERS: Physician Assistant Medical; Admitting Provider Student in an Organized Health Care Education/Training Program; Emergency Provider Emergency Medicine; PCP Internal Medicine; Visit Provider Nurse Practitioner Acute Care
DX: A46 Erysipelas (principal); L03.211 Cellulitis of face; J96.11 Chronic respiratory failure with hypoxia; I48.21 Permanent atrial fibrillation; L01.00 Impetigo, unspecified; J44.9 Chronic obstructive pulmonary disease, unspecified; E87.6 Hypokalemia; F39 Unspecified mood [affective] disorder; F03.90 Unspecified dementia, unspecified severity, without behavioral disturbance, psychotic disturbance, mood disturbance, and anxiety; R79.1 Abnormal coagulation profile; Z99.81 Dependence on supplemental oxygen; Z87.891 Personal history of nicotine dependence; Z79.01 Long term (current) use of anticoagulants; Z79.899 Other long term (current) drug therapy
CPT/HCPCS: 36415; 70486; 80048; 80053; 80076; 80202; 83605; 85025; 85610; 87040; 87640; 87641; 92610; 94640; 99285; J1200; J3370; J3371

== ENCOUNTER → 2023-06-03 21:55 | Outpatient (BNV) | payer MEDICARE, SELFPAY | PROVIDERS: Admitting Provider Student in an Organized Health Care Education/Training Program; Emergency Provider Emergency Medicine; PCP Internal Medicine; Visit Provider Student in an Organized Health Care Education/Training Program | DX: L03.211 Cellulitis of face (principal); Z99.81 Dependence on supplemental oxygen | CPT/HCPCS: 99222; 99232; 99239; G0180 ==

== ENCOUNTER → 2023-06-03 21:55 | Outpatient (BNV) | payer MEDICARE, SELFPAY | PROVIDERS: Admitting Provider Student in an Organized Health Care Education/Training Program; Emergency Provider Emergency Medicine; PCP Internal Medicine; Visit Provider Internal Medicine | DX: L03.211 Cellulitis of face (principal) | CPT/HCPCS: 99222 ==

== ENCOUNTER 2023-06-18 06:29 | Inpatient (IN) | payer MEDICARE, SELFPAY ==
[2023-06-18] VITALS (27 sets, daily range): BP systolic 80–179; BP diastolic 36–92; PULSE 68–146; RESP 12–41; TEMP 35–37.9; O2SAT 93–100
--- NOTE | 2023-06-18 | EEG_ITS ---
This is a 16 channel EEG with an EKG lead. The patient is reported intubated during the tracing. Background EEG rhythm is low amplitude, mixed theta, beta with no obvious asymmetry or paroxysmal tendency. Some artifacts are noted, especially in anterior leads. Photic stimulation does not produce any driving. Hyperventilation is not performed. Cardiac lead does not reveal any significant abnormality. No obvious sharp wave spikes or paroxysmal tendency noted. IMPRESSION: Mild generalized slowing with no evidence of seizure disorder. MD LAURENCE Frias/MOE / [phone]
--- NOTE | 2023-06-18 | ECG_ITS ---
Test Reason : seizures/ altered mental status Blood Pressure : / mmHG Vent. Rate : 072 BPM Atrial Rate : 000 BPM P-R Int : 000 ms QRS Dur : 086 ms QT Int : 444 ms P-R-T Axes : 000 -29 -08 degrees QTc Int : 486 ms Atrial fibrillation Moderate voltage criteria for LVH, may be normal variant ( R in aVL , [employer] product ) Abnormal ECG When compared with ECG of 18-JUN-2023 07:06, Vent. rate has decreased BY [address] no longer depressed in Lateral leads T wave inversion now evident in Inferior leads Referred By: Stephie Paz Electronically Signed By:KATHY TORRES
--- NOTE | ~2023-06-18 | XR_ITS ---
EXAMINATION: XR CHEST CLINICAL INFORMATION: Right central line COMPARISON: Previous chest x-ray most recent from earlier the same day TECHNIQUE: Frontal view of the chest was obtained. FINDINGS: New right jugular line with tip projecting over the cavoatrial junction. Endotracheal tube with tip 2.5 cm above the estephania. Cardiac silhouette is enlarged. There may be volume loss to the left hemithorax. Small left pleural effusion. Small bilateral nodular opacities. Surgical staple line in the left upper lobe. Degenerative changes of the spine and shoulders. XR/XR chest 1V IMPRESSION: Right jugular line tip projects over cavoatrial junction. Otherwise chest x-ray is similar to exam from earlier the same day.
--- NOTE | ~2023-06-18 | XR_ITS ---
EXAMINATION: XR ABDOMEN KUB CLINICAL INDICATION: Positioning NG tube COMPARISON: 06/18/2023 TECHNIQUE: AP view of the abdomen. FINDINGS: Enteric tube is coiled in the region of the hiatal hernia though tip does extend below the diaphragm into the body of the stomach. Included upper to mid abdominal bowel gas pattern is nonobstructive. Possible region of atelectasis at the left lung base. There is atherosclerotic calcification along the aorta. Degenerative changes are noted in the spine. XR/XR abdomen 1V IMPRESSION: Enteric tube coiled in the region of the hiatal hernia though tip does extend below the diaphragm into the body of the stomach.
--- NOTE | ~2023-06-18 | CT_ITS ---
EXAMINATION: CT ABDOMEN AND PELVIS WITHOUT CONTRAST CLINICAL INFORMATION: Elevated white blood cell count. COMPARISON: Previous CT of the abdomen and pelvis February 2023 TECHNIQUE: Multidetector volumetric imaging was performed from the superior aspect of the liver through the pubic symphysis. Sagittal and coronal reformatted images were obtained on the technologist's workstation. This CT examination was performed using dose optimization techniques as appropriate, variously including the following: *Automated exposure control *Adjustment of mA and/or kV according to patient size (this includes techniques or standardized protocols for targeted exams where dose is matched to indication/reason for exam; i.e. extremities or head) *Use of iterative reconstruction technique DLP: 1080 mGy-cm FINDINGS: LUNG BASES: The visualized lung bases are unremarkable. LIVER, GALLBLADDER, AND BILIARY TREE: The liver is normal in size, shape, and attenuation. No focal hepatic lesion or biliary ductal dilatation is present. The gallbladder is normal in size. There are small gallstones. There is new fluid seen surrounding the gallbladder and in the mattie hepatis. PANCREAS: There is a new small amount of fluid seen surrounding the head of the pancreas. Duodenal diverticulum adjacent to the head of pancreas. SPLEEN: Unremarkable. ADRENAL GLANDS: Unremarkable. KIDNEYS AND URETERS: The kidneys are normal in size, shape, and attenuation. No hydronephrosis, hydroureter, or calculi seen. No perinephric stranding. BLADDER: Jarquin catheter in the bladder. Bladder is empty. GASTROINTESTINAL TRACT: Diverticulosis of the colon. No evidence of diverticulitis. The small and large bowel are otherwise unremarkable. The appendix is not seen. No ascites. Small esophageal hernia. ABDOMINAL WALL: No significant hernia is appreciated. LYMPH NODES: Normal. VASCULAR: Unremarkable. PELVIC VISCERA: Pessary in the pelvis. OSSEOUS STRUCTURES: Degenerative changes of the spine and right hip. Left hip replacement. CT/CT abdomen pelvis wo IV con IMPRESSION: Gallstones. New small amount of pericholecystic fluid, fluid in the mattie hepatis and adjacent to the head of the pancreas. If there is clinical concern of cholecystitis, HIDA scan would be recommended. Correlation with pancreatic enzymes to exclude pancreatitis recommended as well. Diverticulosis. No evidence of diverticulitis. Fleischner guidelines were followed.
--- NOTE | ~2023-06-18 | CT_ITS ---
EXAMINATION: CT HEAD WITHOUT CONTRAST CLINICAL INFORMATION: Altered mental status COMPARISON: CT head 03/14/2023 and 02/08/2022 TECHNIQUE: Contiguous axial imaging was performed from the skull base to vertex without intravenous administration of contrast. This CT examination was performed using dose optimization techniques as appropriate, variously including the following: *Automated exposure control *Adjustment of mA and/or kV according to patient size (this includes techniques or standardized protocols for targeted exams where dose is matched to indication/reason for exam; i.e. extremities or head) *Use of iterative reconstruction technique DLP: 711 mGy-cm FINDINGS: There is no evidence of acute intracranial hemorrhage, midline shift or mass effect. Gr to white matter differentiation is well preserved. There is no evidence of acute territorial edematous infarction. No abnormal extra-axial fluid collection. Moderate cerebral volume loss with proportionate dilatation of the ventricles and cortical sulci. Bilateral periventricular white matter patchy low-attenuation changes are noted, likely chronic microangiopathy. Paranasal sinuses are well-aerated. Bilateral mastoid air cells and middle ear cavities are well aerated. The patient is status post left lens extraction. Osseous calvarium and calvarial soft tissues are unremarkable. CT/CT head/brain wo IV con IMPRESSION: No evidence of acute intracranial hemorrhage or acute territorial centimeters infarction.
--- NOTE | ~2023-06-18 | XR_ITS ---
EXAMINATION: XR CHEST CLINICAL INFORMATION: Tachypnea COMPARISON: 06/22/2023 TECHNIQUE: Frontal view of the chest was obtained. FINDINGS: Heart remains prominent. Dense aortic and mitral annular calcifications again seen. Left meniscus adjacent to the heart border is unchanged but there is preservation of the left hemidiaphragm. No vascular congestion. Right lung is clear. Degenerative changes, demineralization scoliosis. XR/XR chest 1V IMPRESSION: No change possible left base atelectasis. Left base pneumonia and small left pleural effusion not excluded.
--- NOTE | ~2023-06-18 | XR_ITS ---
EXAMINATION: XR CHEST CLINICAL INFORMATION: ET tube placement COMPARISON: 06/18/2023, earlier today TECHNIQUE: Frontal view of the chest was obtained. FINDINGS: Compared to the study from 632 this morning, the only change has been placement of an ET tube which is 1.7 cm above the estephania. Again seen is a left pleural effusion and pulmonary nodules, more prominent on the right. XR/XR chest 1V IMPRESSION: ET tube 1.7 cm above the estephania. Left pleural effusion and pulmonary nodules.
--- NOTE | ~2023-06-18 | XR_ITS ---
EXAMINATION: XR ABDOMEN KUB CLINICAL INDICATION: NG tube location COMPARISON: Previous chest x-ray from earlier the same day and ET earlier this day TECHNIQUE: AP view of the abdomen. FINDINGS: There is an nasogastric tube coiled over the cardiac silhouette probably in an esophageal hernia when compared with previous CT. There is an endotracheal tube with tip 3 cm above the estephania. Central line projects over the SVC. The cardiac silhouette is enlarged. Loss of the left hemidiaphragm suggestive of left lower lobe atelectasis/small infiltrate and small left pleural effusion. The lungs are otherwise clear. Degenerative changes of the spine and shoulders. XR/XR abdomen 1V IMPRESSION: Nasogastric tube coiled over the cardiac silhouette probably in the esophageal hernia. Left lower lobe atelectasis/small infiltrate.
--- NOTE | ~2023-06-18 | XR_ITS ---
EXAMINATION: XR CHEST CLINICAL INFORMATION: Hypoxia. COMPARISON: Multiple prior chest x-rays with the last chest x-ray of 03/16/2023, chest CT 03/14/2023. TECHNIQUE: Frontal view of the chest was obtained. FINDINGS: The patient is rotated to the left. Note is again made of blunting of the left lateral costophrenic sulcus which is similar to that seen on multiple previous studies and most likely related to the paracardiac fat pad, however, underlying small pleural effusion cannot be completely excluded. No right pleural effusion. No evidence of changes of overt pulmonary edema or pneumothorax. Mild interstitial prominence is noted. Developing patchy airspace opacity in the right upper lung zone paraspinous location cannot be excluded. Multiple small pulmonary nodules are better seen on the previous CT scan. Cardiomediastinal silhouette is stable with cardiomegaly. Moderate size hiatal hernia is better seen on the previous CT. Severe arthritic changes are noted at the left glenohumeral articulation. Diffuse aortic calcifications. XR/XR chest 1V IMPRESSION: Rotation of patient somewhat limits evaluation. Possibility of small left pleural effusion and associated left basilar opacities cannot be excluded. Suspected developing patchy airspace opacity in the right upper lung zone. Probable mild interstitial edema. Multiple small pulmonary nodules and moderate-sized hiatal hernia are better seen on the previous chest CT.
--- NOTE | ~2023-06-18 | XR_ITS ---
EXAMINATION: XR CHEST CLINICAL INFORMATION: Reassess for pneumonia COMPARISON: Previous chest x-ray and chest CT 06/18/2023 TECHNIQUE: Frontal view of the chest was obtained. FINDINGS: The cardiac and mediastinal contours are stable. The lung volumes are low. There are increased markings at the left lung base questionable for left lower lobe pneumonia. There is blunting of the left lateral costophrenic angle questionable for left pleural effusion versus changes due to overlying soft tissues. Findings are similar to 06/18/2023 exam. No pneumothorax. Degenerative changes of the spine and shoulders. XR/XR chest 1V IMPRESSION: Question left lower lobe pneumonia and small left pleural effusion versus changes due to overlying soft tissues. Findings are similar to 06/18/2023 exams.
--- NOTE | ~2023-06-18 | CT_ITS ---
EXAMINATION: CT CHEST WITHOUT CONTRAST CLINICAL INFORMATION: Hypoxia. Elevated white blood cell count. Rule out pneumonia. COMPARISON: Previous chest x-ray most recent from earlier the same day and chest CT TECHNIQUE: Multidetector volumetric CT imaging of the chest was done. Axial MIP volume rendering provided. Sagittal and coronal reformatted images were obtained. This CT examination was performed using dose optimization techniques as appropriate, variously including the following: *Automated exposure control *Adjustment of mA and/or kV according to patient size (this includes techniques or standardized protocols for targeted exams where dose is matched to indication/reason for exam; i.e. extremities or head) *Use of iterative reconstruction technique DLP: 362 mGy-cm FINDINGS: SOCK EXAMINER: LUNGS: Small pulmonary nodules are stable. Largest pulmonary nodule measures 6 mm in the right middle lobe axial image 26 series 5. There is left lower lobe volume loss. There is bronchial wall thickening seen in the left lower lobe and small infiltrates or bronchopneumonia. MEDIASTINUM: Right jugular line and endotracheal tube in satisfactory position. Enlarged heart. Coronary artery and aortic valve calcification. No pericardial effusion. Small mediastinal lymph nodes. No enlarged lymph nodes. Hiatal hernia. CORONARY ARTERY CALCIFICATION: Moderate PLEURA: Trace bilateral pleural effusions. AXILLA: No lymphadenopathy. UPPER ABDOMEN: See abdominal and pelvic CT report OSSEOUS STRUCTURES: Degenerative changes of the spine. CT/CT chest wo IV con IMPRESSION: Stable pulmonary nodules from recent exam, largest measuring 6 mm in the right middle lobe. Left lower lobe bronchopneumonia. Fleischner guidelines were followed.
--- NOTE | ~2023-06-18 | US_ITS ---
EXAMINATION: US ABDOMEN LIMITED CLINICAL INFORMATION: Assess cholecystitis. ICU STAT COMPARISON: CT scan abdomen and pelvis 06/18/2023 TECHNIQUE: Portable Real-time imaging of the right upper quadrant abdominal viscera. FINDINGS: PANCREAS: The pancreas is obscured by bowel gas. LIVER: Normal. The liver is normal in size. The liver contour is normal. Parenchymal echogenicity is normal. No focal hepatic lesion. There is no intrahepatic biliary duct dilatation seen. GALLBLADDER: The gallbladder is physiologically distended. Multiple mobile gallstones are present. No evidence of pericholecystic fluid. Gallbladder wall thickness is upper limits of normal, measuring 0.3 cm. It was not possible to evaluate for Unger's sign. COMMON BILE DUCT: Normal in caliber measuring 0.2-0.5 cm in diameter. FREE FLUID: Trace ascites is seen near the liver. US/US abdomen limited IMPRESSION: 1. Cholelithiasis without evidence of cholecystitis. 2. Trace ascites near the liver. 3. The pancreas is obscured by bowel gas.
--- NOTE | 2023-06-18 06:32 | ECG_ITS ---
Test Reason : SEIZURES Blood Pressure : / mmHG Vent. Rate : 124 BPM Atrial Rate : 000 BPM P-R Int : 000 ms QRS Dur : 092 ms QT Int : 320 ms P-R-T Axes : 000 -35 142 degrees QTc Int : 459 ms Atrial fibrillation with rapid ventricular response Left axis deviation Moderate voltage criteria for LVH, may be normal variant ( R in aVL , [employer] product ) Marked ST abnormality, possible lateral subendocardial injury Abnormal ECG When compared with ECG of 14-MAR-2023 17:06, Vent. rate has increased BY [address] now depressed in Lateral leads Inverted T waves have replaced nonspecific T wave abnormality in Lateral leads Referred By: Ranjnaa Degroot Electronically Signed By:KATHY TORRES
--- NOTE | 2023-06-18 06:38 | ED.AMS ---
HPI - Altered Mental Status General Chief Complaint: Altered Mental Status Stated Complaint: seizure Time Seen by Provider: 06/18/23 06:32 Source: family and EMS Mode of arrival: EMS Limitations: no limitations History of Present Illness HPI narrative: 88 yo bedbound female with history of afib on Coumadin, dementia, HFpEF, COPD on 1L NC at baseline, aortic stenosis, HTN, hypertrophic cardiomyopathy with recent admission to [facility] 06/03-06/03 for facial cellulitis who presents to the ER via EMS from home for evaluation of altered mental status. Last known well time was 9pm last night when she went to bed. This morning at 6am family found her altered, awake but not responding to them. EMS was called and she had 20 seconds of tonic clonic seizure activity. She had a leftward gaze the entire time per EMS. HR 140s in afib and BP 140s. On arrival to the ER leftward gaze persisted. She did not follow commands. She was brought immediately to CT scanner which did not show any large ICH. Glucose 190. complaint: altered mental status and decreased responsiveness Onset (ago): hour(s) Consistency of symptoms: constant Context: COPD Related Data Home Medications Medication Instructions Recorded Confirmed acetaminophen 500 mg tablet 1,000 mg PO BID PRN Pain 08/22/21 06/18/23 duloxetine 20 mg capsule,delayed 20 mg PO DAILY 11/05/21 06/03/23 release metoprolol tartrate 50 mg tablet 50 mg PO BID 11/05/21 06/03/23 cyanocobalamin (vitamin B-12) 5,000 mcg PO DAILY 02/08/22 06/18/23 5,000 mcg capsule docusate sodium 100 mg capsule 100 mg PO BID 02/08/22 06/03/23 (Colace) lactulose 10 gram/15 mL oral 15 ml PO DAILY PRN Constipation 02/08/22 06/03/23 solution loratadine 10 mg tablet (Claritin) 10 mg PO DAILY PRN Allergy Symptoms 02/08/22 06/03/23 warfarin 2.5 mg tablet 2.5 mg PO DAILY@1800 02/08/22 06/03/23 albuterol sulfate 90 mcg/actuation 1 puff inhalation Q6H PRN wheezing 03/15/23 06/18/23 aerosol inhaler digoxin 125 mcg (0.125 mg) tablet 125 mcg PO Q OTHER DAY 03/15/23 06/18/23 ipratropium 0.5 mg-albuterol 3 mg 3 ml inhalation QID PRN Shortness 03/15/23 06/03/23 (2.5 mg base)/3 mL nebulization Of Breath soln nystatin 100,000 unit/gram topical 1 appl topical BID PRN Rash 03/15/23 06/03/23 powder mirtazapine 15 mg tablet 15 mg PO BEDTIME 06/03/23 06/03/23 methadone 10 mg/mL oral concentrate 64 mg PO DAILY 06/04/23 06/04/23 Previous Rx's Medication Instructions Recorded furosemide 20 mg tablet 20 mg PO DAILY #30 tabs 04/28/23 doxycycline hyclate 100 mg capsule 100 mg PO BID 7 days #14 caps 06/03/23 mupirocin 2 % topical ointment 1 appl topical TID 5 days #22 grams 06/03/23 Allergies Allergy/AdvReac Type Severity Reaction Status Date / Time amoxicillin [AMOXICILLIN] Allergy Severe ANAPHYLAXIS Verified 04/10/23 15:14 iodine [IODINE] Allergy Severe SHORTNESS Verified 04/10/23 15:14 OF BREATH coffee (Coffea arabica) Allergy Intermediate TONGUE Verified 04/10/23 15:14 [COFFEE (BEVERAGE)] SWELLING penicillin G [PENICILLIN G] Allergy Unknown RASH Verified 04/10/23 15:14 shellfish derived Allergy Unknown TONGUE Verified 04/10/23 15:14 [SHELLFISH DERIVED] SWELLING Sulfa (Sulfonamide Allergy Unknown DIFFICULTY Verified 04/10/23 15:14 Antibiotics) BREATHING [SULFA (SULFONAMIDE ANTIBIOTICS)] Review of Systems Review of Systems: Yes Unobtainable due to mental condition and Unobtainable due to mental status [facility] Past Medical History Medical History Hypertrophic cardiomyopathy COPD (chronic obstructive pulmonary disease) Permanent atrial fibrillation Non-rheumatic aortic stenosis Fracture of distal end of left humerus HTN (hypertension) Surgical History History of appendectomy History of left hip replacement Family History Family History Father No problems noted. Mother No problems noted. Social History Social History Household Members: Family Housing: House Do you presently have visiting nurse or other home services: Yes (director internal communications's during the day) Unable to assess alcohol history related to: Unknown Alcohol intake: never Patient Tobacco Use Status: Former Tobacco user Quit Date: 40+ yrs ago Substance Use Type: Unknown Advance Directives: Yes Advance Directives on File: Yes Advance Directives Date on File: 08/22/21 service: No Physical Exam ED Vital Signs: Vital Signs - 24 hr 06/18/23 06:56 06/18/23 07:29 06/18/23 09:04 Temperature 100.3 F 97.2 F Pulse Rate 121 H 84 Respiratory Rate 41 H 25 H Blood Pressure 179/92 H 110/51 L Pulse Oximetry 93 97 Oxygen Delivery Method Nasal Cannula Oxygen Flow Rate 50 Fraction of Inspired Oxygen 50 06/18/23 10:09 Temperature Pulse Rate Respiratory Rate Blood Pressure Pulse Oximetry Oxygen Delivery Method Oxygen Flow Rate Fraction of Inspired Oxygen 30 BMI result Body Mass Index 30.0 Appearance: Alert elderly female. Slumped to the left Head: normocephalic, atraumatic. Eyes: Pupils equal, round and reactive to light. leftward gaze, intermittent horizontal nystagmus ENT: Pharynx with moist mucus membranes. Neck: Normal inspection. Neck supple. CVS: Irregularly irregular, tachycardic 130s-140s. +systolic murmur. Pulses normal. Respiratory: No respiratory distress. Breath sounds normal. Abdomen: Obese, Soft and nontender. +BS x4 Skin: Skin warm and dry. Normal skin color. Normal skin turgor. No rashes. Extremities: No lower extremity edema. No joint swelling. Neuro/psych: awake, alert, does not follow commands, tracks. GCS 6 Course Reevaluation(s) Reevaluation #1: called to bedside for seizure activity - patient had facial twitching and left sided tonic clonic movements, foaming at the mouth. ativan 2mg IV given. patient desaturated to the 60s requiring suction and bagging. code status confirmed with family via telephone - FULL CODE hx hypercapneic resp failure in the past - baseline PCO2 in the 60s VBG 7.25/83/51 prior to intubation patient intubated with Dr. Rogers at the bedside Time: 07:22 Reevaluation #2: Patient's BP low after intubation, likely 2/2 medications and NOT sepsis. IVF and time improved her BP . holding off on central line for now. family would like to minimize invasive procedures as able. Dr. Paz to come and see the patient with plan for ICU admission Time: : Medications Administered Generic Name Dose Route Start Last Admin Trade Name Freq PRN Reason Stop Dose Admin Propofol 1,000 mg in 100 mls @ 0 mls/hr 06/18/23 07:30 06/18/23 09:00 Diprivan IVCONT 20 mcg/kg/min .Q0M ANDRY 8.08 mls/hr Titration Protocol Per Protocol Discontinued Medications Generic Name Dose Route Start Last Admin Trade Name Freq PRN Reason Stop Dose Admin Acetaminophen 650 mg 06/18/23 08:00 06/18/23 08:12 Acetaminophen Supp 650 Mg Supp.Rect MI 06/18/23 08:01 650 mg ONCE ONE Administration Sodium Chloride 1,000 mls @ 999 mls/hr 06/18/23 06:45 06/18/23 08:00 Ns IVCONT 06/18/23 07:45 Infused .Q1H1M ANDRY Infusion Levetiracetam 1,000 mg in 100 mls @ 400 mls/hr 06/18/23 07:24 06/18/23 08:00 Keppra IV 06/18/23 07:38 Infused ONCE ONE Infusion Vancomycin HCl 1,000 mg/ 535 mls @ 267.5 mls/hr 06/18/23 07:36 06/18/23 08:36 Vancomycin HCl 750 mg/ Sodium IV 06/18/23 09:35 267.5 mls/hr Chloride ONCE ONE Administration Cefepime HCl 2 gm/ Sodium 50 mls @ 100 mls/hr 06/18/23 07:36 06/18/23 08:30 Chloride IV 06/18/23 08:05 Infused ONCE ONE Infusion Sodium Chloride 1,000 mls @ 999 mls/hr 06/18/23 08:15 06/18/23 09:00 Ns IVCONT 06/18/23 09:15 Infused .Q1H1M ANDRY Infusion Levetiracetam 1,000 mg 06/18/23 06:56 06/18/23 07:26 Levetiracetam 500 Mg/5 Ml Vial IV 09/27/23 06:57 Not Given NOW STA Lorazepam 2 mg 06/18/23 07:20 06/18/23 07:08 Lorazepam 2 Mg/Ml Vial IVPUSH 06/18/23 07:21 2 mg ONCE ONE Administration Medical Decision Making Medical Decision Making [facility] Narrative: 88 yo female with history of afib on Coumadin, dementia, HFpEF, COPD on 1L NC at baseline, aortic stenosis, HTN, hypertrophic cardiomyopathy with recent admission to [facility] 06/03-06/03 for facial cellulitis who presents to the ER via EMS from home for evaluation of altered mental status with witnessed seizure activity per EMS. She is bedbound at baseline, usually conversant, requires assistance with all ADLs and lives with family. Awake and alert on arrival, tracking but not responding, following commands or withdrawing to pain. GCS 6. She is protecting her airway at this time. 0730 - patient successfully intubated for ongoing seizure activity, acute on chronic hypoxic/hypercarbic resp failure. repeat ABG pending lactic acid is 7.8 - this is due to seizure activity and NOT sepsis 0815 - difficulty placing OGT. oral blood, will hold off for now. BP improving with fluids. to be admitted to ICU Differential Diagnosis Differential Diagnoses: The differential diagnosis associated with the presentation includes new onset seizures, status epilepticus, acute infection such as UTI or PNA, viral sepsis, ICH/SAH, hypercarbic respiratory faliure, COPD exacerbation, CHF exacerbation Admission/Observation Consideration of admission/observation: Escalation of care including admission/observation considered intubated requiring ICU level of care Consult Healthcare Provider Management of the patient was discussed with: Medicare Specialist Dr. Paz who came to evaluate the patient - accepted to ICU Lab Data [facility] Lab Attestation statement: I reviewed the patient's lab results. mild leukocytosis, elevated bicarb chronic 06/18/23 06:54 06/18/23 06:54 Labs: Lab Results 06/18/23 06/18/23 06/18/23 Range/Units 06:44 06:54 06:55 WBC 11.2 H (4.8-10.8) X10*3/uL RBC 4.90 (4.20-5.50) X10*6/uL Hgb 15.3 (12.0-16.0) g/dl Hct 50.1 H (37.0-47.0) % MCV 102.2 H (80.0-98.0) fL MCH 31.2 (27.0-33.0) pg MCHC 30.5 L (31.0-35.0) g/dl RDW 12.9 (11.0-16.0) % Plt Count 287 (160-400) X10*3/uL MPV 10.6 (9.4-12.3) fL Immature Gran % (Auto) 0.4 (0.0-0.4) % Neut % (Auto) 82.1 H (45-73) % Lymph % (Auto) 11.7 L (20-40) % [place]ball % (Auto) 3.4 (2-11) % Eos % (Auto) 1.5 (0-4) % Baso % (Auto) 0.9 (0-2) % Lymph # (Auto) 1.3 (1.2-4.9) X10*3/uL [place]ball # (Auto) 0.4 (0.1-1.2) X10*3/uL Eos # (Auto) 0.2 (0.0-0.4) X10*3/uL Baso # (Auto) 0.1 (0.0-0.2) X10*3/uL Abs Immat Gran (auto) 0.05 H (0.00-0.03) X10*3/uL Absolute Neuts (auto) 9.2 H (2.0-8.3) x10*3/uL Absolute Nucleated RBC 0.000 (0.0-0.012) X10*3/uL Nucleated RBC % (auto) 0.0 (0.0-0.2) /100WBC PT 23.3 H (11.1-13.3) SEC INR 1.9 H (0.9-1.1) APTT 46.4 H (26.0-36.4) SEC O2 Saturation % ABG pH at Pt Temp (7.35-7.45) ABG pCO2 at Pt Temp (32-45) mmHg ABG pO2 at Pt Temp (83-108) mmHg ABG HCO3 (22-26) mmol/L ABG Base Excess (Actual) mmol/L VBG pH (7.32-7.43) VBG pCO2 mmHg VBG pO2 mmHg VBG HCO3 (22-26) mmol/L VBG O2 Saturation % VBG Base Excess mmol/L Sodium 143 (135-145) mmol/L Potassium 3.4 (3.3-5.1) mmol/L Chloride 93 L (96-108) mmol/L Carbon Dioxide 32 H (22-29) mmol/L Anion Gap 21 H (12-20) BUN 16 (9-16) mg/dL Creatinine 0.82 (0.5-1.4) mg/dL Estim Creat Clear Calc 39.5 Estimated GFR > 60 POC Glucose 194 H (60-115) mg/dL Random Glucose 217 H (60-115) mg/dL Lactic Acid 7.8 H* (0.5-2.0) mmol/L Lactic Acid F/U @ 2Hr (0.5-2.0) mmol/L Calcium 9.7 (8.4-10.2) mg/dL Magnesium 2.1 (1.6-2.6) mg/dL Total Bilirubin 0.4 (0.0-1.0) mg/dL Direct Bilirubin 0.2 (0.0-0.5) mg/dL AST 23 (5-31) U/L ALT 7 (0-31) U/L Alkaline Phosphatase 76 (39-117) U/L Ammonia 132 H (13-55) umol/L Total Creatine Kinase 25 L (26-140) U/L Troponin I High Sens 45.3 H D (<3.5-17.0) ng/L B-Natriuretic Peptide 779 H (<100) pg/mL Total Protein 7.9 (6.5-8.0) g/dL Albumin 3.9 (3.5-5.0) g/dL TSH 1.77 (0.32-4.0) uIU/mL Urine Color Urine Appearance Urine pH (5.0-9.0) Ur Specific [place] (1.005-1.025) Urine Protein (Neg-Trace) mg/dL Urine Glucose (UA) (Negative) mg/dL Urine Ketones (Negative) mg/dL Urine Blood (Negative) Urine Nitrite (Negative) Ur Leukocyte Esterase (Negative) Urine RBC (0-2) /HPF Urine WBC (0-5) /HPF Ur Squamous Epith Cells (0-2) /HPF Urine Bacteria (None Seen) Hyaline Casts (0-2) /LPF Digoxin 0.7 L (0.8-2.0) ng/mL COVID-19 (FRANDY) Negative (Negative) COVID-19 Clin Com See Note Influenza Type A (PCR) (Negative) Influenza Type B (PCR) (Negative) RSV RNA Qual (PCR) (Negative) SARS-CoV-2 RNA (RT-PCR) (Negative) 06/18/23 06/18/23 06/18/23 Range/Units 07:00 07:49 09:13 WBC (4.8-10.8) X10*3/uL RBC (4.20-5.50) X10*6/uL Hgb (12.0-16.0) g/dl Hct (37.0-47.0) % MCV (80.0-98.0) fL MCH (27.0-33.0) pg MCHC (31.0-35.0) g/dl RDW (11.0-16.0) % Plt Count (160-400) X10*3/uL MPV (9.4-12.3) fL Immature Gran % (Auto) (0.0-0.4) % Neut % (Auto) (45-73) % Lymph % (Auto) (20-40) % Kimball % (Auto) (2-11) % Eos % (Auto) (0-4) % Baso % (Auto) (0-2) % Lymph # (Auto) (1.2-4.9) X10*3/uL Kimball # (Auto) (0.1-1.2) X10*3/uL Eos # (Auto) (0.0-0.4) X10*3/uL Baso # (Auto) (0.0-0.2) X10*3/uL Abs Immat Gran (auto) (0.00-0.03) X10*3/uL Absolute Neuts (auto) (2.0-8.3) x10*3/uL Absolute Nucleated RBC (0.0-0.012) X10*3/uL Nucleated RBC % (auto) (0.0-0.2) /100WBC PT (11.1-13.3) SEC INR (0.9-1.1) APTT (26.0-36.4) SEC O2 Saturation % ABG pH at Pt Temp (7.35-7.45) ABG pCO2 at Pt Temp (32-45) mmHg ABG pO2 at Pt Temp (83-108) mmHg ABG HCO3 (22-26) mmol/L ABG Base Excess (Actual) mmol/L VBG pH 7.25 L (7.32-7.43) VBG pCO2 83 mmHg VBG pO2 51 mmHg VBG HCO3 37 H (22-26) mmol/L VBG O2 Saturation 71.0 % VBG Base Excess 5.9 mmol/L Sodium (135-145) mmol/L Potassium (3.3-5.1) mmol/L Chloride (96-108) mmol/L Carbon Dioxide (22-29) mmol/L Anion Gap (12-20) BUN (9-16) mg/dL Creatinine (0.5-1.4) mg/dL Estim Creat Clear Calc Estimated GFR POC Glucose 190 H (60-115) mg/dL Random Glucose (60-115) mg/dL Lactic Acid (0.5-2.0) mmol/L Lactic Acid F/U @ 2Hr (0.5-2.0) mmol/L Calcium (8.4-10.2) mg/dL Magnesium (1.6-2.6) mg/dL Total Bilirubin (0.0-1.0) mg/dL Direct Bilirubin (0.0-0.5) mg/dL AST (5-31) U/L ALT (0-31) U/L Alkaline Phosphatase (39-117) U/L Ammonia (13-55) umol/L Total Creatine Kinase (26-140) U/L Troponin I High Sens (<3.5-17.0) ng/L B-Natriuretic Peptide (<100) pg/mL Total Protein (6.5-8.0) g/dL Albumin (3.5-5.0) g/dL TSH (0.32-4.0) uIU/mL Urine Color Urine Appearance Urine pH (5.0-9.0) Ur Specific [place] (1.005-1.025) Urine Protein (Neg-Trace) mg/dL Urine Glucose (UA) (Negative) mg/dL Urine Ketones (Negative) mg/dL Urine Blood (Negative) Urine Nitrite (Negative) Ur Leukocyte Esterase (Negative) Urine RBC (0-2) /HPF Urine WBC (0-5) /HPF Ur Squamous Epith Cells (0-2) /HPF Urine Bacteria (None Seen) Hyaline Casts (0-2) /LPF Digoxin (0.8-2.0) ng/mL COVID-19 (FRANDY) (Negative) COVID-19 Clin Com Influenza Type A (PCR) NEGATIVE (Negative) Influenza Type B (PCR) NEGATIVE (Negative) RSV RNA Qual (PCR) NEGATIVE (Negative) SARS-CoV-2 RNA (RT-PCR) NEGATIVE (Negative) 06/18/23 06/18/23 06/18/23 Range/Units 09:23 09:25 09:57 WBC (4.8-10.8) X10*3/uL RBC (4.20-5.50) X10*6/uL Hgb (12.0-16.0) g/dl Hct (37.0-47.0) % MCV (80.0-98.0) fL MCH (27.0-33.0) pg MCHC (31.0-35.0) g/dl RDW (11.0-16.0) % Plt Count (160-400) X10*3/uL MPV (9.4-12.3) fL Immature Gran % (Auto) (0.0-0.4) % Neut % (Auto) (45-73) % Lymph % (Auto) (20-40) % Kimball % (Auto) (2-11) % Eos % (Auto) (0-4) % Baso % (Auto) (0-2) % Lymph # (Auto) (1.2-4.9) X10*3/uL [place]ball # (Auto) (0.1-1.2) X10*3/uL Eos # (Auto) (0.0-0.4) X10*3/uL Baso # (Auto) (0.0-0.2) X10*3/uL Abs Immat Gran (auto) (0.00-0.03) X10*3/uL Absolute Neuts (auto) (2.0-8.3) x10*3/uL Absolute Nucleated RBC (0.0-0.012) X10*3/uL Nucleated RBC % (auto) (0.0-0.2) /100WBC PT (11.1-13.3) SEC INR (0.9-1.1) APTT (26.0-36.4) SEC O2 Saturation 100.0 % ABG pH at Pt Temp 7.56 H (7.35-7.45) ABG pCO2 at Pt Temp 34 (32-45) mmHg ABG pO2 at Pt Temp 141 H (83-108) mmHg ABG HCO3 31 H (22-26) mmol/L ABG Base Excess (Actual) 8.9 mmol/L VBG pH (7.32-7.43) VBG pCO2 mmHg VBG pO2 mmHg VBG HCO3 (22-26) mmol/L VBG O2 Saturation % VBG Base Excess mmol/L Sodium (135-145) mmol/L Potassium (3.3-5.1) mmol/L Chloride (96-108) mmol/L Carbon Dioxide (22-29) mmol/L Anion Gap (12-20) BUN (9-16) mg/dL Creatinine (0.5-1.4) mg/dL Estim Creat Clear Calc Estimated GFR POC Glucose (60-115) mg/dL Random Glucose (60-115) mg/dL Lactic Acid (0.5-2.0) mmol/L Lactic Acid F/U @ 2Hr 6.1 H* (0.5-2.0) mmol/L Calcium (8.4-10.2) mg/dL Magnesium (1.6-2.6) mg/dL Total Bilirubin (0.0-1.0) mg/dL Direct Bilirubin (0.0-0.5) mg/dL AST (5-31) U/L ALT (0-31) U/L Alkaline Phosphatase (39-117) U/L Ammonia (13-55) umol/L Total Creatine Kinase (26-140) U/L Troponin I High Sens (<3.5-17.0) ng/L B-Natriuretic Peptide (<100) pg/mL Total Protein (6.5-8.0) g/dL Albumin (3.5-5.0) g/dL TSH (0.32-4.0) uIU/mL Urine Color Yellow Urine Appearance Clear Urine pH 5.5 (5.0-9.0) Ur Specific [place] 1.025 (1.005-1.025) Urine Protein 100 (2+) H (Neg-Trace) mg/dL Urine Glucose (UA) Negative (Negative) mg/dL Urine Ketones Negative (Negative) mg/dL Urine Blood Negative (Negative) Urine Nitrite Negative (Negative) Ur Leukocyte Esterase Trace H (Negative) Urine RBC 0-2 (0-2) /HPF Urine WBC 6-10 H (0-5) /HPF Ur Squamous Epith Cells 3-5 (0-2) /HPF Urine Bacteria None Seen (None Seen) Hyaline Casts 3-5 (0-2) /LPF Digoxin (0.8-2.0) ng/mL COVID-19 ([facility]Y) (Negative) COVID-19 Clin Com Influenza Type A (PCR) (Negative) Influenza Type B (PCR) (Negative) RSV RNA Qual (PCR) (Negative) SARS-CoV-2 RNA (RT-PCR) (Negative) ABG Data ABG Results: Attestation ABG: I personally reviewed and interpreted this ABG as follows: Interpretation: acute on chronic hypoxic and hypercarbic respiratory failure Independent Interpretation I performed an independent interpretation of an: EKG, Plain X-Ray and CT Scan Interpretation: CT head - without acute bleed or edema EKG - rapid afib, HR 124, artifact present, ST depression in lead I, no ST segment elevations CXR - patient rotated. left sided effusion vs infiltrate Radiology Impression Discussion of test interpretation with radiology: I have reviewed the radiologist's reading. Radiologist Impression: EXAMINATION: CT HEAD WITHOUT CONTRAST CLINICAL INFORMATION: Altered mental status COMPARISON: CT head 03/14/2023 and 02/08/2022 DLP: 711 mGy-cm FINDINGS: There is no evidence of acute intracranial hemorrhage, midline shift or mass effect. Gr to white matter differentiation is well preserved. There is no evidence of acute territorial edematous infarction. No abnormal extra-axial fluid collection. Moderate cerebral volume loss with proportionate dilatation of the ventricles and cortical sulci. Bilateral periventricular white matter patchy low-attenuation changes are noted, likely chronic microangiopathy. Paranasal sinuses are well-aerated. Bilateral mastoid air cells and middle ear cavities are well aerated. The patient is status post left lens extraction. Osseous calvarium and calvarial soft tissues are unremarkable. CT/CT head/brain wo IV con IMPRESSION: No evidence of acute intracranial hemorrhage or acute territorial centimeters infarction. EXAMINATION: XR CHEST CLINICAL INFORMATION: Hypoxia. COMPARISON: Multiple prior chest x-rays with the last chest x-ray of 03/16/2023, chest CT 03/14/2023. TECHNIQUE: Frontal view of the chest was obtained. FINDINGS: The patient is rotated to the left. Note is again made of blunting of the left lateral costophrenic sulcus which is similar to that seen on multiple previous studies and most likely related to the paracardiac fat pad, however, underlying small pleural effusion cannot be completely excluded. No right pleural effusion. No evidence of changes of overt pulmonary edema or pneumothorax. Mild interstitial prominence is noted. Developing patchy airspace opacity in the right upper lung zone paraspinous location cannot be excluded. Multiple small pulmonary nodules are better seen on the previous CT scan. Cardiomediastinal silhouette is stable with cardiomegaly. Moderate size hiatal hernia is better seen on the previous CT. Severe arthritic changes are noted at the left glenohumeral articulation. Diffuse aortic calcifications. XR/XR chest 1V IMPRESSION: Rotation of patient somewhat limits evaluation. Possibility of small left pleural effusion and associated left basilar opacities cannot be excluded. Suspected developing patchy airspace opacity in the right upper lung zone. Probable mild interstitial edema. Multiple small pulmonary nodules and moderate-sized hiatal hernia are better seen on the previous chest CT. repeat XR/XR chest 1V IMPRESSION: ET tube 1.7 cm above the estephania. Left pleural effusion and pulmonary nodules. Independent Historian Clinical information obtained from an independent historian. History obtained from or confirmed by: EMS and Other (daughter Arnav at bedside) External Record Review External record reviewed: Inpatient record, Outpatient record, Prior outpatient labs and Prior outpatient radiology Prescription Management I considered prescription management with: Other (anti-epileptic drug) Chronic Conditions Patient?s care impacted by: Other (afib, COPD) Procedures Intubation Time out performed: Yes sedative: Versed Mg Given: 2 paralytic: Succinylcholine Mg Given: 100 Laryngoscope: fiber optic video scope ET Tube Size: 7.5 ET Tube Uncuffed: No Tube Secured Depth (cm): 22 Tube Secured Location: lips Tube Placement Confirmation: visualized tube passing through cords and equal breath sounds bilaterally Patient Tolerated Procedure: well and no complications Intubation Complications: none Critical Care Time Critical Care Time Critical Care Time: Yes Total Critical Care Time: 68 Attestation: I have personally provided critical care time exclusive of time spent on separately billable procedures. Time includes review of lab data, radiology results, discussion with consultants, and monitoring for potential decompensation. Intervention performed as documented. Discharge Plan Discharge Clinical Impression: Seizure, Atrial fibrillation, rapid, Encephalopathy acute, Acute on chronic respiratory failure with hypoxia and hypercapnia Patient Disposition: Admitted As Inpatient
[2023-06-18 06:48] LABS: Glucose, Whole Blood 194 mg/dL (60-115)
[2023-06-18 07:01] LABS: MANUAL DIFF FLAG NO
[2023-06-18 07:02] LABS: Basophils Absolute Auto 0.1 X10*3/uL (0.0-0.2); Basophils Percent Auto 0.9 % (0-2); Eosinophils Absolute Auto 0.2 X10*3/uL (0.0-0.4); Eosinophils Percent Auto 1.5 % (0-4); Hematocrit 50.1 % (37.0-47.0); Hemoglobin 15.3 g/dl (12.0-16.0); Imm Gran Abs Auto 0.05 X10*3/uL (0.00-0.03); Imm Gran Pct Auto 0.4 % (0.0-0.4); Lymphocytes Absolute Auto 1.3 X10*3/uL (1.2-4.9); Lymphocytes Percent Auto 11.7 % (20-40); Mean Corpuscular HGB Conc 30.5 g/dl (31.0-35.0); Mean Corpuscular Hemoglobin 31.2 pg (27.0-33.0); Mean Corpuscular Volume 102.2 fL (80.0-98.0); Mean Platelet Volume 10.6 fL (9.4-12.3); Monocytes Absolute Auto 0.4 X10*3/uL (0.1-1.2); Monocytes Percent Auto 3.4 % (2-11); Neutrophils Absolute Auto 9.2 x10*3/uL (2.0-8.3); Neutrophils Percent Auto 82.1 % (45-73); Platelet Count 287 X10*3/uL (160-400); Red Cell Distribution Width 12.9 % (11.0-16.0); White Blood Count 11.2 X10*3/uL (4.8-10.8)
[2023-06-18 07:05] LABS: VBG Base Excess 5.9 mmol/L; VBG HCO3 37 mmol/L (22-26); VBG pCO2 83 mmHg; VBG pH 7.25 (7.32-7.43); VBG pO2 51 mmHg
[2023-06-18 07:07] LABS: Venous Blood Gas Refer to POC result
[2023-06-18] MEDS: LORazepam 2 MG/ML VIAL IVPUSH (07:08)
[2023-06-18 07:12] LABS: INTERNATIONAL NORM RATIO 1.9 (0.9-1.1); Prothrombin Time 23.3 SEC (11.1-13.3)
[2023-06-18] MEDS: 0.9 % Sodium Chloride 1,000 ML 999 ML IVCONT ×2 (07:13→08:13)
[2023-06-18 07:14] LABS: Partial Thromboplastin Time 46.4 SEC (26.0-36.4)
[2023-06-18 07:17] LABS: COVID-19 Test Negative (Negative); IDNOW Serial# 6674DD1D
[2023-06-18] MEDS: propofoL 1,000 MG/100 ML VIAL 8.08 MG IVCONT (07:20)
[2023-06-18 07:28] LABS: Digoxin 0.7 ng/mL (0.8-2.0)
[2023-06-18 07:31] LABS: B Type Natriuretic Peptide 779 pg/mL (<100)
[2023-06-18 07:32] LABS: Alanine Aminotransferase 7 U/L (0-31); Albumin Level 3.9 g/dL (3.5-5.0); Alkaline Phosphatase 76 U/L (39-117); Anion Gap 21 (12-20); Aspartate Amino Transferase 23 U/L (5-31); Bilirubin Direct 0.2 mg/dL (0.0-0.5); Bilirubin Total 0.4 mg/dL (0.0-1.0); Blood Urea Nitrogen 16 mg/dL (9-16); Calcium 9.7 mg/dL (8.4-10.2); Carbon Dioxide 32 mmol/L (22-29); Chloride 93 mmol/L (96-108); Creatinine Clr Calc Pharmacy 39.5; Estimated Glomerular Filt Rate > 60; Glucose Random 217 mg/dL (60-115); Magnesium 2.1 mg/dL (1.6-2.6); Potassium 3.4 mmol/L (3.3-5.1); Sodium 143 mmol/L (135-145); Total Protein 7.9 g/dL (6.5-8.0)
[2023-06-18 07:32] LABS: Lactic Acid 7.8 mmol/L (0.5-2.0)
[2023-06-18 07:34] LABS: Troponin-I High Sensitivity 45.3 ng/L (<3.5-17.0)
[2023-06-18] MEDS: levETIRAcetam in NaCl (iso-os) 1,000 MG/100 ML PIGGYBACK 400 MG IV ×2 (07:39→20:53)
[2023-06-18 07:41] LABS: Ammonia 132 umol/L (13-55)
[2023-06-18 07:48] LABS: TSH reflex Free T4 1.77 uIU/mL (0.32-4.0)
--- NOTE | 2023-06-18 07:52 | PC.NURSE ---
PROPOFOL DECREASED TO 10MCG/KG/MIN PER MLP MACK. VS 78/44-73-96% VENTED AT 50% 5 PEEP.
[2023-06-18 07:53] LABS: Glucose, Whole Blood 190 mg/dL (60-115)
[2023-06-18] MEDS: cefEPime HCl 2 GM in 0.9 % Sodium Chloride 50 ML IV (07:59)
--- NOTE | 2023-06-18 08:08 | PC.NURSE ---
PT BECAME RESTLESS, PROPOFOL INCREASED TO 20MC/KG/MIN PER MACK (MLP) - 109/64-81. CAPNOGRAPHY 23.
[2023-06-18] MEDS: Acetaminophen Supp 650 MG SUPP.RECT PR (08:12)
--- NOTE | 2023-06-18 08:27 | PC.NURSE ---
PROPOFOL DECREASED TO 10MCG/MIN/KG PER MACK (MLP) 113/61.
[2023-06-18] MEDS: vancomycin HCL 1,000 MG, vancomycin HCL 750 MG in 0.9 % Sodium Chloride 500 ML 267.5 MG IV (08:36)
[2023-06-18 08:59] LABS: Reflex Lactate? Lactic Acid Added
--- NOTE | 2023-06-18 09:11 | PC.NURSE ---
Addendum entered by Yolanda Dwyer 06/18/23 09:35: 0716: AC VENT SETTING. FIO2-50%, PEEP 5, TIDAL VOLUME 300. Original Note: 0708: PT HAD A SEIZURE, MED X 1 WITH ATIVAN 2MG IVP. PRIOR PT HAS A #20 IV TO L AC. MLP (MACK) AND DR. AMARO AT BEDSIDE. 0711: DECISION TO INTUBATE BY PROVIDERS. RESP THERAPIST AT BEDSIDE. 0715: VERSED 2MG IVP, SUCCIINYLCHOLINE 100MG IVP GIVEN. IV #20 TO R WRIST 0716: ET TUBE 7.5 AT 22 LIP, BREATH SOUNDS EQUAL AND CLEAR WITH POSITIVE COLOMETRIC. 0717: VS 151/84-100-100%. NS 1L INFUSING 0720: PROPOFOL INITIATED 20MCG/KG/MIN ( PER PROTOCOL). PT IS CONSISTENTLY LEANING TO THE LEFT, PILLOW PLACED. 0745: KEPPRA 1GM IV OVER 15MINS INTIATED, NS 1L ABOVE PLACED ON A PRESSURE BAG. 2NDARY TO VS. SEE VS. FAMILY AT BEDSIDE WITH MACK AT LENGTH. TERRI AWARE OF PLAN OF CARE FOR ADMISSION TO ICU. 0800: CEFEPIME 2GM IV (1ST ABT) INITIATED 0813: 2ND NS 1L IV INITIATED 0815: APAP 650 SUPPOS GIVEN WITH RECTAL TEMP OF 98.7 0830: OG TUBE ATTEMPTED WITH ANY SUCCESS, MLP AND MD AWARE. 0840: PLEASE NOTE THAT PROPOFOL WAS TITRATED MULTI TIMES 2NDAY TO PT'S BEING HYPOTENSION PER MLP ([place]). PLEASE SEE VSS CHART. 0836: VANCOMYCIN 1.75GM INITIATED. 0850: TEMP SENSING AVENDANO CATH #16 PLACED PATENT WITH CLEAR YELLOW URINE. 0900: FAMILY RETURNED FROM FAMILY ROOM. 0905: CXR DONE.
[2023-06-18 09:48] LABS: Appearance Urine Clear; Color Urine Yellow; Glucose Urine UA Negative (Negative); Leukocyte Esterase Urine Trace (Negative); Nitrite Urine Negative (Negative); PH 5.5 (5.0-9.0); Specific Gravity - Urine 1.025 (1.005-1.025); UMIC TRIGGER UACC YES; Urine Blood Negative (Negative); Urine Ketones Negative (Negative); Urine Protein 100 (2+) mg/dL (Neg-Trace)
--- NOTE | 2023-06-18 09:53 | PC.NURSE ---
DR. GUZMAN - (ICU) IS AT BEDSIDE AT LENGTH WITH PT'S DAUGHTER AND HER BOYFRIEND. THEY ARE AWARE OF PLAN OF CARE.
[2023-06-18 10:03] LABS: ABG Base Excess 8.9 mmol/L; ABG HCO3 31 mmol/L (22-26); ABG pCO2 34 mmHg (32-45); ABG pH 7.56 (7.35-7.45); ABG pO2 141 mmHg (83-108)
[2023-06-18 10:07] LABS: Bacteria Urine None Seen (None Seen); RBC Urine 0-2 /HPF (0-2); UACC Culture Trigger YES
[2023-06-18 10:15] LABS: Influenza A PCR NEGATIVE (Negative); Influenza B PCR NEGATIVE (Negative); Resp Syncy Virus RNA Qual PCR NEGATIVE (Negative); SARS COV2 PCR INHOUSE NEGATIVE (Negative)
--- NOTE | 2023-06-18 10:15 | PC.NURSE ---
FAMILY HAS LEFT THE BEDSIDE. VENT SETTINGS - RR DECREASE FROM 25 TO 16, FIO2 30%, PEEP 5, TIDAL VOLUME 300. PROPOFOL AND VANCOMYCIN CONTINUES TO BE INFUSING.
[2023-06-18 10:17] LABS: ~Lactic Acid-LAB USE ONLY 6.1 mmol/L (0.5-2.0)
--- NOTE | 2023-06-18 10:30 | PC.NURSE ---
family returned to bedside.
--- NOTE | 2023-06-18 11:01 | PM.CCHP ---
History of Present Illness Date of Service: 06/18/23 Attending physician on admission: Stephie aPz Chief Complaint: Encephalopathy, Seizure Patient is a 88 Y F with dementia, baseline can verbally communicate, though has worsening confusion at night, bedbound for past year, hypertension, atrial fibrillation on warfarin, HFpEF, severe aortic stenosis, and COPD on 2L nasal canula, presenting with encephalopathy; of note, patient intubated; patient daughter and daughter's partner present at bedside, reports 06/17 PM patient appeared more fatigued; this AM, patient found obtunded, upon EMS transport, reportedly had 20 seconds of tonic-clonic movements, subsequently had another episode of tonic-clonic movements in ED, given lorazepam, though subsequently somnolent, hypoxic, intubated; ED work-up revealing of leukocytosis, lactic acidosis, possible urinary tract infection, hypercapnea as well as elevated ammonia; Review of Systems Review of Systems: Yes Unobtainable due to mental condition Constitutional: Constitutional: Reports as per HPI Eyes: Eyes: Reports no additional eye complaints ENT: Reports system reviewed and no additional complaints, except as documented Cardiovascular: Cardiovascular: Reports no additional cardiovascular complaints Respiratory: Respiratory: Reports no additional respiratory complaints Gastrointestinal: Gastrointestinal: Reports no additional gastrointestinal complaints Genitourinary: Genitourinary: Reports no additional female genitourinary complaints Musculoskeletal: Musculoskeletal: Reports no additional musculoskeletal complaints Integumentary/Breasts: Skin/Breast: Reports system reviewed and no additional complaints, except as docu Neurologic: Reports system reviewed and no additional complaints, except as documented Psychiatric: Psychiatric: Reports no additional psychiatric complaints [facility]LY [facility] Past Medical History Medical History Hypertrophic cardiomyopathy COPD (chronic obstructive pulmonary disease) Permanent atrial fibrillation Non-rheumatic aortic stenosis Fracture of distal end of left humerus HTN (hypertension) Family History Family History Father No problems noted. Mother No problems noted. Surgical History Surgical History History of appendectomy History of left hip replacement Social History Social History Household Members: Family Housing: House Do you presently have visiting nurse or other home services: Yes ([employer] during the day) Unable to assess alcohol history related to: Unknown Alcohol intake: never Patient Tobacco Use Status: Former Tobacco user Quit Date: 40+ yrs ago Smoked in Last 30 Days: No Use of substances other than those prescribed or required for medical reasons: No Substance Use Type: Unknown Advance Directives: Yes Advance Directives on File: Yes Advance Directives Date on File: 08/22/21 service: No Meds Allergies Allergy/AdvReac Type Severity Reaction Status Date / Time amoxicillin [AMOXICILLIN] Allergy Severe ANAPHYLAXIS Verified 04/10/23 15:14 iodine [IODINE] Allergy Severe SHORTNESS Verified 04/10/23 15:14 OF BREATH coffee (Coffea arabica) Allergy Intermediate TONGUE Verified 04/10/23 15:14 [COFFEE (BEVERAGE)] SWELLING penicillin G [PENICILLIN G] Allergy Unknown RASH Verified 04/10/23 15:14 shellfish derived Allergy Unknown TONGUE Verified 04/10/23 15:14 [SHELLFISH DERIVED] SWELLING Sulfa (Sulfonamide Allergy Unknown DIFFICULTY Verified 04/10/23 15:14 Antibiotics) BREATHING [SULFA (SULFONAMIDE ANTIBIOTICS)] Active Medications: Current Medications Enoxaparin Sodium (Enoxaparin Sodium 40 Mg/0.4 Ml Syringe) 40 mg SUBCUT Q24H ANDRY Propofol (Diprivan) 1,000 mg in 100 mls @ 0 mls/hr IVCONT .Q0M ANDRY; Protocol Last Titration: 06/18/23 09:00 Dose: 20 mcg/kg/min, 8.08 mls/hr Propofol (Diprivan) 1,000 mg in 100 mls @ 0 mls/hr IVCONT .Q0M ANDRY; Protocol Dexmedetomidine HCl (Precedex) 400 mcg in 100 mls @ 0 mls/hr IVCONT .Q0M ANDRY; Protocol Norepinephrine Bitartrate (Levophed) 8 mg in 250 mls @ 0 mls/hr IV .Q0M ANDRY; Protocol Insulin Human Lispro (Insulin Lispro 100 Unit/Ml 3 Ml Vial) 0 unit SUBCUT QIDACHS ANDRY; Protocol Home Medications Medication Instructions Recorded Confirmed Last Taken Type acetaminophen 500 mg tablet 1,000 mg PO BID PRN Pain 08/22/21 06/18/23 06/03/23 History duloxetine 20 mg capsule,delayed 20 mg PO DAILY 11/05/21 06/18/23 06/17/23 History release metoprolol tartrate 50 mg tablet 50 mg PO BID 11/05/21 06/18/23 06/17/23 History cyanocobalamin (vitamin B-12) 5,000 mcg PO DAILY 02/08/22 06/18/23 06/17/23 History 5,000 mcg capsule docusate sodium 100 mg capsule 100 mg PO BID 02/08/22 06/18/23 06/17/23 History (Colace) loratadine 10 mg tablet (Claritin) 10 mg PO DAILY PRN Allergy Symptoms 02/08/22 06/18/23 02/08/22 History warfarin 2.5 mg tablet 2.5 mg PO DAILY@1800 02/08/22 06/18/23 06/17/23 History albuterol sulfate 90 mcg/actuation 1 puff inhalation Q6H PRN wheezing 03/15/23 06/18/23 Unknown History aerosol inhaler digoxin 125 mcg (0.125 mg) tablet 125 mcg PO Q OTHER DAY 03/15/23 06/18/23 06/03/23 History ipratropium 0.5 mg-albuterol 3 mg 3 ml inhalation QID PRN Shortness 03/15/23 06/18/23 Unknown History (2.5 mg base)/3 mL nebulization Of Breath soln mirtazapine 15 mg tablet 15 mg PO BEDTIME 06/03/23 06/18/23 06/17/23 History Physical Exam Vital Signs: Vital Signs: Last Vital Signs Temp 97.2 F 06/18/23 09:04 Pulse 84 06/18/23 09:04 Resp 25 H 06/18/23 09:04 BP 110/51 L 06/18/23 09:04 Pulse Ox 97 06/18/23 09:04 O2 Del Method Nasal Cannula 06/18/23 06:56 O2 Flow Rate 50 06/18/23 09:04 FiO2 30 06/18/23 10:09 Oxygen Flow Rate 2 06/18/23 06:56 BMI result Body Mass Index 30.0 Const: Other: intubated, sedated; General: well developed and well groomed Nutritional Appearance: overweight Limitations: physical limitations HEENT: Head: Yes normal to inspection, Yes normocephalic and Yes atraumatic Eyes: General: appearance normal, both eyes and all related structures Pupils: Equal, round and reactive pupils present Neck: Neck: Yes normal visual inspection and Yes full ROM Chest: Chest palpation & inspection: normal inspection of the chest Resp: Other: mild rhonchi bilateral anterior lung weaver; no appreciable rales, wheezing GI: Inspection: Yes normal to inspection and No distended Palpation (GI): Soft to palpation, not firm, nontender, no guarding and not rigid Skin: General skin exam: no rashes or lesions noted Neuro: Other: PERRL; cough, gag reflexes; no appreciable withdrawal to noxious stimulus in all 4 extremities Cranial nerves: Yes Equal, round and reactive pupils present Extrem: General: Yes normal to inspection and Yes capillary refill normal Psych: Other: unable to assess Results Labs 06/18/23 06:54 06/18/23 06:54 Labs: Laboratory Results - last 24 hr 06/18/23 06/18/23 06/18/23 06:44 06:54 06:55 MCV 102.2 H MCH 31.2 MCHC 30.5 L RDW 12.9 Plt Count 287 MPV 10.6 Immature Gran % (Auto) 0.4 Neut % (Auto) 82.1 H Lymph % (Auto) 11.7 L Woodward % (Auto) 3.4 Eos % (Auto) 1.5 Baso % (Auto) 0.9 Lymph # (Auto) 1.3 Woodward # (Auto) 0.4 Eos # (Auto) 0.2 Baso # (Auto) 0.1 Abs Immat Gran (auto) 0.05 H Absolute Neuts (auto) 9.2 H Absolute Nucleated RBC 0.000 Nucleated RBC % (auto) 0.0 PT 23.3 H INR 1.9 H APTT 46.4 H O2 Saturation ABG pH at Pt Temp ABG pCO2 at Pt Temp ABG pO2 at Pt Temp ABG HCO3 ABG Base Excess (Actual) VBG pH VBG pCO2 VBG pO2 VBG HCO3 VBG O2 Saturation VBG Base Excess Anion Gap 21 H Estim Creat Clear Calc 39.5 Estimated GFR > 60 POC Glucose 194 H Random Glucose 217 H Lactic Acid 7.8 H* Lactic Acid F/U @ 2Hr Calcium 9.7 Magnesium 2.1 Total Bilirubin 0.4 Direct Bilirubin 0.2 AST 23 ALT 7 Alkaline Phosphatase 76 Ammonia 132 H Total Creatine Kinase 25 L B-Natriuretic Peptide 779 H Total Protein 7.9 Albumin 3.9 TSH 1.77 Urine Color Urine Appearance Urine pH Ur Specific Randolph Urine Protein Urine Glucose (UA) Urine Ketones Urine Blood Urine Nitrite Ur Leukocyte Esterase Urine RBC Urine WBC Ur Squamous Epith Cells Urine Bacteria Hyaline Casts Digoxin 0.7 L COVID-19 (FRANDY) Negative COVID-19 Clin Com See Note Influenza Type A (PCR) Influenza Type B (PCR) RSV RNA Qual (PCR) SARS-CoV-2 RNA (RT-PCR) 06/18/23 06/18/23 06/18/23 07:00 07:49 09:13 MCV MCH MCHC RDW Plt Count MPV Immature Gran % (Auto) Neut % (Auto) Lymph % (Auto) Woodward % (Auto) Eos % (Auto) Baso % (Auto) Lymph # (Auto) Woodward # (Auto) Eos # (Auto) Baso # (Auto) Abs Immat Gran (auto) Absolute Neuts (auto) Absolute Nucleated RBC Nucleated RBC % (auto) PT INR APTT O2 Saturation ABG pH at Pt Temp ABG pCO2 at Pt Temp ABG pO2 at Pt Temp ABG HCO3 ABG Base Excess (Actual) VBG pH 7.25 L VBG pCO2 83 VBG pO2 51 VBG HCO3 37 H VBG O2 Saturation 71.0 VBG Base Excess 5.9 Anion Gap Estim Creat Clear Calc Estimated GFR POC Glucose 190 H Random Glucose Lactic Acid Lactic Acid F/U @ 2Hr Calcium Magnesium Total Bilirubin Direct Bilirubin AST ALT Alkaline Phosphatase Ammonia Total Creatine Kinase B-Natriuretic Peptide Total Protein Albumin TSH Urine Color Urine Appearance Urine pH Ur Specific Randolph Urine Protein Urine Glucose (UA) Urine Ketones Urine Blood Urine Nitrite Ur Leukocyte Esterase Urine RBC Urine WBC Ur Squamous Epith Cells Urine Bacteria Hyaline Casts Digoxin COVID-19 (FRANDY) COVID-19 Clin Com Influenza Type A (PCR) NEGATIVE Influenza Type B (PCR) NEGATIVE RSV RNA Qual (PCR) NEGATIVE SARS-CoV-2 RNA (RT-PCR) NEGATIVE 06/18/23 06/18/23 06/18/23 09:23 09:25 09:57 MCV MCH MCHC RDW Plt Count MPV Immature Gran % (Auto) Neut % (Auto) Lymph % (Auto) Woodward % (Auto) Eos % (Auto) Baso % (Auto) Lymph # (Auto) Woodward # (Auto) Eos # (Auto) Baso # (Auto) Abs Immat Gran (auto) Absolute Neuts (auto) Absolute Nucleated RBC Nucleated RBC % (auto) PT INR APTT O2 Saturation 100.0 ABG pH at Pt Temp 7.56 H ABG pCO2 at Pt Temp 34 ABG pO2 at Pt Temp 141 H ABG HCO3 31 H ABG Base Excess (Actual) 8.9 VBG pH VBG pCO2 VBG pO2 VBG HCO3 VBG O2 Saturation VBG Base Excess Anion Gap Estim Creat Clear Calc Estimated GFR POC Glucose Random Glucose Lactic Acid Lactic Acid F/U @ 2Hr 6.1 H* Calcium Magnesium Total Bilirubin Direct Bilirubin AST ALT Alkaline Phosphatase Ammonia Total Creatine Kinase B-Natriuretic Peptide Total Protein Albumin TSH Urine Color Yellow Urine Appearance Clear Urine pH 5.5 Ur Specific Randolph 1.025 Urine Protein 100 (2+) H Urine Glucose (UA) Negative Urine Ketones Negative Urine Blood Negative Urine Nitrite Negative Ur Leukocyte Esterase Trace H Urine RBC 0-2 Urine WBC 6-10 H Ur Squamous Epith Cells 3-5 Urine Bacteria None Seen Hyaline Casts 3-5 Digoxin COVID-19 (FRANDY) COVID-19 Clin Com Influenza Type A (PCR) Influenza Type B (PCR) RSV RNA Qual (PCR) SARS-CoV-2 RNA (RT-PCR) Imaging Radiologist's Impressions: Impressions Head CT 06/18/23 06:42 IMPRESSION: No evidence of acute intracranial hemorrhage or acute territorial centimeters infarction. Chest X-Ray 06/18/23 06:45 IMPRESSION: Rotation of patient somewhat limits evaluation. Possibility of small left pleural effusion and associated left basilar opacities cannot be excluded. Suspected developing patchy airspace opacity in the right upper lung zone. Probable mild interstitial edema. Multiple small pulmonary nodules and moderate-sized hiatal hernia are better seen on the previous chest CT. Chest X-Ray 06/18/23 09:05 IMPRESSION: ET tube 1.7 cm above the estephania. Left pleural effusion and pulmonary nodules. Assessment and Plan (1) Acute on chronic respiratory failure with hypoxia and hypercapnia: Status: Acute (2) Encephalopathy acute: Status: Acute (3) Seizure: Status: Acute Plan Assessment: 88 Y F, multiple comorbidities including dementia, hypertension, atrial fibrillation, HFpEF, severe , COPD, as well as recent admission for facial cellulitis, presenting with obtundation, as well as status epilepticus, intubated 06/18 N: status epilepticus, given lorazepam, levetiracetam in ED, now intubated, on propofol gtt; follow-up EEG; of note, patient with elevated ammonia without known liver disease, nor transaminitis; of note, patient appears to be on home lactulose; will give lactulose, repeat ammonia CV: currently hemodynamically stable; atrial fibrillation without rapid ventricular response; to continue to monitor closely R: intubated d/t obtundation, status epilepticus; currenltly VC-AC, wean as tolerated GI: to place OG tube; consider nutrition in following days : function: baseline creatinine 0.6; electrolytes: to continue to monitor; volume: avoid hypovolemia in setting of severe H: atrial fibrillation, on warfarin; now on enoxaparin ID: empiric vancomycin, cefepime; follow-up blood cultures, urine cultures E: insulin slinding scale Time Spent With Patient Time: Total time managing care of this patient today ____ minutes.
--- NOTE | 2023-06-18 11:12 | PHA.MEDREC ---
Pharmacy Consult ? Medication Reconciliation Pharmacy has completed the medication reconciliation. Spoke to daughter Mary Alice and verified patient's medication list.
[2023-06-18 11:32] LABS: Reflex Lactate? 2 Y
--- NOTE | 2023-06-18 12:15 | PHA.PROG ---
Admission Date/Time: June 18, 2023 10:31 Indication: SEPSIS Weight in k.3 kg Adjusted body weight in K.8 Purdin body weight in K.2 Obesity Dosing Indication % IBW: Serum Creatinine - Last 168 Hours 06/18/23 06:54 Creatinine 0.82 Estimated CrCl and GFR - Last 168 Hours 06/18/23 06:54 Estim Creat Clear Calc 39.5 Estimated GFR > 60 Vancomycin Loading Dose: 1750 MG Current Vancomycin Dosing Regimen: 1000 MG q12h Vancomycin Monitoring using AUC goal of 400 - 600 range with trough as surrogate marker: 444 Date and Time for next Vancomycin Level to be drawn: 06/20 @0600 Pharmacist Comments on Vancomycin Plan: Patient is older therefore Scr can not accurately be used for renal dosing. Q24H dosing to allow clearing, patient is also small. therefore chose to be a little be conservative with dosing. will adjust once level is back Vancomycin dosing will take advantage of [employer] as a clinical decision support tool that uses Bayesian modeling to calculate individual patient's pharmacokinetic parameters and forecast the patient's drug concentration time course with the target goal AUC 24 range of 400 - 600 mg/L/hr.
[2023-06-18 12:29] LABS: Glucose, Whole Blood 155 mg/dL (60-115)
--- NOTE | 2023-06-18 12:48 | PC.NURSE ---
RN TO RN REPORT GIVEN TO CAROL. PT TO BE TRANSPORTED TO ICU WITH RESP THERAPIST.
--- NOTE | 2023-06-18 13:00 | PC.NURSE ---
PT'S DAUGHTER TOOK ALL OF PT'S BELONGINGS INCLUDING DENTURES.
[2023-06-18 13:32] LABS: ABG Refer to POC result
[2023-06-18 13:41] LABS: ABG Base Excess 10.6 mmol/L; ABG HCO3 33 mmol/L (22-26); ABG pCO2 39 mmHg (32-45); ABG pH 7.54 (7.35-7.45); ABG pO2 95 mmHg (83-108)
[2023-06-18 13:59] LABS: MANUAL DIFF FLAG NO
[2023-06-18 14:05] LABS: Basophils Absolute Auto 0.1 X10*3/uL (0.0-0.2); Basophils Percent Auto 0.4 % (0-2); Eosinophils Percent Auto 0.1 % (0-4); Hematocrit 45.2 % (37.0-47.0); Hemoglobin 14.2 g/dl (12.0-16.0); Imm Gran Abs Auto 0.09 X10*3/uL (0.00-0.03); Imm Gran Pct Auto 0.6 % (0.0-0.4); Lymphocytes Percent Auto 6.2 % (20-40); Mean Corpuscular HGB Conc 31.4 g/dl (31.0-35.0); Mean Corpuscular Hemoglobin 31.2 pg (27.0-33.0); Mean Corpuscular Volume 99.3 fL (80.0-98.0); Monocytes Absolute Auto 0.9 X10*3/uL (0.1-1.2); Monocytes Percent Auto 5.7 % (2-11); Neutrophils Absolute Auto 13.9 x10*3/uL (2.0-8.3); Platelet Count 200 X10*3/uL (160-400); Red Blood Count 4.55 X10*6/uL (4.20-5.50); Red Cell Distribution Width 12.9 % (11.0-16.0); White Blood Count 15.9 X10*3/uL (4.8-10.8)
[2023-06-18 14:22] LABS: Alanine Aminotransferase 7 U/L (0-31); Albumin Level 3.3 g/dL (3.5-5.0); Alkaline Phosphatase 59 U/L (39-117); Anion Gap 16 (12-20); Aspartate Amino Transferase 24 U/L (5-31); Bilirubin Total 0.6 mg/dL (0.0-1.0); Blood Urea Nitrogen 15 mg/dL (9-16); Calcium 9.3 mg/dL (8.4-10.2); Carbon Dioxide 31 mmol/L (22-29); Chloride 100 mmol/L (96-108); Creatinine Clr Calc Pharmacy 50.7; Estimated Glomerular Filt Rate > 60; Glucose Random 131 mg/dL (60-115); Potassium 3.3 mmol/L (3.3-5.1); Sodium 144 mmol/L (135-145); Total Protein 6.6 g/dL (6.5-8.0)
[2023-06-18 14:25] LABS: ~Lactic Acid-LAB USE ONLY 3.9 mmol/L (0.5-2.0)
--- NOTE | 2023-06-18 15:21 | PC.NURSE ---
Attempt to insert 16f OG tube x3, as well as insert via nasal bilat nare - Unable r/t meeting resistance and then curling up into mouth - Dr Paz made aware - came to bedside and attempted again with Glidescope, still unable to.
[2023-06-18] MEDS: Albumin Human 25 % 100 ML IV ×2 (16:22→17:49)
[2023-06-18] MEDS: Norepinephrine Bitartrate/D5W 8 MG/250 ML PLAST..BAG 12.62 MG IV (16:38)
--- NOTE | 2023-06-18 17:49 | W.PM.CCHP ---
Procedures Date of Service Date of Service: 06/18/23 Central Line Placement Right IJ: Consent for Procedure: Emergent-no informed consent obtained Time out performed: Yes Sterile Technique Used: Yes Patient placed on monitor/pulse ox: Yes MD prep: mask, gown, gloves and other Central line prep: Chlorhexidine scrub Local anesthesia used: other anesthetic Ultrasound used for placement: Yes Central line lumen inserted: triple Post procedure: sutured in place, good blood return, all ports aspirated, flushed, capped and sterile dressing applied Post procedure x-ray: other (15 cm central venous catheter secured 13 cm at skin with x-ray demonstrating tip of catheter beyond caval-atrial junction; central venous catheter withdrawn and re-positioned to 11 cm at skin;) Patient tolerated procedure: well and no complications Complications: none
[2023-06-18 18:20] LABS: Lactic Acid 1.5 mmol/L (0.5-2.0)
[2023-06-18 18:31] LABS: Glucose, Whole Blood 99 mg/dL (60-115)
[2023-06-18 20:11] LABS: MANUAL DIFF FLAG NO
[2023-06-18 20:15] LABS: Basophils Absolute Auto 0.1 X10*3/uL (0.0-0.2); Basophils Percent Auto 0.6 % (0-2); Eosinophils Percent Auto 0.2 % (0-4); Hematocrit 36.5 % (37.0-47.0); Hemoglobin 11.7 g/dl (12.0-16.0); Imm Gran Abs Auto 0.04 X10*3/uL (0.00-0.03); Imm Gran Pct Auto 0.3 % (0.0-0.4); Lymphocytes Absolute Auto 0.8 X10*3/uL (1.2-4.9); Lymphocytes Percent Auto 5.6 % (20-40); Mean Corpuscular HGB Conc 32.1 g/dl (31.0-35.0); Mean Corpuscular Hemoglobin 31.5 pg (27.0-33.0); Mean Corpuscular Volume 98.4 fL (80.0-98.0); Mean Platelet Volume 10.5 fL (9.4-12.3); Monocytes Absolute Auto 0.9 X10*3/uL (0.1-1.2); Monocytes Percent Auto 6.9 % (2-11); Neutrophils Absolute Auto 11.6 x10*3/uL (2.0-8.3); Neutrophils Percent Auto 86.4 % (45-73); Platelet Count 182 X10*3/uL (160-400); Red Blood Count 3.71 X10*6/uL (4.20-5.50); Red Cell Distribution Width 13.1 % (11.0-16.0); White Blood Count 13.4 X10*3/uL (4.8-10.8)
[2023-06-18 20:32] LABS: Alanine Aminotransferase 6 U/L (0-31); Albumin Level 3.9 g/dL (3.5-5.0); Alkaline Phosphatase 41 U/L (39-117); Anion Gap 15 (12-20); Aspartate Amino Transferase 23 U/L (5-31); Bilirubin Total 0.8 mg/dL (0.0-1.0); Blood Urea Nitrogen 13 mg/dL (9-16); Calcium 8.6 mg/dL (8.4-10.2); Carbon Dioxide 32 mmol/L (22-29); Chloride 102 mmol/L (96-108); Creatinine Clr Calc Pharmacy 54.1; Estimated Glomerular Filt Rate > 60; Glucose Random 114 mg/dL (60-115); Magnesium 1.4 mg/dL (1.6-2.6); Phosphorus 1.5 mg/dL (2.7-4.5); Potassium 2.8 mmol/L (3.3-5.1); Sodium 146 mmol/L (135-145); Total Protein 6.2 g/dL (6.5-8.0)
[2023-06-18 20:39] LABS: Troponin-I High Sensitivity 445.9 ng/L (<3.5-17.0)
[2023-06-18] MEDS: Magnesium Sulfate/H2O 2 GM/50 ML PIGGYBACK IV (20:53)
[2023-06-18] MEDS: Potassium Phosphate/NS 15 MMOL/250 ML PLAST..BAG 62.5 MMOL IV (20:53)
[2023-06-18] MEDS: cefEPime HCl 1 GM in 0.9 % Sodium Chloride 50 ML IV (21:16)
[2023-06-18] MEDS: Chlorhexidine Gluc Oral Rinse 15 ML MOUTHWASH BUCCAL (21:36)
[2023-06-18] MEDS: Rocuronium Bromide 50 MG/5 ML VIAL 20 MG IVPUSH (22:00)
[2023-06-18 22:59] LABS: Lipase 4 U/L (8-78)
[2023-06-19] VITALS (35 sets, daily range): BP systolic 75–183; BP diastolic 26–93; PULSE 71–114; RESP 12–24; TEMP 34.7–38; O2SAT 94–100
[2023-06-19] MEDS: Lactulose 20 GM/30 ML SOLUTION 30 GM PO ×8 (00:23→06:14)
--- NOTE | 2023-06-19 00:34 | P.PCNCC_ITS ---
Procedures Date of Service Date of Service: 06/19/23 Feeding Tube Replacement Type of tube: nasogastric (left nares) Insertion site prior to procedure: clean Tube used for reinsertion: other (ng ) [place] Tube Size (F): 16 Verification of placement: auscultation and KUB Tube secured by: tape/dressing Patient tolerated procedure: well and no complications Additional comments: Patient has a large esophageal hernia, initially the tube seemed to coil within neck, I then pulled it back and readvanced the NG tube with good confirmation by auscultation, a repeat KUB shows that 2 coiling within esophageal hernia but does make it through the pylorus into the stomach. No complications. This was done on emergent basis need, no consent obtained, it will not be used for feedings, rather to administer lactulose given her mental status changes and ammonia above 130.
[2023-06-19] MEDS: Potassium Phosphate/NS 15 MMOL/250 ML PLAST..BAG 62.5 MMOL IV (00:38)
[2023-06-19] MEDS: propofoL 1,000 MG/100 ML VIAL 12.11 MG IVCONT ×2 (02:00→23:08)
[2023-06-19 04:48] LABS: VBG Base Excess 11.2 mmol/L; VBG HCO3 34 mmol/L (22-26); VBG pCO2 42 mmHg; VBG pH 7.52 (7.32-7.43); VBG pO2 39 mmHg
[2023-06-19 04:59] LABS: Venous Blood Gas Refer to POC result
[2023-06-19 05:07] LABS: MANUAL DIFF FLAG NO
[2023-06-19 05:09] LABS: Basophils Absolute Auto 0.1 X10*3/uL (0.0-0.2); Eosinophils Absolute Auto 0.1 X10*3/uL (0.0-0.4); Eosinophils Percent Auto 0.7 % (0-4); Hematocrit 38.6 % (37.0-47.0); Hemoglobin 12.4 g/dl (12.0-16.0); Imm Gran Abs Auto 0.08 X10*3/uL (0.00-0.03); Imm Gran Pct Auto 0.7 % (0.0-0.4); Lymphocytes Absolute Auto 0.8 X10*3/uL (1.2-4.9); Lymphocytes Percent Auto 7.2 % (20-40); Mean Corpuscular HGB Conc 32.1 g/dl (31.0-35.0); Mean Corpuscular Volume 96.5 fL (80.0-98.0); Mean Platelet Volume 11.1 fL (9.4-12.3); Monocytes Absolute Auto 0.9 X10*3/uL (0.1-1.2); Monocytes Percent Auto 7.5 % (2-11); Neutrophils Absolute Auto 9.7 x10*3/uL (2.0-8.3); Neutrophils Percent Auto 82.9 % (45-73); Platelet Count 189 X10*3/uL (160-400); Red Cell Distribution Width 13.2 % (11.0-16.0); White Blood Count 11.7 X10*3/uL (4.8-10.8)
[2023-06-19 05:32] LABS: Alanine Aminotransferase 7 U/L (0-31); Albumin Level 3.8 g/dL (3.5-5.0); Alkaline Phosphatase 43 U/L (39-117); Anion Gap 15 (12-20); Aspartate Amino Transferase 23 U/L (5-31); Bilirubin Total 0.7 mg/dL (0.0-1.0); Blood Urea Nitrogen 12 mg/dL (9-16); Carbon Dioxide 30 mmol/L (22-29); Chloride 105 mmol/L (96-108); Creatinine Clr Calc Pharmacy 42.1; Estimated Glomerular Filt Rate > 60; Glucose Random 127 mg/dL (60-115); Potassium 3.3 mmol/L (3.3-5.1); Sodium 147 mmol/L (135-145); Total Protein 6.3 g/dL (6.5-8.0)
[2023-06-19] MEDS: Pantoprazole Sodium 40 MG/10 ML VIAL IVPUSH (05:34)
--- NOTE | 2023-06-19 06:54 | HE.PHANOTE ---
RE VANCO LEVEL DUE 06/20 @0600 SG
--- NOTE | 2023-06-19 07:00 | CA_ITS ---
Transthoracic Echocardiogram Patient (Last, First, Middle): Marilyn Gupta P Gender: Female Date of : 1935 Age: 88 Procedure Date: 06/19/2023 Procedure Type: Transthoracic Echocardiogram Location: ICU Height: 149.86 cm Weight: 67.13 kg BSA: 1.62 m2 Heart Rate: 98 bpm BP: 164 / 78 mmHg Database Designer: ADAM Referring MD: Stephie Paz MD Symptoms: Assess Function and Aortic Stenosis Study Quality: Technically Difficult/w Contrast ECG Rhythm: Atrial Fibrillation with RVR Conclusions: - 1. Normal LV ejection fraction of 60-65% 2. Severe aortic stenosis with paradoxical low-flow 3. Calcific mitral stenosis cannot be ruled out 4. RV systolic pressure was not adequately assessed on this study 5. No gross pericardial effusion Findings Procedure Information Contrast agent, definity, is being given per protocol without apparent complications. Left Ventricle Normal left ventricular size, thickness, and systolic function. The visually estimated ejection fraction is between 60-65%. Diastolic function is indeterminate on the basis of available data. Right Ventricle Normal right ventricular cavity size. There is mild to moderately decreased right ventricular systolic function. Atria The left atrium is severely dilated. There is no evidence of interatrial shunt. The right atrium was not well visualized. Aortic Valve There is moderate calcification of the aortic valve. There is severe aortic valve stenosis. The peak aortic gradient is 53 mmHg.The mean gradient is 30 mmHg. The aortic valve area is 0.42 cm2. There is mild aortic valve regurgitation. Mitral Valve There is moderate anterior and severe posterior mitral leaflet thickening. The anterior mitral leaflet has restricted mobility and the posterior mitral leaflet is immobile. There is severe mitral annular calcification. There is trace mitral valve regurgitation. Pulmonic Valve The pulmonic valve was not well visualized. Tricuspid Valve There is mild tricuspid valve regurgitation. The right ventricular systolic pressure is not calculated. Great Vessels All visible segments of the aorta are normal in size. The pulmonary artery was not well visualized. Venous patient on positive pressure ventilation therefore difficult to assess right atrial pressures Pericardium/Pleural There is no evidence of pericardial effusion. Prior Study Comparison Changes noted compared to prior study dated: 04/09/2023. severe aortic stenosis is present. Measurements 2D Linear Measurements IVSd: 1.08 0.6-0.9/0.6-1.0 cm LVIDd: 3.79 3.9-5.3/4.2-5.9 cm LVIDd Index: 2.34 2.4-3.2/2.2-3.1 cm/m2 LVIDs: 2.43 2.0-3.6 cm LVPWd: 1.01 0.7-1.1 cm LA Diam: 3.70 2.7-3.8/3.0-4.0 cm LAIDs Index: 2.28 1.5-2.3 cm/m2 LV Mass: 154.81 67-162/88-224 g LV Mass Index: 95.56 43-95/49-115 g/m2 LVOT Diam: 1.70 3.0+(-)1.3 cm 2D Systolic Function EF 4C: 59.50 >55% EF 2C: 66.50 >55% EF BiP: 60.90 >55% Mitral Valve MV VTI: 0.31 MV Pk Yoni: 1.89 MV Mn Yoni: 1.07 MV Pk Grad: 14.00 MV Mn Grad: 6.00 E'Lateral: 7.51 E'Medial: 4.13 MVA Continuity: 0.84 Aortic Valve AoV Pk Yoni: 3.63 AoV Mn Yoni: 2.60 AoV VTI: 0.62 AoV Pk Grad: 53.00 Aov Mn Grad: 30.00 ERICA Cont.VTI: 0.42 AI Pk Yoni: 4.05 AI Garvin: 4.17 LVOT LVOT Pk Yoni: 0.65 LVOT Mn Yoni: 0.49 LVOT VTI: 0.12 LVOT Pk Grad: 2.00 LVOT Mn Grad: 1.00 LVOT Diam: 1.70 LVOT Area: 2.27 Diastolic Function E'Medial: 4.13 E' Laterial: 7.51 Right Ventricle TAPSE (mm): 11.80 TVS' Yoni: 6.96 Tricuspid Valve TR Pk Yoni: 2.78 TR Pk Grad: 31.00 Great Vessels Aorta Sinus of Valsalva: 3.00 2.0-3.5 cm Ao Asc: 3.40 2.1-3.4 cm Pulmonary Valve PV Pk Yoni: 0.88 Peak PV Grad: 3.00 Updated in Other Vendor System with Status of Final Zackery Em MD electronically signed on 06/19/2023 11:52:07 AM with status of Final
[2023-06-19 07:08] LABS: Magnesium 2.2 mg/dL (1.6-2.6); Phosphorus 3.8 mg/dL (2.7-4.5)
[2023-06-19 07:32] LABS: Glucose, Whole Blood 114 mg/dL (60-115)
--- NOTE | 2023-06-19 07:40 | PM.CCPN ---
Subjective Subjective Date of Service: 06/19/23 Interval History: intermittent hypotension and hypertension, possibly due in part to sedation Critical Care Time (minutes): 90 Physical Exam Vital Signs: Vital Signs: Last Vital Signs Temp 99.5 F 06/19/23 07:00 Pulse 90 06/19/23 07:00 Resp 16 06/19/23 07:00 BP 101/59 L 06/19/23 07:00 Pulse Ox 96 06/19/23 07:00 O2 Del Method Mechanical Ventil ation 06/19/23 07:00 FiO2 25 06/19/23 07:00 Oxygen Flow Rate 2 06/18/23 06:56 BMI result Body Mass Index 30.0 Const: General: comfortable, no acute distress and well developed HEENT: Head: Yes normal to inspection, Yes normocephalic and Yes atraumatic Eyes: General: appearance normal, both eyes and all related structures Pupils: Equal, round and reactive pupils present Neck: Neck: Yes normal visual inspection, Yes full ROM and Yes no meningeal signs Chest: Chest palpation & inspection: normal inspection of the chest Resp: Other: some rhonchi left greater than right; no rales, wheezing Cardio: Rate: regular rate Rhythm: abnormal rhythm GI: Inspection: Yes normal to inspection and No distended Palpation (GI): Soft to palpation, not firm, nontender, no guarding and not rigid Skin: General skin exam: no rashes or lesions noted Neuro: Other: intubated; wakes spontaneously General: no meningeal signs and no focal motor deficits Cranial nerves: Yes Equal, round and reactive pupils present Extrem: Other: trace pitting edema to bilateral shins General: Yes normal to inspection Psych: Other: unable to assess Appearance: grossly normal Objective Data Labs 06/19/23 04:41 06/19/23 04:41 Labs: Laboratory Results - last 24 hr 06/18/23 06/18/23 06/18/23 06:54 07:49 09:13 WBC RBC Hgb Hct MCV MCH MCHC RDW Plt Count MPV Immature Gran % (Auto) Neut % (Auto) Lymph % (Auto) [place] % (Auto) Eos % (Auto) Baso % (Auto) Lymph # (Auto) [place] # (Auto) Eos # (Auto) Baso # (Auto) Abs Immat Gran (auto) Absolute Neuts (auto) Absolute Nucleated RBC Nucleated RBC % (auto) O2 Saturation ABG pH at Pt Temp ABG pCO2 at Pt Temp ABG pO2 at Pt Temp ABG HCO3 ABG Base Excess (Actual) VBG pH VBG pCO2 VBG pO2 VBG HCO3 VBG O2 Saturation VBG Base Excess Sodium Potassium Chloride Carbon Dioxide Anion Gap BUN Creatinine Estim Creat Clear Calc Estimated GFR POC Glucose 190 H Random Glucose Lactic Acid Lactic Acid F/U @ 2Hr Lactic Acid F/U @ 4Hr Calcium Phosphorus Magnesium Total Bilirubin AST ALT Alkaline Phosphatase Ammonia 132 H Troponin I High Sens Total Protein Albumin Lipase TSH 1.77 Urine Color Urine Appearance Urine pH Ur Specific [place] Urine Protein Urine Glucose (UA) Urine Ketones Urine Blood Urine Nitrite Ur Leukocyte Esterase Urine RBC Urine WBC Ur Squamous Epith Cells Urine Bacteria Hyaline Casts Influenza Type A (PCR) NEGATIVE Influenza Type B (PCR) NEGATIVE RSV RNA Qual (PCR) NEGATIVE SARS-CoV-2 RNA (RT-PCR) NEGATIVE Blood Type Antibody Screen 06/18/23 06/18/23 06/18/23 09:23 09:25 09:57 WBC RBC Hgb Hct MCV MCH MCHC RDW Plt Count MPV Immature Gran % (Auto) Neut % (Auto) Lymph % (Auto) [place] % (Auto) Eos % (Auto) Baso % (Auto) Lymph # (Auto) [place] # (Auto) Eos # (Auto) Baso # (Auto) Abs Immat Gran (auto) Absolute Neuts (auto) Absolute Nucleated RBC Nucleated RBC % (auto) O2 Saturation 100.0 ABG pH at Pt Temp 7.56 H ABG pCO2 at Pt Temp 34 ABG pO2 at Pt Temp 141 H ABG HCO3 31 H ABG Base Excess (Actual) 8.9 VBG pH VBG pCO2 VBG pO2 VBG HCO3 VBG O2 Saturation VBG Base Excess Sodium Potassium Chloride Carbon Dioxide Anion Gap BUN Creatinine Estim Creat Clear Calc Estimated GFR POC Glucose Random Glucose Lactic Acid Lactic Acid F/U @ 2Hr 6.1 H* Lactic Acid F/U @ 4Hr Calcium Phosphorus Magnesium Total Bilirubin AST ALT Alkaline Phosphatase Ammonia Troponin I High Sens Total Protein Albumin Lipase TSH Urine Color Yellow Urine Appearance Clear Urine pH 5.5 Ur Specific [place] 1.025 Urine Protein 100 (2+) H Urine Glucose (UA) Negative Urine Ketones Negative Urine Blood Negative Urine Nitrite Negative Ur Leukocyte Esterase Trace H Urine RBC 0-2 Urine WBC 6-10 H Ur Squamous Epith Cells 3-5 Urine Bacteria None Seen Hyaline Casts 3-5 Influenza Type A (PCR) Influenza Type B (PCR) RSV RNA Qual (PCR) SARS-CoV-2 RNA (RT-PCR) Blood Type Antibody Screen 06/18/23 06/18/23 06/18/23 12:25 13:35 13:48 WBC 15.9 H RBC 4.55 Hgb 14.2 Hct 45.2 MCV 99.3 H MCH 31.2 MCHC 31.4 RDW 12.9 Plt Count 200 D MPV 11.0 Immature Gran % (Auto) 0.6 H Neut % (Auto) 87.0 H Lymph % (Auto) 6.2 L [place] % (Auto) 5.7 Eos % (Auto) 0.1 Baso % (Auto) 0.4 Lymph # (Auto) 1.0 L [place] # (Auto) 0.9 Eos # (Auto) 0.0 Baso # (Auto) 0.1 Abs Immat Gran (auto) 0.09 H Absolute Neuts (auto) 13.9 H Absolute Nucleated RBC 0.000 Nucleated RBC % (auto) 0.0 O2 Saturation 99.0 ABG pH at Pt Temp 7.54 H ABG pCO2 at Pt Temp 39 ABG pO2 at Pt Temp 95 ABG HCO3 33 H ABG Base Excess (Actual) 10.6 VBG pH VBG pCO2 VBG pO2 VBG HCO3 VBG O2 Saturation VBG Base Excess Sodium 144 Potassium 3.3 Chloride 100 Carbon Dioxide 31 H Anion Gap 16 BUN 15 Creatinine 0.64 Estim Creat Clear Calc 50.7 Estimated GFR > 60 POC Glucose 155 H Random Glucose 131 H Lactic Acid Lactic Acid F/U @ 2Hr Lactic Acid F/U @ 4Hr 3.9 H* Calcium 9.3 Phosphorus Magnesium Total Bilirubin 0.6 AST 24 ALT 7 Alkaline Phosphatase 59 Ammonia Troponin I High Sens Total Protein 6.6 Albumin 3.3 L Lipase TSH Urine Color Urine Appearance Urine pH Ur Specific [place] Urine Protein Urine Glucose (UA) Urine Ketones Urine Blood Urine Nitrite Ur Leukocyte Esterase Urine RBC Urine WBC Ur Squamous Epith Cells Urine Bacteria Hyaline Casts Influenza Type A (PCR) Influenza Type B (PCR) RSV RNA Qual (PCR) SARS-CoV-2 RNA (RT-PCR) Blood Type O Positive Antibody Screen NEGATIVE 09/27/23 09/27/23 09/27/23 18:00 18:26 20:04 WBC 13.4 H RBC 3.71 L Hgb 11.7 L Hct 36.5 L MCV 98.4 H MCH 31.5 MCHC 32.1 RDW 13.1 Plt Count 182 MPV 10.5 Immature Gran % (Auto) 0.3 Neut % (Auto) 86.4 H Lymph % (Auto) 5.6 L [place] % (Auto) 6.9 Eos % (Auto) 0.2 Baso % (Auto) 0.6 Lymph # (Auto) 0.8 L [place] # (Auto) 0.9 Eos # (Auto) 0.0 Baso # (Auto) 0.1 Abs Immat Gran (auto) 0.04 H Absolute Neuts (auto) 11.6 H Absolute Nucleated RBC 0.000 Nucleated RBC % (auto) 0.0 O2 Saturation ABG pH at Pt Temp ABG pCO2 at Pt Temp ABG pO2 at Pt Temp ABG HCO3 ABG Base Excess (Actual) VBG pH VBG pCO2 VBG pO2 VBG HCO3 VBG O2 Saturation VBG Base Excess Sodium 146 H Potassium 2.8 L Chloride 102 Carbon Dioxide 32 H Anion Gap 15 BUN 13 Creatinine 0.60 Estim Creat Clear Calc 54.1 Estimated GFR > 60 POC Glucose 99 Random Glucose 114 Lactic Acid 1.5 Lactic Acid F/U @ 2Hr Lactic Acid F/U @ 4Hr Calcium 8.6 D Phosphorus 1.5 L Magnesium 1.4 L* Total Bilirubin 0.8 AST 23 ALT 6 Alkaline Phosphatase 41 Ammonia Troponin I High Sens 445.9 H* D Total Protein 6.2 L Albumin 3.9 Lipase 4 L TSH Urine Color Urine Appearance Urine pH Ur Specific [place] Urine Protein Urine Glucose (UA) Urine Ketones Urine Blood Urine Nitrite Ur Leukocyte Esterase Urine RBC Urine WBC Ur Squamous Epith Cells Urine Bacteria Hyaline Casts Influenza Type A (PCR) Influenza Type B (PCR) RSV RNA Qual (PCR) SARS-CoV-2 RNA (RT-PCR) Blood Type Antibody Screen 06/19/23 06/19/23 06/19/23 04:41 04:42 07:29 WBC 11.7 H RBC 4.00 L Hgb 12.4 Hct 38.6 MCV 96.5 MCH 31.0 MCHC 32.1 RDW 13.2 Plt Count 189 MPV 11.1 Immature Gran % (Auto) 0.7 H Neut % (Auto) 82.9 H Lymph % (Auto) 7.2 L [place] % (Auto) 7.5 Eos % (Auto) 0.7 Baso % (Auto) 1.0 Lymph # (Auto) 0.8 L [place] # (Auto) 0.9 Eos # (Auto) 0.1 Baso # (Auto) 0.1 Abs Immat Gran (auto) 0.08 H Absolute Neuts (auto) 9.7 H Absolute Nucleated RBC 0.000 Nucleated RBC % (auto) 0.0 O2 Saturation ABG pH at Pt Temp ABG pCO2 at Pt Temp ABG pO2 at Pt Temp ABG HCO3 ABG Base Excess (Actual) VBG pH 7.52 H VBG pCO2 42 VBG pO2 39 VBG HCO3 34 H VBG O2 Saturation 67.0 VBG Base Excess 11.2 Sodium 147 H Potassium 3.3 Chloride 105 Carbon Dioxide 30 H Anion Gap 15 BUN 12 Creatinine 0.77 Estim Creat Clear Calc 42.1 Estimated GFR > 60 POC Glucose 114 Random Glucose 127 H Lactic Acid Lactic Acid F/U @ 2Hr Lactic Acid F/U @ 4Hr Calcium 9.0 Phosphorus 3.8 Magnesium 2.2 Total Bilirubin 0.7 AST 23 ALT 7 Alkaline Phosphatase 43 Ammonia Troponin I High Sens Total Protein 6.3 L Albumin 3.8 Lipase TSH Urine Color Urine Appearance Urine pH Ur Specific [place] Urine Protein Urine Glucose (UA) Urine Ketones Urine Blood Urine Nitrite Ur Leukocyte Esterase Urine RBC Urine WBC Ur Squamous Epith Cells Urine Bacteria Hyaline Casts Influenza Type A (PCR) Influenza Type B (PCR) RSV RNA Qual (PCR) SARS-CoV-2 RNA (RT-PCR) Blood Type Antibody Screen Progress Note: A&P Assessment and plan (1) Acute on chronic respiratory failure with hypoxia and hypercapnia: Status: Acute (2) Atrial fibrillation, rapid: Status: Acute (3) Seizure: Status: Acute Plan Assessment: 88 Y F, multiple comorbidities including dementia, hypertension, atrial fibrillation, HFpEF, severe , COPD, as well as recent admission for facial cellulitis, presenting with obtundation, as well as status epilepticus, intubated 06/18 N: status epilepticus, given lorazepam, levetiracetam in ED, now intubated, on propofol gtt without any seizure-like activity since ICU admission; EEG with diffuse slowing; seizure likely d/t decreased seizure threshold in setting of infeciton; of note, patient with elevated ammonia without known liver disease nor transaminitis; of note, patient appears to be on home lactulose; will give lactulose, repeat ammonia CV: currently hemodynamically stable; atrial fibrillation without rapid ventricular response; to continue to monitor closely R: intubated d/t obtundation, status epilepticus; currently VC-AC, to wean to PS today as tolerated GI: to place OG tube; resume home medications; consider nutrition in following days : function: baseline creatinine 0.6; currently near baseline; electrolytes: to continue to monitor; volume: avoid hypovolemia in setting of severe H: atrial fibrillation, on warfarin; now on enoxaparin ID: empiric vancomycin, cefepime; follow-up blood cultures, urine cultures; CT abdomen demonstrating non-specific pericholecystic fluid; again, no transaminitis nor elevated lipase; to follow-up RUQ US for any cholecystitis, though low suspicion E: insulin sliding scale Quality Stroke Does the patient have a stroke diagnosis?: No VTE Prior VTE?: No VTE Risk Level:: Medical - moderate - high VTE Device Contraindication: N/A - Device Ordered VTE Drug Contraindication: N/A - Med Ordered
[2023-06-19] MEDS: cefEPime HCl 1 GM in 0.9 % Sodium Chloride 50 ML IV ×2 (07:58→21:14)
[2023-06-19] MEDS: Potassium Chloride Packet 20 MEQ PACKET 40 MEQ PO (07:58)
[2023-06-19] MEDS: vancomycin HCL 1,000 MG in 0.9 % Sodium Chloride 250 ML 270 MG IV (08:24)
[2023-06-19] MEDS: Chlorhexidine Gluc Oral Rinse 15 ML MOUTHWASH BUCCAL ×3 (08:26→21:14)
[2023-06-19] MEDS: Lactulose 20 GM/30 ML SOLUTION PO (08:26)
[2023-06-19 08:36] LABS: VBG Base Excess 7.4 mmol/L; VBG HCO3 27 mmol/L (22-26); VBG pCO2 26 mmHg; VBG pH 7.62 (7.32-7.43); VBG pO2 66 mmHg
[2023-06-19] MEDS: levETIRAcetam 750 MG in 0.9 % Sodium Chloride 100 ML 430 MG IV ×2 (08:58→21:14)
[2023-06-19] MEDS: propofoL 1,000 MG/100 ML VIAL 8.08 MG IVCONT (09:05)
[2023-06-19 10:01] LABS: VBG Base Excess 8.6 mmol/L; VBG HCO3 32 mmol/L (22-26); VBG pCO2 43 mmHg; VBG pH 7.48 (7.32-7.43); VBG pO2 42 mmHg
[2023-06-19 10:11] LABS: Ammonia 15 umol/L (13-55)
[2023-06-19 10:29] LABS: Troponin-I High Sensitivity 403.5 ng/L (<3.5-17.0)
[2023-06-19 10:47] LABS: MRSA Nasal PCR NEGATIVE (Negative); SA Nasal PCR NEGATIVE (Negative)
[2023-06-19] MEDS: Digoxin 0.125 MG TABLET PO (11:08)
[2023-06-19 11:31] LABS: Glucose, Whole Blood 112 mg/dL (60-115)
[2023-06-19] MEDS: methylPREDNISolone Sod Succ 40 MG/ML VIAL 20 MG IVPUSH ×3 (13:28→21:14)
[2023-06-19] MEDS: Furosemide 20 MG/2 ML VIAL 10 MG IVPUSH (13:28)
[2023-06-19 14:22] LABS: Venous Blood Gas Refer to POC result
[2023-06-19 14:37] LABS: Venous Blood Gas Refer to POC result
[2023-06-19 16:53] LABS: Glucose, Whole Blood 126 mg/dL (60-115)
[2023-06-19] MEDS: Warfarin Sodium 2.5 MG TABLET PO (17:31)
[2023-06-19 20:53] LABS: Glucose, Whole Blood 146 mg/dL (60-115)
[2023-06-20] VITALS (28 sets, daily range): BP systolic 95–180; BP diastolic 46–96; PULSE 64–95; RESP 11–28; TEMP 34.7–37.7; O2SAT 92–100; BMI 27.7
[2023-06-20] MEDS: methylPREDNISolone Sod Succ 40 MG/ML VIAL 20 MG IVPUSH (00:30)
[2023-06-20] MEDS: propofoL 1,000 MG/100 ML VIAL 8.08 MG IVCONT (05:11)
[2023-06-20] MEDS: Pantoprazole Sodium 40 MG/10 ML VIAL IVPUSH (05:11)
[2023-06-20 05:36] LABS: VBG Base Excess 11.8 mmol/L; VBG HCO3 35 mmol/L (22-26); VBG pCO2 41 mmHg; VBG pH 7.53 (7.32-7.43); VBG pO2 38 mmHg
[2023-06-20 05:37] LABS: Venous Blood Gas Refer to POC result
[2023-06-20 05:47] LABS: Basophils Percent Auto 0.2 % (0-2); Hematocrit 36.1 % (37.0-47.0); Hemoglobin 11.6 g/dl (12.0-16.0); Imm Gran Abs Auto 0.06 X10*3/uL (0.00-0.03); Imm Gran Pct Auto 0.6 % (0.0-0.4); Lymphocytes Absolute Auto 0.5 X10*3/uL (1.2-4.9); Lymphocytes Percent Auto 5.1 % (20-40); MANUAL DIFF FLAG SCAN; Mean Corpuscular HGB Conc 32.1 g/dl (31.0-35.0); Mean Corpuscular Hemoglobin 31.2 pg (27.0-33.0); Mean Platelet Volume 11.3 fL (9.4-12.3); Monocytes Absolute Auto 0.2 X10*3/uL (0.1-1.2); Monocytes Percent Auto 1.8 % (2-11); Neutrophils Absolute Auto 8.7 x10*3/uL (2.0-8.3); Neutrophils Percent Auto 92.3 % (45-73); Platelet Count 160 X10*3/uL (160-400); Red Blood Count 3.72 X10*6/uL (4.20-5.50); Red Cell Distribution Width 13.6 % (11.0-16.0); SCAN SMEAR FLAG 1; White Blood Count 9.4 X10*3/uL (4.8-10.8)
[2023-06-20 06:05] LABS: Vancomycin Random 11.9 mcg/mL (15-20)
[2023-06-20 06:07] LABS: Alanine Aminotransferase 7 U/L (0-31); Albumin Level 3.5 g/dL (3.5-5.0); Alkaline Phosphatase 43 U/L (39-117); Anion Gap 17 (12-20); Aspartate Amino Transferase 21 U/L (5-31); Bilirubin Total 0.7 mg/dL (0.0-1.0); Blood Urea Nitrogen 11 mg/dL (9-16); Calcium 8.7 mg/dL (8.4-10.2); Carbon Dioxide 27 mmol/L (22-29); Chloride 108 mmol/L (96-108); Creatinine Clr Calc Pharmacy 47.3; Estimated Glomerular Filt Rate > 60; Glucose Random 140 mg/dL (60-115); Sodium 149 mmol/L (135-145); Total Protein 6.1 g/dL (6.5-8.0)
[2023-06-20 06:09] LABS: SLIDE REVIEW VERIFIED
--- NOTE | 2023-06-20 06:29 | HE.PHANOTE ---
RE: VANCO Patients level came this morning at 11.9. Will increase patients dose as patient has sepsis. Will increase to 1250 mg Q24H and get a level after one dose to see how patient is tolerating. Renal function has improved since admission. Next draw is 06/21 @0600. Predicted AUC 456
[2023-06-20 07:38] LABS: Glucose, Whole Blood 105 mg/dL (60-115)
[2023-06-20] MEDS: Potassium Chloride Packet 20 MEQ PACKET 40 MEQ PO (07:56)
[2023-06-20] MEDS: cefEPime HCl 1 GM in 0.9 % Sodium Chloride 50 ML IV ×2 (07:56→20:40)
[2023-06-20] MEDS: levETIRAcetam 750 MG in 0.9 % Sodium Chloride 100 ML 430 MG IV ×2 (07:56→20:52)
[2023-06-20] MEDS: Potassium Chloride/H20 40 MEQ/100 ML PIGGYBACK 50 MEQ IV (07:57)
[2023-06-20] MEDS: Lactulose 20 GM/30 ML SOLUTION 10 GM PO (08:05)
[2023-06-20] MEDS: Chlorhexidine Gluc Oral Rinse 15 ML MOUTHWASH BUCCAL (08:05)
[2023-06-20] MEDS: Metoprolol Tartrate 50 MG TABLET PO ×2 (08:05→20:55)
--- NOTE | 2023-06-20 08:21 | P.PNCC_ITS ---
Subjective Subjective Date of Service: 06/20/23 Interval History: no significant overnight events Critical Care Time (minutes): 90 Physical Exam 2 Vital Signs: Vital Signs: Last Vital Signs Temp 97.7 F 06/20/23 08:00 Pulse 91 06/20/23 08:00 Resp 23 H 06/20/23 08:00 BP 179/77 H 06/20/23 08:00 Pulse Ox 98 06/20/23 08:00 O2 Del Method Mechanical Ventil ation 06/20/23 08:00 FiO2 25 06/20/23 08:00 Oxygen Flow Rate 2 06/18/23 06:56 BMI result Body Mass Index 27.7 Objective Data Labs 06/20/23 05:30 06/20/23 05:30 Labs: Laboratory Results - last 24 hr 06/18/23 06/19/23 06/19/23 21:35 08:31 09:56 WBC RBC Hgb Hct MCV MCH MCHC RDW Plt Count MPV Immature Gran % (Auto) Neut % (Auto) Lymph % (Auto) [place] % (Auto) Eos % (Auto) Baso % (Auto) Lymph # (Auto) [place] # (Auto) Eos # (Auto) Baso # (Auto) Abs Immat Gran (auto) Absolute Neuts (auto) Absolute Nucleated RBC Nucleated RBC % (auto) Smear Tech's Comments VBG pH 7.62 H* 7.48 H VBG pCO2 26 43 VBG pO2 66 42 VBG HCO3 27 H 32 H VBG O2 Saturation 96.0 67.0 VBG Base Excess 7.4 8.6 Sodium Potassium Chloride Carbon Dioxide Anion Gap BUN Creatinine Estim Creat Clear Calc Estimated GFR POC Glucose Random Glucose Calcium Total Bilirubin AST ALT Alkaline Phosphatase Ammonia 15 Troponin I High Sens 403.5 H* Total Protein Albumin Nasal Screen MRSA (PCR) NEGATIVE Nasal S. aureus Screen NEGATIVE Nasal MRSA/S.aureus Interp SEE NOTE Random Vancomycin 06/19/23 06/19/23 06/19/23 11:28 16:50 20:50 WBC RBC Hgb Hct MCV MCH MCHC RDW Plt Count MPV Immature Gran % (Auto) Neut % (Auto) Lymph % (Auto) [place] % (Auto) Eos % (Auto) Baso % (Auto) Lymph # (Auto) [place] # (Auto) Eos # (Auto) Baso # (Auto) Abs Immat Gran (auto) Absolute Neuts (auto) Absolute Nucleated RBC Nucleated RBC % (auto) Smear Tech's Comments VBG pH VBG pCO2 VBG pO2 VBG HCO3 VBG O2 Saturation VBG Base Excess Sodium Potassium Chloride Carbon Dioxide Anion Gap BUN Creatinine Estim Creat Clear Calc Estimated GFR POC Glucose 112 126 H 146 H Random Glucose Calcium Total Bilirubin AST ALT Alkaline Phosphatase Ammonia Troponin I High Sens Total Protein Albumin Nasal Screen MRSA (PCR) Nasal S. aureus Screen Nasal MRSA/S.aureus Interp Random Vancomycin 06/20/23 06/20/23 06/20/23 05:30 05:31 07:34 WBC 9.4 RBC 3.72 L Hgb 11.6 L Hct 36.1 L MCV 97.0 MCH 31.2 MCHC 32.1 RDW 13.6 Plt Count 160 MPV 11.3 Immature Gran % (Auto) 0.6 H Neut % (Auto) 92.3 H Lymph % (Auto) 5.1 L [place] % (Auto) 1.8 L Eos % (Auto) 0.0 Baso % (Auto) 0.2 Lymph # (Auto) 0.5 L [place] # (Auto) 0.2 Eos # (Auto) 0.0 Baso # (Auto) 0.0 Abs Immat Gran (auto) 0.06 H Absolute Neuts (auto) 8.7 H Absolute Nucleated RBC 0.000 Nucleated RBC % (auto) 0.0 Smear Tech's Comments VERIFIED VBG pH 7.53 H VBG pCO2 41 VBG pO2 38 VBG HCO3 35 H VBG O2 Saturation 64.0 VBG Base Excess 11.8 Sodium 149 H Potassium 3.0 L Chloride 108 Carbon Dioxide 27 Anion Gap 17 BUN 11 Creatinine 0.66 Estim Creat Clear Calc 47.3 Estimated GFR > 60 POC Glucose 105 Random Glucose 140 H Calcium 8.7 Total Bilirubin 0.7 AST 21 ALT 7 Alkaline Phosphatase 43 Ammonia Troponin I High Sens Total Protein 6.1 L Albumin 3.5 Nasal Screen MRSA (PCR) Nasal S. aureus Screen Nasal MRSA/S.aureus Interp Random Vancomycin 11.9 L Microbiology Microbiology Results: Microbiology 06/18/23 Unknown Urine clean catch - Urine miller top Urine Culture - Final No growth. 06/18/23 06:55 Blood - Venous Blood Culture - Preliminary No growth after 24 hours. 06/18/23 06:55 Blood - Venous Blood Culture - Preliminary No growth after 24 hours. Progress Note: A&P Assessment and plan (1) Acute on chronic respiratory failure with hypoxia and hypercapnia: Status: Acute (2) Atrial fibrillation, rapid: Status: Acute (3) Seizure: Status: Acute (4) Pneumonia: Status: Acute Plan Assessment: 88 Y F, multiple comorbidities including dementia, hypertension, atrial fibrillation, HFpEF, severe , COPD, as well as recent admission for facial cellulitis, presenting with obtundation, as well as status epilepticus, intubated 06/18 N: status epilepticus, given lorazepam, levetiracetam in ED, now intubated; no seizure-like activity since ICU admission; EEG with diffuse slowing; seizure likely d/t decreased seizure threshold in setting of infection; of note, patient with elevated ammonia without known liver disease nor transaminitis; of note, patient appears to be on home lactulose; ammonia now within normal limits CV: currently hemodynamically stable; atrial fibrillation without rapid ventricular response; to continue to monitor closely R: intubated d/t obtundation, status epilepticus; extubated 06/20 AM; COPD on 2 L NC GI: OG tube diffucult to place, remains in place following extubation; to perform bedside swallow evaluation : function: baseline creatinine 0.6; currently near baseline; electrolytes: to continue to monitor; volume: avoid hypovolemia in setting of severe H: atrial fibrillation, on warfarin ID: empiric vancomycin, cefepime for 5 day course; follow-up blood cultures, urine cultures E: insulin sliding scale Quality Stroke Does the patient have a stroke diagnosis?: No VTE Prior VTE?: No VTE Risk Level:: Medical - moderate - high VTE Device Contraindication: N/A - Device Ordered VTE Drug Contraindication: N/A - Med Ordered
[2023-06-20 09:40] LABS: INTERNATIONAL NORM RATIO 1.2 (0.9-1.1); Prothrombin Time 14.6 SEC (11.1-13.3)
[2023-06-20] MEDS: vancomycin HCL 1,250 MG in 0.9 % Sodium Chloride 250 ML 166.67 MG IV (09:57)
[2023-06-20] MEDS: Acetaminophen 1,000 MG/100 ML PIGGYBACK 400 MG IV (10:08)
--- NOTE | 2023-06-20 10:22 | MHC.CLN ---
F/U PT EXTUBATED THIS MORNING PT REMAINS NPO DISCUSSED AT ROUNDS WITH MD KRISTIAN DANIELS PENDING TO ADVANCE DIET IF DIET TO ADVANCE, RECOMMEND 2GM NA DIET R/T HX CHF, AFIB, HTN FOLLOWING WITH TEAM
[2023-06-20 12:07] LABS: Glucose, Whole Blood 109 mg/dL (60-115)
--- NOTE | 2023-06-20 12:59 | MHC.SLORD ---
Speech Language Pathology Order Status: Received order for bedside dysphagia eval. Pt was extubated this morning. Discussed w/ RT in unit. BDE deferred until 24-48 hours post-extubation. CANDY CUTTER HAND is available for call-in before 11am on Sat and Sun through [employer] if needed. Notified attending.
--- NOTE | 2023-06-20 13:47 | MHC.CM.PN ---
PT REMAINS IN ICU, SUCCESSFULLY EXTUBATED THIS AM. CM WILL CONTINUE TO FOLLOW FOR DC NEEDS/PLAN.
[2023-06-20 18:10] LABS: Glucose, Whole Blood 125 mg/dL (60-115)
[2023-06-20] MEDS: Warfarin Sodium 2.5 MG TABLET PO (18:10)
[2023-06-20 20:55] LABS: Glucose, Whole Blood 123 mg/dL (60-115)
[2023-06-21] VITALS (17 sets, daily range): BP systolic 110–169; BP diastolic 56–82; PULSE 71–104; RESP 20–29; TEMP 36–37.3; O2SAT 91–98; BMI 28.9
[2023-06-21] MEDS: hydrALAZINE HCl 20 MG/ML VIAL 10 MG IVPUSH (03:38)
[2023-06-21] MEDS: Lactated Ringers 250 ML 50 ML IV (03:41)
[2023-06-21 05:08] LABS: MANUAL DIFF FLAG NO
[2023-06-21 05:09] LABS: Basophils Percent Auto 0.1 % (0-2); Eosinophils Percent Auto 0.1 % (0-4); Hematocrit 38.4 % (37.0-47.0); Imm Gran Abs Auto 0.16 X10*3/uL (0.00-0.03); Imm Gran Pct Auto 1.2 % (0.0-0.4); Lymphocytes Absolute Auto 0.9 X10*3/uL (1.2-4.9); Lymphocytes Percent Auto 6.7 % (20-40); Mean Corpuscular HGB Conc 31.3 g/dl (31.0-35.0); Mean Corpuscular Hemoglobin 30.8 pg (27.0-33.0); Mean Corpuscular Volume 98.7 fL (80.0-98.0); Monocytes Absolute Auto 0.8 X10*3/uL (0.1-1.2); Monocytes Percent Auto 5.6 % (2-11); Neutrophils Absolute Auto 11.9 x10*3/uL (2.0-8.3); Neutrophils Percent Auto 86.3 % (45-73); Platelet Count 208 X10*3/uL (160-400); Red Blood Count 3.89 X10*6/uL (4.20-5.50); Red Cell Distribution Width 13.9 % (11.0-16.0); White Blood Count 13.8 X10*3/uL (4.8-10.8)
[2023-06-21 05:15] LABS: VBG Base Excess 5.2 mmol/L; VBG HCO3 30 mmol/L (22-26); VBG pCO2 46 mmHg; VBG pH 7.42 (7.32-7.43); VBG pO2 43 mmHg
[2023-06-21 05:16] LABS: INTERNATIONAL NORM RATIO 1.3 (0.9-1.1); Prothrombin Time 15.2 SEC (11.1-13.3)
[2023-06-21 05:18] LABS: Venous Blood Gas Refer to POC result
[2023-06-21 05:29] LABS: Alanine Aminotransferase 9 U/L (0-31); Albumin Level 3.6 g/dL (3.5-5.0); Alkaline Phosphatase 43 U/L (39-117); Anion Gap 16 (12-20); Aspartate Amino Transferase 23 U/L (5-31); Bilirubin Total 0.8 mg/dL (0.0-1.0); Blood Urea Nitrogen 15 mg/dL (9-16); Calcium 8.9 mg/dL (8.4-10.2); Carbon Dioxide 26 mmol/L (22-29); Chloride 111 mmol/L (96-108); Creatinine Clr Calc Pharmacy 48.7; Estimated Glomerular Filt Rate > 60; Glucose Random 125 mg/dL (60-115); Potassium 3.8 mmol/L (3.3-5.1); Sodium 149 mmol/L (135-145); Total Protein 6.2 g/dL (6.5-8.0)
[2023-06-21 06:13] LABS: Vancomycin Random 16.4 mcg/mL (15-20)
[2023-06-21] MEDS: Potassium Chloride Packet 20 MEQ PACKET 40 MEQ PO (06:34)
[2023-06-21] MEDS: Pantoprazole Sodium 40 MG/10 ML VIAL IVPUSH (06:35)
[2023-06-21] MEDS: cefEPime HCl 1 GM in 0.9 % Sodium Chloride 50 ML IV ×2 (07:46→20:27)
[2023-06-21] MEDS: Metoprolol Tartrate 50 MG TABLET PO (07:46)
[2023-06-21] MEDS: vancomycin HCL 1,250 MG in 0.9 % Sodium Chloride 250 ML 166.67 MG IV (07:52)
--- NOTE | 2023-06-21 08:14 | P.PNCC_ITS ---
Subjective Subjective Date of Service: 06/21/23 Interval History: no significant overnight events Critical Care Time (minutes): 60 Physical Exam 2 Vital Signs: Vital Signs: Last Vital Signs Temp 98.6 F 06/21/23 07:00 Pulse 81 06/21/23 07:00 Resp 25 H 06/21/23 07:00 BP 138/56 L 06/21/23 07:00 Pulse Ox 96 06/21/23 07:00 O2 Del Method Nasal Cannula 06/21/23 07:00 O2 Flow Rate 1 06/21/23 07:00 FiO2 25 06/20/23 08:00 Oxygen Flow Rate 2 06/18/23 06:56 BMI result Body Mass Index 28.9 Objective Data Labs 06/21/23 04:57 06/21/23 04:57 Labs: Laboratory Results - last 24 hr 06/20/23 06/20/23 06/20/23 09:24 12:03 18:06 WBC RBC Hgb Hct MCV MCH MCHC RDW Plt Count MPV Immature Gran % (Auto) Neut % (Auto) Lymph % (Auto) [place] % (Auto) Eos % (Auto) Baso % (Auto) Lymph # (Auto) [place] # (Auto) Eos # (Auto) Baso # (Auto) Abs Immat Gran (auto) Absolute Neuts (auto) Absolute Nucleated RBC Nucleated RBC % (auto) PT 14.6 H D INR 1.2 H VBG pH VBG pCO2 VBG pO2 VBG HCO3 VBG O2 Saturation VBG Base Excess Sodium Potassium Chloride Carbon Dioxide Anion Gap BUN Creatinine Estim Creat Clear Calc Estimated GFR POC Glucose 109 125 H Random Glucose Calcium Total Bilirubin AST ALT Alkaline Phosphatase Total Protein Albumin Random Vancomycin 06/20/23 06/21/23 06/21/23 20:51 04:57 05:10 WBC 13.8 H RBC 3.89 L Hgb 12.0 Hct 38.4 MCV 98.7 H MCH 30.8 MCHC 31.3 RDW 13.9 Plt Count 208 D MPV 11.0 Immature Gran % (Auto) 1.2 H Neut % (Auto) 86.3 H Lymph % (Auto) 6.7 L [place] % (Auto) 5.6 Eos % (Auto) 0.1 Baso % (Auto) 0.1 Lymph # (Auto) 0.9 L [place] # (Auto) 0.8 Eos # (Auto) 0.0 Baso # (Auto) 0.0 Abs Immat Gran (auto) 0.16 H Absolute Neuts (auto) 11.9 H Absolute Nucleated RBC 0.000 Nucleated RBC % (auto) 0.0 PT 15.2 H INR 1.3 H VBG pH 7.42 VBG pCO2 46 VBG pO2 43 VBG HCO3 30 H VBG O2 Saturation 70.0 VBG Base Excess 5.2 Sodium 149 H Potassium 3.8 D Chloride 111 H Carbon Dioxide 26 Anion Gap 16 BUN 15 Creatinine 0.64 Estim Creat Clear Calc 48.7 Estimated GFR > 60 POC Glucose 123 H Random Glucose 125 H Calcium 8.9 Total Bilirubin 0.8 AST 23 ALT 9 Alkaline Phosphatase 43 Total Protein 6.2 L Albumin 3.6 Random Vancomycin 06/21/23 05:52 WBC RBC Hgb Hct MCV MCH MCHC RDW Plt Count MPV Immature Gran % (Auto) Neut % (Auto) Lymph % (Auto) [place] % (Auto) Eos % (Auto) Baso % (Auto) Lymph # (Auto) [place] # (Auto) Eos # (Auto) Baso # (Auto) Abs Immat Gran (auto) Absolute Neuts (auto) Absolute Nucleated RBC Nucleated RBC % (auto) PT INR VBG pH VBG pCO2 VBG pO2 VBG HCO3 VBG O2 Saturation VBG Base Excess Sodium Potassium Chloride Carbon Dioxide Anion Gap BUN Creatinine Estim Creat Clear Calc Estimated GFR POC Glucose Random Glucose Calcium Total Bilirubin AST ALT Alkaline Phosphatase Total Protein Albumin Random Vancomycin 16.4 Microbiology Microbiology Results: Microbiology 06/18/23 06:55 Blood - Venous Blood Culture - Preliminary No growth after 48 hours. 06/18/23 06:55 Blood - Venous Blood Culture - Preliminary No growth after 48 hours. 06/18/23 Unknown Urine clean catch - Urine miller top Urine Culture - Final No growth. Progress Note: A&P Assessment and plan (1) Pneumonia: Status: Acute (2) Seizure: Status: Acute Plan Assessment: 88 Y F, multiple comorbidities including dementia, hypertension, atrial fibrillation, HFpEF, severe , COPD, as well as recent admission for facial cellulitis, presenting with obtundation, as well as status epilepticus, intubated 06/18 N: status epilepticus, given lorazepam, levetiracetam in ED, now intubated; no seizure-like activity since ICU admission; EEG with diffuse slowing; seizure likely d/t decreased seizure threshold in setting of infection; of note, patient with elevated ammonia without known liver disease nor transaminitis, given lactulose, now within normal limits CV: currently hemodynamically stable; atrial fibrillation without rapid ventricular response; to continue to monitor closely R: intubated d/t obtundation, status epilepticus; extubated 06/20 AM; COPD on 2 L NC at baseline GI: OG tube diffucult to place, remains in place following extubation; to perform bedside swallow evaluation today, possibly advance diet : function: baseline creatinine 0.6; currently near baseline; electrolytes: to continue to monitor; volume: avoid hypovolemia in setting of severe H: atrial fibrillation, on warfarin ID: empiric vancomycin, cefepime for 5 day course; follow-up blood cultures, urine cultures E: insulin sliding scale Quality Stroke Does the patient have a stroke diagnosis?: No VTE Prior VTE?: No VTE Risk Level:: Medical - moderate - high VTE Device Contraindication: N/A - Device Ordered VTE Drug Contraindication: N/A - Med Ordered
[2023-06-21] MEDS: levETIRAcetam 750 MG in 0.9 % Sodium Chloride 100 ML 430 MG IV ×2 (10:21→21:08)
[2023-06-21] MEDS: Digoxin 0.125 MG TABLET PO (10:21)
[2023-06-21] MEDS: Furosemide 20 MG TABLET PO (10:21)
--- NOTE | 2023-06-21 11:06 | PM.EVENT ---
Event Note Date of Service: 06/21/23 Event Note: Discussed case with Dr. Paz, plan for transfer to medical tele floor New onset seizures. s/p status epilepticus started on Keppra EEG showed mild slowing neuro consult pending NGT removed hypernatremia secondary to poor po intake Time Spent With Patient Time: Total time managing care of this patient today ____ minutes.
--- NOTE | 2023-06-21 12:52 | MHC.SL.SWA ---
Speech Pathologist Impression: Risk of Aspiration Due to: Medically Fragile History of Pneumonia Hx of Recent Extubation Reduced Cognition Dysphasia Diet Status: Liquid Consistency and Strategies for Safe Swallow: Liquid Intake Recommendation: Thin Liquid Intake Strategies: Small Sips No Straws Solid Food Consistency: Dietary Recommendations: Grnd/Mech Altered (NDD2) Additional Modifications to Solid Foods: Patient will initially require a one to one feeding, can self feed if given hand over hand assistance which is encouraged. Patient will require a slower rate of eating with frequent rest breaks during meal to rebound. O2 Sats should be monitored during meal, with breaks if dipping/persisting below 90. Discontinue if 02 sats do not rebound, or patient evidences aspirations signs (coughing, vocal wetness, increased upper respiratory noise. Add sauces/gravies and blend well. Oral Medication Intake: Crushed with Puree Please contact the pharmacy regarding appropriate crushable or liquid drug formulations that are available whenever modified delivery is recommended. Compensatory Strategies and Precautions to be Taken for Safe Swallow: Sitting Upright (90 deg) No Straw Liquids from Cup Small Bites and Sips Alternate Liquids/Solids Rate of Ingestion Change Supervision While Eating and Drinking for Safe Swallow: Total Assistance (1:1) Foods to Avoid: Mixed consistencies, difficult to chew solids Swallowing Recommended Treatments: Compens. Strategy Educat. Recommendation for Speech: Inpatient Speech Therapy Comment: Patient presents with risk for aspiration due to vulnerable respiratory system, Confusion, recent extubation. Patient with oral phase dysphagia secondary to edentulous state, however all other aspects WFL. Patient however currently with upper extremity weakness, fatigues very quickly with drop of 02 sats when eating, which rebound when given periods of rest. Recommend Start diet of Ground Mechanical/Altered (NDD2) with THIN liquids, pills crushed in puree. Recommend 1-1 feeding to start, with close monitoring of 02 during meals, frequent rest breaks, strict aspiration precautions. DO not attempt if patient is fatigued, discontinue if aspiration signs of coughing, throat clearing, increased upper respiratory noise, 02 sats not rebounding. , MELVINA notified of recommendations by secure text, USER INTERFACE ARTIST in person. CHIEF MECHANICAL ENGINEER will continue to follow while inpatient. Frequency/Duration: M-F while inpatient. Date Range for Service Req: Timeline to reassess: Automobile Body Repairer Clinican/Clinical Fellow: No Supervisory Statement: I have reviewed and agree with the student/clinical fellow's documentation: N/A Speech Language Pathologist: Rebeca Ross M.A., [facility]-CHIEF MECHANICAL ENGINEER
[2023-06-21 13:20] LABS: Glucose, Whole Blood 126 mg/dL (60-115)
--- NOTE | 2023-06-21 13:56 | PC.NURSE ---
Assumed care of patient 07:00 Pt A+Ox3, forgetful, confused to situation Plan to downgrade patient to [place] and remove medical lines as appropriate. Pt removed own NG tube 11:15. Pt assessed, mouth care provided. Jarquin removed 13:00. Pt has had adequate urine output >30 ml/hr. Purewick in place. Rectal tube removed 13:00. Lactulose order changed to Q2days. Peripheral IV placed 20 left forearm. TLC right IJ removed 13:30. Awaiting bed placement on [place]
[2023-06-21 16:33] LABS: Glucose, Whole Blood 103 mg/dL (60-115)
[2023-06-21] MEDS: Warfarin Sodium 2.5 MG TABLET PO (18:07)
[2023-06-21 19:13] LABS: Glucose, Whole Blood 139 mg/dL (60-115)
--- NOTE | 2023-06-21 19:18 | PC.NURSE ---
Jarquin d/c in ICU at 1300 - patient voided, incontinent, external catheter in place
[2023-06-22] VITALS (7 sets, daily range): BP systolic 123–168; BP diastolic 60–81; PULSE 82–107; RESP 16–20; TEMP 36.1–37.3; O2SAT 92–98
[2023-06-22] MEDS: Pantoprazole Sodium 40 MG/10 ML VIAL IVPUSH (05:47)
[2023-06-22 06:13] LABS: MANUAL DIFF FLAG NO
[2023-06-22 06:24] LABS: INTERNATIONAL NORM RATIO 1.2 (0.9-1.1)
[2023-06-22 06:27] LABS: Basophils Percent Auto 0.4 % (0-2); Eosinophils Absolute Auto 0.1 X10*3/uL (0.0-0.4); Eosinophils Percent Auto 1.1 % (0-4); Hematocrit 39.2 % (37.0-47.0); Hemoglobin 12.6 g/dl (12.0-16.0); Imm Gran Abs Auto 0.16 X10*3/uL (0.00-0.03); Imm Gran Pct Auto 1.4 % (0.0-0.4); Lymphocytes Absolute Auto 1.1 X10*3/uL (1.2-4.9); Mean Corpuscular HGB Conc 32.1 g/dl (31.0-35.0); Mean Corpuscular Hemoglobin 31.3 pg (27.0-33.0); Mean Corpuscular Volume 97.3 fL (80.0-98.0); Mean Platelet Volume 11.6 fL (9.4-12.3); Monocytes Absolute Auto 0.8 X10*3/uL (0.1-1.2); Monocytes Percent Auto 6.6 % (2-11); NRBC Pct Auto 0.2 /100WBC (0.0-0.2); Neutrophils Absolute Auto 9.1 x10*3/uL (2.0-8.3); Neutrophils Percent Auto 80.5 % (45-73); Platelet Count 210 X10*3/uL (160-400); Red Blood Count 4.03 X10*6/uL (4.20-5.50); Red Cell Distribution Width 13.5 % (11.0-16.0); White Blood Count 11.3 X10*3/uL (4.8-10.8)
[2023-06-22 06:33] LABS: Alanine Aminotransferase 13 U/L (0-31); Albumin Level 3.5 g/dL (3.5-5.0); Alkaline Phosphatase 45 U/L (39-117); Anion Gap 15 (12-20); Aspartate Amino Transferase 25 U/L (5-31); Bilirubin Total 0.8 mg/dL (0.0-1.0); Blood Urea Nitrogen 15 mg/dL (9-16); Carbon Dioxide 24 mmol/L (22-29); Chloride 108 mmol/L (96-108); Creatinine Clr Calc Pharmacy 51.3; Estimated Glomerular Filt Rate > 60; Glucose Random 90 mg/dL (60-115); Potassium 3.7 mmol/L (3.3-5.1); Sodium 143 mmol/L (135-145); Total Protein 6.2 g/dL (6.5-8.0)
[2023-06-22 06:36] LABS: B Type Natriuretic Peptide 817 pg/mL (<100)
--- NOTE | 2023-06-22 07:16 | HE.PHANOTE ---
STORMY THOMAS CONTINUE CURRENT DOSE, NEXT LEVEL DUE 06/23 @0600 SG
[2023-06-22 07:37] LABS: Glucose, Whole Blood 85 mg/dL (60-115)
[2023-06-22] MEDS: cefEPime HCl 1 GM in 0.9 % Sodium Chloride 50 ML IV ×2 (08:34→19:45)
[2023-06-22] MEDS: levETIRAcetam 750 MG in 0.9 % Sodium Chloride 100 ML 430 MG IV ×2 (08:34→20:13)
[2023-06-22] MEDS: vancomycin HCL 1,250 MG in 0.9 % Sodium Chloride 250 ML 166.67 MG IV (08:34)
[2023-06-22] MEDS: DULoxetine HCl 20 MG CAPSULE.DR PO (08:35)
[2023-06-22] MEDS: Furosemide 20 MG TABLET PO (08:35)
[2023-06-22] MEDS: Lactulose 20 GM/30 ML SOLUTION 10 GM PO (09:00)
--- NOTE | 2023-06-22 09:02 | P.PNIM_ITS ---
Subjective Subjective Date of Service: 06/22/23 Review of Systems Follow up new onset seizure feeling confused Physical Exam 2 Vital Signs: Vital Signs: Last Vital Signs Temp 97.1 F 06/22/23 07:46 Pulse 87 06/22/23 07:46 Resp 18 06/22/23 07:46 BP 162/71 H 06/22/23 07:46 Pulse Ox 96 06/22/23 07:46 O2 Del Method Nasal Cannula 06/22/23 07:46 O2 Flow Rate 1 06/22/23 07:46 FiO2 25 06/20/23 08:00 Oxygen Flow Rate 2 06/18/23 06:56 BMI result Body Mass Index 28.9 Appearing in no acute distress lung sounds are clear to auscultation heart regular rate rhythm, clear S1, S2 positive bowel sounds, abdomen is soft, nontender alert to person only Objective Data Active Medications Digoxin (Digoxin 0.125 Mg Tablet) 0.125 mg PO Q2D [facility] Last Admin: 06/21/23 10:21 Dose: 0.125 mg Documented By: GRECIA Duloxetine HCl (Duloxetine Hcl 20 Mg Capsule.Dr) 20 mg PO DAILY [facility] Last Admin: 06/22/23 08:35 Dose: 20 mg Documented By: IVON Furosemide (Furosemide 20 Mg Tablet) 20 mg PO DAILY [facility]; Protocol Last Admin: 06/22/23 08:35 Dose: 20 mg Documented By: IVON Cefepime HCl 1 gm/ Sodium (Chloride) 50 mls @ 100 mls/hr IV Q12H [facility] Stop: 06/23/23 23:59 Last Infusion: 06/22/23 08:44 Dose: 0 mls/hr Documented By: IVON Levetiracetam 750 mg/ Sodium (Chloride) 107.5 mls @ 430 mls/hr IV Q12H [facility] Last Infusion: 06/22/23 08:55 Dose: Infused Documented By: IVON Vancomycin HCl 1,250 mg/ (Sodium Chloride) 250 mls @ 166.667 mls/hr IV Q24H [facility] Stop: 06/23/23 23:59 Last Infusion: 06/22/23 08:44 Dose: 0 mls/hr Documented By: IVON Acetaminophen (Ofirmev) 1,000 mg in 100 mls @ 400 mls/hr IV Q6H PRN PRN Reason: Pain, Moderate(Pain Scale 4-6) Last Infusion: 06/20/23 10:28 Dose: Infused Documented By: MELANIA Insulin Human Lispro (Insulin Lispro 100 Unit/Ml 3 Ml Vial) 0 unit SUBCUT QIDACHS [facility]; Protocol Last Admin: 06/22/23 07:44 Dose: Not Given Documented By: IVON Non-Admin Reason: No Insulin Coverage Lactulose (Lactulose 20 Gm/30 Ml Solution) 10 gm PO Q2D [facility] Last Admin: 06/20/23 09:58 Dose: Not Given Documented By: MELANIA Non-Admin Reason: already given Pharmacy Consult (Consult Rx Vancomycin Dosing) 1 each MISCELLANE DAILY PRN PRN Reason: Consult order Warfarin Sodium (Warfarin Sodium 5 Mg Tablet) 5 mg PO DAILY@1800 [facility] Labs 06/22/23 05:45 06/22/23 05:45 Labs: Laboratory Results - last 24 hr 06/21/23 06/21/23 06/21/23 13:16 16:30 19:09 MCV MCH MCHC RDW Plt Count MPV Immature Gran % (Auto) Neut % (Auto) Lymph % (Auto) [place] % (Auto) Eos % (Auto) Baso % (Auto) Lymph # (Auto) [place] # (Auto) Eos # (Auto) Baso # (Auto) Abs Immat Gran (auto) Absolute Neuts (auto) Absolute Nucleated RBC Nucleated RBC % (auto) PT INR Anion Gap Estim Creat Clear Calc Estimated GFR POC Glucose 126 H 103 139 H Random Glucose Calcium Total Bilirubin AST ALT Alkaline Phosphatase B-Natriuretic Peptide Total Protein Albumin 06/22/23 06/22/23 05:45 07:34 MCV 97.3 MCH 31.3 MCHC 32.1 RDW 13.5 Plt Count 210 MPV 11.6 Immature Gran % (Auto) 1.4 H Neut % (Auto) 80.5 H Lymph % (Auto) 10.0 L [place] % (Auto) 6.6 Eos % (Auto) 1.1 Baso % (Auto) 0.4 Lymph # (Auto) 1.1 L [place] # (Auto) 0.8 Eos # (Auto) 0.1 Baso # (Auto) 0.0 Abs Immat Gran (auto) 0.16 H Absolute Neuts (auto) 9.1 H Absolute Nucleated RBC 0.020 H Nucleated RBC % (auto) 0.2 PT 15.0 H INR 1.2 H Anion Gap 15 Estim Creat Clear Calc 51.3 Estimated GFR > 60 POC Glucose 85 Random Glucose 90 Calcium 9.0 Total Bilirubin 0.8 AST 25 ALT 13 Alkaline Phosphatase 45 B-Natriuretic Peptide 817 H Total Protein 6.2 L Albumin 3.5 Assessment and Plan (1) Pneumonia: Status: Acute Plan 88 year old women admitted to the ICU for encephalopathy and obtundation due to new onset seizure, status epilepticus. She was intubated to protect her airway 06/18/23. She had a witnessed tonic clonic seizure in the ED. She was treated with ativan and keppra. She had NBT placed for initiation of lactulose for ammonia of 130 with no hx of liver disease. she was successfully extubated on 06/20/2023. Treated with empiric vancomycin and Cefepime but blood cultures and urine culture negative. patient had some episodes of encephalopathy but more awake and conversive. Transferred to [facility] 06/21/2023. New onset seizures. s/p status epilepticus Keep on Keppra for now EEG showed mild slowing neuro consult pending swallowing fine seizure precautions Hypernatremia. Resolved secondary to poor po intake Chronic hypoxemic respiratory failure due to COPD. remains on baseline oxygen. No exacerbation during admission. Chronic persistent AFib. Continue digoxin and metoprolol. continue warfarin follow INR daily Subtherapeutic INR. 1.2 increased warfarin to 5mg daily follow INR daily Mood disorder. Continue home mood stabilizers, duloxetine and mirtazapine Unspecified dementia. Maintain sleep-wake cycle DVT prophylaxis with Heparin Attending Dr. Riley Full code acute hospital stay for treatment of acute onset seizure requiring specialist consultation and IV seizure medication Time Spent With Patient Time: Total time managing care of this patient today ____ minutes. Quality Stroke Does the patient have a stroke diagnosis?: No VTE Prior VTE?: No VTE Risk Level:: Medical - moderate - high VTE Device Contraindication: N/A - Device Ordered VTE Drug Contraindication: N/A - Med Ordered
[2023-06-22 11:27] LABS: Glucose, Whole Blood 72 mg/dL (60-115)
[2023-06-22 15:27] LABS: Glucose, Whole Blood 115 mg/dL (60-115)
[2023-06-22] MEDS: Warfarin Sodium 5 MG TABLET PO (17:45)
[2023-06-22 19:43] LABS: Glucose, Whole Blood 126 mg/dL (60-115)
[2023-06-22] MEDS: Metoprolol Tartrate 50 MG TABLET PO (20:14)
[2023-06-23 03:15] VITALS: BP 90/52; PULSE 74; RESP 16; TEMP 36.8; O2SAT 89
[2023-06-23 07:17] LABS: MANUAL DIFF FLAG NO
[2023-06-23 07:21] LABS: Basophils Absolute Auto 0.1 X10*3/uL (0.0-0.2); Basophils Percent Auto 0.6 % (0-2); Eosinophils Absolute Auto 0.6 X10*3/uL (0.0-0.4); Eosinophils Percent Auto 5.3 % (0-4); Hematocrit 37.8 % (37.0-47.0); Hemoglobin 12.2 g/dl (12.0-16.0); Imm Gran Abs Auto 0.12 X10*3/uL (0.00-0.03); Imm Gran Pct Auto 1.1 % (0.0-0.4); Lymphocytes Absolute Auto 1.2 X10*3/uL (1.2-4.9); Lymphocytes Percent Auto 11.3 % (20-40); Mean Corpuscular HGB Conc 32.3 g/dl (31.0-35.0); Mean Corpuscular Hemoglobin 31.4 pg (27.0-33.0); Mean Corpuscular Volume 97.4 fL (80.0-98.0); Mean Platelet Volume 11.4 fL (9.4-12.3); Monocytes Absolute Auto 0.7 X10*3/uL (0.1-1.2); Monocytes Percent Auto 6.5 % (2-11); NRBC Pct Auto 0.2 /100WBC (0.0-0.2); Neutrophils Absolute Auto 8.2 x10*3/uL (2.0-8.3); Neutrophils Percent Auto 75.2 % (45-73); Platelet Count 234 X10*3/uL (160-400); Red Blood Count 3.88 X10*6/uL (4.20-5.50); Red Cell Distribution Width 13.5 % (11.0-16.0); White Blood Count 10.9 X10*3/uL (4.8-10.8)
[2023-06-23 07:23] VITALS: BP 114/57; PULSE 79; RESP 20; TEMP 36.7; O2SAT 93
[2023-06-23 07:28] LABS: INTERNATIONAL NORM RATIO 1.4 (0.9-1.1); Prothrombin Time 17.4 SEC (11.1-13.3)
[2023-06-23 07:35] LABS: Vancomycin Random 20.8 mcg/mL (15-20)
[2023-06-23 07:38] LABS: Anion Gap 15 (12-20); Blood Urea Nitrogen 14 mg/dL (9-16); Calcium 8.8 mg/dL (8.4-10.2); Carbon Dioxide 26 mmol/L (22-29); Chloride 106 mmol/L (96-108); Creatinine Clr Calc Pharmacy 44.9; Estimated Glomerular Filt Rate > 60; Glucose Random 91 mg/dL (60-115); Potassium 3.1 mmol/L (3.3-5.1); Sodium 144 mmol/L (135-145)
[2023-06-23 07:40] LABS: Glucose, Whole Blood 113 mg/dL (60-115)
--- NOTE | 2023-06-23 08:37 | P.PNIM_ITS ---
Subjective Subjective Date of Service: 06/23/23 Review of Systems Follow up new onset seizure feeling confused Physical Exam 2 Vital Signs: Vital Signs: Last Vital Signs Temp 98.1 F 06/23/23 07:23 Pulse 79 06/23/23 07:23 Resp 20 06/23/23 07:23 BP 114/57 L 06/23/23 07:23 Pulse Ox 93 06/23/23 07:23 O2 Del Method Room Air 06/23/23 07:23 O2 Flow Rate 1 06/22/23 07:46 FiO2 25 06/20/23 08:00 Oxygen Flow Rate 2 06/18/23 06:56 BMI result Body Mass Index 28.9 Appearing in no acute distress lung sounds are clear to auscultation heart regular rate rhythm, clear S1, S2 positive bowel sounds, abdomen is soft, nontender neuroalert to person only Objective Data Active Medications Digoxin (Digoxin 0.125 Mg Tablet) 0.125 mg PO Q2D REPLACED BY [facility] Last Admin: 06/21/23 10:21 Dose: 0.125 mg Documented By: GRECIA Duloxetine HCl (Duloxetine Hcl 20 Mg Capsule.Dr) 20 mg PO DAILY REPLACED BY [facility] Last Admin: 06/22/23 08:35 Dose: 20 mg Documented By: IVON Furosemide (Furosemide 20 Mg Tablet) 20 mg PO DAILY REPLACED BY [facility]; Protocol Last Admin: 06/22/23 08:35 Dose: 20 mg Documented By: IVON Cefepime HCl 1 gm/ Sodium (Chloride) 50 mls @ 100 mls/hr IV Q12H REPLACED BY [facility] Stop: 06/23/23 23:59 Last Infusion: 06/22/23 20:14 Dose: Infused Documented By: HUSEYIN Levetiracetam 750 mg/ Sodium (Chloride) 107.5 mls @ 430 mls/hr IV Q12H REPLACED BY [facility] Last Infusion: 06/22/23 20:34 Dose: Infused Documented By: HUSEYIN Vancomycin HCl 1,250 mg/ (Sodium Chloride) 250 mls @ 166.667 mls/hr IV Q24H REPLACED BY [facility] Stop: 06/23/23 23:59 Last Infusion: 06/22/23 11:09 Dose: Infused Documented By: IVON Acetaminophen (Ofirmev) 1,000 mg in 100 mls @ 400 mls/hr IV Q6H PRN PRN Reason: Pain, Moderate(Pain Scale 4-6) Last Infusion: 06/20/23 10:28 Dose: Infused Documented By: MELANIA Insulin Human Lispro (Insulin Lispro 100 Unit/Ml 3 Ml Vial) 0 unit SUBCUT QIDACHS REPLACED BY [facility]; Protocol Last Admin: 06/23/23 07:58 Dose: Not Given Documented By: ERWIN Non-Admin Reason: No Insulin Coverage Lactulose (Lactulose 20 Gm/30 Ml Solution) 10 gm PO Q2D REPLACED BY [facility] Last Admin: 06/22/23 09:00 Dose: 10 gm Documented By: IVON Metoprolol Tartrate (Metoprolol Tartrate 50 Mg Tablet) 50 mg PO BID REPLACED BY [facility]; Protocol Last Admin: 06/22/23 20:14 Dose: 50 mg Documented By: HUSEYIN Pharmacy Consult (Consult Rx Vancomycin Dosing) 1 each MISCELLANE DAILY PRN PRN Reason: Consult order Warfarin Sodium (Warfarin Sodium 5 Mg Tablet) 5 mg PO DAILY@1800 REPLACED BY [facility] Last Admin: 06/22/23 17:45 Dose: 5 mg Documented By: IVON Labs 06/23/23 05:51 06/23/23 05:51 Labs: Laboratory Results - last 24 hr 06/22/23 06/22/23 06/22/23 11:21 15:20 19:39 MCV MCH MCHC RDW Plt Count MPV Immature Gran % (Auto) Neut % (Auto) Lymph % (Auto) [place] % (Auto) Eos % (Auto) Baso % (Auto) Lymph # (Auto) [place] # (Auto) Eos # (Auto) Baso # (Auto) Abs Immat Gran (auto) Absolute Neuts (auto) Absolute Nucleated RBC Nucleated RBC % (auto) PT INR Anion Gap Estim Creat Clear Calc Estimated GFR POC Glucose 72 115 126 H Random Glucose Calcium Random Vancomycin 06/23/23 06/23/23 06/23/23 05:51 05:52 07:26 MCV 97.4 MCH 31.4 MCHC 32.3 RDW 13.5 Plt Count 234 MPV 11.4 Immature Gran % (Auto) 1.1 H Neut % (Auto) 75.2 H Lymph % (Auto) 11.3 L [place] % (Auto) 6.5 Eos % (Auto) 5.3 H Baso % (Auto) 0.6 Lymph # (Auto) 1.2 [place] # (Auto) 0.7 Eos # (Auto) 0.6 H Baso # (Auto) 0.1 Abs Immat Gran (auto) 0.12 H Absolute Neuts (auto) 8.2 Absolute Nucleated RBC 0.020 H Nucleated RBC % (auto) 0.2 PT 17.4 H INR 1.4 H Anion Gap 15 Estim Creat Clear Calc 44.9 Estimated GFR > 60 POC Glucose 113 Random Glucose 91 Calcium 8.8 Random Vancomycin 20.8 H Assessment and Plan (1) Pneumonia: Status: Acute Plan 88 year old women admitted to the ICU for encephalopathy and obtundation due to new onset seizure, status epilepticus. She was intubated to protect her airway 06/18/23. She had a witnessed tonic clonic seizure in the ED. She was treated with ativan and keppra. She had NBT placed for initiation of lactulose for ammonia of 130 with no hx of liver disease. she was successfully extubated on 06/20/2023. Treated with empiric vancomycin and Cefepime but blood cultures and urine culture negative. patient had some episodes of encephalopathy but more awake and conversive. Transferred [facility] floor 06/21/2023. New onset seizures. s/p status epilepticus Keep on Keppra for now , will decrease dose to 500 bid due to worsening encephalopathy EEG showed mild slowing neuro consult pending swallowing fine seizure precautions Hypernatremia. Resolved secondary to poor po intake Chronic hypoxemic respiratory failure due to COPD. remains on baseline oxygen. No exacerbation during admission. Chronic persistent AFib. Continue digoxin and metoprolol. continue warfarin follow INR daily Subtherapeutic INR. 1.4 increased warfarin to 5mg daily follow INR daily Mood disorder. Continue home mood stabilizers, duloxetine and mirtazapine Unspecified dementia. Maintain sleep-wake cycle DVT prophylaxis with Heparin Attending Dr. Riley Full code acute hospital stay for treatment of acute onset seizure requiring specialist consultation and IV seizure medication Time Spent With Patient Time: Total time managing care of this patient today ____ minutes. Quality Stroke Does the patient have a stroke diagnosis?: No VTE Prior VTE?: No VTE Risk Level:: Medical - moderate - high VTE Device Contraindication: N/A - Device Ordered VTE Drug Contraindication: N/A - Med Ordered
[2023-06-23] MEDS: cefEPime HCl 1 GM in 0.9 % Sodium Chloride 50 ML IV ×2 (09:01→20:58)
[2023-06-23] MEDS: Potassium Chloride ER 20 MEQ TAB.ER.PRT 40 MEQ PO (09:11)
[2023-06-23] MEDS: Furosemide 20 MG TABLET PO (09:11)
[2023-06-23] MEDS: Metoprolol Tartrate 50 MG TABLET PO ×2 (09:11→20:58)
[2023-06-23] MEDS: DULoxetine HCl 20 MG CAPSULE.DR PO (09:11)
--- NOTE | 2023-06-23 09:13 | P.CNNE_ITS ---
History of Present Illness Data of Consult Service Date: 06/23/23 Primary Care Provider: Bhupinder Seo MD HPI Reason for consult: Seizure disorder 88 years old woman who probably has underlying history of dementia came to hospital with change in mental status and apparently after a tonic clonic type of convulsion. In emergency room she had another 1 and was treated with benzodiazepine and antiepileptics and was intubated and admitted to ICU. Now she was out of ICU. No seizure afterward word is was noted. Review of Systems 2 Review of Systems: Could not be reliably done with her [facility] Past Medical History Medical History Hypertrophic cardiomyopathy COPD (chronic obstructive pulmonary disease) Permanent atrial fibrillation Non-rheumatic aortic stenosis Fracture of distal end of left humerus HTN (hypertension) Family History Family History Father No problems noted. Mother No problems noted. Surgical History Surgical History History of appendectomy History of left hip replacement Social History Social History Household Members: Family Housing: House Do you presently have visiting nurse or other home services: Yes ([employer] during the day) Unable to assess alcohol history related to: Unable to respond and Unknown Alcohol intake: never Patient Tobacco Use Status: Former Tobacco user Quit Date: 40+ yrs ago Substance Use Type: Unknown Advance Directives Date on File: 08/22/21 service: No Meds Allergies Allergy/AdvReac Type Severity Reaction Status Date / Time amoxicillin [AMOXICILLIN] Allergy Severe ANAPHYLAXIS Verified 04/10/23 15:14 iodine [IODINE] Allergy Severe SHORTNESS Verified 04/10/23 15:14 OF BREATH coffee (Coffea arabica) Allergy Intermediate TONGUE Verified 04/10/23 15:14 [COFFEE (BEVERAGE)] SWELLING penicillin G [PENICILLIN G] Allergy Unknown RASH Verified 04/10/23 15:14 shellfish derived Allergy Unknown TONGUE Verified 04/10/23 15:14 [SHELLFISH DERIVED] SWELLING Sulfa (Sulfonamide Allergy Unknown DIFFICULTY Verified 04/10/23 15:14 Antibiotics) BREATHING [SULFA (SULFONAMIDE ANTIBIOTICS)] Active Medications: Current Medications Digoxin (Digoxin 0.125 Mg Tablet) 0.125 mg PO Q2D [facility] Last Admin: 06/21/23 10:21 Dose: 0.125 mg Duloxetine HCl (Duloxetine Hcl 20 Mg Capsule.) 20 mg PO DAILY [facility] Last Admin: 06/23/23 09:11 Dose: 20 mg Furosemide (Furosemide 20 Mg Tablet) 20 mg PO DAILY [facility]; Protocol Last Admin: 06/23/23 09:11 Dose: 20 mg Cefepime HCl 1 gm/ Sodium (Chloride) 50 mls @ 100 mls/hr IV Q12H [facility] Stop: 06/23/23 23:59 Last Admin: 06/23/23 09:01 Dose: 100 mls/hr Vancomycin HCl 1,250 mg/ (Sodium Chloride) 250 mls @ 166.667 mls/hr IV Q24H [facility] Stop: 06/23/23 23:59 Last Infusion: 06/22/23 11:09 Dose: Infused Acetaminophen (Ofirmev) 1,000 mg in 100 mls @ 400 mls/hr IV Q6H PRN PRN Reason: Pain, Moderate(Pain Scale 4-6) Last Infusion: 06/20/23 10:28 Dose: Infused Levetiracetam (Keppra) 500 mg in 100 mls @ 409.556 mls/hr IV Q12H [facility] Insulin Human Lispro (Insulin Lispro 100 Unit/Ml 3 Ml Vial) 0 unit SUBCUT QIDACHS [facility]; Protocol Last Admin: 06/23/23 07:58 Dose: Not Given Lactulose (Lactulose 20 Gm/30 Ml Solution) 10 gm PO Q2D [facility] Last Admin: 06/22/23 09:00 Dose: 10 gm Metoprolol Tartrate (Metoprolol Tartrate 50 Mg Tablet) 50 mg PO BID [facility]; Protocol Last Admin: 06/23/23 09:11 Dose: 50 mg Pharmacy Consult (Consult Rx Vancomycin Dosing) 1 each MISCELLANE DAILY PRN PRN Reason: Consult order Warfarin Sodium (Warfarin Sodium 5 Mg Tablet) 5 mg PO DAILY@1800 [facility] Last Admin: 06/22/23 17:45 Dose: 5 mg Home Medications Medication Instructions Recorded Confirmed Last Taken Type acetaminophen 500 mg tablet 1,000 mg PO BID PRN Pain 08/22/21 06/18/23 06/03/23 History duloxetine 20 mg capsule,delayed 20 mg PO DAILY 02/06/18/23 06/17/23 History release metoprolol tartrate 50 mg tablet 50 mg PO BID 11/05/21 06/18/23 06/17/23 History cyanocobalamin (vitamin B-12) 5,000 mcg PO DAILY 02/08/22 06/18/23 06/17/23 History 5,000 mcg capsule docusate sodium 100 mg capsule 100 mg PO BID 02/08/22 06/18/23 06/17/23 History (Colace) loratadine 10 mg tablet (Claritin) 10 mg PO DAILY PRN Allergy Symptoms 02/08/22 06/18/23 02/08/22 History warfarin 2.5 mg tablet 2.5 mg PO DAILY@1800 02/08/22 06/18/23 06/17/23 History albuterol sulfate 90 mcg/actuation 1 puff inhalation Q6H PRN wheezing 03/15/23 06/18/23 Unknown History aerosol inhaler digoxin 125 mcg (0.125 mg) tablet 125 mcg PO Q OTHER DAY 03/15/23 06/18/23 06/03/23 History ipratropium 0.5 mg-albuterol 3 mg 3 ml inhalation QID PRN Shortness 03/15/23 06/18/23 Unknown History (2.5 mg base)/3 mL nebulization Of Breath soln mirtazapine 15 mg tablet 15 mg PO BEDTIME 06/03/23 06/18/23 06/17/23 History Physical Exam 2 Vital Signs: Vital Signs: Last Vital Signs Temp 98.1 F 06/23/23 07:23 Pulse 79 06/23/23 07:23 Resp 20 06/23/23 07:23 BP 114/57 L 06/23/23 07:23 Pulse Ox 93 06/23/23 07:23 O2 Del Method Room Air 06/23/23 07:23 O2 Flow Rate 1 06/22/23 07:46 FiO2 25 06/20/23 08:00 Oxygen Flow Rate 2 06/18/23 06:56 BMI result Body Mass Index 28.9 Neuro: Other: Alert and awake with normal spontaneity of speech fluency comprehension and vague affect. She was not sure where she was. She told me that she lived in [place] and she was living with her parents. He said that she was trying to find numbers for her sister who lived in [place]. She was following simple commands. Face was symmetrical. Visual weaver are full. There was no obvious focal weakness. Plantars were flexors. Results Labs 06/23/23 05:51 06/23/23 05:51 Labs: Short CBC 06/23/23 Range/Units 05:51 WBC 10.9 H (4.8-10.8) X10*3/uL Hgb 12.2 (12.0-16.0) g/dl Hct 37.8 (37.0-47.0) % Plt Count 234 (160-400) X10*3/uL BMP 06/23/23 05:51 Sodium 144 Potassium 3.1 L Chloride 106 Carbon Dioxide 26 BUN 14 Creatinine 0.[address] revealed moderately severe diffuse cerebral atrophy and moderate chronic microvascular ischemic changes. Microbiology Microbiology Results: Microbiology 06/18/23 06:55 Blood - Venous Blood Culture - Final No growth after 5 days. 06/18/23 06:55 Blood - Venous Blood Culture - Final No growth after 5 days. 06/18/23 Unknown Urine clean catch - Urine miller top Urine Culture - Final No growth. Assessment and Plan (1) Seizure disorder, grand mal: Status: Acute 88 years old woman with underlying at Alzheimer +microvascular ischemic dementia presented with an episode of generalized convulsion and had another 1 in emergency room suggestive of grand-mal seizure. At this time she was on levetiracetam and convulsions were control. I recommend continuing this dose of levetiracetam. Time Spent With Patient Time: Total time managing care of this patient today ____ minutes. Procedures Date of Service Date of Service: 06/23/23
--- NOTE | 2023-06-23 09:50 | PC.NURSE ---
spoke with pharmacist, he's aware vanco trough elevated at 20.8, stated it was okay, to hang it.
[2023-06-23] MEDS: vancomycin HCL 1,250 MG in 0.9 % Sodium Chloride 250 ML 166.67 MG IV (09:51)
--- NOTE | 2023-06-23 10:20 | MHC.CM.PN ---
Per ROUNDS discussion, Patient is not yet medically cleared for dc (IV Vanco,IV Cefepime, IV Keppra); home/resume services is the goal and CM will continue to follow.
--- NOTE | 2023-06-23 10:20 | MHC.CLN ---
F/U PT TRANSFERRED TO MEDICAL FLOOR DIET RX: 2000DM GRD M/S-RECOMMEND 1800DM AND ADDING 2GM NA DIET R/T HX CHF, AFIB, HTN MONITOR PO INTAKE CLOSELY RD TO FOLLOW WEEKLY
[2023-06-23] MEDS: Digoxin 0.125 MG TABLET PO (11:39)
[2023-06-23] MEDS: levETIRAcetam in NaCl (iso-os) 500 MG/100 ML PIGGYBACK 409.56 MG IV ×2 (11:39→20:58)
[2023-06-23 11:41] VITALS: BP 118/68; PULSE 75; RESP 20; TEMP 36.4; O2SAT 92
[2023-06-23 11:49] LABS: Glucose, Whole Blood 120 mg/dL (60-115)
--- NOTE | 2023-06-23 12:37 | MHC.SL.SWA ---
Speech Pathologist Impression: Risk of aspiration, mild oral phase dysphagia Risk of Aspiration Due to: Medically Fragile History of Pneumonia Hx of Recent Extubation Reduced Cognition Dysphasia Diet Status: UPGRADE from NDD2 to NDD3, continue w/ thin liquids Liquid Consistency and Strategies for Safe Swallow: Liquid Intake Recommendation: Thin Liquid Intake Strategies: Small Sips Solid Food Consistency: Dietary Recommendations: Chopped/Advanced (NDD3) Additional Modifications to Solid Foods: Recommend UPGRADE to CHOPPED/ADVANCED (NDD3) diet, continue on THIN liquids, pills to be CRUSHED in PUREE. Pt is encouraged to feed herself when possible, but will need 1:1 assistance with tray set up and feeding throughout meals. Per daughter, pt tends to drop things a lot. Ensure aspiration precautions. PACKAGING TECHNICIAN will f/u 1-2x to ensure tolerance. Oral Medication Intake: Crushed with Puree Please contact the pharmacy regarding appropriate crushable or liquid drug formulations that are available whenever modified delivery is recommended. Compensatory Strategies and Precautions to be Taken for Safe Swallow: Sitting Upright (90 deg) Double Swallow Small Bites and Sips Alternate Liquids/Solids Rate of Ingestion Change Oral Check Avoid Specific Foods Supervision While Eating and Drinking for Safe Swallow: Total Assistance (1:1) Foods to Avoid: Mixed consistencies, difficult to chew solids Swallowing Recommended Treatments: Compens. Strategy Educat. Recommendation for Speech: 1-2 f/u Animal Rides Manager Clinican/Clinical Fellow: No Supervisory Statement: I have reviewed and agree with the student/clinical fellow's documentation: N/A Speech Language Pathologist: Zandra Mckeon M.A., CCC-PACKAGING TECHNICIAN
[2023-06-23 16:00] VITALS: BP 123/58; PULSE 80; RESP 16; TEMP 36.4; O2SAT 95
[2023-06-23 16:08] LABS: Glucose, Whole Blood 116 mg/dL (60-115)
[2023-06-23] MEDS: Warfarin Sodium 5 MG TABLET PO (17:38)
[2023-06-23 20:00] VITALS: BP 130/61; PULSE 80; RESP 16; TEMP 36.5; O2SAT 96
[2023-06-23 21:04] LABS: Glucose, Whole Blood 117 mg/dL (60-115)
[2023-06-23 23:22] VITALS: BP 108/70; PULSE 68; RESP 18; TEMP 36.8; O2SAT 93
[2023-06-24] VITALS (7 sets, daily range): BP systolic 114–149; BP diastolic 58–69; PULSE 64–77; RESP 17–36; TEMP 36.4–37.1; O2SAT 92–98
[2023-06-24 07:24] LABS: Glucose, Whole Blood 95 mg/dL (60-115)
[2023-06-24 07:27] LABS: INTERNATIONAL NORM RATIO 1.8 (0.9-1.1); Prothrombin Time 21.8 SEC (11.1-13.3)
[2023-06-24 07:34] LABS: Estimated Glomerular Filt Rate > 60
[2023-06-24 08:43] LABS: Potassium 3.6 mmol/L (3.3-5.1)
--- NOTE | 2023-06-24 09:45 | HO.PM.IMPN ---
Subjective Subjective Date of Service: 06/24/23 Review of Systems Follow up new onset seizure feeling confused Physical Exam Vital Signs: Vital Signs: Last Vital Signs Temp 97.5 F 06/24/23 08:00 Pulse 74 06/24/23 08:00 Resp 30 H 06/24/23 08:00 BP 134/63 06/24/23 08:00 Pulse Ox 94 06/24/23 08:00 O2 Del Method Room Air 06/24/23 08:00 O2 Flow Rate 1 06/22/23 07:46 FiO2 25 06/20/23 08:00 Oxygen Flow Rate 2 06/18/23 06:56 BMI result Body Mass Index 28.9 Appearing in no acute distress lung sounds are clear to auscultation heart regular rate rhythm, clear S1, S2 positive bowel sounds, abdomen is soft, nontender neuro patient is alert, oriented to self Objective Data Active Medications Digoxin (Digoxin 0.125 Mg Tablet) 0.125 mg PO Q2D [facility] Last Admin: 06/23/23 11:39 Dose: 0.125 mg Documented By: ERWIN Duloxetine HCl (Duloxetine Hcl 20 Mg Capsule.Dr) 20 mg PO DAILY [facility] Last Admin: 06/23/23 09:11 Dose: 20 mg Documented By: ERWIN Furosemide (Furosemide 20 Mg Tablet) 20 mg PO DAILY [facility]; Protocol Last Admin: 06/23/23 09:11 Dose: 20 mg Documented By: ERWIN Insulin Human Lispro (Insulin Lispro 100 Unit/Ml 3 Ml Vial) 0 unit SUBCUT QIDACHS [facility]; Protocol Last Admin: 06/24/23 07:26 Dose: Not Given Documented By: MARYEMA Non-Admin Reason: No Insulin Coverage Lactulose (Lactulose 20 Gm/30 Ml Solution) 10 gm PO Q2D [facility] Last Admin: 06/22/23 09:00 Dose: 10 gm Documented By: IVON Levetiracetam (Levetiracetam 500 Mg Tablet) 500 mg PO BID [facility] Metoprolol Tartrate (Metoprolol Tartrate 50 Mg Tablet) 50 mg PO BID [facility]; Protocol Last Admin: 06/23/23 20:58 Dose: 50 mg Documented By: YAIR Comments: BP 130/60 H 82 Warfarin Sodium (Warfarin Sodium 5 Mg Tablet) 5 mg PO DAILY@1800 [facility] Last Admin: 06/23/23 17:38 Dose: 5 mg Documented By: ERWIN Labs 06/23/23 05:51 06/24/23 06:12 Labs: Laboratory Results - last 24 hr 06/23/23 06/23/23 06/23/23 11:45 16:04 20:58 PT INR Estim Creat Clear Calc Estimated GFR POC Glucose 120 H 116 H 117 H 06/24/23 06/24/23 06:12 07:20 PT 21.8 H D INR 1.8 H Estim Creat Clear Calc 49.0 Estimated GFR > 60 POC Glucose 95 Microbiology Microbiology Results: Microbiology 06/18/23 06:55 Blood Culture - Final Blood - Venous No growth after 5 days. 06/18/23 06:55 Blood Culture - Final Blood - Venous No growth after 5 days. Assessment and Plan (1) Pneumonia: Status: Acute Plan 88 year old women admitted to the ICU for encephalopathy and obtundation due to new onset seizure, status epilepticus. She was intubated to protect her airway 06/18/23. She had a witnessed tonic clonic seizure in the ED. She was treated with ativan and keppra. She had NBT placed for initiation of lactulose for ammonia of 130 with no hx of liver disease. she was successfully extubated on 06/20/2023. Treated with empiric vancomycin and Cefepime but blood cultures and urine culture negative. patient had some episodes of encephalopathy but more awake and conversive. Transferred to [facility] floor 06/21/2023. New onset seizures. s/p status epilepticus no seizures during hospital stay EEG showed mild slowing neuro consult>continue keppra 500mg BID seizure precautions Hypernatremia. Resolved secondary to poor po intake Hypoxemic respiratory failure due to COPD. No exacerbation during admission. off oxygen Chronic persistent AFib. Continue digoxin and metoprolol. continue warfarin follow INR daily Subtherapeutic INR. 1.8 warfarin to 5mg daily follow INR daily Mood disorder. Continue home mood stabilizers, duloxetine and mirtazapine Unspecified dementia. Maintain sleep-wake cycle DVT prophylaxis with Heparin Attending Dr. Mendoza Full code acute hospital stay for treatment of acute onset seizure requiring specialist consultation and IV seizure medication Time Spent With Patient Time: Total time managing care of this patient today ____ minutes. Quality Stroke Does the patient have a stroke diagnosis?: No VTE Prior VTE?: No VTE Risk Level:: Medical - moderate - high VTE Device Contraindication: N/A - Device Ordered VTE Drug Contraindication: N/A - Med Ordered
[2023-06-24] MEDS: DULoxetine HCl 20 MG CAPSULE.DR PO (10:02)
[2023-06-24] MEDS: Furosemide 20 MG TABLET PO (10:03)
[2023-06-24] MEDS: Metoprolol Tartrate 50 MG TABLET PO ×2 (10:04→21:05)
[2023-06-24] MEDS: levETIRAcetam 500 MG TABLET PO ×2 (10:04→21:05)
[2023-06-24] MEDS: Lactulose 20 GM/30 ML SOLUTION 10 GM PO (10:26)
[2023-06-24 11:22] LABS: Glucose, Whole Blood 110 mg/dL (60-115)
--- NOTE | 2023-06-24 13:30 | MHC.SPEECHCO ---
HEAD INSPECTOR attempted x2 today. Pt was flustered from a busy morning and declined, later was napping and declined PO, maybe later . Per RN no new complaints, HEAD INSPECTOR will continue to follow.
[2023-06-24 15:57] LABS: Glucose, Whole Blood 97 mg/dL (60-115)
[2023-06-24] MEDS: Furosemide 20 MG/2 ML VIAL IVPUSH (16:22)
[2023-06-24] MEDS: Warfarin Sodium 5 MG TABLET PO (17:35)
[2023-06-24 21:01] LABS: Glucose, Whole Blood 111 mg/dL (60-115)
[2023-06-25 04:00] VITALS: BP 147/67; PULSE 80; RESP 17; TEMP 37.1; O2SAT 96
[2023-06-25 06:11] LABS: INTERNATIONAL NORM RATIO 1.9 (0.9-1.1); Prothrombin Time 23.5 SEC (11.1-13.3)
[2023-06-25 06:23] LABS: Estimated Glomerular Filt Rate > 60
[2023-06-25 07:19] VITALS: BP 133/64; PULSE 78; RESP 22; TEMP 36.4; O2SAT 97
--- NOTE | 2023-06-25 07:36 | PM.DS ---
DS: Providers Provider Date of Service: 06/25/23 Date of admission: 06/18/23 10:31 Primary care physician: Bhupinder Seo MD Consults: 06/22/23 07:13 Consult to Neurology Routine Consulting Provider: [facility] Reason for consultation: new onset seizure DS: Diagnosis Discharge Diagnosis (1) Pneumonia: Status: Acute DS: Summary Hospital Course Hospital Course: history and physical as per admitting provider. Patient is a 88 Y F with dementia, baseline can verbally communicate, though has worsening confusion at night, bedbound for past year, hypertension, atrial fibrillation on warfarin, HFpEF, severe aortic stenosis, and COPD on 2L nasal canula, presenting with encephalopathy; of note, patient intubated; patient daughter and daughter's partner present at bedside, reports 06/17 PM patient appeared more fatigued; this AM, patient found obtunded, upon EMS transport, reportedly had 20 seconds of tonic-clonic movements, subsequently had another episode of tonic-clonic movements in ED, given lorazepam, though subsequently somnolent, hypoxic, intubated; ED work-up revealing of leukocytosis, lactic acidosis, possible urinary tract infection, hypercapnea as well as elevated ammonia. 88-year-old woman treated for new onset seizure. she was initially admitted to the ICU for airway protection due to encephalopathy and obtundation. patient treated with lorazepam and lactulose for hyperammonemia. she was treated with empiric vancomycin and cefepime. Blood culture, urine culture and UA negative. No consolidation noted on chest x-ray. She was started on IV Keppra and had no further episodes of seizure during admission. She was seen evaluated by Neurology who thought that the dementia was playing a role and this new onset seizures. Her EEG did show diffuse slowing. She was also recently hospitalized , at that time treated for facial cellulitis. Seizure may have been precipitated by decreased seizure threshold from medications as well. She was Successfully extubated on 06/20/2023. passed swallow evaluation and placed on a chopped diet with thin liquids and pills crushed in puree. She is nonambulatory, Bed/chair bound. Chronic persistent atrial fibrillation with. Had some episodes of subtherapeutic INR. Warfarin increased to 5 mg daily. INR today 1.9. Plan is to recheck INR in 2 days, she has visiting nurse services who comes to her home to check. Chronic respiratory failure secondary to COPD. She may continue using her oxygen at home as needed 1-2 L should be sufficient Hypernatremia. Secondary to poor oral intake resolved after IV fluids and increase in oral intake. She likely has some irritation from intubation. no erythema, edema or white patches to mouth or throat. may use lidocaine swish as needed. Time Spent with Patient Time attestation: Total time managing care of this patient today ____ minutes. Discharge coordination time: Greater than 30 minutes Quality: Safe Use of Opioids Does Pt have an Active Cancer Diagnosis on the Problem List?: No Quality: Stroke Does the patient have a stroke diagnosis?: No Physical Exam Vital Signs: Vital Signs: Last Vital Signs Temp 97.5 F 06/25/23 07:19 Pulse 78 06/25/23 07:19 Resp 22 H 06/25/23 07:19 BP 133/64 06/25/23 07:19 Pulse Ox 97 06/25/23 07:19 O2 Del Method Nasal Cannula 06/25/23 07:19 O2 Flow Rate 1 06/25/23 07:19 FiO2 25 06/20/23 08:00 Oxygen Flow Rate 2 06/18/23 06:56 BMI result Body Mass Index 28.9 DS: Data Data Completed and Pending Labs on day of discharge: Laboratory Results - last 24 hr 06/24/23 06/24/23 06/24/23 06:12 11:17 15:53 Hold Purple Top PT INR Potassium 3.6 Creatinine Estim Creat Clear Calc Estimated GFR POC Glucose 110 97 06/24/23 06/25/23 20:52 05:42 Hold Purple Top SEE NOTE PT 23.5 H INR 1.9 H Potassium Creatinine 0.65 Estim Creat Clear Calc 49.0 Estimated GFR > 60 POC Glucose 111 Discharge Plan Discharge Anticipated Discharge Date/Time: 06/25/23 11:18 Patient Disposition: Home Health Service Discharge Diagnosis: New onset seizure, epilepsy Hypernatremia HYpoxemic respiratory failure secondary to COPD Subtherapeutic INR Referrals: [facility] [Other] - 1 Week (EVALUATION FOR INCREASED HOME SERVICES) [facility] [Outside] - 3-5 Days (RESUMPTION OF HOME SERVICES FOR CARE HOME) Bhupinder Seo MD [Primary Care Provider] - 1 Week Discharge Medications: New levetiracetam 500 mg Tablet 500 mg PO BID Qty: 60 0RF lidocaine HCl [Lidocaine Viscous] 2 % solution 1 appl mucous membrane BID PRN (Reason: mouth pain) Qty: 100 0RF warfarin [Jantoven] 5 mg Tablet 5 mg PO DAILY@1800 Qty: 30 0RF Continued furosemide 20 mg tablet 20 mg PO DAILY Qty: 30 5RF acetaminophen 500 mg Tablet 1,000 mg PO BID PRN (Reason: Pain) metoprolol tartrate 50 mg tablet 50 mg PO BID docusate sodium [Colace] 100 mg Capsule 100 mg PO BID loratadine [Claritin] 10 mg Tablet 10 mg PO DAILY PRN (Reason: Allergy Symptoms) cyanocobalamin (vitamin B-12) 5,000 mcg Capsule 5,000 mcg PO DAILY mirtazapine 15 mg tablet 15 mg PO BEDTIME ipratropium-albuterol 0.5 mg-3 mg(2.5 mg base)/3 mL solution for nebulization 3 ml inhalation QID PRN (Reason: Shortness Of Breath) albuterol sulfate 90 mcg/actuation HFA aerosol inhaler 1 puff inhalation Q6H PRN (Reason: wheezing) digoxin 125 mcg (0.125 mg) tablet 125 mcg PO Q OTHER DAY Discontinued warfarin 2.5 mg tablet 2.5 mg PO DAILY@1800 duloxetine 20 mg capsule,delayed release(DR/EC) 20 mg PO DAILY Discharge Orders: Discharge Order (Routine); Ordered 06/25/23 Ordered By: Lorenza León Diet: Advance to usual diet Activity on Discharge: As tolerated Stand Alone Forms: Patient Portal Discharge page Other Ambulatory Orders: Prothrombin Time INR (Routine) Timeframe: 2 Days Facility: [facility] - Location: Laboratory Ordered By: Lorenza León Care Plan Goals: May use lidocaine swish and swallow for mouth/throat pain likely from pharyngitis from intubation INR 1.9, recheck in 2 days ([facility] has been checking at home) Health Concerns: New onset seizure, epilepsy Hypernatremia HYpoxemic respiratory failure secondary to COPD Subtherapeutic INR Plan of Treatment: Follow up with primary care provider as needed Take all medications as prescribed You have been started on a new medication for seizures: Keppra 500mg twice daily May continue to use your home oxygen as needed 1-2 liters Assessment: See discharge summary
[2023-06-25 07:45] LABS: Glucose, Whole Blood 77 mg/dL (60-115)
[2023-06-25] MEDS: levETIRAcetam 500 MG TABLET PO (08:53)
[2023-06-25] MEDS: Furosemide 20 MG TABLET PO (08:56)
[2023-06-25] MEDS: Metoprolol Tartrate 50 MG TABLET PO (08:57)
[2023-06-25] MEDS: Digoxin 0.125 MG TABLET PO (09:00)
[2023-06-25] MEDS: Lidocaine HCl Viscous 2 % 15 ML SOLUTION MUCOUS MEM (10:12)
--- NOTE | 2023-06-25 10:57 | MHC.CM.PN ---
ATTEMPTED TO CONTACT HCP/[facility] FOR IMM, DID NOT ANSWER AND NO VM PICKS UP. ALSO CALLED DAUGHTER/#2 HCP SYLVIA GILES WITH IMM INFORMATION. WHITE COPY WILL BE MAILED TO HOME ADDRESS.
[2023-06-25 11:18] LABS: Glucose, Whole Blood 101 mg/dL (60-115)
--- NOTE | 2023-06-25 11:26 | P.DS_ITS ---
DS: Providers Provider Date of Service: 06/25/23 Date of admission: 06/18/23 10:31 Primary care physician: Bhupinder Seo MD Consults: 06/22/23 07:13 Consult to Neurology Routine Consulting Provider: [facility] Reason for consultation: new onset seizure DS: Diagnosis Discharge Diagnosis (1) Pneumonia: Status: Acute DS: Summary Hospital Course Hospital Course: history and physical as per admitting provider. Patient is a 88 Y F with dementia, baseline can verbally communicate, though has worsening confusion at night, bedbound for past year, hypertension, atrial fibrillation on warfarin, HFpEF, severe aortic stenosis, and COPD on 2L nasal canula, presenting with encephalopathy; of note, patient intubated; patient daughter and daughter's partner present at bedside, reports 06/17 PM patient appeared more fatigued; this AM, patient found obtunded, upon EMS transport, reportedly had 20 seconds of tonic-clonic movements, subsequently had another episode of tonic-clonic movements in ED, given lorazepam, though subsequently somnolent, hypoxic, intubated; ED work-up revealing of leukocytosis, lactic acidosis, possible urinary tract infection, hypercapnea as well as elevated ammonia. 88-year-old woman treated for new onset seizure. she was initially admitted to the ICU for airway protection due to encephalopathy and obtundation. patient treated with lorazepam and lactulose for hyperammonemia. she was treated with empiric vancomycin and cefepime. Blood culture, urine culture and UA negative. No consolidation noted on chest x-ray. She was started on IV Keppra and had no further episodes of seizure during admission. She was seen evaluated by Neurology who thought that the dementia was playing a role and this new onset seizures. Her EEG did show diffuse slowing. She was also recently hospitalized , at that time treated for facial cellulitis. Seizure may have been precipitated by decreased seizure threshold from medications as well. She was Successfully extubated on 06/20/2023. passed swallow evaluation and placed on a chopped diet with thin liquids and pills crushed in puree. She is nonambulatory, Bed/chair bound. Chronic persistent atrial fibrillation with. Had some episodes of subtherapeutic INR. Warfarin increased to 5 mg daily. INR today 1.9. Plan is to recheck INR in 2 days, she has visiting nurse services who comes to her home to check. Chronic respiratory failure secondary to COPD. She may continue using her oxygen at home as needed 1-2 L should be sufficient Hypernatremia. Secondary to poor oral intake resolved after IV fluids and increase in oral intake. Time Spent with Patient Time attestation: Total time managing care of this patient today ____ minutes. Discharge coordination time: Greater than 30 minutes Quality: Safe Use of Opioids Does Pt have an Active Cancer Diagnosis on the Problem List?: No Quality: Stroke Does the patient have a stroke diagnosis?: No Physical Exam Vital Signs: Vital Signs: Last Vital Signs Temp 97.5 F 06/25/23 07:19 Pulse 78 06/25/23 07:19 Resp 22 H 06/25/23 07:19 BP 133/64 06/25/23 07:19 Pulse Ox 97 06/25/23 07:19 O2 Del Method Nasal Cannula 06/25/23 07:19 O2 Flow Rate 1 06/25/23 07:19 FiO2 25 06/20/23 08:00 Oxygen Flow Rate 2 06/18/23 06:56 BMI result Body Mass Index 28.9 Appearing in no acute distress head is normocephalic atraumatic eyes pupils are PERRLA sclera is anicteric mouth throat mucous membranes are intact and moist neck is supple no lymphadenopathy, no JVD noted lung sounds are clear to auscultation heart regular rate rhythm, clear S1, S2 positive bowel sounds, abdomen is soft, nontender neuro patient is alert x3, no focal deficits. non ambulatory DS: Data Data Completed and Pending Labs on day of discharge: Laboratory Results - last 24 hr 06/24/23 06/24/23 06/25/23 15:53 20:52 05:42 Hold Purple Top SEE NOTE PT 23.5 H INR 1.9 H Creatinine 0.65 Estim Creat Clear Calc 49.0 Estimated GFR > 60 POC Glucose 97 111 06/25/23 06/25/23 07:24 11:09 Hold Purple Top PT INR Creatinine Estim Creat Clear Calc Estimated GFR POC Glucose 77 101 Discharge Plan Discharge Anticipated Discharge Date/Time: 06/25/23 11:18 Patient Disposition: Home Health Service Discharge Diagnosis: New onset seizure, epilepsy Hypernatremia HYpoxemic respiratory failure secondary to COPD Subtherapeutic INR Referrals: [facility] [Other] - 1 Week (EVALUATION FOR INCREASED HOME S ERVICES) [facility] [Outside] - 3-5 Days (RESUMPTION OF HOME SERVICES FOR [facility]) Bhupinder Seo MD [Primary Care Provider] - 1 Week Discharge Medications: New levetiracetam 500 mg Tablet 500 mg PO BID Qty: 60 0RF lidocaine HCl [Lidocaine Viscous] 2 % solution 1 appl mucous membrane BID PRN (Reason: mouth pain) Qty: 100 0RF warfarin [Jantoven] 5 mg Tablet 5 mg PO DAILY@1800 Qty: 30 0RF Continued furosemide 20 mg tablet 20 mg PO DAILY Qty: 30 5RF acetaminophen 500 mg Tablet 1,000 mg PO BID PRN (Reason: Pain) metoprolol tartrate 50 mg tablet 50 mg PO BID docusate sodium [Colace] 100 mg Capsule 100 mg PO BID loratadine [Claritin] 10 mg Tablet 10 mg PO DAILY PRN (Reason: Allergy Symptoms) cyanocobalamin (vitamin B-12) 5,000 mcg Capsule 5,000 mcg PO DAILY mirtazapine 15 mg tablet 15 mg PO BEDTIME ipratropium-albuterol 0.5 mg-3 mg(2.5 mg base)/3 mL solution for nebulization 3 ml inhalation QID PRN (Reason: Shortness Of Breath) albuterol sulfate 90 mcg/actuation HFA aerosol inhaler 1 puff inhalation Q6H PRN (Reason: wheezing) digoxin 125 mcg (0.125 mg) tablet 125 mcg PO Q OTHER DAY Discontinued warfarin 2.5 mg tablet 2.5 mg PO DAILY@1800 duloxetine 20 mg capsule,delayed release(DR/EC) 20 mg PO DAILY Discharge Orders: Discharge Order (Routine); Ordered 06/25/23 Ordered By: Lorenza Lenó Diet: Advance to usual diet Activity on Discharge: As tolerated Stand Alone Forms: Patient Portal Discharge page Other Ambulatory Orders: Prothrombin Time INR (Routine) Timeframe: 2 Days Facility: [facility] - Location: Laboratory Ordered By: Lorenza León Care Plan Goals: May use lidocaine swish and swallow for mouth/throat pain likely from pharyngitis from intubation INR 1.9, recheck in 2 days ([facility] has been checking at home) Health Concerns: New onset seizure, epilepsy Hypernatremia HYpoxemic respiratory failure secondary to COPD Subtherapeutic INR Plan of Treatment: Follow up with primary care provider as needed Take all medications as prescribed You have been started on a new medication for seizures: Keppra 500mg twice daily May continue to use your home oxygen as needed 1-2 liters Assessment: See discharge summary
[2023-06-25 11:30] VITALS: BP 126/60; PULSE 66; RESP 20; TEMP 36.4; O2SAT 97
--- NOTE | 2023-06-25 11:33 | MHC.CM.PN ---
DP: PT HAS BEEN MEDICALLY CLEARED FOR DC HOME WITH RESUMPTION OF [facility] FOR SN AND [facility] FOR EVAL FOR INCREASED SERVICES IN THE HOME. RN AWARE. [facility] NOTIFIED OF TODAY'S DC. DAUGHTER RILEY (CAREGIVER) AWARE OF DC. BLS TRANSPORT BOOKED FOR 5:30 PM VIA [employer].
--- NOTE | 2023-06-25 13:23 | MHC.SL.SWA ---
Speech Pathologist Impression: Mild oral phase dysphagia, Risk of aspiration Risk of Aspiration Due to: Medically Fragile History of Pneumonia Hx of Recent Extubation Reduced Cognition Dysphasia Diet Status: No change Liquid Consistency and Strategies for Safe Swallow: Liquid Intake Recommendation: Thin Liquid Intake Strategies: Small Sips Solid Food Consistency: Dietary Recommendations: Chopped/Advanced (NDD3) Additional Modifications to Solid Foods: Oral Medication Intake: Crushed with Puree Please contact the pharmacy regarding appropriate crushable or liquid drug formulations that are available whenever modified delivery is recommended. Compensatory Strategies and Precautions to be Taken for Safe Swallow: Sitting Upright (90 deg) Double Swallow Small Bites and Sips Alternate Liquids/Solids Rate of Ingestion Change Oral Check Avoid Specific Foods Supervision While Eating and Drinking for Safe Swallow: Total Assistance (1:1) Foods to Avoid: Mixed consistencies, difficult to chew solids Swallowing Recommended Treatments: Compens. Strategy Educat. Recommendation for Speech: Inpatient Speech Therapy Comment: Pt w/ hx COPD and dementia, hospitalized w/ new onset seizure. Hiatal hernia observed in prior Chest CT. During current hospitalization, pt intubated for approximately 48 hours (06/18-06/20). Pt's daughter reports that at home, pt's swallow is not perfect, but that she manages ok. New CXR on 06/24 reports the following: no change, R lung clear, possible L base atelectasis, L base PNA and small L pleural effusion not excluded. Patient declined PO trials on this date. Recommend patient continue with CHOPPED/ADVANCED (NDD3) diet, continue on THIN liquids, pills to be CRUSHED in PUREE. Pt is encouraged to feed herself when possible, but will need 1:1 assistance with tray set up and feeding throughout meals. Per daughter, pt tends to drop things a lot. Ensure aspiration precautions. BOOSTER PUMP OPERATOR will f/u 1-2x to ensure tolerance. Recommend Modified Barium Swallow as outpatient d/t daughter's concerns w/ swallow and patient's risk of aspiration ( bed bound, dementia, hx PNA, hx recent extubation). Recommend dental consultation d/t poorly fitted dentures. Database Administrator Clinican/Clinical Fellow: No Supervisory Statement: I have reviewed and agree with the student/clinical fellow's documentation: N/A Speech Language Pathologist: Janis Patterson M.A., [facility])-BOOSTER PUMP OPERATOR
[2023-06-25 15:19] VITALS: BP 109/55; PULSE 66; RESP 20; TEMP 36.7; O2SAT 98
[2023-06-25 16:11] LABS: Glucose, Whole Blood 96 mg/dL (60-115)
[2023-06-25] MEDS: Warfarin Sodium 5 MG TABLET PO (17:45)
--- NOTE | 2023-07-09 13:15 | P.CDIM_ITS ---
PROVIDER RESPONSE TEXT: To clarify, the appropriate diagnosis supported by the clinical indicators: Other (explain): in the setting of arrythmia, would like to keep potassium greater than 3.5 QUERY TEXT: PHYSICIAN'S DOCUMENTATION REQUEST Date of Query: 07/03/2023 08:30 AM EDT Patient Name: Marilyn Gupta Admit Date: 06/18/2023 Dear Stephie Paz, A review of the medical record indicates additional documentation may be needed. Please review below and update the documentation accordingly. Clinical Indicators: Potassium level on 06/20/23: 3.0 Treated with Potassium Chloride 40 meq in 100 mls @ 50 mls/hr IV once on 06/20/23 Based on the above, could you clarify the appropriate diagnosis, if significant, that supports the ab ove abnormalities and additional evaluation, monitoring, and/or treatment rendered: Hypokalemia Labs indicate a diagnosis of (please specify) Other (explain)Clinically unable to determine (explain)Thank you, Karrie Stack RN Use of terms such as suspected, likely, concern for, or probable (associated with a specific diagnosi s that is being evaluated, monitored, or treated as if it exists) are acceptable and can be coded in the inpatient se tting, when documented at the time of discharge. Please use your independent medical judgment in providing your response. THIS QUERY IS PART OF THE PERMANENT MEDICAL RECORD
== END 2023-06-25 18:30 | disposition home health service (06) | DRG 100 ==
LOC: HO.ED 07:24 → HO.EDOVER 10:37 → HO.ICU 12:14 → HO.S3 06-21 11:49 → HO.IMC 06-21 14:17
PROVIDERS: Physician Assistant; Physician Assistant Medical; Admitting Provider Internal Medicine Critical Care Medicine; Emergency Provider Emergency Medicine; PCP Internal Medicine; Visit Provider Nurse Practitioner Acute Care
DX: G40.901 Epilepsy, unspecified, not intractable, with status epilepticus (principal); J18.9 Pneumonia, unspecified organism; J96.21 Acute and chronic respiratory failure with hypoxia; J96.22 Acute and chronic respiratory failure with hypercapnia; J44.0 Chronic obstructive pulmonary disease with (acute) lower respiratory infection; E87.0 Hyperosmolality and hypernatremia; I48.19 Other persistent atrial fibrillation; I35.0 Nonrheumatic aortic (valve) stenosis; I95.9 Hypotension, unspecified; K44.9 Diaphragmatic hernia without obstruction or gangrene; R79.1 Abnormal coagulation profile; F39 Unspecified mood [affective] disorder; G30.9 Alzheimer's disease, unspecified; F02.80 Dementia in other diseases classified elsewhere, unspecified severity, without behavioral disturbance, psychotic disturbance, mood disturbance, and anxiety; Z74.01 Bed confinement status; Z20.822 Contact with and (suspected) exposure to COVID-19; Z99.81 Dependence on supplemental oxygen; Z79.01 Long term (current) use of anticoagulants; Z79.899 Other long term (current) drug therapy
CPT/HCPCS: 0241U; 36415; 36600; 70450; 71045; 71250; 74018; 74176; 76705; 80048; 80053; 80076; 80162; 80202; 81001; 82140; 82550; 82565; 82803; 82947; 83605; 83690; 83735; 83880; 84100; 84132; 84443; 84484; 85025; 85610; 85730; 86850; 86900; 86901; 87040; 87086; 87635; 87640; 87641; 92526; 92610; 93005; 93306; 94002; 94003; 94799; 95816; 99285; C1758; J0131; J0330; J0692; J1940; J1953; J2060; J2250; J2920; J3370; J3371; J3475; P9047

== ENCOUNTER 2023-06-18 10:31 | Outpatient (BNV) | payer MEDICARE, SELFPAY | END 2023-06-19 07:00 | PROVIDERS: Admitting Provider Internal Medicine Critical Care Medicine; Emergency Provider Emergency Medicine; PCP Internal Medicine; Visit Provider Internal Medicine Cardiovascular Disease | DX: I35.0 Nonrheumatic aortic (valve) stenosis (principal) | CPT/HCPCS: 93306 ==

== ENCOUNTER → 2023-06-18 10:31 | Outpatient (BNV) | payer MEDICARE, SELFPAY | PROVIDERS: Admitting Provider Internal Medicine Critical Care Medicine; Emergency Provider Emergency Medicine; PCP Internal Medicine; Visit Provider Internal Medicine Critical Care Medicine | DX: J96.21 Acute and chronic respiratory failure with hypoxia (principal); J96.22 Acute and chronic respiratory failure with hypercapnia; I48.91 Unspecified atrial fibrillation; R56.9 Unspecified convulsions | CPT/HCPCS: 36556; 99291; 99292 ==

== ENCOUNTER → 2023-06-18 10:31 | Outpatient (BNV) | payer MEDICARE, SELFPAY | PROVIDERS: Admitting Provider Internal Medicine Critical Care Medicine; Emergency Provider Emergency Medicine; PCP Internal Medicine; Visit Provider Nurse Practitioner Acute Care | DX: J18.9 Pneumonia, unspecified organism (principal) | CPT/HCPCS: 99232; 99239; 99499 ==